=== PATIENT | female | born 1940 | race Caucasian/White ===

== ENCOUNTER 2022-07-24 09:18 | Outpatient (CLI) | payer MEDICARE, BC, SELFPAY ==
--- OUTSIDE RECORDS SUMMARY | 2022-07-24 09:26 | XMS_ITS | Clinical Summary ---
:1940 [facility] Organization [facility] Address [address] [place] [id number] Care Team Providers Name Role Phone Elsewhere, Pcp Primary Care Provider Unavailable Source Comments Patient records contain information [facility] sites at [facility]. For routine questions regarding patient records, call [phone] during business hours, M-F 8:00 AM - 5:00 PM Central Time. Record requests for emergency care only can be directed to [phone] at any time.[facility] Allergies Active Allergy Reactions Severity Noted Date Comments Penicillins Rash Medium 08/13/1989 Medications Medication Sig Dispensed Refills Start Date End Date Status ascorbic acid, vitamin Take 500 mg by 0 Active C, (VITAMIN C) 500 mg mouth. tablet calcium Take 2 tablets by 0 10/07/2018 A ctive citrate-vitamin D3 315 mouth. mg-6.25 mcg (250 Unit) per tablet latanoprost (XALATAN) Administer 1 drop 0 04/21/2021 Active 0.005 % ophthalmic into both eyes at solution bedtime. levothyroxine Take 88 mcg by 0 05/24/2021 Active (SYNTHROID, mouth daily. LEVOTHROID) 88 mcg tablet timolol (TIMOPTIC) 0.5 Administer 1 drop 10 mL 11 2 Active % ophthalmic solution into both eyes 2 (two) times a day. latanoprost (XALATAN) Administer 1 drop 2.5 mL 6 07/18/2022 Active 0.005 % ophthalmic into both eyes at solution bedtime. Active Problems Problem Noted Date Depression Major Recurrent 12/14/2011 Overview: Major Depression Recurrent Episode NOS ( 296.30) onset unknown Encounters Date Type Specialty Care Team Description 07/18/2022 Refill Ophthalmology Ramon Restrepo M.D. Ak d Refill 06/30/2022 Immunization Family Medicine Federico Cabrera M.D. from Last 3 Months Immunizations Name Administration Dates Next Due Influenza high dose QV(65 years or older) 05/23/2021, 2019, 06/18/2019 (PF) SARS-COV-2 (COVID-19) - PFIZER (12 years 08/25/2021, 021, 12/29/2020 or older) SARS-COV-2 (COVID-19) - PFIZER BIVALENT 06/30/2022 BOOSTER TS(12 YEARS OR OLDER) SARS-COV-2 (COVID-19) - PFIZER TS(12 01/24/2022 years or older) Td (Adult), adsorbed 06/10/2010 Td Preservative Free (TENIVAC, DECAVAC) 03/15/2021, 06/10/20 10 Tdap 06/10/2010 influenza high dose (65 years or older) 06/18/2019 (PF) Family History Medical History Relation Name Comments Bipolar disorder Brother Colon cancer Brother Diabetes Brother Breast cancer Father's Sister Cataracts Mother Glaucoma Mother Breast cancer Sister Cataracts Sister Macular degeneration Sister Retinal detachment Sister Amblyopia Neg Hx Blindness Neg Hx Retinal degeneration Neg Hx Relation Name Status Comments Brother Father's Sister Mother Sister Social History Tobacco Use Types Packs/Day Years Used Date Smoking Tobacco: Never Smokeless Tobacco: Never Sex Assigned at Date Recorded Not on file Last Filed Vital Signs Vital Sign Reading Time Taken Comments Blood Pressure 126/65 06/08/2016 8:36 AM CDT Pulse 63 06/08/2016 8:36 AM CDT Temperature - - Respiratory Rate 18 06/08/2016 8:36 AM CDT Oxygen Saturation - - Inhaled Oxygen Concentration - - Weight 53.2 kg (117 lb 4.6 oz) 06/08/2016 8:36 AM CDT Height 158 cm (5' 2.21) 06/08/2016 8:36 AM CDT Body Mass Index 21.31 06/08/2016 8:36 AM CDT Plan of Treatment Health Maintenance Due Date Last Done Comments Depression Monitoring (PHQ-9) 1940 Hepatitis C Screening 1940 Zoster Vaccines (1 of 2) 1992 Pneumococcal vaccine (65+ years) 2007 (1 - PCV) DTaP,Tdap,and Td Vaccines (1 - 03/16/2021 03/15/2021, 06/10, Tdap) 06/10/2010, Additional history exists Thyroid Stimulating Hormone (TSH) 08/19/2021 08/19/2020, , test for thyroid function 07/15/2018, Additional history exists FIT Discontinued 06/16/2014 Cologuard Discontinued 06/25/2015 Colorectal Cancer Screening Discontinued Colorectal Cancer Surveillance Discontinued Fall Risk Screen (Annual) Completed 09/09/2021 Influenza Vaccine Completed 06/20/2022, 05/23/2021, 06/08/2020, Additional history exists COVID-19 Vaccine Completed 06/30/2022, 01/24/2022, 08/25/2021, Additional history exists CT Colonography Discontinued CT Colonography Discontinued Colonoscopy Discontinued Colonoscopy Discontinued Insurance Payer Benefit Plan Subscriber ID Effective Phone Address Typ e / Group Dates MEDICARE MEDICARE A [id number] 2007-Pres [address] [place] [address] [employer] [employer] [id number] 2020-Pres [phone] PO ISAIAS X Cost Share BLUE SHIELD BLUE COST ent [phone] [place] [address] Care Teams Hoister Relationship Specialty Start Date End Date Elsewhere, Pcp PCP - General 09/01/19
--- OUTSIDE RECORDS SUMMARY | 2022-07-24 09:26 | XMS_ITS | Encounter Summary ---
:1940 Author Organization [facility] Address [address] [place] [id number] Care Team Providers Name Role Phone Elsewhere, Pcp Primary Care Provider Unavailable Reason for Visit Reason Comments Patient Education Encounter Details Date Type Department Care Team Description 10/07/2020 Clinical Communication Department of Dorian King Education Infusion Therapy in [place], R.N. [place], [address] [place] [phone] [facility] [phone] [place], [place] (Work) [phone] Social History Tobacco Use Types Packs/Day Years Used Date Smoking Tobacco: Never Sex Assigned at Date Recorded Not on file documented as of this encounter Miscellaneous Notes Telephone Encounter - Dorian King R.N. - 10/07/2020 11:47 AM CST SUBJECTIVE CHIEF COMPLAINT / REASON FOR CALL Patient Education Information Discussed Hi, my name is Dorian King R.N. from [facility] with a recommendation that you receive a monoclonal antibody infusion for the treatment of coronavirus disease 2019 (COVID-19). This medication could be either bamlanivimab or a casirivimab and imdevimab combination. This medication has been recommended for you after review of your medical records by a multidisciplinary physician team. While most people do feel better in seven days, some people do develop serious respiratory complications which could lead to hospitalizations or even . You may have been told that there were no treatments at thetime of diagnosis, but this is a quickly developing area and this is a new [place] recommended treatment option for you. In the next few minutes I am going to give you more information about these medications to help you understand the possible risks and benefits of taking a monoclonal antibody infusion It is your choice to receive a monoclonal antibody infusion or stop at any time. ??? Receiving a monoclonal antibody infusion may benefit certain people with COVID-19. ??? This may decrease your risk for hospitalization by 10% to 3% ??? This may decrease the duration of your symptoms by 2 days ( from 8 days to 6 days) ??? You may be feeling well now or not that bad, however, you have been identified as someone who isat risk of developing worse symptoms, and this infusion is designed to prevent that and help you to continue feeling well. What is a monoclonal antibody infusion? These are investigational medicines used for the treatment of COVID-19, it can be used in peoplewho are: o Not in the hospital o Who do not have a new or increased oxygen requirement due to COVID-19 o Who have not tested positive for COVID-19 previously o Age 12 and older o Have mild or moderate symptoms o Weigh equal or more than 88 pounds o AND who are at high risk for developing severe COVID-19 symptoms or being hospitalized. Do you have new or increased oxygen requirement due to COVID 19? No, I do need to let you know that your vital signs will be taken on the arrival for the infusion center. If you are found to be in needof oxygen due to COVID-19 then you will not be infused with MAB rather you will be referred to an urgent care or ED for evaluation of worsening disease. Have you been previously tested and diagnosed with COVID-19? No. I need to let you know that these medications are investigational because it is still being studied.The FDA has approved the use of this medication under an EUA while data is still being collected; but early studies suggest that it reduces the risk of hospitalization. The FDA's Emergency Use Authorization (EUA) has authorized people to receive monoclonal antibody infusions for the treatment of mild COVID-19 . [facility] supports this treatment for certain people. Tell your healthcare provider about all of your medical conditions, including if you: ??? Have any allergies ??? Are or plan to become ??? Are or plan to breastfeed ??? Have any serious illnesses ??? Are taking any medications (prescription, jqek-nvp-minewhs, vitamins, and herbal products) How will I receive a monoclonal antibody infusion? Monoclonal antibodies are given to you through a vein in your arm over 1-2 hours. You will be observed for 1 hour after the infusion is complete to monitor for side effects You will receive one dose of a monoclonal antibody infusion by IV infusion. What are the important possible side effects of monoclonal antibodies? The most commonly reported side effects in clinical studies have been nausea, diarrhea, dizziness, headache, itching and vomiting. Serious reactions such as allergic reactions or infusion reactions have occurred but are uncommon. Tell your health care provider right away if you have any of the following signs or symptoms of an allergic reaction: fever, chills, nausea, headache, shortness of breath, low blood pressure, wheezing, swelling of your lips face or throat, rash including hives, itching, muscle aches and dizziness. Because monoclonal antibody infusions are still being studied, not a lot of people have been given monoclonal antibody infusions yet, and it is possible that not all of the risks are known at this time. Serious and unexpected side effects may happen. Specific studies have not been conducted to address the possible risks that a monoclonal antibody infusion could interfere with your body's own ability to fight off a future infection of SARS-CoV-2 and/or whether it could reduce your body's immune response to a vaccine for SARS-CoV-2 . Talk to your healthcare provider if you have any questions including whether the risks of serious SARS-CoV-2 infection outweigh the potential risks of monoclonal antibody infusion. Patients who receive a monoclonal antibody infusion are still eligible for a COVID-19 vaccine. Patients who receive monoclonal antibody therapies are advised to delay COVID vaccination for 90 days after receiving the monoclonal therapy. Some patients have expressed concerns about disrupting their vaccine schedule by accepting the monoclonal therapy. We strongly recommend that patients offered monoclonal therapies not decline treatments due to concerns about interfering with vaccination schedules. The vaccine is not an effective treatment for an acute COVID infection but an infusion of monoclonalantibodies is and existing data shows that the risk of re- infection with COVID-19 within 90 days is low. CDC experts agree that the benefits of monoclonal therapies is greater than the risk of delaying vaccination. We wanted you to know that [facility] is encouraging you to treat the illness you have now, this will help you right away and retirement while still being eligible for the vaccine. Have you had a COVID-19 vaccine? No I am happy to share with you that in 3 months [facility] has infused over 4000 patients with a monoclonal antibody infusion across our [place] sites. I am sharing this because we have not seen any serious side effects in the patients who chose to receive the infusion. The side effects that we are seeing are similar to patients who chose not to receive the medication at all. Patients have reportedto us mild fever, diarrhea, chills for a short while, and/or hives. What other treatment choices are there? Like monoclonal antibody infusions, the FDA may allow for the emergency use of other medicines to treat people with COVID-19. Go to https://www.cvgfe28gkumeugwmrsgmzrxxdi.nih.gov/ for information on the emergency use of other medicines that are not approved by FDA to treat people with COVID- 19. Your healthcare provider may talk with you about clinical trials you may be eligible for. It is your choice to be treated or not to be treated with a monoclonal antibody infusion. Should youdecide not to receive a monoclonal antibody infusion or stop it at any time, it will not change yourstandard medical care. Are you or ? No. How do I report side effects with monoclonal antibody infusion? Tell your healthcare provider right away if you have any urgent side effects. For non-urgent side effects or side effects that bothers you or does not go away please the care team coordinating your COVID care during business hours. This may be your primary care provider, your COVID care team or your remote monitoring nurse team, which ever is applicable after emergency care, if needed, has been reached. Report side effects to FDA MedWatch at www.fda.gov/medwatch, call 4-381-TWB-2431. How can I learn more? Ask your healthcare provider ??? Visit https://www.dzmef41wnmlkhpyqblhsyqawlt.nih.gov/ ??? Contact your local or state public health department Would you like to learn more about what an Emergency Use Authorization ( EUA)?Yes; [facility] has made these monoclonal antibody infusions available under an emergency access mechanism called an EUA. The EUA is supported by a [place] of Health and Human Service (HHS) declaration that circumstances exist to justify the emergency use of drugs and biological products during the COVID-19 pandemic. What is the cost for this medication? The medication is provided to [facility] at no charge and there is not cost of the medication to you the patient. Any associated costs with the infusion will be billed to the patient's insurance company. [place] does not want cost to be a barrier to infusion so please let us know at your infusion if youneed more information or are worried about cost being a barrier. If you are uninsured or underinsured you will still be able to receive this medication free of cost. Please know that there has been a large review by pharmacists, and this medication is not likely to interfere with any normal medication patients may be taking. This is possible as your body processes this medication differently than standard prescription medications. Given how this medication helps your body it is better to receive this medication as soon as possible if you agree to the infusion. I want to let you know that there is no known evidence that one of these medications is better or worse than another in terms of effectiveness or known risk of side effects. Please also know that the medication you will receive will be by chance based on the medication supply, infusion location, and the date of your appointment. Please know that our team is offering and will provide you this treatment for COVID-19 as part of a larger team that is coordinating your overall care. If you have continued questions after your infusion or your symptoms get worse please reach out to the team coordinating your clinical care, either a COVID-19 focused team or your primary care provider's office. If you have a patient portal please look at your messages as there may be one awaiting your review from the clinical team coordinating your care. Do you agree/consent to receive this infusion? No; Would you be comfortable telling me why? not interested Thank you for your time, I will connect with the rest of the team to let them know the results of this phone call. PLAN Disposition/Recommendation: self-care is appropriate at this time, patient encouraged to call back with questions Information/Education: patient/caller able to teach back Caller agreeable to plan of care: yes The following references were used: nursing clinical judgement and patient education resources: Monoclonal Antibody Education T CREASER documented in this encounter Plan of Treatment Not on filedocumented as of this encounter Visit Diagnoses Not on filedocumented in this encounter Additional Health Concerns Infection Onset Date Last Indicated Resolved Time COVID19 Pending 10/06/2020 10/06/2020 10/07/2020 4:53 AM SHIRT CREASER COVID19 10/06/2020 10/06/2020 10/26/2020 4:47 AM CDT documented as of this encounter Care Teams Senior Hardware Engineer Relationship Specialty Start Date End Date Elsewhere, Pcp PCP - General 09/01/19 documented as of this encounter
--- OUTSIDE RECORDS SUMMARY | 2022-07-24 09:26 | XMS_ITS | Encounter Summary ---
:1940 Author Organization [facility] Address [address] [place] [address] Care Team Providers Name Role Phone Elsewhere, Pcp Primary Care Provider Unavailable Reason for Visit Appointment Request (Routine) - Closed Specialty Diagnoses / Procedures Referred By Contact Refer red To Contact Family Medicine Referral ID Status Reason Start Date Expiration Date Visits Requ ested Visits Authorized [id number] Closed 08/08/2021 08/08/2022 1 1 Encounter Details Date Type Department Care Team Description 08/25/2021 [facility], [facility], [address] [place] [place] [place] [address] [address] [place] [address] [phone] Social History Tobacco Use Types Packs/Day Years Used Date Smoking Tobacco: Never Smokeless Tobacco: Never Sex Assigned at Date Recorded Not on file documented as of this encounter Plan of Treatment Not on filedocumented as of this encounter Visit Diagnoses Not on filedocumented in this encounter Care Teams Pan Shaker Relationship Specialty Start Date End Date Elsewhere, Pcp PCP - General 09/01/19 documented as of this encounter
--- OUTSIDE RECORDS SUMMARY | 2022-07-24 09:26 | XMS_ITS | Encounter Summary ---
:1940 Author Organization [facility] Address [address] [place] [address] Care Team Providers Name Role Phone Elsewhere, Pcp Primary Care Provider Unavailable Reason for Visit Reason Comments COVKATHI Nurse Lety Encounter Details Date Type Department Care Team Description 10/06/2020 Clinical Communication Division of TITI Nunez Nurse Lety [facility] Internal Gali Owusu R.N. [address] in [place], [place] [address] [place] [address] [place], [place] (Work) [phone] Social History Tobacco Use Types Packs/Day Years Used Date Smoking Tobacco: Never Sex Assigned at Date Recorded Not on file documented as of this encounter Miscellaneous Notes Telephone Encounter - Gali Nunez R.N. 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 (Continue Screening)(Exposure 10/03) In the last 48 hours, have you had a fever* OR symptoms that are unrelated to a preexisting illness?: No symptoms noted (Continue Screening)(Patient has had syptoms of cold for one week) Have you tested positive for COVID-19 in the last 90 days?: No (Continue Screening) Have you been advised to undergo testing or are you requesting testing?: Yes, COVID-19 testing recommended (End Screening) Do you have any of the following urgent symptoms?: No urgent symptoms noted (Continue Screening) Have you tested positive for COVID-19 in the last 45 days?: No (Continue Screening) Are ALL the following criteria met: age between 18 to 75 yrs, main symptom is a sore throat with duration of 24 hrs to 7 days, onset of sore throat not associated with new upper respiratory symptoms*? : No, COVID testing is recommended (End Screening) Symptom Onset Date of symptom onset: 09/29/20 Testing Recommendation Endpoint Is testing recommended? : Recommended to test PLAN Endpoint recommendation: Screening negative, COVID- 19 testing indicated per request for self, sent to [facility] located at [address] [place] [address]. You must schedule an appointment for testing at this location. Please call [phone] during the hours of 7am to 7:30 pm (M-F) or 8am to 4:30pm (Satand Sun) for an appointment time. Testing hours are 9 am to 5 pm (M-F) and 9 am to 1 pm (Sat and Sun). When you arrive at the testing site: Remain in your vehicle and check-in by calling the number listed on the signage at the testing site or provided to you at the time you schedule your testing appointment. and Please avoid using public transportation per CDC recommendation. If you do not have personal transportation please self-quarantine until a personal transportation option is available. Care Points: -Wash hands frequently with soap and water for at least 20 seconds -If soap and water are not available, use a hand servicing rep -Avoid touching your eyes, nose and mouth. -Clean and disinfect high-touch surfaces routinely. -Wear a mask over your nose and mouth. A cloth face cover is not a substitute for social distancing -Continue to keep about 6 feet between yourself and others. -Avoid public areas and public transportation. -Find new ways to connect with family and friends, get support and share feelings. -Seek emergent care if any of the following occur Trouble breathing Bluish lips or face Persistent pain or pressure in the chest New confusion or inability to rouse. -Notify your regular care provider of any new or worsening symptoms. Symptomatic Carepoints: Separate yourself from others and stay in a specific sick room if able. Avoid sharing personal or household items. Rest. Hydrate. Take Acetaminophen/Ibuprofen as needed to control fever and muscles aches. Use over the counter medications as needed for other symptoms. ExposureCarepoints: Continue to quarantine for 14 days from your last known exposure to someone with a laboratory confirmed case of COVID-19 regardless of a negative test result unless otherwise directed. If you have completed your COVID-19 vaccination series greater than 2 weeks ago and within the past 90 days, you do not need to quarantine as long as you remain asymptomatic. Regardless of vaccination status, If you remain asymptomatic and wish to be tested it is recommended that you wait 5-7 days after the exposure before testing unless otherwise directed. Testing is recommended if you become symptomaticat any point. Education: Patient/caregiver able to teach back Patient agreeable to plan of care: Yes The following references were used: [facility] novel coronavirus (COVID- 19) resources Nursing judgement ER REPAIR TECHNICIAN documented in this encounter Plan of Treatment Not on filedocumented as of this encounter Visit Diagnoses Not on filedocumented in this encounter Care Teams Flame Burner Relationship Specialty Start Date End Date Elsewhere, Pcp PCP - General 09/01/19 documented as of this encounter
--- OUTSIDE RECORDS SUMMARY | 2022-07-24 09:26 | XMS_ITS | Encounter Summary ---
:1940 Author Organization [facility] Address [address] [place] [address] Care Team Providers Name Role Phone Elsewhere, Pcp Primary Care Provider Unavailable Reason for Referral Outpatient (Routine) - Authorized Specialty Diagnoses / Procedures Referred By Contact Refer red To Contact Ophthalmology Ramon Restrepo M.D. [facility] [address] [phone] Referral ID Status Reason Start Date Expiration Date Visits V isits Requested Authorized [id number] Authorized 04/05/2022 04/04/2025 1 1 Outpatient (Routine) - Authorized Specialty Diagnoses / Procedures Referred By Contact Refer carmelo To Contact Ophthalmology Ramon Restrepo M.D. [facility] Region [address] [place] [address] [phone] Referral ID Status Reason Start Date Expiration Date Visits V isits Requested Authorized [id number] Authorized 04/04/2022 04/03/2025 1 1 Reason for Visit Reason Comments Glaucoma Encounter Details Date Type Department Care Team Description 04/04/2022 Ancillary Department of Kaye, Primary Open-A ngle Procedure Ophthalmology in Carmelo Coats M.D. Glaucoma [place], [place] [address] [facility] Stage Bilateral [address] [place] [address] [phone] Social History Tobacco Use Types Packs/Day Years Used Date Smoking Tobacco: Never Smokeless Tobacco: Never Sex Assigned at Date Recorded Not on file documented as of this encounter Progress Notes Ramon Restrepo M.D. - 04/04/2022 2:15 PM CDT Lynnette Thompson was seen today for Glaucoma #1 Primary Open-Angle Glaucoma Severe Stage Bilateral The patient is here to follow-up on her advanced open-angle glaucoma. She has noticed little change in her vision although or complaint is becoming more difficult because of dexterity. She takes her drops as prescribed. She is status post selective laser trabeculoplasty in July 2021. Goal IOP is mid teens. Examination: Visual granados by confrontation are intact, motility full, pupils no afferent defect, external normal. Slit-lamp examination: Lid margins clean, conjunctiva and sclera are quiet, corneas clear, chambers quiet, IOLs in good position. IOP noted at 20 OD and 16 OS. Visual field testing today shows a marked improvement from her most recent visual field. That visualfield had questionable reliability. Impression: Moderate to advanced open-angle glaucoma with borderline IOP control OD and good IOP control OS Plan: 1. Continue with current medications 2. Recheck in 6 months with repeat visual field testing. documented in this encounter Plan of Treatment Scheduled Referrals Name Type Priority Associated Order Schedule Diagnoses Ophthalmology office Outpatient Referral Routine Expected: visit (clinic) 10/05/2022 (Approximate), Expires: 07/05/2023 Ophthalmology office Outpatient Referral Routine Expected: visit (clinic) 10/06/2022 (Approximate), Expires: 07/06/2023 documented as of this encounter Procedures Procedure Name Priority Date/Time Associated Diagnosis Comme nts AUTOMATED VF - Routine 04/04/2022 3:24 PM Primary Open-Angle R esults for this EXTENDED - OU - CDT Glaucoma Severe procedure are in BOTH EYES Stage Bilateral the results section. documented in this encounter Results Automated VF - Extended - OU - Both Eyes (04/04/2022 3:24 PM CDT) Specimen (Source) Anatomical Location Collection Method / Collectio n Time Received Time / Laterality Volume Narrative OPHTHALMOLOGY IMAGING EXAM - 04/04/20 22 3:24 PM CDT Right Eye Reliability was good. Threshold was 24-2 . Progression has improved. Left Eye Reliability was good. Threshold was 24-2 . Progression has improved. Ramon Restrepo M.D. OPHTH VISUAL FIELD Performing Organization Address City/State/ZIP Code Phon e Number OPHTHALMOLOGY IMAGING EXAM documented in this encounter Visit Diagnoses Diagnosis Primary Open-Angle Glaucoma Severe Stage Bilateral documented in this encounter Care Teams Crop Farm Helper Relationship Specialty Start Date End Date Elsewhere, Pcp PCP - General 09/01/19 documented as of this encounter
--- OUTSIDE RECORDS SUMMARY | 2022-07-24 09:26 | XMS_ITS | Encounter Summary ---
:1940 Author Organization [facility] Address [address] [place] [address] Care Team Providers Name Role Phone Elsewhere, Pcp Primary Care Provider Unavailable Reason for Referral Outpatient (Routine) - Closed Specialty Diagnoses / Procedures Referred By Contact Refer red To Contact Diagnoses Primary Open-Angle Glaucoma Severe Stage Bilateral Ramon Restrepo M.D. [facility] Region Procedures Laser Trabeculoplasty - OU - Both Eyes [address] [place] [address] Referral ID Status Reason Start Date Expiration Date Visits Requ ested Visits Authorized [id number] Closed 06/07/2021 06/07/2022 1 1 Reason for Visit Reason Comments Glaucoma Appointment Request (Routine) - Closed Specialty Diagnoses / Procedures Referred By Contact Refer red To Contact Ophthalmology Referral ID Status Reason Start Date Expiration Date Visits Requ ested Visits Authorized [id number] Closed 04/13/2021 04/13/2022 1 1 Encounter Details Date Type Department Care Team Description 06/07/2021 Ancillary Department of Kaye Primary Open-A ngle Procedure Ophthalmology in Carmelo Coats M.D. Glaucoma Severe [place], [place] [address] Stage Bilateral [address] (Primary Dx) [place] [phone] Social History Tobacco Use Types Packs/Day Years Used Date Smoking Tobacco: Never Smokeless Tobacco: Never Sex Assigned at Date Recorded Not on file documented as of this encounter Progress Notes Ramon Restrepo M.D. - 06/07/2021 2:15 PM CDT Lynnette Thompson was seen today for Glaucoma #1 Primary Open-Angle Glaucoma Severe Stage Bilateral The patient is referred by Dr. Elizabeth for evaluation regarding open-angle glaucoma. The patient has alongstanding history of open-angle glaucoma. She has not noticed any change in her subjective vision. She is currently taking timolol 1 drop OU b.i.d. and latanoprost [address] Elizabeth had recorded intra- ocular pressures in the upper 20s. 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 In addition she reads and drys comfortably. Examination: Visual granados by confrontation are full OD but somewhat restricted OS, motility full, pupils show no afferent defect. Slit-lamp exam: Lid margins clean, conjunctiva is clear quiet, corneas clear, chambers deep and quiet with open angles, lens implants well positioned. Fundus: There is pallor and cupping noted OU. The macula, arcades and periphery appear normal. Optic nerve optical coherence tomography testing shows significant superior and inferior nerve fiberlayer thinning OU. Recent visual field testing in Dr. Elizabeth office shows dense inferior arcuate and nasal step scotoma OD with questionable reliability. Severe generalized visual field loss in the lefteye with questionable reliability. IOP today measures 19 OD and 15 OS and is confirmed by Dr. Restrepo. Impression: Severe open-angle glaucoma. Better IOP control on timolol 1 drop OU b.i.d. and latanoprost 1 drop OU q.h.s.. Goal IOP would be 15 or less in each eye. Plan: 1. Continue current glaucoma medications 2. Return to clinic for selective laser trabeculoplasty OU. I will contact Dr. Elizbaeth once we have completed the course of therapy and have achieve better IOP control. documented in this encounter Plan of Treatment Not on filedocumented as of this encounter Procedures Procedure Name Priority Date/Time Associated Comments Diagnosis OPTICAL COHERENCE Routine 06/08/2021 10:11 AM Primary Open-Ang le Results for this TOMOGRAPHY (OCT) - CDT Glaucoma Severe proced ure are in OPTIC NERVE - OU - Stage Bilateral the re sults BOTH EYES section. documented in this encounter Results Laser Trabeculoplasty - OU - Both Eyes (08/08/2021 1:26 PM FREIGHT ENGINEER) Specimen (Source) Anatomical Location Collection Method / Collectio n Time Received Time / Laterality Volume Narrative OPHTHALMOLGY NON-IMAGING ORDERS - 1:26 PM FREIGHT ENGINEER Time Out Confirmed correct patient, procedure, si te, and patient consented. Procedure Procedure was SLT. Right Eye Anesthesia medications included Pilocarp ine 1%. Left Eye Anesthesia medications included Pilocarp ine 1%. Laser Information Right Eye The type of laser was yag. Laser power w as 1 milliwatts. Total spots was 95. Left Eye The type of laser was yag. Laser power w as 1 milliwatts. Total spots was 95. Post-op The patient tolerated the procedure well . There were no complications. The patient received written and verbal post procedure care education. Notes FML both eyes tid x [address] Elizabeth intraocular pressure check in 2-3 weeks. Ramon Restrepo M.D. OPHTH CLINIC PROCEDURES Performing Organization Address City/Va Hospital/ZIP Code Phon e Number OPHTHALMOL NON-IMAGING ORDERS Optical Coherence Tomography (OCT) - Optic Nerve - OU - Both Eyes (06/08/2021 10:11 AM CDT) Specimen (Source) Anatomical Location Collection Method / Collectio n Time Received Time / Laterality Volume Narrative OPHTHALMOLOGY IMAGING EXAM - 06/08/20 21 10:11 AM CDT OCT device used was Cirrus . Right Eye Reliability was good. Temporal thickness was normal. Superior thickness was showing abnormal thinning. Nasal thi ckness was normal. Inferior thickness was showing abnormal thinning. Left Eye Reliability was good. Temporal thickness was normal. Superior thickness was showing abnormal thinning. Nasal thi ckness was normal. Inferior thickness was showing abnormal thinning. Ramon Restrepo M.D. OPHTH TOMOGRAPHY Performing Organization Address City/State/ZIP Code Phon e Number OPHTHALMOLOGY IMAGING EXAM documented in this encounter Visit Diagnoses Diagnosis Primary Open-Angle Glaucoma Severe Stage Bilateral - Primary Primary Open-Angle Glaucoma Severe Stage Bilateral documented in this encounter Care Teams Rubber Stamp Maker Relationship Specialty Start Date End Date Elsewhere, Pcp PCP - General 09/01/19 documented as of this encounter
--- OUTSIDE RECORDS SUMMARY | 2022-07-24 09:26 | XMS_ITS | Encounter Summary ---
:1940 Author Organization [facility] Address [address] [place] [address] Care Team Providers Name Role Phone Gunner Soas APRN, C.N.P. Primary Care Provider [phone] Encounter Details Date Type Department Care Team Description 11/01/2017 Hospital Encounter Department of Mirella Conteh, Constipation Radiology in [address] [address] [place], [place] [phone] (W ork) [id number] [phone] Social History Tobacco Use Types Packs/Day Years Used Date Smoking Tobacco: Never Sex Assigned at Date Recorded Not on file documented as of this encounter Plan of Treatment Not on filedocumented as of this encounter Procedures Procedure Name Priority Date/Time Associated Comments Diagnosis CT ABDOMEN PELVIS RAD - Routine 11/01/2017 8:46 Constipation Result s for this WITH IV CONTRAST (most inpatients AM CDT procedu re are in and all the results outpatients) section. documented in this encounter Results CT Abdomen Pelvis with IV Contrast (11/01/2017 8:46 AM CDT) Anatomical Region Laterality Modality Abdomen, Pelvis N/A Computed Tomography Specimen (Source) Anatomical Collection Method Collection Time Re ceived Time Location / / Volume Laterality 11/01/2017 9:07 AM CDT Impressions 11/01/2017 9:18 AM CDT IMPRESSION: 1. ??Moderate colonic stool load. No fausto dence for bowel obstruction. 2. ??T12, L1, L2, L3 and L5 compression fractures. 3. ??Bulky indeterminate calcifications of the left adnexa with prominence of the left periuterine vasculature. 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 Findings could be fur ther assessed with pelvic ultrasound if clinically indicated. Narrative 11/01/2017 9:18 AM CDT EXAM: CT ABDOMEN PELVIS WITH IV CONTRAST COMPARISON: None FINDINGS: No lung base consolidation. Minimal reti cular opacities at the lung bases, favor atelectasis, less likely fibrosis. Liver is unremarkable. Gallbladder is not distended. Unremarkable pancreas and spl een. No suspicious adrenal gland lesions. The kidneys enhance symmetrical ly. No hydronephrosis. No pneumoperitoneum. Motion artifact deg rades motion quality. No evidence of small bowel obstruction. No findings of diverticulitis. Moderate colonic stool load. No evidence for appendicitis. Tort uous aorta. No abdominal aortic aneurysm. No lymphadenopathy by size cri teria. Urinary bladder is unremarkable. Pelvic phleboliths. Uterine vascular thalia cifications. Bulky calcifications in the left adnexa with asymmetrically prominen t left periuterine vasculature and mild prominence of the left ovarian vein. Bon e demineralization. T12, L1, L2, L3 and L5 compression fractures. The mild retro pulsion at L5. Procedure Note Alejandro Delgado M.D. - 11/01/2017Formatt ing of this note might be different from the original. EXAM: CT ABDOMEN PELVIS WITH IV CONTRAST COMPARISON: None FINDINGS: No lung base consolidation. Minimal reti cular opacities at the lung bases, favor atelectasis, less likely fibrosis. Liver is unremarkable. Gallbladder is not distended. Unremarkable pancreas and spl een. No suspicious adrenal gland lesions. The kidneys enhance symmetrical ly. No hydronephrosis. No pneumoperitoneum. Motion artifact deg rades motion quality. No evidence of small bowel obstruction. No findings of diverticulitis. Moderate colonic stool load. No evidence for appendicitis. Tort uous aorta. No abdominal aortic aneurysm. No lymphadenopathy by size cri teria. Urinary bladder is unremarkable. Pelvic phleboliths. Uterine vascular thalia cifications. Bulky calcifications in the left adnexa with asymmetrically prominen t left periuterine vasculature and mild prominence of the left ovarian vein. Bon e demineralization. T12, L1, L2, L3 and L5 compression fractures. The mild retro pulsion at L5. IMPRESSION: 1. Moderate colonic stool load. No evide nce for bowel obstruction. 2. T12, L1, L2, L3 and L5 compression fr actures. 3. Bulky indeterminate calcifications of the left adnexa with prominence of the left periuterine vasculature. 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 Findings could be fur ther assessed with pelvic ultrasound if clinically indicated. Mirella VillaNZayda IMNaun CT PROCEDURES documented in this encounter Visit Diagnoses Diagnosis Constipation documented in this encounter Administered Medications Inactive Administered Medications - up to 3 most recent administrations Medication Order MAR Action Action Date Dose Rate Site iohexol 300 mg iodine/mL solution Given 11/01/2017 8:21 AM CDT 8 0 mL 80 mL (for_OMNIPAQUE) 80 mL, intravenous, Once in imaging, contrast, Starting on Janeth 11/01/17 at 0812, For 1 dose NaCl 0.9 % bolus 70 mL New Bag 11/01/2017 8:15 AM CDT 70 mL 70 mL, intravenous, Once, On Janeth 11/01/17 at 0815, For 1 dose sodium chloride injection 10 mL Given 11/01/2017 8:43 AM CDT 10 mL 10 mL, intravenous, As needed, line care, Starting on Janeth 11/01/17 at 0812 sodium chloride injection 10 mL Given 11/01/2017 8:43 AM CDT 10 mL 10 mL, intravenous, As needed, line care, Starting on Janeth 11/01/17 at 0813 documented in this encounter Care Teams Machine Applicator Cementer Relationship Specialty Start Date End Date Gunner Sosa APRN, C.N.P. PCP - General 01/25/17 12/07/17 documented as of this encounter
--- OUTSIDE RECORDS SUMMARY | 2022-07-24 09:26 | XMS_ITS | Encounter Summary ---
:1940 Author Organization [facility] Address [address] [place] [address] Care Team Providers Name Role Phone Elsewhere, Pcp Primary Care Provider Unavailable Reason for Visit Reason Comments Med Refill Encounter Details Date Type Department Care Team Description 01/04/2022 Refill Department of Ophthalmology in Ramon Carcamo M.D. Med Refill [place], [place] 701 [facility] [address] [place] [address] [place] [address] [phone] Social History Tobacco Use Types Packs/Day Years Used Date Smoking Tobacco: Never Smokeless Tobacco: Never Sex Assigned at Date Recorded Not on file documented as of this encounter Plan of Treatment Not on filedocumented as of this encounter Visit Diagnoses Not on filedocumented in this encounter Care Teams Cvicu Nurse Relationship Specialty Start Date End Date Elsewhere, Pcp PCP - General 09/01/19 documented as of this encounter
--- OUTSIDE RECORDS SUMMARY | 2022-07-24 09:26 | XMS_ITS | Encounter Summary ---
:1940 Author Organization [facility] Address [address] [place] [address] Care Team Providers Name Role Phone Elsewhere, Pcp Primary Care Provider Unavailable Reason for Visit Appointment Request (Routine) - Closed Specialty Diagnoses / Procedures Referred By Contact Refer red To Contact Family Medicine Referral ID Status Reason Start Date Expiration Date Visits Requ ested Visits Authorized [id number] Closed 01/19/2022 01/19/2023 1 1 Encounter Details Date Type Department Care Team Description 01/24/2022 Immunization Department of [facility] Mirella Conteh, Medicine, [place] C.N.P. [facility], in [address] [address] [address] [facility] [address] [facility] [phone] Social History Tobacco Use Types Packs/Day Years Used Date Smoking Tobacco: Never Smokeless Tobacco: Never Sex Assigned at Date Recorded Not on file documented as of this encounter Plan of Treatment Not on filedocumented as of this encounter Visit Diagnoses Not on filedocumented in this encounter Care Teams Color Shop Helper Relationship Specialty Start Date End Date Elsewhere, Pcp PCP - General 09/01/19 documented as of this encounter
--- OUTSIDE RECORDS SUMMARY | 2022-07-24 09:26 | XMS_ITS | Encounter Summary ---
:1940 Author Organization [facility] Address [address] [place] [address] Care Team Providers Name Role Phone Elsewhere, Pcp Primary Care Provider Unavailable Encounter Details Date Type Department Care Team Description 01/04/2022 Clinical Communication Department of Ramon Restrepo Ophthalmology in Carmelo Coats M.D. [place], [place] [address] [facility] [address] [place] [phone] Social History Tobacco Use Types Packs/Day Years Used Date Smoking Tobacco: Never Smokeless Tobacco: Never Sex Assigned at Date Recorded Not on file documented as of this encounter Miscellaneous Notes Telephone Encounter - Felipa Taylor - 01/10/2022 10:59 AM CDT Scheduled Telephone Encounter - Tyree Richard, C.O.ACarlos - 01/04/2022 2:16 PM CDT Next available test spot will be okay if patient wants them done on the same day, as we have limitedappointment availability with current schedules. If patient is okay with the Visual Fieldto a tech only and seeing Dr. Restrepo a different day, it may be easier to have her seen sooner. If she does decide to do two different appointments, please have the Visual certified endoscopy technician only done on an earlier date than the Glaucoma/Iop check. Thank you. Telephone Encounter - Jennyfer Herrera - 01/04/2022 2:04 PM CDT Reason for Communication: Current Can Nursing/Provider leave a detailed message?: Yes Did the patient refuse triage through Nurse line? (for symptom based concerns): NA Action Needed: Patient called to schedule visual field/post op put in by Dr. Restrepo. There is not availability around when he wanted. Please review and advise where to add on Name of Medication (if relevant): NA Please send all scheduling replies to scheduling pool. documented in this encounter Plan of Treatment Not on filedocumented as of this encounter Visit Diagnoses Not on filedocumented in this encounter Care Teams Beach Expert Relationship Specialty Start Date End Date Elsewhere, Pcp PCP - General 09/01/19 documented as of this encounter
--- OUTSIDE RECORDS SUMMARY | 2022-07-24 09:26 | XMS_ITS | Encounter Summary ---
:1940 Author Organization [facility] Address [address] [place] [address] Care Team Providers Name Role Phone Elsewhere, Pcp Primary Care Provider Unavailable Reason for Visit Appointment Request (Routine) - Closed Specialty Diagnoses / Procedures Referred By Contact Refer red To Contact Family Medicine Referral ID Status Reason Start Date Expiration Date Visits Requ ested Visits Authorized [id number] Closed 06/20/2022 06/20/2023 1 1 Encounter Details Date Type Department Care Team Description 06/30/2022 Immunization Department of [facility] Federico Cabrera, Medicine, [place] M.D. Professional Building, in [address] [place], [place] [address] [facility] [place] [address] [place] [address] [phone] Social History Tobacco Use Types Packs/Day Years Used Date Smoking Tobacco: Never Smokeless Tobacco: Never Sex Assigned at Date Recorded Not on file documented as of this encounter Plan of Treatment Not on filedocumented as of this encounter Visit Diagnoses Not on filedocumented in this encounter Care Teams Dental Surgeon Relationship Specialty Start Date End Date Elsewhere, Pcp PCP - General 09/01/19 documented as of this encounter
--- OUTSIDE RECORDS SUMMARY | 2022-07-24 09:26 | XMS_ITS | Encounter Summary ---
:1940 Author Organization [facility] Address [address] [place] [address] Care Team Providers Name Role Phone Maribel Vega APRN, C.N.P., D.N.P. Primary Care Provider Encounter Details Date Type Department Care Team Description 07/22/2018 Hospital Encounter Department of Mirella Coneth, Osteopenia Radiology in [address] [address] [place], [place] [phone] (W ork) [address] [phone] Social History Tobacco Use Types Packs/Day Years Used Date Smoking Tobacco: Never Sex Assigned at Date Recorded Not on file documented as of this encounter Plan of Treatment Not on filedocumented as of this encounter Procedures Procedure Name Priority Date/Time Associated Comments Diagnosis BMD BONE DENSITY RAD - Routine 07/22/2018 9:17 Osteopenia Results for this SPINE HIPS (most inpatients AM RUBBER CUTTING MACHINE TENDER procedure a re in and all the results outpatients) section. documented in this encounter Results BMD Bone Density Spine Hips (07/22/2018 9:17 AM RUBBER CUTTING MACHINE TENDER) Anatomical Region Laterality Modality Hip, Lumbar Spine, Nuclear Medicine RST LOS, N/A Radiographic Imaging Musculoskeletal ARZ LOS, Muskuloskeletal FLA LOS Specimen (Source) Anatomical Collection Method Collection Time Re ceived Time Location / / Volume Laterality 07/22/2018 9:33 AM RUBBER CUTTING MACHINE TENDER Impressions 07/22/2018 9:34 AM RUBBER CUTTING MACHINE TENDER Impression: Osteoporosis. Narrative 07/22/2018 9:34 AM RUBBER CUTTING MACHINE TENDER EXAM: BMD BONE DENSITY SPINE HIPS COMPARISON: July 19, 2015. Paver Operator/Model: [employer] FINDINGS: ?? LUMBAR SPINE L1-L4 included unless otherwise indicate d. Lumbar BMD: 0.783 gm/cm2 T-score: -3.3 BMD % change: -5.2% Significance: Statistically significant BMD decrease from the comparison exam. HIP(S) Lowest femoral BMD: 0.687 gm/cm 2 Lowest T-score: -2.5 BMD % change: 0.7% Significance: BMD not significantly montaño ged from the comparison exam. FRAX 10 year probability of major osteop orotic fracture 22.3 % FRAX 10 year probability of hip fracture ??13.5 % FRAX scores: Not clinically validated fo r patients with history of therapy with bisphosphonates in the past two years, c alcitonin in the last year, PTH in the last year, Denosumab in the last year. ? ?Calcium and vitamin D do NOT constitute treatment' in this context. ??All treat ment decisions require clinical judgement and consideration of individual patient factors which may not be captured in the FRAX model and the risk of fracture may be over- or under-estimated by FRAX. Treatment recommended for: Patients with hip or vertebral fracture (clinical or morphometric). Patients with osteoporosis at the spine and/or hip as defined by T-score <= -2.5. Postmenopausal women or men age 50 and o lder with low bone mass (T-score -1 to -2.5, osteopenia) at the femoral neck, t otal hip, or spine and 10 year hip fracture probability >3% or a 10 year al l major osteoporosis related fracture probability of >20% based on the U.[place]. ad apted WHO absolute risk model. Exclude secondary causes of low bone den sity in the appropriate clinical setting. Follow-up exams should be performed at n o sooner than two-year intervals. Direct comparison can only be performed on exams performed at the same facility. World Health Organization T-score criter ia: 0 to -1.0 ?? Normal range < -1.0 to > -2.5 ?? Low bone density (os teopenia) -2.5 or less ?? Osteoporosis Procedure Note Michael Kay M.D. - 07/22/2018Formattin g of this note might be different from the original. EXAM: BMD BONE DENSITY SPINE HIPS COMPARISON: July 19, 2015. Paver Operator/Model: [employer] FINDINGS: LUMBAR SPINE L1-L4 included unless otherwise indicate d. Lumbar BMD: 0.783 gm/cm2 T-score: -3.3 BMD % change: -5.2% Significance: Statistically significant BMD decrease from the comparison exam. HIP(S) Lowest femoral BMD: 0.687 gm/cm 2 Lowest T-score: -2.5 BMD % change: 0.7% Significance: BMD not significantly montaño ged from the comparison exam. FRAX 10 year probability of major osteop orotic fracture 22.3 % FRAX 10 year probability of hip fracture 13.5 % FRAX scores: Not clinically validated fo r patients with history of therapy with bisphosphonates in the past two years, c alcitonin in the last year, PTH in the last year, Denosumab in the last year. C alcium and vitamin D do NOT constitute treatment' in this context. All treatme nt decisions require clinical judgement and consideration of individual patient factors which may not be captured in the FRAX model and the risk of fracture may be over- or under-estimated by FRAX. Treatment recommended for: Patients with hip or vertebral fracture (clinical or morphometric). Patients with osteoporosis at the spine and/or hip as defined by T-score <= -2.5. Postmenopausal women or men age 50 and o lder with low bone mass (T-score -1 to -2.5, osteopenia) at the femoral neck, t otal hip, or spine and 10 year hip fracture probability >3% or a 10 year al l major osteoporosis related fracture probability of >20% based on the U.[place]. ad apted WHO absolute risk model. Exclude secondary causes of low bone den sity in the appropriate clinical setting. Follow-up exams should be performed at n o sooner than two-year intervals. Direct comparison can only be performed on exams performed at the same facility. World Health Organization T-score criter ia: 0 to -1.0 Normal range < -1.0 to > -2.5 Low bone density (osteo penia) -2.5 or less Osteoporosis Impression: Osteoporosis. Mirella COLES DXA PROCEDURES documented in this encounter Visit Diagnoses Diagnosis Osteopenia documented in this encounter Care Teams Rubber Cutting Machine Tender Relationship Specialty Start Date End Date Maribel Vega APRN, C.N.P., PCP - General Family Medicine 08/31/19 D.N.[facility]arlos [address] [place] [address] documented as of this encounter
--- OUTSIDE RECORDS SUMMARY | 2022-07-24 09:26 | XMS_ITS | Encounter Summary ---
:1940 Author Organization [facility] Address [address] [place] [address] Care Team Providers Name Role Phone Elsewhere, Pcp Primary Care Provider Unavailable Reason for Visit Reason Comments Results Encounter Details Date Type Department Care Team Description 10/07/2020 Virtual Visit Division of General Francy Rice, COV ID-19 Infection Internal Medicine in [facility] (Primary Dx) [place], [place] [address] [facility] [address] [place] [phone] Social History Tobacco Use Types Packs/Day Years Used Date Smoking Tobacco: Never Sex Assigned at Date Recorded Not on file documented as of this encounter Progress Notes Francy Rice M.D. - 10/07/2020 10:30 AM CST Images from the original note were not included. TELEPHONE COMMUNICATION NOTE This was a telephone notification to Ms. Thompson to notify them that their PCR test for SARS-CoV-2 (the virus that causes COVID-19) has returned positive. The patient was interviewed, but not personally examined. Soap Grinder: no Currently Ms. Thompson has the following symptoms:congestion/rhinorrhea;sore throat Date of symptom onset: 09/30/20 Since onset, symptoms are about the same. Ms. Thompson has the following risk factors for severe infection: Age > 65 Ms. Thompson has been in the following facilities in the last 14 days: None Facility(s) name: Association with [facility]: None Employment/School: Retired--Works at a local [employer] Last date at work/school: 09/24/20 Additional household members: 1; Some are sick with known COVID PROBLEM LIST Patient Active Problem List Diagnosis ??? Depression Major Recurrent (HCC) RESULTS Microbiology Results (last 10 days) Procedure Component Value - Date/Time SARS Coronavirus-2 RNA, V Symptomatic [[id number]] (Abnormal) Collected: 10/06/20 1406 Lab Status: Final result Specimen: Varies from Nasopharynx Updated: 10/07/20 4825 SARS-CoV-2 Specimen Source Swab, Nasopharynx SARS CoV-2 RNA, TMA Detected Comment: SARS-CoV-2 RNA present. ----ADDITIONAL INFORMATION---- This molecular amplification test was performed using the Aptima SARS-CoV-2 assay ([employer] on the Come[employer] System under emergency use authorization (EUA) by the U.S. Food and Drug Administration. Fact sheets for this EUA assay can be found at the following links: For Healthcare Providers: https://www.fda.gov/media/048184/download For Patients: https://www.fda.gov/media/927448/download ASSESSMENT/PLAN #1 COVID-19 disease Duration of Isolation Beginning of isolation (day 0) Is: September 30, 2020 The patient should self- isolate at home for at least 10 days from day zero. The patient may end home isolation when they meet the following criteria: ??? It has been at least 10 days from symptom onset ??? They have been afebrile at least 24 hours without the use of fever reducing medications ??? Their symptoms are improving Symptom Assessment Ms. Thompson currently has mild symptoms and may continue home cares with rest, fluids, acetaminophen, and non-steroidal antiinflammatory medications as needed. Risk Assessment & Follow Up Recommendations Ms. Thomposn is at low risk for severe complications of COVID-19, and should follow up as needed with their primary care provider. While severe complications of Covid-19 can develop at any time, they can manifest suddenly between days 7 to 14 from symptom onset. Severe complications of COVID-19 can include viral pneumonia, Acute Respiratory Distress Syndrome, pulmonary embolism, myocardial infarction, myocarditis, acute kidney injury and concomitant viral and bacterial infections. Features of severe disease include ? ? Respiratory frequency > 30 breaths per minute ? ? SpO2 < 94% on room air with signs of lower respiratory tract infection (for patients with chronic hypoxemia, a decrease from baseline of >3%) ? ? Ratio of arterial partial pressure of oxygen to fraction of inspired oxygen (PaO2/FiO2) <300 mm Hg ??? Lung infiltrates covering over 50% of the lungs Symptoms of severe COVID-19 warrants evaluation in the Emergency Department and may include chest pain, fast heart rate, trouble breathing, hemoptysis, pain with breathing, and severe lightheadedness that interferes with activity. These symptoms raise concerns for complications of COVID-19 such as myocardial infarction, myocarditis, pulmonary embolism, pneumonia, acute respiratory distress syndrome and severe dehydration. Symptoms of moderate COVID-19 warrant evaluation in clinic for symptom management and for assessmentfor features of severe disease. Symptoms may include moderate shortness of breath, difficult to control cough, vomiting and diarrhea, weakness and severe fatigue. Symptoms of mild COVID-19 that can be managed at home include fever, chills, cough, fatigue, myalgias, sore throat, runny nose, headache, mild shortness of breath and mild chest pain. Vaccination Guidance If they already received the first of a two shot vaccine series, they may obtain the second dose once they end home isolation. Upcoming Appointments If any clinic appointments are scheduled in the next 20 days, the patient should contact their care teams for guidance on whether these appointments should be rescheduled. COVID Infection Flag The COVID infection flag in the Christa Chart will 20 days from the date of the Sars-CoV-2 PCR. Patients with ongoing symptoms beyond 20 days should remain in isolation and follow up with their care teams regarding the need to reschedule any appointments. If a provider assesses the patient and determines that they may end home isolation prior to the 20 days, they may resolve the COVID infection flag, at which time the patient may return to [facility] for on site appointments. [email or web address].org/topic/clinical-answers/prt-58795129/sec-204 89243 Quarantine of household members/close contacts [facility] continues to recommend 14 days quarantine for close contacts. Individuals who have been told by public health officials that they are eligible for a shorter quarantine of 7-10 days may choose to follow Public Health recommendations. If a close contact has been fully vaccinated, defer to public health recommendations for quarantine. Return to Work or School We have provided a general work/school excuse letter that the patient may share with a school or employer as documentation of the positive test result and initial isolation recommendations. The patientwill follow up with their primary care provider for evaluation and return to work assessment if theycontinue to have symptoms that interfere with work or school or if they do not meet criteria to end home isolation. Francy Rice M.D. [place] COVID Care Team [facility] This was a virtual visit. The patient was not seen face to face because of COVID-19. Total time spent in counselin minutes EDGER documented in this encounter Plan of Treatment Not on filedocumented as of this encounter Visit Diagnoses Diagnosis COVID-19 Infection - Primary documented in this encounter Additional Health Concerns Infection Onset Date Last Indicated Resolved Time COVID19 Pending 10/06/2020 10/06/2020 10/07/2020 4:53 AM TILE EDGER COVID19 10/06/2020 10/06/2020 10/26/2020 4:47 AM CDT documented as of this encounter Care Teams Carpenter Wooden Tank Erecting Relationship Specialty Start Date End Date Elsewhere, Pcp PCP - General 09/01/19 documented as of this encounter
--- OUTSIDE RECORDS SUMMARY | 2022-07-24 09:26 | XMS_ITS | Encounter Summary ---
:1940 Author Organization [facility] Address [address] [place] [address] Care Team Providers Name Role Phone Elsewhere, Pcp Primary Care Provider Unavailable Reason for Referral Specialty Diagnoses / Procedures Referred By Contact Refer red To Contact Flavio Coats M.D. [facility] Region [address] [facility] [place] [place] [phone] Referral ID Status Reason Start Date Expiration Date Visits Requ ested Visits Authorized A ATTORNEY Encounter Details Date Type Department Care Team Description 10/06/2020 Orders Only [facility] Sa ailyn Casas M.D. [address] [place], [place] [phone] (Wo rk) Social History Tobacco Use Types Packs/Day Years Used Date Smoking Tobacco: Never Sex Assigned at Date Recorded Not on file documented as of this encounter Plan of Treatment Scheduled Referrals Name Type Priority Associated Order Schedule Diagnoses Covid immunization Outpatient Referral Routine Ex pected: office visit Initial 021 (Approximate), Expires: 10/06/2021 documented as of this encounter Visit Diagnoses Not on filedocumented in this encounter Care Teams Ski Production Supervisor Relationship Specialty Start Date End Date Elsewhere, Pcp PCP - General 09/01/19 documented as of this encounter
--- OUTSIDE RECORDS SUMMARY | 2022-07-24 09:26 | XMS_ITS | Encounter Summary ---
:1940 Author Organization [facility] Address [address] [place] [address] Care Team Providers Name Role Phone Elsewhere, Pcp Primary Care Provider Unavailable Reason for Visit Appointment Request (Routine) - Closed Specialty Diagnoses / Referred By Contact Referred To Contact Procedures Physical Medicine and Kellen Almeida APRN, Rehabilitation C.N.P., R.N. [address] [place] [address] Referral ID Status Reason Start Date Expiration Date Visits Requ ested Visits Authorized [id number] Closed 08/30/2020 08/30/2021 1 1 Encounter Details Date Type Department Care Team Description 09/06/2020 Comprehensive Visit Department of Kellen Almeida APRN, C.N.P., R.N. [address] [place] [address] Pain Low Back Rehabilitation Dory Wright, P.T. [address] [place] [phone] (Primary Dx) Services in [address] [phone] Social History Tobacco Use Types Packs/Day Years Used Date Smoking Tobacco: Never Sex Assigned at Date Recorded Not on file documented as of this encounter Consult Notes Dory Wright P.T. - 09/06/2020 10:30 AM CST Consults Physical Therapy Outpatient Evaluation/Treatment By co-signing this note, the provider certifies the therapy being provided to this patient is reasonable and necessary for the diagnosis or treatment of this patient. SUBJECTIVE Patient's Name: Lynnette Thompson Referring Provider: Kellen Almeida APRN, C.N.* Visit Diagnosis: 1. Pain Low Back Payor: MEDICARE / Plan: MEDICARE A AND B / Product Type: Medicare / [place] Coverage Visit Count: 1 PERTINENT MEDICAL / SURGICAL HISTORY: Patient Active Problem List Diagnosis ??? Depression Major Recurrent (HCC) Past Surgical History: Procedure Laterality Date ??? PHACOEMULSIFICATION OF CATARACT WITH INTRAOCULAR LENS IMPLANTATION N/A 12/14/2014 Phacoemulsification of cataract with intraocular lens implantation ??? PHACOEMULSIFICATION OF CATARACT WITH INTRAOCULAR LENS IMPLANTATION N/A 12/28/2014 Phacoemulsification of cataract with intraocular lens implantation Lynnette Thompson is a 79 y.o. female who presents to outpatient physical therapy for evaluation. Her symptoms consist of: 1. LBP Overall she reports her status is improving . History of Present Illness: Patient reports a history of compression fractures 2-3 years ago. Since she has noted improving pain but decreasing posture. Patient would like to establish a home exercise program to strengthen. Aggravating Factors: Lifting, bending and gardening. Relieving Factors: unknown Patient goals: establish a HEP and decrease pain. Contact monitoring: PPE used during therapy: Therapist was wearing the following PPE throughout entire session: surgicalmask and eye protection Patient was wearing a mask during therapy session: yes Additional Staff Present During Session: no OBJECTIVE PHYSICAL EXAM Pain: 2/10, pain is intermittent and located in the central low back. Patient denies any numbness ortingling. Ortho Exam Sitting and standing posture: Forward head with rounded shoulder posture, increased thoracic kyphosis. MMT: Right LE 5/5; Left LE 4/5 SLR: Negative bilaterally Tightness noted in the left hamstring. Core weakness. TREATMENT Treatment today consisted of: Initiated a home exercise program including seated rows to neutral with a green Thera-Band and standing bilateral shoulder extension to neutral with a green Thera-Band at 2 x 10 repetitions. Transverseabdominal contractions at 2 x 10 repetitions. Eccentric leg raises at 2 x 10 repetitions. Standing pectoral door stretch 2 times 30 seconds and seated hamstring stretch 2 times 30 seconds. Patient did not complete all of these reps within our session today but did demonstrate independence with each exercise. Patient provided with written handout with illustrations. Patient verbalized understanding. Patient is ready to learn with no apparent learning barriers noted. Assessment Clinical Impression: Ms. Thompson presents to physical therapy with signs and symptoms consistent with LBP. Impairments: Pain, tightness, weakness. Functional deficits: Decreased positional and activity tolerance. Lifting limitations. Rehab Potential: Ms. Thompson has good potential to achieve established physical therapy goals within the time frame outlined below, provided she actively participates in her physical therapy treatment plan and home program. Functional Goals and Timeframes: PT Outpatient Goals PT Goal #1: Patient was safe independently perform an independent home exercise program. PT Goal #1 Date: 09/13/20 PT Goal #2: Patient will demonstrate improved forward head and rounded shoulder posture without cuing. PT Goal #2 Date: 10/15/20 PT Goal #3: Patient report resolution of pain. PT Goal #3 Date: 10/15/20 PT Goal #4: Patient will demonstrate increased lower extremity strength at a 5/5. PT Goal #4 Date: 10/15/20 Plan Ms. Thompson was educated regarding evaluative findings, diagnosis, prognosis, potential risks and benefits of rehabilitation interventions. A collaborative effort was used to establish goals and plan of care. She was informed of her right to make decisions regarding her care, including refusal of examination or treatment or selection of services from another provider if desired. The treatment plan may be progressed or modified based upon her response to treatment. Treatment Plan: Start of Plan of Care: 09/06/2020 Number of Visits: 3 visits PT Duration: 6 weeks PT Frequency: 3 visits as needed to establish home program. Treatment interventions may include: Patient education, home exercise program, stretching, strengthening and core stabilization. Plan: Patient would like to work on an independent home exercise program and contact therapist if symptoms are not improving. Time Spent with Patient PT Evaluation (min): 30 min Time Calculation Total Treatment Time (min): 30 min Dory Wright P.T. Department of Rehabilitation Services in [address] [address] Dept: [phone] [employer] documented in this encounter Plan of Treatment Not on filedocumented as of this encounter Visit Diagnoses Diagnosis Pain Low Back Unspecified - Primary documented in this encounter Care Teams Director Radio News Relationship Specialty Start Date End Date Elsewhere, Pcp PCP - General 09/01/19 documented as of this encounter
--- OUTSIDE RECORDS SUMMARY | 2022-07-24 09:26 | XMS_ITS | Encounter Summary ---
:1940 Author Organization [facility] Address [address] [place] [address] Care Team Providers Name Role Phone Elsewhere, Pcp Primary Care Provider Unavailable Encounter Details Date Type Department Care Team Description 01/24/2021 Immunization Department of [facility] Federico Cabrera For COVID-19 Medicine, Carmelo Coats M.D. Vaccine Immunization Clinic, in [place], [address] [place] [address] [place] [phone] [place], [place] [phone] (Work) [phone] Social History Tobacco Use Types Packs/Day Years Used Date Smoking Tobacco: Never Sex Assigned at Date Recorded Not on file documented as of this encounter Plan of Treatment Not on filedocumented as of this encounter Visit Diagnoses Diagnosis Encounter For COVID-19 Vaccine Immunizat ion documented in this encounter Care Teams [place] Relationship Specialty Start Date End Date Elsewhere, Pcp PCP - General 09/01/19 documented as of this encounter
--- OUTSIDE RECORDS SUMMARY | 2022-07-24 09:26 | XMS_ITS | Encounter Summary ---
:1940 Author Organization [facility] Address [address] [place] [address] Care Team Providers Name Role Phone Elsewhere, Pcp Primary Care Provider Unavailable Reason for Referral Specialty Diagnoses / Procedures Referred By Contact Refer red To Contact [facility] [place] [facility] [address] [place] [address] Referral ID Status Reason Start Date Expiration Date Visits Requ ested Visits Authorized Encounter Details Date Type Department Care Team Description 12/29/2020 Immunization Department of Alexandra Taylor Enco unter For COVID-19 Medicine, [place] [facility] Vaccine Immunization Professional Building, [address] (Primary Dx) in [place], [place] [address] [place] [address] AVE [phone] [place] [phone] Social History Tobacco Use Types Packs/Day Years Used Date Smoking Tobacco: Never Sex Assigned at Date Recorded Not on file documented as of this encounter Plan of Treatment Scheduled Referrals Name Type Priority Associated Diagnoses Order S chedule Covid immunization Outpatient Referral Routine Encounter For E xpected: office visit Covid-19 Vaccine 01/19/2021, Subsequent; 21 days Immunization Expires: 12/30/2023 documented as of this encounter Visit Diagnoses Diagnosis Encounter For COVID-19 Vaccine Immunizat ion - Primary documented in this encounter Care Teams [id number] Android Developer Relationship Specialty Start Date End Date Elsewhere, Pcp PCP - General 09/01/19 documented as of this encounter
--- OUTSIDE RECORDS SUMMARY | 2022-07-24 09:26 | XMS_ITS | Encounter Summary ---
:1940 Author Organization [facility] Address [address] [place] [address] Care Team Providers Name Role Phone Elsewhere, Pcp Primary Care Provider Unavailable Encounter Details Date Type Department Care Team Description 06/07/2021 Silent Schedule Department of Ramon Restrepo, [place] [address] [facility] [address] [place] [phone] (Wo rk) Social History Tobacco Use Types [...] EYES section. documented in this encounter Results Optical Coherence Tomography (OCT) - Optic Nerve - OU - Both Eyes (06/08/2021 10:11 AM CDT) Specimen (Source) Anatomical Location Collection Method / Collectio n Time Received Time / Laterality Volume Narrative OPHTHALMOLOGY IMAGING EXAM - 06/08/20 10:11 AM CDT OCT device used was Yodleerus . Right Eye Reliability was good. Temporal [...] EXAM documented in this encounter Visit Diagnoses Not on filedocumented in this encounter Care Teams Finance Attorney Relationship Specialty Start Date End Date Elsewhere, Pcp PCP - General 09/01/19 documented as of this encounter
--- OUTSIDE RECORDS SUMMARY | 2022-07-24 09:26 | XMS_ITS | Encounter Summary ---
:1940 Author Organization [facility] Address [address] [place] [address] Care Team Providers Name Role Phone Elsewhere, Pcp Primary Care Provider Unavailable Reason for Referral Outpatient (Routine) - Closed Specialty Diagnoses / Procedures Referred By Contact Refer red To Contact Ophthalmology Ramon Restrepo [facility].D. [facility] [address] [place] [address] Referral ID Status Reason Start Date Expiration Date Visits Requ ested Visits Authorized [id number] Closed 08/08/2021 08/08/2022 1 1 IOTHERAPY AIDE Reason for Visit Reason Comments Procedure Only Outpatient (Routine) - Closed Specialty Diagnoses / Procedures Referred By Contact Refer carmelo To Contact Diagnoses Primary Open-Angle Glaucoma Severe Stage Bilateral Ramon Restrepo M.D. [facility] Region Procedures Laser Trabeculoplasty - OU - Both Eyes [address] [place] [address] Referral ID Status Reason Start Date Expiration Date Visits Requ ested Visits Authorized [id number] Closed 06/07/2021 06/07/2022 1 1 Encounter Details Date Type Department Care Team Description 08/08/2021 Office Visit Department of Ramon Restrepo Primary Op en-Angle Ophthalmology in [place] Co[place] M.D. Glaucoma Severe Stage [place], [place] [address] [facility] Bilateral [address] [place] [phone] Social History Tobacco Use Types Packs/Day Years Used Date Smoking Tobacco: Never Smokeless Tobacco: Never Sex Assigned at Date Recorded Not on file documented as of this encounter Progress Notes Ramon Restrepo M.D. - 08/08/2021 12:45 PM CST Lynnette Thompson was seen today for Procedure Only #1 Primary Open-Angle Glaucoma Severe Stage Bilateral See procedure note. IOTHERAPY AIDE documented in this encounter Plan of Treatment Scheduled Referrals Name Type Priority Associated Order Schedule Diagnoses Ophthalmology office Outpatient Referral Routine Expected: visit (clinic) 09/08/2021 (Approximate), Expires: 11/06/2022 documented as of this encounter Procedures Procedure Name Priority Date/Time Associated Comments Diagnosis LASER TRABECULOPLASTY - Routine 08/08/2021 1:26 Primary Open-A ngle Results for this OU - BOTH EYES PM PHYSIOTHERAPY AIDE Glaucoma Severe procedure are in Stage Bilateral the results section. documented in this encounter Results Laser Trabeculoplasty - OU - Both Eyes (08/08/2021 1:26 PM PHYSIOTHERAPY AIDE) Specimen (Source) Anatomical Location Collection Method / Collectio n Time Received Time / Laterality Volume Narrative OPHTHALMOLGY NON-IMAGING ORDERS - 1:26 PM PHYSIOTHERAPY AIDE Time Out Confirmed correct patient, procedure, si [...] M.D. OPHTH CLINIC PROCEDURES Performing Organization Address City/State/ZIP Code Phon e Number [facility] OPHTHALMOLGY NON-IMAGING ORDERS documented in this encounter Visit Diagnoses Diagnosis Primary Open-Angle Glaucoma Severe Stage Bilateral documented in this encounter Care Teams Strip Cutter Relationship Specialty Start Date End Date Elsewhere, Pcp PCP - General 09/01/19 documented as of this encounter
--- OUTSIDE RECORDS SUMMARY | 2022-07-24 09:26 | XMS_ITS | Encounter Summary ---
:1940 Author Organization [facility] Address [address] [place] [address] Care Team Providers Name Role Phone Elsewhere, Pcp Primary Care Provider Unavailable Encounter Details Date Type Department Care Team Description 10/06/2020 Admin Visit Department of Family Medicine, [facility] [place] in [place], [place] [address] [phone] Social History Tobacco Use Types Packs/Day Years Used Date Smoking Tobacco: Never Sex Assigned at Date Recorded Not on file documented as of this encounter Plan of Treatment Not on filedocumented as of this encounter Visit Diagnoses Not on filedocumented in this encounter Additional Health Concerns Infection Onset Date Last Indicated Resolved Time COVID19 Pending 10/06/2020 10/06/2020 10/07/2020 4:53 AM FINANCIAL REP documented as of this encounter Care Teams Support Assistant Relationship Specialty Start Date End Date Elsewhere, Pcp PCP - General 09/01/19 documented as of this encounter
--- OUTSIDE RECORDS SUMMARY | 2022-07-24 09:27 | XMS_ITS | Encounter Summary ---
:1940 Author Organization [facility] Address [address] [place] [address] Care Team Providers Name Role Phone Unavailable Primary Care Provider Unavailable Encounter Details Date Type Department Care Team Description 11/30/2014 Hospital Encounter HX [facility] Dioni Stoddard APRN, C.N.P., D. N.P. [address] [place] [phone] (Wo rk) Social History Tobacco Use Types Packs/Day Years Used Date Smoking Tobacco: Never Assessed Sex Assigned at Date Recorded Not on file documented as of this encounter Last Filed Vital Signs Vital Sign Reading Time Taken Comments Blood Pressure 111/62 11/30/2014 8:26 AM CDT Pulse 66 11/30/2014 8:26 AM CDT Temperature - - Respiratory Rate 16 11/30/2014 8:26 AM CDT Oxygen Saturation - - Inhaled Oxygen Concentration - - Weight 52.6 kg (115 lb 15.4 oz) 11/30/2014 8:26 AM CDT Height 160 cm (5' 2.99) 11/30/2014 8:26 AM CDT Body Mass Index 20.55 11/30/2014 8:26 AM CDT documented in this encounter H&P Notes Dioni Stoddard APRN, C.N.P. - 11/30/2014 8:18 AM CDT [id number] CHIEF COMPLAINT/REASON FOR VISIT Preop physical. HISTORY OF PRESENT ILLNESS Lynnette is a very pleasant 74-year-old who has a known history of hypothyroidism, who comes in today per the request of Dr. Restrepo for preanesthetic clearance for cataract surgery to be performed by Dr. Restrepo, the right eye on 12/14/2014 and the left eye on 12/28/2014 in [place] at the [facility] there. Patient has no particular concerns or issues in regard to this at this time. She has known hypothyroidism; her last TSH was in May and was in normal range. MEDICATIONS Diclofenac eyedrops 4 times daily. Latanoprost ophthalmic at bedtime. Levothyroxine 75 mcg daily. Prednisolone ophthalmic solution 4 times daily in operative eye. Timolol ophthalmic in eyes daily. TobraDex 4 times daily after cataract surgery. Vitamin C 500 mg by mouth daily. Vitamin D 400 International Units daily. ALLERGIES Penicillin. CODE STATUS: Patient is full code. She does not have any advance directives. IMMUNIZATIONS Patient's immunizations are not up-to-date. She is due for the booster of the PCV-13 as well as the Tdap, and patient declines both of those. PAST MEDICAL/SURGICAL HISTORY Please see the EMR. SYSTEMS REVIEW CONSTITUTIONAL: Patient denies any particular weight gain, temperature intolerances. EYES: She denies any pain or redness. ENT: She denies any sinus problems, nosebleeds, sores on mouth or lip. RESPIRATORY: She denies any shortness of breath or wheezing. SKIN: No rashes. CARDIOVASCULAR: No chest pain, heart murmurs. No history of DVT, edema or heart palpitations. GASTROINTESTINAL: Denies any heartburn, abdominal pain, nausea, vomiting, diarrhea, or constipation. MUSCULOSKELETAL: Denies any joint pain, swelling, stiffness, back or neck pain. NEUROLOGIC: Denies any blackout, confusion, difficulties with vision. ENDOCRINE: Denies any excessive thirst or urination. No diabetes. MENTAL HEALTH: She states that her depression and anxiety are well-controlled. Her PHQ- 9 score is 5. HEMATOLOGIC: No unusualbruising or bleeding. SOCIAL HISTORY Patient lives with her . She is a nontobacco user. She does occasionally drink alcohol, very rare on a social basis, and no recreational drug use. Her is very supportive of her, and bothhe and her are retired and very active in their sabianism. FAMILY HISTORY There is no family history of any anesthesia complications or bleeding tendencies. Mother had glaucoma as well as cataracts. Also has a sister with macular degeneration and cataract disease. VITAL SIGNS Her blood pressure was 111/62 with a pulse of 66, respirations 16, temperature 37. Height 160, weight 52.6 kg, BMI is 20.5. Her sleep apnea score is 0. PHYSICAL EXAMINATION GENERAL: Patient appears nondistressed. HEENT: Her head is normocephalic. Ears: TMs clear bilaterally. Nose: Nares patent. Oropharynx: Moistmucous membranes. Pharynx open. NECK: Supple. Vessels: Carotids with normal upstrokes. No bruits. LYMPH NODES: With no cervical or supraclavicular lymphadenopathy. HEART: With a regular rate and rhythm. Normal S1, S2. There are no murmurs or gallops. PMI is nondisplaced. LUNGS: Clear to auscultation with good respiratory effort. ABDOMEN: Soft. There is no organomegaly. Normoactive bowel sounds. No tenderness to palpation. EXTREMITIES: Without any edema noted. IMPRESSION/REPORT/PLAN Preoperative. Patient is considered medically optimal to undergo cataract surgery by Dr. Restrepo. I anticipate no complications or concerns. Patient was told to hold her medications as well as any nonsteroidal antiinflammatory drugs prior to the procedure. PATIENT EDUCATION Ready to learn. No apparent learning barriers were identified. Learning preferences include listening. Explained diagnosis and treatment plan. Patient/Child/Caregiver expressed understanding of the content. Dioni Stoddard, Kahlil.N.P./toby Electronically Signed By: DIONI STODDARD RN, DISABILITIES SERVICES OFFICER On: 12/03/2014 06:16 PM Source: [facility] MHSDOLBEYNONRADSYS Document Id: [id number] documented in this encounter Miscellaneous Notes Miscellaneous - Ayse Freeman, L.P.N. - 11/30/2014 3:40 PM CDT PHQ-9 PHQ-9 Entered On: 11/30/2014 15:40 CDT Performed On: 11/30/2014 15:40 CDT by AYSE FREEMAN PHQ-9 Little interest or pleasure in doing things : Several days Feeling down, depressed, or hopeless : Several days Trouble falling or staying asleep, or sleeping too much : Not at all Feeling tired or having little energy : Several days Poor appetite or overeating : Not at all Feeling bad about yourself or that you are a failure : Several days Trouble concentrating on things : Several days Moving or speaking slowly; restless or fidgety : Not at all Thoughts that you would be better off /hurting self : Not at all PHQ-9 Calculated Score : 5 Problems make work, home, or dealing with others : Somewhat difficult AYSE FREEMAN - 11/30/2014 15:40 CDT Source: [place] Document Id: [id number] CDT!13 Miscellaneous - Dioni Stoddard APRN, C.NCarlosPCarlos - 11/30/2014 9:05 AM CDT Ambulatory Patient Summary [address] [id number] Visit Information Name: LYNNETTE LAWTON [facility] Number: [id number] Current Date: 11/30/2014 09:05:03 Physicians Attending Provider: DIONI STODDARD RN, DISABILITIES SERVICES OFFICER Primary Care Provider: IDONI STODDARD RN, DISABILITIES SERVICES OFFICER LYNNETTE LAWTON FAM has been given the following list of follow-up instructions, medication list, and patient education materials: Follow-up Instructions Your Medications Here is a list of your medications. It is important to take your medications as directed. Use a pillbox or chart to help remind you to take your medications. Please let your doctor or nurse know if you have problems taking your medications. Medication/Strength How to Take Indications/Special Instructions/Comments/Notes for Patient Medication Changes/Routing ascorbic acid (Vitamin C) 500 mg, , once a day During winter months cholecalciferol (Vitamin D3) 400 IntU, , once a day diclofenac ophthalmic (diclofenac 0.1% ophthalmic solution) 1 Drops, Eye(Operative), four times a day latanoprost ophthalmic (latanoprost 0.005% ophthalmic solution) 1 Drops, once a day (at bedtime) levothyroxine (levothyroxine 75 mcg (0.075 mg) oral tablet) 1 Tablet(s), Oral, once a day prednisoLONE ophthalmic (prednisoLONE acetate 1% ophthalmic suspension) 1 Drops, Eye(Operative), four times a day timolol ophthalmic (timolol ophthalmic 0.25% solution) Eyes(Both), once a day tobramycin ophthalmic (Tobrex 0.3% ophthalmic solution) 1 Drops, Eye(Operative), four times a day Use for 10 days after cataract surgery, then d/c Stop Taking the Following Medications: bisacodyl (Bisco-Lax 5 mg oral enteric coated tablet) polyethylene glycol 3350 with electrolytes (GoLYTELY oral powder for reconstitution) Medication list as of 11-30-14 09:05 Attention: If you have any medications at home that are not on this list, DO NOT take them until youcontact your provider for clarification. Give a copy of your medication list to your primary care provider. Update your medication list any time medications or doses are changed and carry your medication list at all times in case of emergency. 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 Main [facility] OR 02 12/28/2014 10:00 [facility] Main OR [facility] OR 02 Attention: Contact your local Clinic if further appointment detail needed. Your Goals/Additional instructions: Source: [facility] POWERCHART Document Id: [id number] Miscellaneous - Dioni Stoddard APRN, C.N.P. - 11/30/2014 9:05 AM CDT Ambulatory Discharge Medication List [address] [id number] Visit Information Name: LYNNETTE LAWTON [facility] Number: [id number] Visit Date: 11/30/2014 09:05:02 Attending Provider: DIONI STODDARD RN, DISABILITIES SERVICES OFFICER Primary Care Provider: DIONI STODDARD RN, DISABILITIES SERVICES OFFICER LYNNETTE LAWTON has been given the following list of medications: Your Medications It is important to take your medications as directed. Use a pill box or chart to help remind you to take your medications. Please let your doctor or nurse know if you have problems taking your medications. Medication/Strength How to Take Indications/Special Instructions/Comments/Notes for Patient Medication Changes/Routing ascorbic acid (Vitamin C) 500 mg, , once a day During winter months cholecalciferol (Vitamin D3) 400 IntU, , once a day diclofenac ophthalmic (diclofenac 0.1% ophthalmic solution) 1 Drops, Eye(Operative), four times a day latanoprost ophthalmic (latanoprost 0.005% ophthalmic solution) 1 Drops, once a day (at bedtime) levothyroxine (levothyroxine 75 mcg (0.075 mg) oral tablet) 1 Tablet(s), Oral, once a day prednisoLONE ophthalmic (prednisoLONE acetate 1% ophthalmic suspension) 1 Drops, Eye(Operative), four times a day timolol ophthalmic (timolol ophthalmic 0.25% solution) Eyes(Both), once a day tobramycin ophthalmic (Tobrex 0.3% ophthalmic solution) 1 Drops, Eye(Operative), four times a day Use for 10 days after cataract surgery, then d/c Stop Taking the Following Medications: bisacodyl (Bisco-Lax 5 mg oral enteric coated tablet) polyethylene glycol 3350 with electrolytes (GoLYTELY oral powder for reconstitution) Medication list as of 11-30-14 09:05 Attention: If you have any medications at home that are not on this list, DO NOT take them until youcontact your provider for clarification. Give a copy of your medication list to your primary care provider. Update your medication list any time medications or doses are changed and carry your medication list at all times in case of emergency. Electronically Signed By: DIONI STODDARD RN, DISABILITIES SERVICES OFFICER Signed On:30-NOV-2014 09:03:36 Additional Information: Source: [facility] [employer] Document Id: [id number] Willi - Trinidad Urban L.PCarlosNCarlos - 11/30/2014 8:42 AM CDT Obstructive Sleep Apnea Obstructive Sleep Apnea Entered On: 11/30/2014 8:42 CDT Performed On: 11/30/2014 8:42 CDT by TRINIDAD URBAN LPN TYREE Screening Known Obstructive Sleep Apnea : No - NOT diagnosed with TYREE TRINIDAD URBAN LPN - 11/30/2014 8:42 CDT TYREE Assessment Do you have high blood pressure or have you been told to take medication for high blood pressure? : No Frequency of Snoring : Rarely (1-2 times per year) Frequency of Gasping, Choking, Snorting : Never Total Number of Historical Features : 0 Neck Circumference (cm) : 30/31 Total Sleep Apnea Clinical Score Calc : 0 TRINIDAD URBAN LPN - 11/30/2014 8:42 CDT [facility] [place] [facility] Document Id: [id number] CDT!10 Trinidad Milton L.PMatthias - 11/30/2014 8:26 AM CDT Adult Beauty Sales Consultant Intake/History Adult Beauty Sales Consultant Intake/History Entered On: 11/30/2014 8:28 CDT Performed On: 11/30/2014 8:26 CDT by TRINIDAD URBAN LPN Intake Temperature Core : 37 DegC(Converted to: 98.6 DegF) Peripheral Pulse Rate : 66 /min Respiratory Rate : 16 /min Heart Rhythm : Regular Systolic Blood Pressure : 111 mmHg Diastolic Blood Pressure : 62 mmHg NIBP Mean : 78 mmHg BP Location : Left upper extremity Blood Pressure Cuff Size : Regular SpO2 : 99 % Oxygen Therapy : Room air Neck Circumference : 31 cm(Converted to: 12 inch(es)) TRINIDAD URBAN LPN 11/30/2014 8:37 CDT Chief Complaint : Pre op physical Cataract surgery in [facility] Dr. Umaña 12/14 and 12/28 Height : 160 cm(Converted to: 5 ft 3 inch(es), 63 inch(es)) Actual Weight : 52.6 kg(Converted to: 115 lb 15 oz) Weight Source : Standing scale Dosing Weight Clinic : 52.6 kg Clinic BSA : 1.53 Body Mass Index : 20.55 kg/m2 TRINIDAD URBAN LPN - 11/30/2014 8:26 CDT General Info Languages : Angolan Is Patient Female and 13-50 no hysterectomy : No TRINIDAD URBAN LPN 11/30/2014 8:26 CDT Subjective Pain Symptoms : No TRINIDAD URBAN LPN 11/30/2014 8:26 CDT Dependent Habits Tobacco Use/Currently Using : No Exposure to Tobacco Smoke : Care provider denies smoking in home Smoking Status : Never smoker TRINIDAD URBAN LPN 11/30/2014 8:26 CDT Tobacco Use Grid Last Use : never TRINIDAD URBAN LPN 11/30/2014 8:26 CDT Alcohol Use : Yes TRINIDAD URBAN LPN 11/30/2014 8:26 CDT Caffeine Use Grid Caffeine Use : Current Type : Coffee Frequency : Daily Amount : 4 cups TRINIDAD URBAN LPN 11/30/2014 8:26 CDT Recreational Drug Use Grid Drug Use : None TRINIDAD URBAN LPN 11/30/2014 8:26 CDT ID Screen Travel Within Last 21 Days : No Contact with someone with Ebola : No TRINIDAD URBAN LPN 11/30/2014 8:26 CDT Source: [facility] POWERCHART Document Id: [id number] CDT!14 documented in this encounter Plan of Treatment Not on filedocumented as of this encounter Visit Diagnoses Not on filedocumented in this encounter Additional Health Concerns Assessment Noted Time PHQ-9 Depression Total Score: 5 11/30/2014 3:40 PM CDT documented as of this encounter
--- OUTSIDE RECORDS SUMMARY | 2022-07-24 09:27 | XMS_ITS | Encounter Summary ---
:1940 Author Organization [facility] Address [address] [place] [address] Care Team Providers Name Role Phone Unavailable Primary Care Provider Unavailable Encounter Details Date Type Department Care Team Description 06/16/2014 Hospital Encounter HX [facility] Dioni Stoddard, SELMA RN, C.N.P., D.N.P. [address] [place] [address] [phone] (Wo rk) Social History Tobacco Use Types Packs/Day Years Used Date Smoking Tobacco: Never Assessed Sex Assigned at Date Recorded Not on file documented as of this encounter Miscellaneous Notes Miscellaneous - Dioni Stoddard, TUNNEL ELASTIC OPERATOR LOCKSTITCH, C.N.P. - 06/17/2014 1:20 PM CST Normal Results Letter 17 June 2014 LYNNETTE LAWTON [address] [place] [id number] Dear LYNNETTE LAWTON, I am pleased to report that your results from the following stool test for blood is negative. Pleasefollow up with us as we discussed during your visit or sooner if you have any concerns. If you have questions or concerns, please do not hesitate to call our office. Result Name Current Result Normal Range FIT/Fecal Occult Bld-[place] Negative 06/16/2014 Negative - Sincerely, DIONI STODDARD [id number] [address] Electronic Signature Electronically Signed By: DIONI STODDARD RN, AUTO ELECTRICIAN On: 17 June 2014 This document has images extracted. Source: [facility] POWERCHART Document Id: [id number] documented in this encounter Plan of Treatment Not on filedocumented as of this encounter Procedures Procedure Name Priority Date/Time Associated Diagnosis Comme nts OCCULT BLOOD, QL, Routine 06/16/2014 8:00 AM Resu lts for this IMMUNOCHEMICAL, F FONDANT MACHINE OPERATOR procedure are in the results section. documented in this encounter Results Fecal Occult Blood, Colorectal Cancer Screen, Qualitative, Immunochemical (06/16/2014 8:00 AM FONDANT MACHINE OPERATOR) athologist Signature Occult Blood, Negative Negative POWERCHART Fecal Comment: Negative result. ??This test will not de tect upper gastrointestinal bleeding; the HemoQuant test ([id number])should be ordered if clinically indicated. Test Performed by: [place] [address] Nursing Services Manager: Pauly Schrader Specimen (Source) Anatomical Collection Method Collection Time Re ceived Time Location / / Volume Laterality Stool 06/16/2014 8:00 AM FONDANT MACHINE OPERATOR Dioni Stoddard APRN, C.N.P., D.N.P. LAB BODY FLUIDS AND STOOLS ORDERABLES Performing Organization Address City/State/ZIP Code Phon e Number POWERCHART documented in this encounter Visit Diagnoses Not on filedocumented in this encounter Additional Health Concerns Assessment Noted Time PHQ-9 Depression Total Score: 11 12/30/2012 4:36 PM CD T documented as of this encounter
--- OUTSIDE RECORDS SUMMARY | 2022-07-24 09:27 | XMS_ITS | Encounter Summary ---
:1940 Author Organization [facility] Address [address] [place] [address] Care Team Providers Name Role Phone Unavailable Primary Care Provider Unavailable Encounter Details Date Type Department Care Team Description 07/02/2014 [facility] Sherwood, RUFUS, C.N.P., D.N.P. [address] [address] [phone] (Wo rk) Social History Tobacco Use [...]
--- OUTSIDE RECORDS SUMMARY | 2022-07-24 09:27 | XMS_ITS | Encounter Summary ---
:1940 Author Organization [facility] Address [address] [place] [address] Care Team Providers Name Role Phone Unavailable Primary Care Provider Unavailable Encounter Details Date Type Department Care Team Description 11/13/2013 Hospital Encounter HX [facility] Dioni Stoddard, SELMA RN, C.N.P., D.N.P. [address] [phone] (Wo rk) Social History Tobacco Use Types Packs/Day Years Used Date Smoking Tobacco: Never Assessed Sex Assigned at Date Recorded Not on file documented as of this encounter Miscellaneous Notes Miscellaneous - Dioni Stoddard, ENGINEERING INSTRUCTOR, C.N.P. - 11/13/2013 11:19 AM CDT Normal Results Letter 13 November 2013 LYNNETTE THOMPSON [address] [place] [id number] Dear LYNNETTE THOMPSON, I am pleased to report that your results from the following diagnostic thyroid test is normal. HOORAY!!! Make no change with your medications. Have a great spring & summer! Please follow up with usas we discussed or sooner if you have any concerns. If you have questions or concerns, please do nothesitate to call our office. Result Name Current Result Previous Result Normal Range TSH (mcIU/mL) 2.69 11/13/2013 (H) 6.95 04/21/2013 0.30 - 5.00 Sincerely, DIONI STODDARD [address] [place], [place] [phone] Electronic Signature Electronically Signed By: DIONI STODDARD RN, OCCUPATIONAL ANALYST On: 13 November 2013 This document has images extracted. Source: [facility] POWERCHART Document Id: [id number] Electronically signed by Conversion, [facility] Welder Explosion [id number] at 01/09/2017 9:34 AM CDT documented in this encounter Plan of Treatment Not on filedocumented as of this encounter Procedures Procedure Name Priority Date/Time Associated Diagnosis Comme nts THYROID-STIMULATING Routine 11/13/2013 8:05 AM Re sults for this HORMONE-SENSITIVE CDT procedure are in (S-TSH) the results section. documented in this encounter Results Thyroid-Stimulating Hormone-Sensitive (s-TSH) (11/13/2013 8:05 AM CDT) P athologist Signature TSH 2.69 0.30 - 5.00 POWERCHART (Thyrotropin) MCIUML Specimen (Source) Anatomical Collection Method Collection Time Re ceived Time Location / / Volume Laterality Blood 11/13/2013 8:05 AM CDT Dioni Stoddard APRN, C.N.P., D.N.P. LAB BLOOD ADD-ON Performing Organization Address City/State/ZIP Code Phon e Number POWERCHART documented in this encounter Visit Diagnoses Not on filedocumented in this encounter Additional Health Concerns Assessment Noted Time PHQ-9 Depression Total Score: 11 12/30/2012 4:36 PM CD T documented as of this encounter
--- OUTSIDE RECORDS SUMMARY | 2022-07-24 09:27 | XMS_ITS | Encounter Summary ---
:1940 Author Organization [facility] Address [address] [place] [address] Care Team Providers Name Role Phone Unavailable Primary Care Provider Unavailable Encounter Details Date Type Department Care Team Description 06/21/2015 Hospital Encounter HX [facility] Dioni Stoddard, SELMA RN, C.N.P., D.N.P. [address] [place] [address] [phone] (Wo rk) Social History Tobacco Use Types Packs/Day Years Used Date Smoking Tobacco: Never Assessed Sex Assigned at Date Recorded Not on file documented as of this encounter Miscellaneous Notes Miscellaneous - Dioni Stoddard, E COMMERCE SPECIALIST, C.N.P. - 06/21/2015 12:22 PM CST Normal Results Letter 21 June 2015 LYNNETTE THOMPSON [address] [place] [address] [id number] Dear LYNNETTE THOMPSON, I am pleased to report that your results from the following thyroid test is in normal range. No adjustment in your medication is needed. If you have questions or concerns, please do not hesitate to call our office. Result Name Current Result Previous Result Normal Range TSH (mIU/L) 3.48 06/21/2015 3.05 05/26/2014 0.27 - 4.20 Sincerely, DIONI STODDARD [id number] [id number] Electronic Signature Electronically Signed By: DIONI STODDARD RN, PROPERTY CLAIMS MANAGER On: 21 June 2015 This document has images extracted. Source: [facility] [employer] The[employer]CHART Document Id: [id number] documented in this encounter Plan of Treatment Not on filedocumented as of this encounter Procedures Procedure Name Priority Date/Time Associated Diagnosis Comme nts THYROID-STIMULATING Routine 06/21/2015 8:05 AM Re sults for this HORMONE-SENSITIVE CLASSIFIED AD TAKER procedure are in (S-TSH) the results section. documented in this encounter Results Thyroid-Stimulating Hormone-Sensitive (s-TSH) (06/21/2015 8:05 AM CLASSIFIED AD TAKER) P athologist Signature TSH 3.48 0.27 - 4.20 POWERCHART (Thyrotropin) MIUL Specimen (Source) Anatomical Collection Method Collection Time Re ceived Time Location / / Volume Laterality Blood 06/21/2015 8:05 AM CLASSIFIED AD TAKER Dioni Stoddard APRN, C.N.P., D.N.P. LAB BLOOD ADD-ON Performing Organization Address City/State/ZIP Code Phon e Number POWERCHART documented in this encounter Visit Diagnoses Not on filedocumented in this encounter Additional Health Concerns Assessment Noted Time PHQ-9 Depression Total Score: 5 11/30/2014 3:40 PM CDT documented as of this encounter
--- OUTSIDE RECORDS SUMMARY | 2022-07-24 09:27 | XMS_ITS | Encounter Summary ---
:1940 Author Organization [facility] Address [address] [place] [address] Care Team Providers Name Role Phone Gunner Sosa APRN, C.N.P. Primary Care Provider [phone] Encounter Details Date Type Department Care Team Description 04/21/2017 Hospital Encounter HX [facility] Gagan Boone M.D. [address] [place] [phone] (Wo rk) Social History Tobacco Use Types Packs/Day Years Used Date Smoking Tobacco: Never Sex Assigned at Date Recorded Not on file documented as of this encounter Consult Notes Gagan Meadows M.D. - 04/21/2017 7:37 AM CDT [id number] CHIEF COMPLAINT/REASON FOR VISIT Lesion on the left cheek. HISTORY OF PRESENT ILLNESS Ms. Thompson is a very pleasant 76-year-old female who presents today for the 1st time in Dermatology for evaluation of a lesion involving the left cheek. She reports this has been present for a couple ofyears. She thought it was a dry spot and has tried multiple lotions. Also felt that it was slightly itchy and she has scratched. It has not healed, therefore, she is here for further evaluation. No prior history of skin cancers. She tries to be very careful with sun exposure and wears a hat. No other concerns today. SYSTEMS REVIEW Pertinent positives and negatives as per HPI. PAST MEDICAL/SURGICAL HISTORY No prior history of skin cancers. PHYSICAL EXAMINATION GENERAL: Alert, awake, no acute distress. SKIN: Examination of the face was performed. On the right lower cheek, there is a red scaly macule, concerning for actinic keratosis. IMPRESSION/REPORT/PLAN Actinic keratoses x1. Given this is a pre-cancerous lesion, its treatment is medically indicated. A total of 1 lesion(s) were treated with one 20-second freeze-thaw cycle of liquid nitrogen cryotherapy. The patient tolerated the procedure well. Aftercare instructions were provided in written and verbal form to the patient.Should any of these lesions recur, the patient should return for further evaluation. Patient Education: Ready to learn. No apparent learning barriers were identified. Learning preferences include listening. Explained diagnosis and treatment plan; patient/guardian of patient expressed understanding of the content. DIAGNOSIS Actinic keratoses. Gagan Meadows M.D./toby Electronically Signed By: GAGAN MEADOWS MD On: 04/30/2017 02:53 PM Modified by and Electronically Signed by: GAGAN MEADOWS MD On: 04/30/2017 02:53 PM Source: [facility] MHSDOLBEYNONRADSYS Document Id: [id number] documented in this encounter Nursing Notes Ayse Freeman, LCarlosPCarlosN. - 04/21/2017 7:46 AM CDT Dermatology Intake Dermatology Intake Entered On: 04/21/2017 7:47 CDT Performed On: 04/21/2017 7:46 CDT by AYSE FREEMAN General Preferred Name : Lynnette Accompanied By : Alone Chief Complaint : Lesion on left check for 2 years Social History : No family history of skin cancer No personal history of skin cancer does not use sunscreen General Health Assessment : Good AYSE FREEMAN - 04/21/2017 7:46 CDT Dermatology Intake History Pain Symptoms : No Past Dermatology History : Thyroid disease AYSE FREEMAN - 04/21/2017 7:46 CDT Dependent Habits Exposure to Tobacco Smoke : Care provider denies smoking in home Smoking Status : Never smoker Tobacco 2A : No Tobacco Use/Currently Using : No Tobacco Use/Last 30 Days : No Tobacco Use/Last 12 months : No AYSE FREEMAN - 04/21/2017 7:46 CDT Caffeine Use Grid Caffeine Use : Current Type : Coffee Frequency : Daily Amount : 4 cups AYSE FREEMAN - 04/21/2017 7:46 CDT Recreational Drug Use Grid Drug Use : None AYSE FREEMAN - 04/21/2017 7:46 CDT Source: [facility] [employer] Document Id: [id number] CDT!26 documented in this encounter Plan of Treatment Not on filedocumented as of this encounter Visit Diagnoses Not on filedocumented in this encounter Care Teams Insurance Claims Adjuster Relationship Specialty Start Date End Date Gunner Sosa APRN, C.N.P. PCP - General 01/25/17 12/07/17 documented as of this encounter
--- OUTSIDE RECORDS SUMMARY | 2022-07-24 09:27 | XMS_ITS | Encounter Summary ---
:1940 Author Organization [facility] Address [address] [place] [address] Care Team Providers Name Role Phone Unavailable Primary Care Provider Unavailable Encounter Details Date Type Department Care Team Description 11/12/2014 Hospital Encounter [facility]X [facility] Joseph Chris M.D. [address] [place], [place] [phone] (Wo rk) Social History Tobacco Use Types Packs/Day Years Used Date Smoking Tobacco: Never Assessed Sex Assigned at Date Recorded Not on file documented as of this encounter Progress Notes Marilyn Ferguson C.O.A. - 11/12/2014 10:19 AM CDT Patient presents for: craig Lin History of present illness: Patient states she saw Dr. Lin about 4 months ago and feels her vision is not as clear. No headaches. She does feel like her eye hurts like there is pressure on them. She does not drive much at night as her vision isn't good. No watering, mattering, burning or itching of the eyes. Hx of : glaucoma, cataracts. Current Ocular Medications: latanoprost both eyes at night, timolol gel in the morning both eyes. Visual Acuity using Snellen method for both eyes. Distance Right Eye Left Eye Both Eyes CC 20/ 60-1 PH (_) 20/ 30+2 PH(_) 20/( _ ) SC 20/ _ PH (_) 20/ _ PH(_) 20/( _ ) Near vision: 20/(_) Correction ( Glasses x )(Contacts) Current RX: Sphere Cylinder [place] Add Prism Right Eye +0.25 _ _ + 2.75 ( _ ) Left Eye +0.50 _ _ +2.75 ( _ ) IOP Right Eye: 18 Left Eye: 21 Tonometry: (applanation x ) Angles open, Neg apd. Pupils: PERRL: Neg APD Xcover: ortho/orhto ;EOMS: full Confrontational rubi: Right eye: WNL; Left eye : WNL Dilation Medication:1024 pt has dark glasses ( x ) Tropicamide 1.0% ( x ) Phenylephrine 2.5% ( _ ) Cyclogel 1.0% ( _ ) TCP Ophthalmic [place] ( _ ) Paremyd Optic Disc Assessment C/D Ratio Right Eye: ( 0.6 ) C/D Ratio Left Eye: ( 0.7 ) Active Problems: Refer to patient chart. Past Medical History: Refer to patient chart. Allergies: Refer to patient chart. Medications: Refer to medication list in chart. Medications reconciled History: Patient drives motor vehicle: ( x ) Yes ( _ ) No Review of Systems General: ( X ) Negative Other (_) Skin: ( X ) Negative Other (_): Eyes: SEE ABOVE Ears/Nose/Throat: ( X ) Negative Other (_) Respiratory: ( X ) Negative Other (_) Cardiovascular: ( X ) Negative Other (_) Gastrointestinal: ( X ) Negative Other (_) Genitourinary: ( X ) Negative Other (_) Musculoskeletal: ( X ) Negative Other (_) Neurologic: ( X ) Negative Other (_) Psychiatric: ( X ) Negative Other (_) Hematologic/Lymphatic/Immunologic: ( X ) Negative Other (_) Endocrine: ( X ) Negative Other (_) Ascan: IOL Master ( x ) Sonomed ( _ ) Keratometry RIGHT EYE:(41.16/41.51) LEFT EYE:(41.56) AXIAL LENGTH RIGHT EYE:(25.46) LEFT EYE:(25.17) Pentecam done ( yes ) Electronically Signed By: LATRELL CAVANAUGH MD On: 11/12/2014 02:49 PM Modified by and Electronically Signed by: MARILYN FERGUSON On: 11/12/2014 12:58 PM Co-Signed By: LATRELL CAVANAUGH MD On: 11/12/2014 02:49 PM Source: [facility] POWERCHART Document Id: [id number] documented in this encounter H&P Notes Latrell Cavanaugh M.D. - 11/12/2014 9:55 AM CDT [id number] Lynnette is here today for a cataract evaluation as recommended by Dr. Lin. She has a history of cataracts, refractive error, and open-angle glaucoma. She has been taking timolol gel and latanoprost forsome years. Her mother had glaucoma. She notices decreased vision in both eyes, right worse than theleft. She is under the care of Dioni Stoddard. Her past medical, social, family history reviewed and unchanged. MEDICATIONS Reviewed and reconciled. ALLERGIES Reviewed and unchanged. PHYSICAL EXAMINATION CONFRONTATION VISUAL RUBI: Intact. MOTILITY: Full. PUPILS: No defect. EXTERNAL: Normal. SLIT-LAMP EXAMINATION: Conjunctivae/sclerae quiet. Corneas clear. Chambers deep and quiet. Iris normal. Lens shows +3 cortical and nuclear sclerotic cataracts, both eyes. FUNDUS: Dilated. Cup-to-disk ratio 0.6 right eye, 0.7 left eye, with some temporal rim thinning. Themaculae, arcades, and periphery are otherwise normal. OCT Testing shows limited nerve fiber layer thinning in both eyes. Visual field testing per Dr. Lin's office shows mild visual field loss in both eyes. IOPs as noted above. IMPRESSION/REPORT/PLAN 1. Open-angle glaucoma, reasonable intraocular pressure control on medications. 2. Symptomatic nuclear sclerotic cataracts, right eye greater than left eye. PLAN: 1. Recommend bilateral cataract surgery, right eye first. 2. The risks, benefits, and alternatives of surgery are discussed including suprachoroidal hemorrhage, endophthalmitis, and loss of the eye. 3. Biometry, keratometry, and preoperative teaching performed. She desires emmetropia and monofocal lens. Will use Miostat at the end of the case to control her postoperative intraocular pressures, andshould continue with her glaucoma drops to maintain good pressures in the postoperative setting. Patient and her would prefer if Dr. Lin could perform the postoperative care because of the long drive. Latrell Cavanaugh M.D./aos Electronically Signed By: LATRELL CAVANAUGH MD On: 11/22/2014 05:24 PM Source: [facility] MHSDOLBEYNONRADSYS Document Id: [id number] documented in this encounter Miscellaneous Notes Miscellaneous - Latrell Cavanaugh M.D. - 11/12/2014 11:34 AM CDT Ambulatory Patient Summary [facility] [address] [place], [address] [place], [place] [phone] Visit Information Name: JEREDLYNNETTE [facility] Number: [id number] Current Date: 11/12/2014 11:34:52 Physicians Attending Provider: LATRELL CAVANAUGH MD Primary Care Provider: DIONI STODDARD RN, SYSTEMS SUPPORT ENGINEER JERED LYNNETTE OTTO has been given the following list of [...] , once a day During winter months bisacodyl (Bisco-Lax 5 mg oral enteric coated tablet) 4 Tablet(s), Oral, once for colonoscopy prep cholecalciferol (Vitamin D3) 400 IntU, , once a day diclofenac ophthalmic (diclofenac 0.1% ophthalmic solution) 1 Drops, Eye(Operative), four times a day New Routed to [address] [id number] latanoprost ophthalmic (latanoprost 0.005% ophthalmic solution) 1 Drops, once a day (at bedtime) levothyroxine (levothyroxine 75 mcg (0.075 mg) oral tablet) 1 Tablet(s), Oral, once a day lorazepam (lorazepam) 1/2 Tab, Oral, as needed polyethylene glycol 3350 with electrolytes (GoLYTELY oral powder for reconstitution) 240 Milliliter,Oral, every 10 minutes for colonoscopy prep prednisoLONE ophthalmic (prednisoLONE acetate 1% ophthalmic suspension) 1 Drops, Eye(Operative), four times a day New Routed to [address] [address] timolol ophthalmic (timolol ophthalmic 0.25% solution) Eyes(Both), once a day tobramycin ophthalmic (Tobrex 0.3% ophthalmic solution) 1 Drops, Eye(Operative), four times a day Use for 10 days after cataract surgery, then d/c New Routed to [address] [address] Stop Taking the Following Medications: Medication list as of 11-12-14 11:34 Attention: If you have any medications at home that are not on this list, DO NOT take them until youcontact your provider for clarification. Give a copy of your medication list to your primary care provider. Update your medication list any time medications or doses are changed and carry your medication list at all times in case of emergency. Electronically Signed By: LATRELL CAVANAUGH MD Signed On:12-NOV-2014 11:34:39 Your Allergies & Intolerances Substance Reaction Symptoms [...] Cataract Senile Nuclear Sclerosis (NS) Joel Active Cataract Senile Cortical Joel Active Your Upcoming Appointments Date Time Location Provider No Appointments found Attention: Contact your local Clinic if further appointment detail needed. Your Goals/Additional instructions: Source: [facility] POWERCHART Document Id: [id number] Miscellaneous - Latrell Cavanaugh M.D. - 11/12/2014 11:34 AM CDT Ambulatory Discharge Medication List [facility] [address] [place], [address] [place], [place] [phone] Visit Information Name: LYNNETTE LAWTON [facility] Number: [id number] Visit Date: 11/12/2014 11:34:51 Attending Provider: LATRELL CAVANAUGH MD Primary Care Provider: DIONI TSODDARD RN, SYSTEMS SUPPORT ENGINEER LYNNETTE LAWTON has been given the following [...] , once a day During winter months bisacodyl (Bisco-Lax 5 mg oral enteric coated tablet) 4 Tablet(s), Oral, once for colonoscopy prep cholecalciferol (Vitamin D3) 400 IntU, , once a day diclofenac ophthalmic (diclofenac 0.1% ophthalmic solution) 1 Drops, Eye(Operative), four times a day New Routed to [address] [address] latanoprost ophthalmic (latanoprost 0.005% ophthalmic solution) 1 Drops, once a day (at bedtime) levothyroxine (levothyroxine 75 mcg (0.075 mg) oral tablet) 1 Tablet(s), Oral, once a day lorazepam (lorazepam) 1/2 Tab, Oral, as needed polyethylene glycol 3350 with electrolytes (GoLYTELY oral powder for reconstitution) 240 Milliliter,Oral, every 10 minutes for colonoscopy prep prednisoLONE ophthalmic (prednisoLONE acetate 1% ophthalmic suspension) 1 Drops, Eye(Operative), four times a day New Routed to [address] [address] timolol ophthalmic (timolol ophthalmic 0.25% solution) Eyes(Both), once a day tobramycin ophthalmic (Tobrex 0.3% ophthalmic solution) 1 Drops, Eye(Operative), four times a day Use for 10 days after cataract surgery, then d/c New Routed to [address] [address] Stop Taking the Following Medications: Medication list as of 11-12-14 11:34 Attention: If you have any medications at home that are not on this list, DO NOT take them until youcontact your provider for clarification. Give a copy of your medication list to your primary care provider. Update your medication list any time medications or doses are changed and carry your medication list at all times in case of emergency. Electronically Signed By: LATRELL CAVANAUGH MD Signed On:12-NOV-2014 11:34:39 Additional Information: Source: [facility] POWERCHART Document Id: [id number] Miscellaneous - Marilyn Ferguson C.O.A. - 11/12/2014 10:15 AM CDT Adult Miller Helper Intake/History Adult Miller Helper Intake/History Entered On: 11/12/2014 10:16 CDT Performed On: 11/12/2014 10:15 CDT by MARILYN FERGUSON Intake Chief Complaint : cataract eval MARILYN FERGUSON - 11/12/2014 10:15 CDT General Info Information Given By : Patient Languages : Georgian Is Patient Female and 13-50 no hysterectomy : MARILYN Adams - 11/12/2014 10:15 CDT Subjective Pain Symptoms : MARILYN Adams - 11/12/2014 10:15 CDT Dependent Habits Tobacco Use/Currently Using : No Exposure to Tobacco Smoke : Care provider denies smoking in home Smoking Status : Never smoker MARILYN FERGUSON MERYL - 11/12/2014 10:15 CDT Tobacco Use Grid Last Use : never MARILYN FERGUSON MERYL - 11/12/2014 10:15 CDT Caffeine Use Grid Caffeine Use : Current Type : Coffee Frequency : Daily Amount : 4 cups MARILYN FERGUSON MERYL - 11/12/2014 10:15 CDT Recreational Drug Use Grid Drug Use : None MARILYN FERGUSON MERYL - 11/12/2014 10:15 CDT ID Screen Travel Within Last 21 Days : No Contact with someone with Ebola : No MARILYN FERGUSON MERYL - 11/12/2014 10:15 CDT Source: [employer] Document Id: [id number] CDT!28 Miscellaneous - Latrell Cavanaugh M.D. - 11/12/2014 12:00 AM CDT [id number] November 12, 2014 JARRELL LIN, OD [address] [place] [address] RE: Lynnette Lawton : 1940 Dear Jarrell: Thanks for having me see Lynnette Lawton regarding cataracts. As you recall, Lynnette is a 74-year-old female who has noticed decreased vision in both eyes over the last 6 to 12 months. She has a history ofwell-controlled open-angle glaucoma and takes timolol gel in the mornings and latanoprost in the evenings. I had the pleasure of seeing Lynnette on November 12, 2014, at which time her corrected visual acuity measured 20/60- right eye and 20/40 left eye. The slit- lamp examination revealed clear corneas with deep,quiet chambers and moderately advanced cortical nuclear sclerotic cataracts, both eyes. The fundus examination showed moderate cupping in both eyes. We did obtain a glaucoma OCT study and it did show some focal areas with nerve fiber layer thinning in both eyes. I did review a recent copy of visual field from your office and it showed mild visual field deficit in both eyes. Intraocular pressures are measured 18 right eye and 20 left eye. Ms. Lawton has visually significant cortical and nuclear sclerotic cataracts. She also has well-controlled open-angle glaucoma. I recommend that she undergo cataract surgery of the right eye first and this will be done at the [facility] sometime in the near future. I will use Miostat at the end of the case to control thepostoperative intraocular pressure and maintain her current glaucoma medications. She and her would appreciate if you could provide postoperative care. Sincerely, Latrell Cavanaugh M.D. Department of Ophthalmology [address] [place] [address] aos Electronically Signed By: LATRELL CAVANAUGH MD On: 11/22/2014 05:22 PM Source: [facility] MHSDOLBEYNONRADSYS Document Id: [id number] documented in this encounter Plan of Treatment Not on filedocumented as of this encounter Visit Diagnoses Not on filedocumented in this encounter Additional Health Concerns Assessment Noted Time PHQ-9 Depression Total Score: 11 12/30/2012 4:36 PM CD T documented as of this encounter
--- OUTSIDE RECORDS SUMMARY | 2022-07-24 09:27 | XMS_ITS | Encounter Summary ---
:[address] [facility] Address [address] [place] [address] Care Team Providers Name Role Phone Unavailable Primary Care Provider Unavailable Encounter Details Date Type Department Care Team Description 07/08/2012 Hospital Encounter HX [facility] Hailee Shepard AP RN, C.N.P., D.N.P. [address] [phone] (Wo rk) Social History Tobacco Use Types Packs/Day Years Used Date Smoking Tobacco: Never Assessed Sex Assigned at Date Recorded Not on file documented as of this encounter Plan of Treatment Not on filedocumented as of this encounter Procedures Procedure Name Priority Date/Time Associated Diagnosis Comme nts THYROID-STIMULATING Routine 07/08/2012 8:12 AM Re sults for this HORMONE-SENSITIVE [employer]LE [employer] DEVELOPER procedure are in (S-TSH) the results section. documented in this encounter Results (ABNORMAL) Thyroid-Stimulating Hormone-Sensitive (s-TSH) (07/08/2012 8:12 AM ORACLE BRM DEVELOPER) [facility] gist Method Time Signature TSH 15.27 (H) 0.30 - 5.00 POWERCHART (Thyrotropin) MCIUML Specimen (Source) Anatomical Collection Method Collection Time Re ceived Time Location / / Volume Laterality Blood 07/08/2012 8:12 AM [employer]LE [employer] DEVELOPER Hailee Shepard APRN, C.N.P., D.N.P. LAB BLOOD ADD-ON Performing Organization Address City/State/ZIP Code Phon e Number POWERCHART documented in this encounter Visit Diagnoses Not on filedocumented in this encounter Additional Health Concerns Assessment Noted Time PHQ-9 Depression Total Score: 12 07/08/2012 10:[address] documented as of this encounter
--- OUTSIDE RECORDS SUMMARY | 2022-07-24 09:27 | XMS_ITS | Encounter Summary ---
:1940 Author Organization [facility] Address [address] [place] [address] Care Team Providers Name Role Phone Unavailable Primary Care Provider Unavailable Encounter Details Date Type Department Care Team Description 11/18/2014 Hospital [facility] M.D. [address] [place] [phone] (Wo rk) Social History Tobacco Use Types Packs/Day Years Used Date Smoking Tobacco: Never Assessed Sex Assigned at Date Recorded Not on file documented as of this encounter Miscellaneous Notes Miscellaneous - Conversion, Historical Provider Ser - 11/18/2014 3:03 PM CDT Insurance verification From: CLIFF MORA Sent: 11/18/2014 15:03:04 CDT Subject: Insurance verification Verified insurance for [facility] scheduled for 12/14 & 12/28/14 via [employer]. Pt has current coverage with [facility] and [facility] [place] [employer]. Plan has $0 ded then pays at 100% with a max oop of $3000. No auth is required for this OP procdure, CPT 36865 Source: [facility] POWERCHART Document Id: [id number] Telephone Encounter - Fany Becker R.N. - 11/18/2014 2:[address] Restrepo DOS 12/14/14 & 12/28/14 From: FANY BECKER RN To: Anesthesia; Hospital Surgical Services; Surgery Rac Specialist; Sent: 11/18/2014 14:30:23 CDT Subject: Dr Kaye BRIDGES 12/14/14 & 12/28/14 Surgery Clinic Schedule Checklist Patient Contact Number: _[phone] Surgeon:Valarie Surgical Service: (_) Orthopedics (_) General surgery (x) Ophthalmology (_) Podiatry (_) ENT (_) Urology (_) OB / Gynecology (_) Other Date of Surgery: _12-14-14 Procedure (as written on Consent): RIGHT_cataract removal with concurrent intraocular lens insertion- Std lens -topical_ Date of Surgery: 12-28-14_ Procedure (as written on Consent):LEFT_ cataract removal with concurrent intraocular lens insertion - Std lens -_topical Place of Surgery: Diagnosis (reason for surgery): na Surgeon Anticipated Time: 15 min Case Type: (x) Outpatient (_) AM Admit (_) Inpatient (_) Other Pre-op MD: Hailee Shepard_ Post-Op Appt:(time frame when to return) same day-afternoon for Sunday surgery, next day for all other days Surgery Brochure Given: (x_) Yes (_) No (_) Mailed to Patient Anesthesia Risk Assessment: Do you have any personal or family history of severe allergic or anaphylactic reactions to anesthetic agents? (_x) No (_) Yes Comment: _ Do you have difficulties lying flat? (_) No (x_) Yes Comment: _due to discomfort, requests pillow under her knees Who will drive you home after surgery?_husband Plastic Block Boiler Reliner requested: (x_) N/A (_) Yes Comment: _ Pre-op teaching reviewed with patient including instruction on: -the patient is to shower the night before surgery and the morning of surgery to reduce the risk of infection. -for same day surgery patients, informed that the patient will need a restaurant delivery driver and someone to be with them at home for at least the first 24 hours after surgery and that most patients are discharged within 1-3 hours after the surgery -If there are changes in health between pre-op physical and the time of surgery patient should contact the department -no solid foods after midnight the day before surgery and clear liquids only until 4 hours before arrival time, after the 4 hours before arrival time jamal, nothing by mouth -where and how to check in on day of surgery -what to bring with them on the day of the surgery -pre-op visit appointment was made or patient will schedule -Hair product policy was explained -Patient and/or parent/guardian was informed that failure to follow the fasting guidelines may result in case cancellation -Hearing aide on the surgical side will be removed for the case. -No lifting over 20# for first week after surgery -After your surgery you may use OTC artificial eyes one drop 4x day for dry river feeling -Surgical site infection information sheet reviewed with patient. -Patient was instructed on eye drop teaching All above information was given to the patient in writing. Post op appointment(s) (_x)made (_)TBD. Source: [facility] POWERCHART Document Id: [id number] Electronically signed by Conversion, [facility] [place] [id number] at 01/07/2017 3:20 PM CDT documented in this encounter Plan of Treatment Not on filedocumented as of this encounter Visit Diagnoses Not on filedocumented in this encounter Additional Health Concerns Assessment Noted Time PHQ-9 Depression Total Score: 11 12/30/2012 4:36 PM CD T documented as of this encounter
--- OUTSIDE RECORDS SUMMARY | 2022-07-24 09:27 | XMS_ITS | Encounter Summary ---
:1940 Author Organization [facility] Address [address] [place] [address] Care Team Providers Name Role Phone Unavailable Primary Care Provider Unavailable Encounter Details Date Type Department Care Team Description 07/08/2012 Hospital Encounter HX [facility] Dioni Stoddard APRN, C.N.P., D. N.P. [address] [place] [phone] (Wo rk) Social History Tobacco Use Types Packs/Day Years Used Date Smoking Tobacco: Never Assessed Sex Assigned at Date Recorded Not on file documented as of this encounter Last Filed Vital Signs Vital Sign Reading Time Taken Comments Blood Pressure 104/60 07/08/2012 8:10 AM BEAM BUILDER Pulse 76 07/08/2012 8:10 AM BEAM BUILDER Temperature - - Respiratory Rate 18 07/08/2012 8:10 AM BEAM BUILDER Oxygen Saturation - - Inhaled Oxygen Concentration - - Weight 44.2 kg (97 lb 7.1 oz) 07/08/2012 8:10 AM BEAM BUILDER Height - - Body Mass Index 16.64 12/14/2011 7:57 AM CDT documented in this encounter Progress Notes Dioni Stoddard APRN, C.N.P. - 07/08/2012 8:02 AM CST [id number] CHIEF COMPLAINT/REASON FOR VISIT 1. Hypothyroidism. 2. Major depression. HISTORY OF PRESENT ILLNESS Lynnette is a 71-year-old female who has known hypothyroidism as well as major depression disorder. Onher last visit, she was increased on her Synthroid to 50 mcg daily. She stated that she was afraid to take that dose, cut the tablet in half and has been only taking a half a tablet since that time. She also read the side effects on the antidepressant Wellbutrin and chose to not take that medication and she has not. She states that her depression continues. She states that she still feels very sad. She does not feel suicidal or homicidal, but just has no drive or happiness in her life. She feels like she lacks purpose. 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 She reports feeling quite fatigued. This is noteworthy as her TSH is greater than 15. CURRENT MEDICATIONS Reconciled medication is Synthroid 50 mcg by mouth daily. ALLERGIES Please see the EMR. SYSTEMS REVIEW Patient denies any particular constipation. She denies any changes in her hair or skin. She admits that she does feel fatigue. She denies any chest pain or shortness of breath. She does not have any activity intolerance, but admits that she does feel fatigued easily and just has no energy. PAST MEDICAL/SURGICAL HISTORY Please see the EMR. SOCIAL HISTORY Her recently retired. She does not work. 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 VITAL SIGNS Please see the EMR for those details. PHYSICAL EXAMINATION GENERAL: Patient appears nondistressed. She is well-groomed, does not maintain eye contact at all during the interview, looks away much of the time. HEART: Heart with a regular rate and rhythm. LUNGS: Her lungs are clear to auscultation. IMPRESSION/REPORT/PLAN 1. Hypothyroidism. 2. Major depression. Plan: At this point, the patient has no interest in antidepressant medications. We also talked abouttherapy that I think would be beneficial for her. She has no interest in that either. She will continue with her volunteering and also read some self-help books that she thinks may be somewhat beneficial for her. For her thyroid medication, we did discuss the importance of being compliant with this medication and at least if she does not have any side effects to be willing to give it a try with the 50 mcg. She will try that. If she has problems with tolerating it as she reports that she felt her heart pounding heavy when she was on the higher dose in the past, we talked about other reasons that could have possibly been, but if she does not tolerate it, I would have her consider taking the 50 mcg half a tablet twice daily just to even get that medication to hopefully decrease her TSH. If she does tolerate it, and we do need to increase this because her TSH is not controlled, we may need to split the dosing for that reason. The patient states that she understands that plan. I will have her returnin two months. We will recheck a TSH as well as a vitamin D level at that time. PATIENT EDUCATION Ready to learn No apparent learning barriers were identified Learning preferences include listening Explained diagnosis and treatment plan Patient/Child/Caregiver expressed understanding of the content Leila Bermudez/hue Electronically Signed By: DIONI STODDARD RN, PSYCHIATRIC SECRETARY On: 07/08/2012 03:56 PM Source: [facility] MHSDOLBEYNONRADSYS Document Id: [id number] BUILDER documented in this encounter Miscellaneous Notes Miscellaneous - Trinidad Urban L.P.N. - 07/08/2012 10:39 AM CST PHQ-9 PHQ-9 Entered On: 07/08/2012 10:40 BEAM BUILDER Performed On: 07/08/2012 10:39 BEAM BUILDER by TRINIDAD URBAN LPN PHQ-9 Little interest or pleasure in doing things : More than half the days Feeling down, depressed, or hopeless : More than half the days Trouble falling or staying asleep, or sleeping too much : More than half the days Feeling tired or having little energy : More than half the days Poor appetite or overeating : More than half the days Feeling bad about yourself or that you are a failure : Not at all Trouble concentrating on things : Several days Moving or speaking slowly; restless or fidgety : Several days Thoughts that you would be better off /hurting self : Not at all PHQ-9 Calculated Score : 12 Problems make work, home, or dealing with others : Somewhat difficult TRINIDAD URBAN LPN - 07/08/2012 10:39 BEAM BUILDER Source: [facility] POWEROpen English Document Id: [id number] BUILDER Miscellaneous - Dioni Stoddard APRN, C.N.P. - 07/08/2012 9:08 AM CST Quality Measures Quality Measures Entered On: 07/08/2012 9:08 BEAM BUILDER Performed On: 07/08/2012 9:08 BEAM BUILDER by DIONI STODDARD RN, CNP Depression PHQ-9 Score : 12 DIONI STODDARD RN, CNP - 07/08/2012 9:08 BEAM BUILDER Source: [facility] POWERCHART Document Id: [id number] BUILDER Miscellaneous - Dioni Stoddard APRN, C.N.P. - 07/08/2012 9:01 AM CST Ambulatory Depart Summary [address] [id number] Visit Information Name: LYNNETTE LAWTON [facility] Number: [id number] Visit Date: 07/08/2012 09:01:28 Attending Provider: DIONI STODDARD RN, GERALD Primary Care Provider: PCP, ELSEWHERE JEREDLYNNETTE has been given the following list of medications: Your Medications It is important to take your medications as directed. Use a pill box or chart to help remind you to take your medications. Please let your doctor or nurse know if you have problems taking your medications. Medication/Strength Dose Route Frequency Indications/Special Instructions/Comments levothyroxine (Synthroid 50 mcg (0.05 mg) oral tablet) 50 mcg Oral once a day latanoprost ophthalmic (latanoprost 0.005% ophthalmic solution) 1 drop(s) Eyes(Both) once a day (at bedtime) lorazepam (lorazepam) 1/2 Tab Oral as needed timolol ophthalmic (timolol ophthalmic 0.25% solution) Eyes(Both) once a day Attention: If you have any medications at home that are not on this list, DO NOT take them until youcontact your provider for clarification. Additional Information: Source: [facility] CaptonCHART Document Id: [id number] BUILDER Miscellaneous - Dioni Stoddard APRN, C.N.P. - 07/08/2012 9:01 AM CST Ambulatory Patient Summary [id number] [place] [address] Visit Information Name: LYNNETTE LAWTON [facility] Number: [id number] Current Date: 07/08/2012 09:01:29 Physicians Attending Provider: DIONI STODDARD RN, PSYCHIATRIC SECRETARY Primary Care Provider: PCP, ELSEWHERE Your Medications Here is a list of your medications. It is important to take your medications as directed. Use a pillbox or chart to help remind you to take your medications. Please let your doctor or nurse know if you have problems taking your medications. Medication/Strength Dose Route Frequency Indications/Special Instructions/Comments levothyroxine (Synthroid 50 mcg (0.05 mg) oral tablet) 50 mcg Oral once a day latanoprost ophthalmic (latanoprost 0.005% ophthalmic solution) 1 drop(s) Eyes(Both) once a day (at bedtime) lorazepam (lorazepam) 1/2 Tab Oral as needed timolol ophthalmic (timolol ophthalmic 0.25% solution) Eyes(Both) once a day Attention: If you have any medications at home that are not on this list, DO NOT take them until youcontact your provider for clarification. 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 - 07/08/2012 8:18 AM CST Meaningful Use Influenza Exclusion Meaningful Use Influenza Exclusion Entered On: 07/08/2012 8:18 BEAM BUILDER Performed On: 07/08/2012 8:18 BEAM BUILDER by TRINIDAD URBAN LPN Influenza Vaccine Exclusion Influenza Vaccine Exclusion : Patient declined TRINIDAD URBAN LPN - 07/08/2012 8:18 BEAM BUILDER Source: [facility] POWEROpen English Document Id: [id number] BUILDER Kathleencellaneous - Trinidad Urban L.P.N. - 07/08/2012 8:10 AM CST Adult Call Or Contact Centre Manager Intake/History Adult Call Or Contact Centre Manager Intake/History Entered On: 07/08/2012 8:16 BEAM BUILDER Performed On: 07/08/2012 8:10 BEAM BUILDER by TRINIDAD URBAN LPN Intake Chief Complaint : Follow up lab work done Temperature Core : 36.8C(Converted to: 98.2DegF) Peripheral Pulse Rate : 76/min Respiratory Rate : 18/min Heart Rhythm : Regular Systolic Blood Pressure : 104mmHg Diastolic Blood Pressure : 60mmHg NIBP Mean : 75mmHg BP Location : Left upper extremity Blood Pressure Cuff Size : Regular Actual Weight : 44.2kg(Converted to: 97lb 7oz) Weight Source : Standing scale Dosing Weight Clinic : 44.20kg TRINIDAD URBAN LPN - 07/08/2012 8:10 BEAM BUILDER Subjective Pain Symptoms : No TRINIDAD URBAN LPN - 07/08/2012 8:10 BEAM BUILDER Dependent Habits Tobacco Use/Currently Using : No Exposure to Tobacco Smoke : Care provider denies smoking in home Smoking Status : Never smoker TRINIDAD URBAN LPN - 07/08/2012 8:10 BEAM BUILDER Tobacco Use Grid Last Use : never TRINIDAD URBAN LPN - 07/08/2012 8:10 BEAM BUILDER Alcohol Use : No TRINIDAD URBAN LPN - 07/08/2012 8:10 BEAM BUILDER Caffeine Use Grid Caffeine Use : Current Type : Coffee Frequency : Daily Amount : 4 cups TRINIDAD URBAN LPN - 07/08/2012 8:10 BEAM BUILDER Recreational Drug Use Grid Drug Use : None TRINIDAD URBAN LPN - 07/08/2012 8:10 BEAM BUILDER Allergy Allergies (Active) penicillins Estimated Onset Date: Unspecified ; Created By: TRINIDAD URBAN LPN; Reaction Status:Active ; Category: Drug ; Substance: penicillins ; Type: Allergy ; Updated By: TRINIDAD URBAN LPN; Reviewed Date: 02/27/2012 7:25 CDT Source: [employer] Document Id: [id number] BUILDER documented in this encounter Plan of Treatment Not on filedocumented as of this encounter Visit Diagnoses Not on filedocumented in this encounter Additional Health Concerns Assessment Noted Time PHQ-9 Depression Total Score: 12 07/08/2012 10:[address] documented as of this encounter
--- OUTSIDE RECORDS SUMMARY | 2022-07-24 09:27 | XMS_ITS | Encounter Summary ---
:[address] [facility] Address [address] [place] [address] Care Team Providers Name Role Phone Unavailable Primary Care Provider Unavailable Encounter Details Date Type Department Care Team Description 12/19/2013 Hospital Encounter HX [facility] [place] Krishna Orozco III, M.D. [address] [place] [phone] (Wo rk) Social History Tobacco Use Types Packs/Day Years Used Date Smoking Tobacco: Never Assessed Sex Assigned at Date Recorded Not on file documented as of this encounter Last Filed Vital Signs Vital Sign Reading Time Taken Comments Blood Pressure 114/60 12/19/2013 2:57 PM CDT Pulse 77 12/19/2013 2:57 PM CDT Temperature - - Respiratory Rate 16 12/19/2013 2:57 PM CDT Oxygen Saturation - - Inhaled Oxygen Concentration - - Weight 51.8 kg (114 lb 3.2 oz) 12/19/2013 2:57 PM CDT Height - - Body Mass Index 19.5 12/30/2012 11:17 AM CDT documented in this encounter Miscellaneous Notes Telephone Encounter - Amberly Matthews L.PCarlosN. - 12/22/2013 3:05 PM CDT Phone Message Document Contains Addenda Addendum by KENZIE OROZCO III, MD on 22 Dec 2013 17:01:55 CDT From: KENZIE OROZCO III, MD To: AMBERLY MATTHEWS LPN; Sent: 12/22/2013 17:01:55 CDT Subject: RE: Phone Message thanks From: AMBERLY MATTHEWS LPN To: KENZIE OROZCO III, MD; Sent: 12/22/2013 15:05:40 CDT Subject: Phone Message Caller is: ( x ) Patient ( ) Mother ( ) Father ( ) Spouse ( ) Daughter ( ) Son ( ) Pharmacy ( ) Other: Physician: Iron Orozco Patient MRN #: Reason for Call: Message: FYI: Pt lvm that her leg is looking better and won't need any medications. She wanted you to know- # [phone] Advice/Action: Source used: ( ) Verbalizes understanding of instructions ( ) Instructed to call back if symptoms worsen or do not resolve ( ) Refused to see provider ( ) Appointment Scheduled ( ) OK to leave message on voice mail ( ) Patient told to expect return call: ( ) today ( ) tomorrow ( ) next work day ( ) Patient's email ( ) Patient told physician out of office, will call upon return call on ( ) ( ) Patient told physician out of office, routed to other physician ( ) Other ( ) Call back telephone number ( ) Call back cell phone number ( ) Source: [facility] POWERCHART Document Id: [id number] Miscellaneous - Kenzie Orozco M.D. - 12/19/2013 3:48 PM CDT Ambulatory Patient Summary [address] [id number] Visit Information Name: TIP [facility] Number: [id number] Current Date: 12/19/2013 15:48:01 Physicians Attending Provider: KENZIE OROZCO III, MD Primary Care Provider: PCP, UNASSIGNED - TIP MITCHELL has been given the following list of [...] Take Indications/Special Instructions/Comments/Notes for Patient Medication Changes/Routing cholecalciferol (Vitamin D3) See Instructions latanoprost ophthalmic (latanoprost 0.005% ophthalmic solution) 1 Drops, once a day (at bedtime) levothyroxine (levothyroxine 75 mcg (0.075 mg) oral tablet) 1 Tablet(s), Oral, once a day lorazepam (lorazepam) 1/2 Tab, Oral, as needed timolol ophthalmic (timolol ophthalmic 0.25% solution) Eyes(Both), once a day Stop Taking the Following Medications: Medication list as of 12-19-13 15:48 Attention: If you have any medications at home that are not on this list, DO NOT take them until youcontact your provider for clarification. Give a copy of your medication list to your primary care provider. Update your medication list any time medications or doses are changed and carry your medication list at all times in case of emergency. Electronically Signed By: KENZIE OROZCO III, MD Signed On:19-DEC-2013 15:47:53 Your Allergies & Intolerances Substance Reaction Symptoms [...] Unspecified Hypothyroidism Active 01/29/2007 11/08/13 Unspecified hypothyroidism Your Upcoming Appointments Date Time Location Reason Provider No Appointments found Attention: Contact your local Clinic if further appointment detail needed. Your Goals/Additional instructions: Source: [facility] POWERCHART Document Id: [id number] Miscellaneous - Kenzie Orozco M.D. - 12/19/2013 3:48 PM CDT Ambulatory Discharge Medication [place] [facility] [id number] [place], [place] [id number] Visit Information Name: TIP [facility] Number: [id number] Visit Date: 12/19/2013 15:47:59 Attending Provider: KENZIE OROZCO III, MD Primary Care Provider: PCP, UNASSIGNED - [place] TIP [facility]WT[facility] has been given the following list of medications: Your Medications It is important to take your medications as directed. Use a pill box or chart to help remind you to take your medications. Please let your doctor or nurse know if you have problems taking your medications. Medication/Strength How to Take Indications/Special Instructions/Comments/Notes for Patient Medication Changes/Routing cholecalciferol (Vitamin D3) See Instructions latanoprost ophthalmic (latanoprost 0.005% ophthalmic solution) 1 Drops, once a day (at bedtime) levothyroxine (levothyroxine 75 mcg (0.075 mg) oral tablet) 1 Tablet(s), Oral, once a day lorazepam (lorazepam) 1/2 Tab, Oral, as needed timolol ophthalmic (timolol ophthalmic 0.25% solution) Eyes(Both), once a day Stop Taking the Following Medications: Medication list as of 12-19-13 15:47 Attention: If you have any medications at home that are not on this list, DO NOT take them until youcontact your provider for clarification. Give a copy of your medication list to your primary care provider. Update your medication list any time medications or doses are changed and carry your medication list at all times in case of emergency. Electronically Signed By: KENZIE OROZCO III, MD Signed On:19-DEC-2013 15:47:53 Additional Information: Source: [facility] POWERCHART Document Id: [id number] Miscellaneous - Margo iFelds, L.P.N. 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 Scrapped [id number] ago. Temperature Core : 36.8 DegC(Converted to: 98.2 DegF) Peripheral Pulse Rate : 77 /min Respiratory Rate : 16 /min Systolic Blood Pressure : 114 mmHg Diastolic Blood Pressure : 60 mmHg NIBP Mean : 78 mmHg BP Location : Left upper extremity Blood Pressure Cuff Size : Regular SpO2 : 99 % Oxygen Therapy : Room air Actual Weight : 51.8 kg(Converted to: 114 lb 3 oz) Weight Source : Standing scale Dosing Weight Clinic : 51.8 kg MARGO FIELDS LPN - 12/19/2013 14:57 CDT General Info Information Given By : Patient Preferred Communication Mode : Verbal Languages : Chinese MARGO FIELDS LPN - 12/19/2013 14:57 CDT Subjective Pain Symptoms : No MARGO FIELDS LPN - 12/19/2013 14:57 CDT Dependent Habits Tobacco Use/Currently Using : No Exposure to Tobacco Smoke : Care provider denies smoking in home Smoking Status : Never smoker MARGO FIELDS LPN - 12/19/2013 14:57 CDT Tobacco Use Grid Last Use : never MARGO FIELDS LPN - 12/19/2013 14:57 CDT Alcohol Use : No MARGO FIELDS LPN - 12/19/2013 14:57 CDT Caffeine Use Grid Caffeine Use : Current Type : Coffee Frequency : Daily Amount : 4 cups MARGO FIELDS LPN - 12/19/2013 14:57 CDT Recreational Drug Use Grid Drug Use : None MAGRO FIELDS LPN - 12/19/2013 14:57 CDT Source: [facility] [employer]ACH[employer] Document Id: [id number] CDT!39 Miscellaneous - Margo Fields L.P.N. - 12/19/2013 2:56 PM CDT Meaningful Use Influenza Exclusion Meaningful Use Influenza Exclusion Entered On: 12/19/2013 14:56 CDT Performed On: 12/19/2013 14:56 CDT by DIAMOND, MARGO D DB2 DEVELOPER Influenza Vaccine Exclusion Influenza Vaccine Exclusion : Patient declined MARGO FIELDS DB2 DEVELOPER - 12/19/2013 14:56 CDT Source: [employer] Document Id: [id number] CDT!3 Miscellaneous - Chen Allred LCarlosP.N. - 12/19/2013 1:20 PM CDT Quality Measures Quality Measures Entered On: 02/11/2014 13:20 CDT Performed On: 12/19/2013 13:20 CDT by CHEN ALLRED LPN Depression PHQ-9 Score : 7 CHNE ALLRED LPN - 02/11/2014 13:20 CDT Source: [employer] Document Id: [id number] CDT!3 documented in this encounter Plan of Treatment Not on filedocumented as of this encounter Visit Diagnoses Not on filedocumented in this encounter Additional Health Concerns Assessment Noted Time PHQ-9 Depression Total Score: 11 12/30/2012 4:36 PM CD T documented as of this encounter
--- OUTSIDE RECORDS SUMMARY | 2022-07-24 09:27 | XMS_ITS | Encounter Summary ---
:1940 Author Organization [facility] Address [address] [place] [address] Care Team Providers Name Role Phone Unavailable Primary Care Provider Unavailable Encounter Details Date Type Department Care Team Description 05/26/2014 Hospital Encounter HX [facility] Hailee Stoddard APRN, C.N.P., D. N.P. [address] [place] [address] (Wo rk) Social History Tobacco Use Types Packs/Day Years Used Date Smoking Tobacco: Never Assessed Sex Assigned at Date Recorded Not on file documented as of this encounter Last Filed Vital Signs Vital Sign Reading Time Taken Comments Blood Pressure 112/66 05/26/2014 12:55 PM CDT Pulse 80 05/26/2014 12:55 PM CDT Temperature - - Respiratory Rate 18 05/26/2014 12:55 PM CDT Oxygen Saturation - - Inhaled Oxygen Concentration - - Weight 53.4 kg (117 lb 11.6 oz) 05/26/2014 12:55 PM CDT Height 161 cm (5' 3.39) 05/26/2014 12:55 PM CDT Body Mass Index 20.6 05/26/2014 12:55 PM CDT documented in this encounter Progress Notes Hailee Stoddard APRN, C.N.P. - 05/26/2014 12:43 PM CDT [id number] CHIEF COMPLAINT/REASON FOR VISIT Medication refill and abdominal discomfort. HISTORY OF PRESENT ILLNESS Lynnette is a 73-year-old who has known hypothyroidism, has in the past been noncompliant, but has been taking her medications adequately, comes in today for a refill of her thyroid medicine. She knows she is due for a TSH. She is concerned as patient has had some abdominal bloating and some significant enlargement of her lower abdomen for the past 6 months. She states she is constipated at times. She has had no vaginal bleeding. No nausea. Has noted some fullness and bloating. Also has had some back pain, but that has been off and on since August 2012. She has seen a chiropractor for her back pain in the past, which did not seem to help at all. Her main concern is she is worried about the abdominal bloating. She denies any family history of any uterine, ovarian or colon cancer. MEDICATIONS She is on levothyroxine 75 mcg daily. Lorazepam as needed. Timolol ophthalmic. Vitamin C. Vitamin D. Latanoprost ophthalmic solution. ALLERGIES Penicillins. SYSTEMS REVIEW Patient denies night sweats, weight changes, changes in hair or skin. She denies any changes in her bowel habits other than occasional constipation. She denies chest pain or shortness of breath. No changes in bowel or bladder habits. PAST MEDICAL/SURGICAL HISTORY She did have a biopsy of her uterine lining. She also has a history of major depression anxiety. Glaucoma. Hypothyroidism. SOCIAL HISTORY She lives with her who is retired. She is a nontobacco or alcohol user. FAMILY HISTORY Sister with breast cancer. Brother with bipolar and colon cancer, and brother with diabetes. VITAL SIGNS Her blood pressure is 112/66 with a heart rate of 80, respiratory rate of 18, temperature 37. [id number], weight 53.4 kg. Her PHQ-9 score is 7. PHYSICAL EXAMINATION GENERAL: Patient appears nondistressed. SKIN: Warm and dry. HEENT: Unremarkable. Thyroid assessed and negative. VESSELS: Carotids with normal upstrokes. LYMPH: No cervical or supraclavicular lymphadenopathy. HEART: With a regular rate and rhythm. Normal S1, S2. No murmurs or gallops. LUNGS: Clear to auscultation. ABDOMEN: She does have some outpouching of her abdomen that is identified with some feeling of fullness especially identified in the lower pelvic area. BACK: Her spine is in alignment, with some slight tenderness in her lower lumbar spine at L4 and 5. EXTREMITIES: Without any edema. DIAGNOSTICS LABORATORY: I did obtain a CBC, a complete metabolic panel, a CRP and urine, as well as a TSH, whichall were completely unremarkable. RADIOLOGY: We also did obtain a lumbar x-ray, which did show some compression of superior endplate of L1 with anterior wedging and some ballooning of the lumbar interspaces. Abdominal ultrasound was obtained, which was basically negative, but noted a pelvic ultrasound was not performed. IMPRESSION/REPORT/PLAN 1. Hypothyroidism. 2. Abdominal mass. 3. Back pain. 4. Colon cancer screening. PLAN: 1. She did have an ultrasound. We will get her set up for a colonoscopy. Patient would be medically optimal to undergo a colonoscopy. She would be considered low risk. There is a family history of a brother with colon cancer and she does have some abdominal bloating. We will get this set up right away. I did write a prescription for her prep for that. 2. For her back pain, will ask her to use physical therapy, heat and ice. 3. For the abdominal mass, we will be following up with a colonoscopy. Pelvic ultrasound was not performed, which does concern me a bit. If her colonoscopy is normal, may want to further pursue a pelvic ultrasound. 4. Hypothyroidism. TSH is normal. Refilled that for 1 year. 5. Patient also is due for a mammogram and we will go ahead and get that scheduled also. I will haveher come back and will discuss the need for a bone density scan as well as a pneumonia shot. Patientagrees with that plan. 6. Ready to learn. No apparent learning barriers were identified. Learning preferences include listening. Explained diagnosis and treatment plan. Patient/Child/Caregiver expressed understanding of the content. Hailee Stoddard, Kahlil.N.P./toby Electronically Signed By: HAILEE STODDARD RN, DB2 DEVELOPER On: 06/03/2014 05:31 PM Source: [facility] MHSDOLBEYNONRADSYS Document Id: [id number] documented in this encounter Miscellaneous Notes Miscellaneous - Trinidad Urban L.P.NCarlos - 06/08/2014 1:07 PM CDT *General Message Document Contains Addenda Addendum by TRINIDAD URBAN LPN on 09 June 2014 12:20:51 CDT Patient was called and updated Addendum by HAILEE STODDARD RN, GERALD on 08 June 2014 20:19:56 CDT From: HAILEE STODDARD RN, GERALD To: TRINIDAD URBAN LPN; Sent: 06/08/2014 20:19:56 CDT Subject: RE: *General Message OK Send back the Fit Test. Her TSH was satisfactory so I don't think that is why. I wonder if it hasanything to do with being less active and eating more since her retired. Is that a possibility? From: TRINIDAD URBAN LPN To: HAILEE STODDARD RN, CNP; Sent: 06/08/2014 13:07:16 CDT ! Subject: *General Message Patient called leaving a message reporting that she does not wish to have a colonoscopy that she will just go ahead with the test you sent with her checking her stool. She does report that she has gained 15lbs and was wondering if you felt it was due to her thyroid or the bloating? Please advise Thanks rTinidad Source: [facility] POWERCHART Document Id: [id number] Miscellaneous - Hailee Stoddard APRN, C.N.P. - 05/29/2014 7:29 AM CDT results Document Contains Addenda Addendum by TRINIDAD URBAN LPN on 05 June 2014 09:39:20 CDT From: TRINIDAD URBAN LPN To: HAILEE STODDARD RN, GERALD; Sent: 06/05/2014 09:39:20 CDT Subject: RE: results Patient was called she would like to think about going forward with the colonoscopy over the weekendshe will call with her decision on Sunday Addendum by TRINIDAD URBAN LPN on 02 June 2014 15:01:41 CDT Message left for patient to call back Addendum by NIC WIN LPN, RT on 29 May 2014 09:23:51 CDT Message left to call clinic. DL From: HAILEE STODDARD RN, DB2 DEVELOPER To: TRINIDAD URBAN LPN; Sent: 05/29/2014 07:29:43 CDT Subject: results Let pt know we want her to have colonoscopy. She had a abdominal but not pelvic US. I suspect we should do that if her colonoscopy is negative. Source: [facility] POWERCHART Document Id: [id number] Miscellaneous - Hailee Stoddard, RUFUS, C.N.P. - 05/26/2014 5:00 PM CDT Normal Results Letter 26 May 2014 LYNNETTE LAWTON [address] [place] [address] [id number] Dear LYNNETTE LAWTON, I am pleased to report that your results from the following diagnostic blood work is normal. Please follow up with us as we discussed during your visit or sooner if you have any concerns. If you have questions or concerns, please do not hesitate to call our office. Result Name Current Result Previous Result Normal Range Sodium Lvl (mM/L) 137.1 05/26/2014 135.0 - 145.0 Potassium Lvl (mmol/L) 3.9 05/26/2014 3.6 - 4.8 Chloride (mmol/L) 101 05/26/2014 98 - 107 CO2 (mmol/L) 27.4 05/26/2014 23.0 - 29.0 AGAP (mmol/L) 13 05/26/2014 10 - 20 Alkaline Phosphatase (U/L) 71 05/26/2014 55 - 142 Glucose Lvl (mg/dL) 92 05/26/2014 70 - 139 Creatinine (mg/dL) 0.64 05/26/2014 0.60 - 1.30 EGFR (MDRD) (mL/min/1.73m2) >60 05/26/2014 >=60 - EGFR (MDRD) (mL/min/1.73m2) >60 05/26/2014 >=60 - BUN (mg/dL) 13 05/26/2014 7 - 18 Calcium Lvl (mg/dL) 9.5 05/26/2014 8.8 - 10.2 Protein Total (g/dL) 7.4 05/26/2014 6.3 - 7.9 Albumin Lvl (g/dL) 4.6 05/26/2014 3.5 - 5.0 AST (U/L) 22 05/26/2014 12 - 31 ALT (U/L) (L) 12 05/26/2014 15 - 37 Bili Total (mg/dL) 0.5 05/26/2014 0.1 - 1.0 [id number] Lvl (U/L) 114 05/26/2014 25 - 115 Lipase Lvl (U/L) 53.2 05/26/2014 10.0 - 73.0 CRP (mg/dL) 0.3 05/26/2014 0.0 - 0.8 TSH (mcIU/mL) 3.05 05/26/2014 2.69 11/13/2013 0.30 - 5.00 Hgb (g/dL) 13.2 05/26/2014 12.0 - 15.5 Hct (%) 38.6 05/26/2014 34.9 - 44.5 WBC (x10(9)/L) 4.4 05/26/2014 3.4 - 10.5 RBC (x10(12)/L) 4.42 05/26/2014 3.90 - 5.03 MCV (fL) 87.3 05/26/2014 82.0 - 98.0 RDW (%) 12.8 05/26/2014 11.9 - 15.5 Platelet (x10(9)/L) 241 05/26/2014 150 - 450 Neutro Absolute (10(9)/L) 2.76 05/26/2014 1.70 - 7.00 Lymph Absolute (x10(9)/L) 1.04 05/26/2014 0.90 - 2.90 Mchenry Absolute (x10(9)/L) 0.42 05/26/2014 0.30 - 0.90 Eos Absolute (x10(9)/L) 0.16 05/26/2014 0.05 - 0.50 Baso Absolute (x10(9)/L) 0.02 05/26/2014 0.00 - 0.30 Differential? Auto 05/26/2014 Sincerely, HAILEE STODDARD [id number] [place] [address] CHUCK Ozuna [address] Electronic Signature Electronically Signed By: HAILEE STODDARD RN, DB2 DEVELOPER On: 26 May 2014 This document has images extracted. Source: [facility] [employer]view Document Id: [id number] Miscellaneous - Chen Allred L.P.N. - 05/26/2014 2:44 PM CDT Quality Measures Quality Measures Entered On: 06/05/2014 14:44 CDT Performed On: 05/26/2014 14:44 CDT by CHEN ALLRED LPN Depression PHQ-9 Score : 7 CHEN ALLRED LPN - 06/05/2014 14:44 CDT Source: [facility] [employer] Document Id: [id number] CDT!3 Miscellaneous - Hailee Stoddard APRN, C.N.P. - 05/26/2014 2:32 PM CDT Ambulatory Patient Summary [address] [place]UCK Ozuna [id number] Visit Information Name: LYNNETTE LAWTON [facility] Number: [id number] Current Date: 05/26/2014 14:32:14 Physicians Attending Provider: HAILEE STODDARD RN, DB2 DEVELOPER Primary Care Provider: PCP, UNASSIGNED - [place] LYNNETTE LAWTON has been given the following [...] D3) 400 IntU, , once a day latanoprost ophthalmic (latanoprost 0.005% ophthalmic solution) 1 Drops, once a day (at bedtime) levothyroxine (levothyroxine 75 mcg (0.075 mg) oral tablet) 1 Tablet(s), Oral, once a day pt aware she needs annual exam for further refills lorazepam (lorazepam) 1/2 Tab, Oral, as needed timolol ophthalmic (timolol ophthalmic 0.25% solution) Eyes(Both), once a day Stop Taking the Following Medications: Medication list as of 05-26-14 14:32 Attention: If you have any medications at home that are not on this list, DO NOT take them until youcontact your provider for clarification. Give a copy of your medication list to your primary care provider. Update your medication list any time medications or doses are changed and carry your medication list at all times in case of emergency. Electronically Signed By: HAILEE STODDARD RN, DB2 DEVELOPER Signed On:26-MAY-2014 14:31:52 Your Allergies & Intolerances Substance Reaction Symptoms [...] hypothyroidism Your Upcoming Appointments Date Time Location Provider 05/27/2014 09:00 [facility] Ultrasound [facility] US Room 1 Attention: Contact your local Clinic if further appointment detail needed. Your Goals/Additional instructions: Source: [facility] POWERCHART Document Id: [id number] Miscellaneous - Hailee Stoddard APRN, C.N.P. - 05/26/2014 2:32 PM CDT Ambulatory Discharge Medication List [address] [place] [id number] Visit Information Name: LYNNETTE LAWTON [facility] Number: [id number] Visit Date: 05/26/2014 14:32:12 Attending Provider: HAILEE STODDARD RN, GERALD Primary Care Provider: PCP, UNASSIGNED - [place] LYNNETTE LAWTON has been given the following [...] D3) 400 IntU, , once a day latanoprost ophthalmic (latanoprost 0.005% ophthalmic solution) 1 Drops, once a day (at bedtime) levothyroxine (levothyroxine 75 mcg (0.075 mg) oral tablet) 1 Tablet(s), Oral, once a day pt aware she needs annual exam for further refills lorazepam (lorazepam) 1/2 Tab, Oral, as needed timolol ophthalmic (timolol ophthalmic 0.25% solution) Eyes(Both), once a day Stop Taking the Following Medications: Medication list as of 05-26-14 14:32 Attention: If you have any medications at home that are not on this list, DO NOT take them until youcontact your provider for clarification. Give a copy of your medication list to your primary care provider. Update your medication list any time medications or doses are changed and carry your medication list at all times in case of emergency. Electronically Signed By: HAILEE STODDARD RN, GERALD Signed On:26-MAY-2014 14:31:52 Additional Information: Source: [facility] POWERCHART Document Id: [id number] Willi - Trinidad Urban L.P.N. - 05/26/2014 1:05 PM CDT Meaningful Use Influenza Exclusion Meaningful Use Influenza Exclusion Entered On: 05/26/2014 13:05 CDT Performed On: 05/26/2014 13:05 CDT by TRINIDAD URBAN LPN Influenza Vaccine Exclusion Influenza Vaccine Exclusion : Patient declined TRINIDAD URBAN LPN - 05/26/2014 13:05 CDT [facility] [employer] Document Id: [id number] CDT!3 Willi - Trinidad Urban L.PMatthias - 05/26/2014 1:03 PM CDT Health Assessment Health Assessment Entered On: 05/26/2014 13:04 CDT Performed On: 05/26/2014 13:03 CDT by TRINIDAD URBAN LPN Health Assessment Complete Health Assessment Complete or Modified : Annual Health Assessment Annual Health Assessment Completed : Yes TRINIDAD URBAN LPN - 05/26/2014 13:03 CDT Nutrition Nutrition Risk Factors by History Adult : None TRINIDAD URBAN LPN - 05/26/2014 13:03 CDT Functional Current Daily Living Assistance : None TRINIDAD URBAN LPN - 05/26/2014 13:03 CDT Dependent Habits Tobacco Use/Currently Using : No Exposure to Tobacco Smoke : Care provider denies smoking in home Smoking Status : Never smoker TRINIDAD URBAN LPN - 05/26/2014 13:03 CDT Tobacco Use Grid Last Use : never TRINIDAD URBAN LPN - 05/26/2014 13:03 CDT Caffeine Use Grid Caffeine Use : Current Type : Coffee Frequency : Daily Amount : 4 cups TRINIDAD URBAN LPN - 05/26/2014 13:03 CDT Recreational Drug Use Grid Drug Use : None TRINIDAD URBAN LPN - 05/26/2014 13:03 CDT Psychosocial Domestic Abuse Concerns : None Yazidism Preference : No qualifying data available. 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 Intake/History Entered On: 05/26/2014 13:00 CDT Performed On: 05/26/2014 12:55 CDT by TRINIDAD URBAN LPN Intake Chief Complaint : Refill thyroid medication Temperature Core : 37 DegC(Converted to: 98.6 DegF) Peripheral Pulse Rate : 80 /min Respiratory Rate : 18 /min Heart Rhythm : Regular Systolic Blood Pressure : 112 mmHg Diastolic Blood Pressure : 66 mmHg NIBP Mean : 81 mmHg BP Location : Left upper extremity Blood Pressure Cuff Size : Regular Height : 161 cm(Converted to: 5 ft 3 inch(es), 63 inch(es)) Actual Weight : 53.4 kg(Converted to: 117 lb 12 oz) Weight Source : Standing scale Dosing Weight Clinic : 53.4 kg Clinic BSA : 1.55 Body Mass Index : 20.6 kg/m2 TRINIDAD URBAN LPN - 05/26/2014 12:55 CDT General Info Languages : Macedonian Is Patient Female and 13-50 no hysterectomy : No TRINIDAD URBAN LPN - 05/26/2014 12:55 CDT Subjective Pain Symptoms : Yes TRINIDAD URBAN LPN - 05/26/2014 12:55 CDT Pain Pain Assessment Grid Pain 1 Location : Lower back Laterality : Right Intensity : 3 TRINIDAD URBAN [facility] - 05/26/2014 12:55 CDT Dependent Habits Tobacco Use/Currently Using : No Exposure to Tobacco Smoke : Care provider denies smoking in home Smoking Status : Never smoker TRINIDAD URBAN [facility] - 05/26/2014 12:55 CDT Tobacco Use Grid Last Use : never TRINIDAD URBAN [facility] - 05/26/2014 12:55 CDT Caffeine Use Grid Caffeine Use : Current Type : Coffee Frequency : Daily Amount : 4 cups TRINIDAD URBAN [facility] - 05/26/2014 12:55 CDT Recreational Drug Use Grid Drug Use : None TRINIDAD URBAN [facility] - 05/26/2014 12:55 CDT Source: [employer] Document Id: [id number] CDT!45 documented in this encounter Plan of Treatment Not on filedocumented as of this encounter Procedures Procedure Name Priority Date/Time Associated Comments Diagnosis URINALYSIS, ROUTINE Routine 05/26/2014 2:10 PM Re sults for this CDT procedure are i n the results section. AUTOMATED Routine 05/26/2014 1:41 PM Results f or this DIFFERENTIAL, B CDT procedure ar e in the results section. CBC WITH DIFFERENTIAL, Routine 05/26/2014 1:41 PM Results for this B CDT procedure are i n the results section. C-REACTIVE PROTEIN Routine 05/26/2014 1:41 PM Res ults for this (CRP), S/P CDT procedure are i n the results section. THYROID-STIMULATING Routine 05/26/2014 1:41 PM Re sults for this HORMONE-SENSITIVE CDT procedure are in (S-TSH) the results section. LIPASE, S/P Routine 05/26/2014 1:41 PM Results f or this CDT procedure are i n the results section. AMYLASE, TOT, S Routine 05/26/2014 1:41 PM Result s for this CDT procedure are i n the results section. COMPREHENSIVE Routine 05/26/2014 1:41 PM Results for this METABOLIC PANEL, S/P CDT procedu re are in the results section. documented in this encounter Results Urinalysis, Routine (05/26/2014 2:10 PM CDT) [facility] Method Time Signature Source Clean Void POWERCHART Urine HXUr Color Yellow POWERCHART Clarity Clear POWERCHART Glucose Negative MGDL POWERCHART HXBILIRUBIN Negative POWERCHART Ketones, QL(U) Negative MGDL POWERCHART Specific 1.020 POWERCHART [place], POCT, U pH, POCT, Urine 8.0 POWERCHART Protein, Ur, Dip Negative MGDL POWERCHART Urobilinogen 0.2 MGDL POWERCHART HXNITRITE Negative POWERCHART HXBLOOD Negative POWERCHART Leukocyte Negative POWERCHART Esterase Specimen (Source) Anatomical Collection Method Collection Time Re ceived Time Location / / Volume Laterality Urine 05/26/2014 2:10 PM CDT Hailee Stoddard APRN, C.N.P., D.N.P. LAB URINE ORDERABLE S Performing Organization Address City/[facility] Phon e Number POWERCHART Automated Differential (05/26/2014 1:41 PM CDT) athologist Signature Absolute 2.76 1.70 - POWERCHART Neutrophils 7.00 109L Lymphocytes 1.04 0.90 - POWERCHART 2.90 X109L Monocytes 0.42 0.30 - POWERCHART 0.90 X109L Eosinophils 0.16 0.05 - POWERCHART 0.50 X109L Absolute 0.02 0.00 - POWERCHART Basophil 0.30 X109L Specimen Anatomical Collection Method Collection Time Receive d Time (Source) Location / / Volume Laterality Blood 05/26/2014 1:41 PM 4 1:41 CDT PM CDT Hailee Stoddard APRN, C.N.P., D.N.P. LAB BLOOD ADD-ON Performing Organization Address City/[facility] Code Phon e Number POWERCHART CBC with Differential (05/26/2014 1:41 PM CDT) athologist Signature Leukocytes 4.4 3.4 - 10.5 POWERCHART X109L Erythrocytes 4.42 3.90 - POWERCHART 5.03 [id number] Hemoglobin 13.2 12.0 - POWERCHART 15.5 GDL Hematocrit 38.6 34.9 - POWERCHART 44.5 MCV 87.3 82.0 - POWERCHART 98.0 FL HX RDW 12.8 11.9 - POWERCHART 15.5 Platelet Count 241 150 - 450 POWERCHART X109L HXDifferential? Auto POWERCHART Specimen (Source) Anatomical Collection Method Collection Time Re ceived Time Location / / Volume Laterality Blood 05/26/2014 1:41 PM CDT Hailee Stoddard APRN C.N.P., D.N.P. LAB BLOOD ADD-ON Performing Organization Address City/State/ZIP Code Phon e Number POWERCHART Thyroid-Stimulating Hormone-Sensitive (s-TSH) (05/26/2014 1:41 PM CDT) P athologist Signature TSH 3.05 0.30 - 5.00 POWERCHART (Thyrotropin) MCIUML Specimen (Source) Anatomical Collection Method Collection Time Re ceived Time Location / / Volume Laterality Blood 05/26/2014 1:41 PM CDT Hailee Stoddard APRN, C.N.P., D.N.P. LAB BLOOD ADD-ON Performing Organization Address City/State/ZIP Code Phon e Number POWERCHART Lipase (05/26/2014 1:41 PM CDT) P athologist Signature Lipase, S 53.2 10.0 - 73.0 POWERCHART UL Specimen (Source) Anatomical Collection Method Collection Time Re ceived Time Location / / Volume Laterality Blood 05/26/2014 1:41 PM CDT Hailee Stoddard APRN, C.N.P., D.N.P. LAB BLOOD ADD-ON Performing Organization Address City/State/ZIP Code Phon e Number POWERCHART Amylase, Total (05/26/2014 1:41 PM CDT) P athologist Signature Amylase, Total, 114 25 - 115 UL POWERCHART S Specimen (Source) Anatomical Collection Method Collection Time Re ceived Time Location / / Volume Laterality Blood 05/26/2014 1:41 PM CDT Hailee Stoddard APRN C.N.P., D.N.P. LAB BLOOD ADD-ON Performing Organization Address City/State/ZIP Code Phon e Number POWERCHART (ABNORMAL) CMP (Comprehensive Metabolic Panel) (05/26/2014 1:41 PM CDT) Patholo gist Method Time Signature Anion Gap 13 10 - 20 POWERCHART MMOLL Alkaline 71 55 - 142 POWERCHART Phosphatase, S UL Alanine 12 (L) 15 - 37 POWERCHART Amniotransferase, LD UL Aspartate 22 12 - 31 POWERCHART Aminotransferase UL (AST), S Bilirubin, Total, S 0.5 0.1 - 1.0 POWERCHART MGDL BUN (Blood Urea 13 7 - 18 POWERCHART Nitrogen), S MGDL Chloride, S 101 98 - 107 POWERCHART MMOLL CO2 Total 27.4 23.0 - POWERCHART 29.0 MMOLL Creatinine 0.64 0.60 - POWERCHART 1.30 MGDL Total Protein, S 7.4 6.3 - 7.9 POWERCHART GDL Glucose 92 70 - 139 POWERCHART MGDL Calcium, Total, S 9.5 8.8 - POWERCHART 10.2 MGDL Sodium, S 137.1 135.0 - POWERCHART 145.0 MML Potassium, S 3.9 3.6 - 4.8 POWERCHART MMOLL Albumin, S 4.6 3.5 - 5.0 POWERCHART GDL HXeGFR (MDRD) >60 >=60 POWERCHART [id number] 2 eGFR Black/ >60 >=60 POWERCHART [place] [id number] 2 Specimen (Source) Anatomical Collection Method Collection Time Re ceived Time Location / / Volume Laterality Blood 05/26/2014 1:41 PM CDT Hailee Stoddard APRN, C.N.P., D.N.P. LAB BLOOD ADD-ON Performing Organization Address City/State/ZIP Code Phon e Number POWERCHART CRP (C-Reactive Protein) (05/26/2014 1:41 PM CDT) P athologist Signature C-Reactive 0.3 0.0 - 0.8 POWERCHART Protein (CRP), MGDL S Specimen (Source) Anatomical Collection Method Collection Time Re ceived Time Location / / Volume Laterality Blood 05/26/2014 1:41 PM CDT Haiele Stoddard APRN, C.N.P., D.N.P. LAB BLOOD ADD-ON Performing Organization Address City/State/ZIP Code Phon e Number POWERCHART documented in this encounter Visit Diagnoses Not on filedocumented in this encounter Additional Health Concerns Assessment Noted Time PHQ-9 Depression Total Score: 11 12/30/2012 4:36 PM CD T documented as of this encounter
--- OUTSIDE RECORDS SUMMARY | 2022-07-24 09:27 | XMS_ITS | Encounter Summary ---
:1940 Author Organization [facility] Address [address] [place] [address] Care Team Providers Name Role Phone Unavailable Primary Care Provider Unavailable Encounter Details Date Type Department Care Team Description 02/27/2012 Hospital Encounter HX [facility] Hailee Shepard AP RN, C.N.P., D.N.P. [address] [phone] (Wo rk) Social History Tobacco Use Types Packs/Day Years Used Date Smoking Tobacco: Never Assessed Sex Assigned at Date Recorded Not on file documented as of this encounter Plan of Treatment Not on filedocumented as of this encounter Procedures Procedure Name Priority Date/Time Associated Diagnosis Comme nts THYROID-STIMULATING Routine 02/27/2012 7:09 AM Re sults for this HORMONE-SENSITIVE CDT procedure are in (S-TSH) the results section. documented in this encounter Results (ABNORMAL) Thyroid-Stimulating Hormone-Sensitive (s-TSH) (02/27/2012 7:09 AM CDT) Analysis Performed At Patho logist Time Signature TSH 6.10 (H) 0.30 - 5.00 POWERCHART (Thyrotropin) MCIUML Specimen (Source) Anatomical Collection Method Collection Time Re ceived Time Location / / Volume Laterality Blood 02/27/2012 7:09 AM CDT Hailee Shepard APRN, C.N.P., D.N.P. LAB BLOOD ADD-ON Performing Organization Address City/State/ZIP Code Phon e Number POWERCHART documented in this encounter Visit Diagnoses Not on filedocumented in this encounter
--- OUTSIDE RECORDS SUMMARY | 2022-07-24 09:27 | XMS_ITS | Encounter Summary ---
:1940 Author Organization [facility] Address [address] [place] [address] Care Team Providers Name Role Phone Unavailable Primary Care Provider Unavailable Encounter Details Date Type Department Care Team Description 01/11/2015 Hospital Encounter HX [facility] Joseph Chris M.D. [address] [place], [place] [phone] (Wo rk) Social History Tobacco Use Types Packs/Day Years Used Date Smoking Tobacco: Never Assessed Sex Assigned at Date Recorded Not on file documented as of this encounter Progress Notes Marilyn Ferguson C.O.A. - 01/11/2015 11:11 AM CDT SUBJECTIVE: (Post catarac problems ) HPI: (Patient states she saw Dr. Marin last week and pressure was 30 , he told her to stop the predsniolone. She has been having pain that comes and goes. at about a 5. She is not taking any post cataract drops. vision seems to be ok. she did also have some flickering in her vision. she is more light senstive with the left eye.NO chane in floaters timolol in the morning both eyes latanoprost at night both eyes ) VISUAL ACUTIY: CC right eye 20/_ ph _: left eye 20/_ SC right eye 20/_ ph _: left eye 20/25 IOP: Right (11) Left (12) (x Applanation) myd 1116 left eye PATIENT PROBLEM LIST, PAST MEDICAL HISTORY AND FAMILY HISTORY REVIEWED IN CHART ALLERGIES REVIEWED, MEDICATIONS REVIEWED AND RECONCILLED PER CHART REVIEW OF SYSTEMS: RESPIRATORY : NEGATIVE (X); OTHER (_) CARDIOVASCULAR: NEGATIVE (x); OTHER (_) NEUROLOGIC: NEGATIVE (x); OTHER (_) PYSCH: No apparent anxiety or depression. Pleasant affect Electronically Signed By: LATRELL CAVAANUGH MD On: 01/11/2015 11:37 AM Modified by and Electronically Signed by: LATRELL CAVANAUGH MD On: 01/11/2015 11:37 AM Co-Signed By: LATRELL CAVANAUGH MD On: 01/11/2015 11:37 AM Source: [facility] POWERCHART Document Id: [id number] documented in this encounter Miscellaneous Notes Miscellaneous - Marilyn Ferguson C.O.A. 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 Intake/History Adult Technical Sales Specialist Intake/History Entered On: 01/11/2015 11:10 CDT Performed On: 01/11/2015 11:10 CDT by MARILYN FERGUSON Intake Chief Complaint : post cataract problems MARILYN FERGUSON - 01/11/2015 11:10 CDT General Info Information Given By : Patient Languages : Vietnamese Is Patient Female and 13-50 no hysterectomy : No MARILYN FERGUSON - 01/11/2015 11:10 CDT Subjective Pain Symptoms : Yes MARILYN FERGUSON - 01/11/2015 11:10 CDT Pain Scale Pain Scale Verbal 0-10 : Open MARILYN FERGUSON - 01/11/2015 11:10 CDT Pain Pain Assessment Grid Pain 1 Location : Eye Laterality : Left Intensity : 5 MARILYN FERGUSON - 01/11/2015 11:10 CDT Dependent Habits Tobacco Use/Currently Using : No Exposure to Tobacco Smoke : Care provider denies smoking in home Smoking Status : Never smoker MARILYN FERGUSON - 01/11/2015 11:10 CDT Caffeine Use Grid Caffeine Use : Current Type : Coffee Frequency : Daily Amount : 4 cups MARILYN FERGUSON - 01/11/2015 11:10 CDT Recreational Drug Use Grid Drug Use : None MARILYN FERGUSON - 01/11/2015 11:10 CDT ID Screen Drug Resistant Organism : No Travel Within Last 21 Days : No Contact with someone with Ebola : No MARILYN FERGUSON - 01/11/2015 11:10 CDT Source: [facility] [employer] Document Id: [id number] CDT!34 documented in this encounter Plan of Treatment Not on filedocumented as of this encounter Visit Diagnoses Not on filedocumented in this encounter Additional Health Concerns Assessment Noted Time PHQ-9 Depression Total Score: 5 11/30/2014 3:40 PM CDT documented as of this encounter
--- OUTSIDE RECORDS SUMMARY | 2022-07-24 09:27 | XMS_ITS | Encounter Summary ---
:1940 Author Organization [facility] Address [address] [place] [address] Care Team Providers Name Role Phone Unavailable Primary Care Provider Unavailable Encounter Details Date Type Department Care Team Description 09/20/2012 Hospital Encounter HX [facility] Dioni Stoddard AP RN, C.N.P., D.N.P. [address] [phone] (Wo rk) Social History Tobacco Use Types Packs/Day Years Used Date Smoking Tobacco: Never Assessed Sex Assigned at Date Recorded Not on file documented as of this encounter Miscellaneous Notes Miscellaneous - Trinidad Urban LCarlosP.N. - 12/25/2012 4:33 PM CDT General Message Document Contains Addenda Addendum by DIONI STODDARD RN, ALIGNMENT SPECIALIST on 25 Dec 2012 17:07:09 CDT From: DIONI STODDARD RN, ALIGNMENT SPECIALIST To: TRINIDAD URBAN LPN; Sent: 12/25/2012 17:07:09 CDT Subject: RE: General Message ok. I rescheduled her blood work for 3 months from now. From: TRINIDAD URBAN LPN To: DIONI STODDARD RN, ALIGNMENT SPECIALIST; Sent: 12/25/2012 16:33:54 CDT Subject: General Message FYI patient called with questions about her Vitamin D level she was given her results the normal ranges and was read the orders that you had written for Vitamin d 50,000iu twice a week she is due for lab work as follow up but reports she has not started the medication so she will start medication and follow up with lab work when RX complete as ordered Thanks Trinidad Source: [facility] Document Id: [id number] Electronically signed by Conversion, [facility] Relocation Associate [id number] at 01/10/2017 7:25 PM CDT Miscellaneous - Dioni Stoddard APRN, C.N.P. - 09/24/2012 2:25 PM CST Results Notification From: DIONI STODDARD RN, ALIGNMENT SPECIALIST Sent: 09/24/2012 14:25:17 [employer]UGBOAT CAPTAIN Show up: 09/24/2012 14:26:00 [employer]UGBOAT [employer]TAIN Subject: Results Notification letter sent Results: Date Result Name Ind Value Ref Range 09/20/2012 08:10 TSH (H) 12.25 mcIU/mL (0.30 - 5.00) 09/20/2012 08:10 25-Hydroxy D-Kramer (L) 15 ng/mL 09/20/2012 08:10 25-Hydroxy D2-Kramer <4.0 ng/mL 09/20/2012 08:10 25-Hydroxy D3-Kramer 15 ng/mL Source: [employer] Document Id: [id number] Electronically signed by Conversion, [facility] Relocation Associate [id number] at 01/10/2017 7:25 PM CDT Miscellaneous - Dioni Stoddard APRN, C.N.P. - 09/24/2012 12:00 AM CST [id number] LYNNETTE LAWTON September [birth year], [address] [place] [phone] Dear Lynnette: I am writing in regards to your laboratory studies. I attempted to call you and was unable to get ahold of you. Please contact my nurse, Trinidad, if you have any additional questions or you can ask also the triage nurse for any questions regarding this letter. It is noted that your TSH, which is your thyroid test, was elevated at 12.25 which continues to makeyou hypothyroidism. I believe that you would feel more energy and feel much better to get that into a normal range. By doing that, we need to increase your thyroid medication which is your Synthroid. Right now, you are at 50 mcg daily. I believe that you would benefit from taking 100 mcg daily and I recall that was concerning to you as you had some side effects from that higher dose. I would like to consider having you take 50 mcg in the morning and 50 mcg in the evening to hopefully even that out. We will recheck your TSH thyroid test again in 3 months. Also noteworthy, your vitamin D level was significantly low at 15. It would be beneficial for you tohave vitamin D be taken twice weekly and we would like to recheck that level again in 3 months. I did send prescriptions to your pharmacy at [facility] in [place]. Please contact me if you have any further questions. Sincerely, Dioni Stoddard, Kahlil.N.P. Department of Family Medicine at Electronically Signed By: DIONI STODDARD RN, ALIGNMENT SPECIALIST On: 10/01/2012 01:01 PM Source: [facility] MHSDOLBEYNONRADSYS Document Id: [id number] OAT CAPTAIN documented in this encounter Plan of Treatment Not on filedocumented as of this encounter Procedures Procedure Name Priority Date/Time Associated Diagnosis Comme nts 25-HYDROXYVITAMIN Routine 09/20/2012 8:10 AM Resu lts for this D2 AND D3, S [employer]TAIN procedure are i n the results section. THYROID-STIMULATING Routine 09/20/2012 8:10 AM Re sults for this HORMONE-SENSITIVE [employer]TAIN procedure are in (S-TSH) the results section. documented in this encounter Results (ABNORMAL) 25-Hydroxyvitamin D2 and D3 (09/20/2012 8:10 AM TUGBOAT CAPTAIN) P athologist Signature HX25 HYDROXY D2 <4.0 NGML POWERCHART 25-Hydroxy D3 15 NGML POWERCHART Vitamin D, S 15 (L) NGML POWERCHART Comment: Interpretation: 10-24 (mild to moderate deficiency) -- REFERENCE VALUE -- 25-HYDROXY D TOTAL (D2+D3) Optimum levels in the normal population are 25-80 Test Performed by: [address] [address] Sheet Metal Assembler: Handy zhu III, M.D. Specimen (Source) Anatomical Collection Method Collection Time Re ceived Time Location / / Volume Laterality Blood 09/20/2012 8:10 AM [employer] Keara Cao APRN.N.P., D.N.P. LAB BLOOD ADD-ON Performing Organization Address City/State/ZIP Code Phon e Number POWERCHART (ABNORMAL) Thyroid-Stimulating Hormone-Sensitive (s-TSH) (09/20/2012 8:10 AM TUGBOAT CAPTAIN) [facility] gist Method Time Signature TSH 12.25 (H) 0.30 - 5.00 POWERCHART (Thyrotropin) MCIUML Specimen (Source) Anatomical Collection Method Collection Time Re ceived Time Location / / Volume Laterality Blood 09/20/2012 8:10 AM [employer]GBOAT CAPTAIN Dioni Stoddard APRN, C.N.P., D.N.P. LAB BLOOD ADD-ON Performing Organization Address City/State/ZIP Code Phon e Number POWERCHART documented in this encounter Visit Diagnoses Not on filedocumented in this encounter Additional Health Concerns Assessment Noted Time PHQ-9 Depression Total Score: 12 07/08/2012 10:[address] documented as of this encounter
--- OUTSIDE RECORDS SUMMARY | 2022-07-24 09:27 | XMS_ITS | Encounter Summary ---
:1940 Author Organization [facility] Address [address] [place] [address] Care Team Providers Name Role Phone Unavailable Primary Care Provider Unavailable Encounter Details Date Type Department Care Team Description 06/24/2015 Hospital Encounter HX [facility] Hailee Stoddard APRN, C.N.P., D. N.P. [address] [place] [address] (Wo rk) Social History Tobacco Use Types Packs/Day Years Used Date Smoking Tobacco: Never Assessed Sex Assigned at Date Recorded Not on file documented as of this encounter Last Filed Vital Signs Vital Sign Reading Time Taken Comments Blood Pressure 108/69 06/24/2015 7:58 AM WHEEL GRINDER Pulse 89 06/24/2015 7:58 AM WHEEL GRINDER Temperature - - Respiratory Rate 15 06/24/2015 7:58 AM WHEEL GRINDER Oxygen Saturation - - Inhaled Oxygen Concentration - - Weight 53.3 kg (117 lb 8.1 oz) 06/24/2015 7:58 AM WHEEL GRINDER Height - - Body Mass Index 20.82 11/30/2014 8:26 AM CDT documented in this encounter Progress Notes Hailee Stoddard APRN, C.N.P. - 06/24/2015 7:46 AM CST [id number] Document Contains Addenda CHIEF COMPLAINT/REASON FOR VISIT Medication renewal and sinus symptoms. HISTORY OF PRESENT ILLNESS 1. Medication renewal. Lynnette is a pleasant 74-year-old who has known history of hypothyroidism, anxiety depression, and some central obesity who comes in today. Would like a refill of her medications.She did have her TSH drawn which was noted to be within normal range at 3.4. Patient denies any new symptoms of thyroid disorder. She states that she does feel like she needs a bone density scan which she is overdue for and she is worried about her central obesity. She has had abdominal workup in the past which was noted to be negative. She states that she just cannot get rid of the fullness and bloating feeling in that area. She describes her diet as being balanced with meat, potatoes and a salad on a regular basis and states that she does try to exercise regularly. 2. Sinus symptoms. Patient states that she has had sinus symptoms now for well over a week and a half. Her sinuses are draining as well as she has upper teeth pain. No particular rhinorrhea. No known fevers but just feels overall ill. She does have a history of sinus infections in the past. MEDICATIONS Continue with levothyroxine 75 mcg daily. Zithromax Z-Yash. She also takes vitamin C daily. Vitamin D3 times daily. ALLERGIES Penicillins. SYSTEMS REVIEW The patient denies any new or worsening fatigue. She denies any chest pain. No shortness of breath. No skin changes. No changes in bowel or bladder habits. She does continue to have the abdominal fullness. Extremities without any joint or coordination concerns. She denies any infectious symptoms. The rest of her review of systems is noted to be negative. PAST MEDICAL/SURGICAL HISTORY Noteworthy for cataract, depression, generalized anxiety disorder, glaucoma, hypothyroidism and osteopenia history. SOCIAL HISTORY Patient is . They have no children. 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 She is non-tobacco, rare but occasional use of alcohol. No history of recreational drug use. Age-appropriate counseling and risk factor reduction was provided. FAMILY HISTORY Mother at 88 of supranuclear palsy. Father at 95 with a hip fracture. She has a sister with breast cancer and a brother with colon cancer history and a brother with diabetes. VITAL SIGNS Her blood pressure is 108/69 with a pulse of 89, O2 saturation 99%, weight is 53.3 kg. PHYSICAL EXAMINATION GENERAL: Patient appears nondistressed. SKIN: Warm and dry. HEENT: Her head, she does have some submaxillary sinus tenderness noted. Nose with erythemic boggy turbinates. Ears clear. Throat with postnasal drainage noted. LYMPHATIC: A few shotty anterior cervical lymphadenopathy. Thyroid assessed and negative. VESSELS: Carotids with normal upstrokes. No bruits. No jugular venous distention. HEART: Regular rate and rhythm. LUNGS: Clear to auscultation. ABDOMEN: Soft. No organomegaly. EXTREMITIES: Without any edema. IMPRESSION/REPORT/PLAN 1. Hypothyroidism. Patient's TSH is in normal range. We will refill her levothyroxine for one year. She will need to have that rechecked. 2. Generalized anxiety disorder. Patient really feels she is doing well with this. We are going to make no change at this time. We will continue to monitor that on a regular basis for her. She does know if she needs any resources or wishes for access we will help her with that. 3. Core obesity. Patient is concerned a lot about her abdomen. I think she would benefit a huge amount from diet changes. She also is very interested in exercises but she does have low back problems. Iwill ask that patient be seen by dietitian for dietary management as well as physical therapy to give her some home core toning exercises which I think will be beneficial that hopefully will be less traumatic on her back. Patient does agree with that. 4. Health maintenance. Patient is due for a bone density scan for screening for osteoporosis and a lipid screening. Patient is fasting today and we will go ahead and get those today. I did talk to her about the importance of immunizations including pneumonia, flu shot, zoster, tetanus. Patient absolutely declines all of these. 5. Acute sinus infection. We will treat with a Zithromax Z-Yash. Increase fluids and rest and nasal irrigation. Patient agrees with that plan and she will report if no improvement or any worsening symptoms. 6. Also with family history of colon cancer, patient has been advised for a colonoscopy which she adamantly declines. I did go ahead and order a Cologuard for her as well as patient was willing to set up a mammogram appointment. I will go ahead and order that today also. ADDENDUM: Patient's cholesterol was reviewed and completely normal. This was sent out to patient. Her PHQ-9 score is 6. Ready to learn. No apparent learning barriers were identified. Learning preferences include listening. Explained diagnosis and treatment plan. Patient/Child/Caregiver expressed understanding of the content. Leila Bermudez/toby Electronically Signed By: HAILEE STODDARD RN, SPORTS PHYSICAL THERAPIST On: 07/01/2015 07:32 AM Source: [facility] [id number] Document Id: [id number] L GRINDER documented in this encounter Miscellaneous Notes Miscellaneous - Hailee Stoddard APRN, C.N.P. - 08/02/2015 3:12 PM CST Normal Results Letter 02 August 2015 LYNNETTE LAWTON [address] [place] [id number] Dear LYNNETTE LAWTON, I am pleased to report that your results from the following colon screening test(s) is negative (normal). Please follow up with us as we discussed during your visit or sooner if you have any concerns. If you have questions or concerns, please do not hesitate to call our office. Result Name Current Result Normal Range Cologuard-Rosebud Negative 06/25/2015 Negative - Sincerely, HAILEE STODDARD [id number] [address] Electronic Signature Electronically Signed By: HAILEE STODDARD RN, SPORTS PHYSICAL THERAPIST On: 02 August 2015 This document has images extracted. Source: [facility] [employer] Document Id: [id number] Electronically signed by Conversion, [facility] Social Worker [id number] at 01/08/2017 7:38 AM CDT Miscellaneous - Spring Chahal R.N. - 07/01/2015 12:41 PM CST *General Message From: SPRING CHAHAL RN Sent: 07/01/2015 12:41:52 WHEEL GRINDER Subject: *General Message Pt calls to confirm that US from 1 yr ago was negative for at tumor in abd. Pt was informed a yr agoof that, and last week at visit. Source: [facility] [employer] Document Id: [id number] Electronically signed by Conversion, [facility] Social Worker [id number] at 01/08/2017 7:38 AM CDT Miscellaneous - Hailee Stoddard APRN, C.N.P. - 06/24/2015 1:32 PM CST Normal Results Letter 24 June 2015 LYNNETTE LAWTON [address] [place] [address] Asaf Quispe [place] [phone] Dear LYNNETTE LAWTON, I am pleased to report that your results from the following cholesterol tests are normal (excellent). Please follow up with us as we discussed during your visit or sooner if you have any concerns. If you have questions or concerns, please do not hesitate to call our office. Result Name Current Result Normal Range Cholesterol (mg/dL) 153 06/24/2015 - <=199 Trig (mg/dL) 65 06/24/2015 - <=149 HDL (mg/dL) 59 06/24/2015 >=50 - LDL Calculated (mg/dL) 81 06/24/2015 - <=129 Chol/HDL Ratio 3 06/24/2015 Sincerely, HAILEE STODDARD [address] [place] [id number] Electronic Signature Electronically Signed By: HAILEE STODDARD RN, SPORTS PHYSICAL THERAPIST On: 24 June 2015 This document has images extracted. Source: [facility] POWERCHART Document Id: [id number] Electronically signed by Je [facility] Social Worker [id number] at 01/08/2017 7:38 AM CDT Miscellaneous - Hailee Stoddard APRN, C.N.P. - 06/24/2015 8:49 AM CST Ambulatory Patient Summary [address] [id number] Visit Information Name: LYNNETTE LAWTON [facility] Number: [id number] Current Date: 06/24/2015 08:49:09 Physicians Attending Provider: HAILEE STODDARD RN, SPORTS PHYSICAL THERAPIST Primary Care Provider: HAILEE STODDARD RN, SPORTS PHYSICAL THERAPIST LYNNETTE LAWTON has been given the following [...] , once a day During winter months azithromycin (Zithromax Z-Yash 250 mg oral tablet) 2 tablets on day 1, then 1 tablet on days 2-5, Oral, as directed x 5 day(s) New Routed to [address] [address] cholecalciferol (Vitamin D3) 400 IntU, , once a day latanoprost ophthalmic (latanoprost 0.005% ophthalmic solution) 1 Drops, once a day (at bedtime) levothyroxine (levothyroxine 75 mcg (0.075 mg) oral tablet) 1 Tablet(s), Oral, once a day Routed to [address] [address] timolol ophthalmic (timolol ophthalmic 0.25% solution) Eyes(Both), once a day Stop Taking the Following Medications: Medication list as of 06-24-15 08:49 Attention: If you have any medications at [...] emergency. Electronically Signed By: HAILEE STODDARD RN, SPORTS PHYSICAL THERAPIST Signed On:24-JUN-2015 08:49:03 Your Allergies & Intolerances Substance Reaction Symptoms [...] 11/12/2014 Cataract Senile Cortical Joel Active 11/12/2014 Follow Up F/U Surgery Exam Active 01/11/2015 Your Upcoming Appointments Date Time Location Provider No Appointments found Attention: Contact your local Clinic if further appointment detail needed. Consider Using Patient Online Services Patient Online Services is a secure online and Mobile application that lets you: ?? View lab and test results ?? View portions of your medical record including clinical notes, immunizations and discharge summaries ?? Request an appointment or medication refill ?? Review your appointment schedule ?? Send secure messages to your care team Its easy to create an account if you dont have one. Go to [email or web address] and click on Create Your Account. Then, follow the directions to complete the online form. Youll be asked for your [facility] number which you can find at the top of this document. Your Goals/Additional instructions: Source: [facility] POWERCHART Document Id: [id number] L GRINDER Miscellaneous - Hailee Stoddard APRN, C.N.P. - 06/24/2015 8:49 AM CST Ambulatory Discharge Medication List [address] [id number] Visit Information Name: LYNNETTE LAWTON [facility] Number: [id number] Visit Date: 06/24/2015 08:49:07 Attending Provider: HAILEE STODDARD RN, SPORTS PHYSICAL THERAPIST Primary Care Provider: HAILEE STODDARD RN, SPORTS PHYSICAL THERAPIST JEREDLYNNETTE has been given the following list [...] , once a day During winter months azithromycin (Zithromax Z-Yash 250 mg oral tablet) 2 tablets on day 1, then 1 tablet on days 2-5, Oral, as directed x 5 day(s) New Routed to [address] [address] cholecalciferol (Vitamin D3) 400 IntU, , once a day latanoprost ophthalmic (latanoprost 0.005% ophthalmic solution) 1 Drops, once a day (at bedtime) levothyroxine (levothyroxine 75 mcg (0.075 mg) oral tablet) 1 Tablet(s), Oral, once a day Routed to [address] [address] timolol ophthalmic (timolol ophthalmic 0.25% solution) Eyes(Both), once a day Stop Taking the Following Medications: Medication list as of 06-24-15 08:49 Attention: If you have any medications at [...] emergency. Electronically Signed By: HAILEE STODDARD RN, CNP Signed On:24-JUN-2015 08:49:03 Additional Information: Source: [facility] POWERCHART Document Id: [id number] L GRINDER Miscellaneous - Hailee Stoddard APRN, C.N.P. - 06/24/2015 8:36 AM CST Quality Measures Quality Measures Entered On: 06/24/2015 8:36 WHEEL GRINDER Performed On: 06/24/2015 8:36 WHEEL GRINDER by HAILEE STODDARD RN, CNP Depression PHQ-9 Score : 6 HAILEE STODDARD RN, CNP - 06/24/2015 8:36 WHEEL GRINDER Source: [facility] POWERCHART Document Id: [id number] WHEEL GRINDER!3 L GRINDER Miscellaneous - Immanuel Granados L.P.N. - 06/24/2015 7:58 AM CST Adult De Icer Kit Assembler Intake/History Adult De Icer Kit Assembler Intake/History Entered On: 06/24/2015 8:00 WHEEL GRINDER Performed On: 06/24/2015 7:58 WHEEL GRINDER by IMMANUEL GRANADOS LPN Intake Temperature Core : 37.4 DegC(Converted to: 99.3 DegF) IMMANUEL GRANADOS LPN - 06/24/2015 8:01 WHEEL GRINDER Chief Complaint : lab results Ambulatory Intake Additional Information : pt states that she wishes not to recieve any vaccines. Peripheral Pulse Rate : 89 /min Respiratory Rate : 15 /min Systolic Blood Pressure : 108 mmHg Diastolic Blood Pressure : 69 mmHg NIBP Mean : 82 mmHg BP Location : Left upper extremity Blood Pressure Cuff Size : Regular SpO2 : 99 % Actual Weight : 53.3 kg(Converted to: 117 lb 8 oz) Dosing Weight Clinic : 53.3 kg IMMANUEL GRANADOS LPN - 06/24/2015 7:58 WHEEL GRINDER General Info Information Given By : Patient Languages : Thai Is Patient Female and 13-50 no hysterectomy : No IMMANUEL GRANADOS LPN - 06/24/2015 7:58 WHEEL GRINDER Subjective Pain Symptoms : No IMMANUEL GRANADOS LPN - 06/24/2015 7:58 WHEEL GRINDER Dependent Habits Tobacco Use/Currently Using : No Exposure to Tobacco Smoke : Care provider denies smoking in home Smoking Status : Never smoker Alcohol Use : Yes IMMANUEL GRANADOS LPN - 06/24/2015 7:58 WHEEL GRINDER Caffeine Use Grid Caffeine Use : Current Type : Coffee Frequency : Daily Amount : 4 cups IMMANUEL GRANADOS LPN - 06/24/2015 7:58 WHEEL GRINDER Recreational Drug Use Grid Drug Use : None IMMANUEL GRANADOS LPN - 06/24/2015 7:58 WHEEL GRINDER Source: [facility] POWERCHART Document Id: [id number] WHEEL GRINDER!3 L GRINDER Miscellaneous - Immanuel Granados L.P.N. - 06/24/2015 7:57 AM CST Health Assessment Health Assessment Entered On: 06/24/2015 7:58 WHEEL GRINDER Performed On: 06/24/2015 7:57 WHEEL GRINDER by IMMANUEL GRANADOS LPN Health Assessment Complete Health Assessment Complete or Modified : Annual Health Assessment Annual Health Assessment Completed : Yes IMMANUEL GRANADOS LPN - 06/24/2015 7:57 WHEEL GRINDER Nutrition Nutrition Risk Factors by History Adult : None IMMANUEL GRANADOS LPN - 06/24/2015 7:57 WHEEL GRINDER Functional Current Daily Living Assistance : None IMMANUEL GRANADOS LPN - 06/24/2015 7:57 WHEEL GRINDER Dependent Habits Tobacco Use/Currently Using : No Exposure to Tobacco Smoke : Care provider denies smoking in home Smoking Status : Never smoker Alcohol Use : Yes IMMANUEL GRANADOS LPN - 06/24/2015 7:57 WHEEL GRINDER Caffeine Use Grid Caffeine Use : Current Type : Coffee Frequency : Daily Amount : 4 cups IMMANUEL GRANADOS LPN - 06/24/2015 7:57 WHEEL GRINDER Recreational Drug Use Grid Drug Use : None IMMANUEL GRANADOS LPN - 06/24/2015 7:57 WHEEL GRINDER AUDIT Tool How Often Do You Have A Drink : Monthly or less How Many Drinks in a Day When Drinking : 1 or 2 Six or More Drinks On One Occassion : Never Audit Phase 1 Score : 1 IMMANUEL GRANADOS LPN - 06/24/2015 7:57 WHEEL GRINDER Psychosocial Domestic Abuse Concerns : None Behavioral Health Screen/Safety Assmt : No Baptism Preference : Unknown IMMANUEL GRANADOS LPN - 06/24/2015 7:57 WHEEL GRINDER Advance Directive Advanced Directives : No Advance Directive Additional Information : No IMMANUEL GRANADOS LPN - 06/24/2015 7:57 WHEEL GRINDER Educ Needs Learning Style Preference Adult Grid Patient : None Family : None IMMANUEL GRANADOS LPN - 06/24/2015 7:57 WHEEL GRINDER Source: [facility] POWERCHART Document Id: [id number] WHEEL GRINDER!38 L GRINDER documented in this encounter Plan of Treatment Not on filedocumented as of this encounter Procedures Procedure Name Priority Date/Time Associated Diagnosis Comme nts COLOGUARD Routine 06/25/2015 2:00 PM Results f or this WHEEL GRINDER procedure are i n the results section . LIPID PANEL, S Routine 06/24/2015 8:56 AM Results for this WHEEL GRINDER procedure are i n the results section . documented in this encounter Results Cologuard (06/25/2015 2:00 PM WHEEL GRINDER) athologist Signature Cologuard Negative Negative POWERCHART Comment: A negative result indicates a lower like lihood that colorectal cancer (CRC) or advanced fritz robert (pre-cancer) is present. Periodic colorectal cancer s creening is recommended in the future, at an interva l, and with a method, appropriate for the patient. Test Performed by: [employer] [address] [place] [address], [address] [place], [place] ??[address] Specimen (Source) Anatomical Collection Method Collection Time Re ceived Time Location / / Volume Laterality Stool 06/25/2015 2:00 PM WHEEL GRINDER Hailee Stoddard APRN C.N.P., D.N.P. LAB BODY FLUIDS AND STOOLS ORDERABLES Performing Organization Address City/State/ZIP Code Phon e Number POWERCHART Lipid Panel (06/24/2015 8:56 AM WHEEL GRINDER) athologist Signature Cholesterol, 153 <=199 MGDL POWERCHART Total Comment: 2013 National Lipid Association recommen dations for Total Cholesterol in adults ages 18 and up: Desirable <200 mg/dL Borderline high 200-239 mg/dL High 240 mg/dL 2014 National Lipid Association recommen dations for Total Cholesterol in children ages 2 to 17. Acceptable <170 mg/dL Borderline High 170-199 mg/dL High 200 mg/dL HX HDL 59 >=50 MGDL POWERCHART Comment: 2013 National Lipid Association recommen dations for HDL-C in adults ages 18 and up: Low <40 mg/dL (Men) Low <50 mg/dL (Women) 2014 National Lipid Association recommen dations for HDL-C in children ages 2 to 17. Low <40 mg/dL Borderline Low 40-45 mg/dL Acceptable >45 mg/dL Triglycerides 65 <=149 MGDL POWERCHART Comment: 2014 National Lipid Association recommen dations for Triglycerides in adults ages 18 and up: Normal <150 mg/dL Borderline High 150-199 mg/dL High 200-499 mg/dL Very High 500 mg/dL 2014 National Lipid Association recommen dations for Triglycerides in children ages 2 to 9. Acceptable <75 mg/dL Borderline High 75-99 mg/dL High 100 mg/dL 2014 National Lipid Association recommen dations for Triglycerides in children ages 10 to 17. Acceptable <90 mg/dL Borderline High 90-129 mg/dL High 130 mg/dL Trigs >400mg/dL: Triglycerides >400 mg/ dL. Calculated LDL cholesterol is not valid. Non-HDL cholesterol may be used for risk assessment when triglycerides are >400mg/dL. Calculated LDL 81 <=129 MGDL POWERCHART Comment: 2013 National Lipid Association recommen dations for LDL-C in adults ages 18 and up: Desirable <100 mg/dL Above desirable 100-129 mg/dL Borderline high 130-159 mg/dL High 160-189 mg/dL Very High 190 mg/dL 2014 National Lipid Association recommen dations for LDL-C in children ages 2 to 17. Acceptable <110 mg/dL Borderline High 110-129mg/dL High 130 mg/dL LDL-C >190mg/dL: The markedly elevated LDL level is suggestive of a genetic condition such as familial hypercholesterolemia(FH) or familial defective apolipoprotein B-100 (FDB). Molecular genetic t esting for FH and FDB is available re[facility]: FH/ADH Genetic Reflex Rueda el (test ADHP). Acquired (non-genetic) causes of markedly increased LDL cholesterol include cholestatic liver disease due to the presence of LpX. If a genetic form of hypercholesterolemia is suspected, family studies including biochemical testing fo r lipids (total cholesterol,triglycerides, LDL cholesterol and HDL cholesterol) are recommended. ??Please contact the laboratory at or the on-line test catalog at [facility] for information about how to order these francia ts or to speak with a genetic counselor. Further interpretation would require clinical information. Total Cholesterol/HDL Ratio 3 PO WERCHART Specimen (Source) Anatomical Collection Method Collection Time Re ceived Time Location / / Volume Laterality Blood 06/24/2015 8:56 AM WHEEL GRINDER Hailee L Devyn CUT OFF SAW TENDER METAL, C.N.P., D.N.P. LAB BLOOD ADD-ON Performing Organization Address City/State/ZIP Code Phon e Number POWERCHART documented in this encounter Visit Diagnoses Not on filedocumented in this encounter Additional Health Concerns Assessment Noted Time PHQ-9 Depression Total Score: 5 11/30/2014 3:40 PM CDT documented as of this encounter
--- OUTSIDE RECORDS SUMMARY | 2022-07-24 09:27 | XMS_ITS | Encounter Summary ---
:1940 Author Organization [facility] Address [address] [place] [address] Care Team Providers Name Role Phone Unavailable Primary Care Provider Unavailable Encounter Details Date Type Department Care Team Description 06/08/2016 Hospital Encounter HX [facility]ILY ME Jayda Holder, CURTAIN STRETCHER, C.N.P. [address] [place], [place] [address] (Wo rk) Social History Tobacco Use Types [...] Mass Index 21.31 06/08/2016 8:36 AM CDT documented in this encounter Progress Notes Gunner Holder, R.N. - 06/08/2016 9:17 AM CDT Clinic Full Note CHIEF COMPLAINT/REASON FOR VISIT Establish PCP. Medication refill. HISTORY OF PRESENT ILLNESS Lynnette is a very pleasant 75-year-old female who comes into the clinic today to establish a new PCP. She is also here today for a medication refill. She has a past medical history significant for hypothyroidism, anxiety and osteoporosis. She is currently using daily levothyroxine for symptom management related to hypothyroidism. She denies any side effects related to the use of her daily levothyroxine. She also reports she completed a bone density scan in July of 2015 which showed decreased T-scores especially related to her spine. She was instructed to consume at least 1200 mg of calcium plusvitamin D per day. She was also instructed to perform weightbearing activity at least 4-5 times per week. She reports she is consuming her supplement calcium and vitamin D per day as well as various diary products. She reports walking 4-5 times per week at the [facility] in [place]. She denies any heart palpitations, chest pain or shortness of breath. She is here today for further evaluation. She has no other concerns today. MEDICATIONS calcium-vitamin D 600 mg-500 intl units oral tablet, extended release, 1 tab(s), PO, Daily AM, 3 refills latanoprost 0.005% ophthalmic solution, 1 drop(s), Bedtime levothyroxine 75 mcg (0.075 mg) oral tablet, 75 mcg, 1 tab(s), PO, Daily, 3 refills timolol ophthalmic 0.25% solution, Eyes(Both), Daily Vitamin C, 500 mg, During winter months, Daily Vitamin D3, 400 IntU, Daily ALLERGIES penicillins PAST MEDICAL HISTORY Chronic Cataract Senile Cortical Joel Cataract Senile Nuclear Sclerosis (NS) Joel Follow Up F/U Surgery Exam Generalized Anxiety Disorder Hypothyroidism NOS Major Depression Recurrent Episode NOS (296.30) Unspecified Hypothyroidism Historical No historical problems PROCEDURES/SURGICAL HISTORY Phacoemulsification of cataract with intraocular lens implantation (12/28/2014), Phacoemulsification of cataract with intraocular lens implantation (12/14/2014), None (12/14/2011), BIOPSY OF UTERUS LINING - 1995 - proliferative type endometrium with glandular and stromal breakdown(anovulatory cycle) (). SOCIAL HISTORY Date Time: 06/08/2016 08:36 Tobacco: Smoking Status: Never smoker Exposure: Care provider denies smoking in home Alcohol: Use: Yes Recreational Drugs: Use: None Type: No Results Found FAMILY HISTORY Mother ( at 88 year(s)):Positive: Cataract; Glaucoma Negative: Blindness AND/OR vision impairment level; Diabetic retinopathy; Macular disease; Retinal detachment Sister:Positive: [place] - Breast cancer; Cataract; Macular disease; Retinal detachment Negative: Blindness AND/OR vision impairment level; Diabetic retinopathy; Glaucoma; Myopia Brother:Positive: Bipolar disorder; [place] - Cancer of colon Brother:Positive: Diabetes mellitus SYSTEMS REVIEW As per HPI. VITAL SIGNS T: 36.5 ??C (Core) HR: 63 RR: 18 BP: 126 / 65 SpO2: 100% HT: 158 cm WT: 53.2 kg BMI: 21.31 PHYSICAL EXAMINATION GENERAL: Alert and oriented. No acute distress. HEAD: Normocephalic/atraumatic. Canals patent, TMs normal. Oropharynx without lesion of mucosa. Pharyngeal rises symmetrically without exudate. NECK: No nodes, no thyromegaly. HEART: Regular rate and rhythm. No murmurs, gallops or rubs noted. LUNGS: Clear to auscultation bilaterally. No expiratory wheeze. No accessory muscles of respirationnoted. EXTREMITIES: No neurovascular compromise. No cyanosis, clubbing or edema. NEUROLOGICAL: Cranial nerves II-VII grossly intact and symmetric. She ambulates with a steady gait. IMPRESSION/REPORT/PLAN Hypothyroidism NOS Her TSH level was stable today at 3.60. I refilled her daily levothyroxine prescription for 1 year. Ordered: OV Est Pt Level 3 - 63337 - 15 min Osteoporosis NOS We discussed the importance of continuing weightbearing activity 4-5 times per week as well as her calcium and vitamin D intake. We discussed repeating a bone density scan in July of 2017. All questions were answered. She left in no acute distress. Ordered: OV Est Pt Level 3 - 88347 - 15 min Orders: calcium-vitamin D, 1 tab(s), PO, Daily AM, # 90 tab(s), 3 Refill(s), Maintenance, [facility], 75 mcg = 1 tab(s), PO, Daily, # 90 tab(s), 3 Refill(s), Maintenance, Pharmacy: [facility] [place] Electronically Signed By: GUNNER HOLDER COURT MESSENGER On: 06/08/2016 09:34 AM Source: [facility] POWERCHART Document Id: [id number] documented in this encounter Miscellaneous Notes Miscellaneous - Conversion, Historical Provider Ser - 09/01/2016 2:09 PM TELEGRAPH AND TELETYPE OPERATOR *General Message From: DAVID THOMAS To: [place] Colonoscopy Pool; Sent: 09/01/2016 14:09:53 TELEGRAPH AND TELETYPE OPERATOR Subject: *General Message Please check patient. I dont see a colonoscopy. [facility] Document Id: [id number] Miscellaneous - Leonor Delgado, L.P.N. - 06/12/2016 6:33 PM CDT PHQ-9 PHQ-9 Entered On: 06/12/2016 18:33 CDT Performed On: 06/12/2016 18:33 CDT by LEONOR DELGADO LPN PHQ-9 Little interest or pleasure in doing things : Not at all Feeling down, depressed, or hopeless : Not at all Trouble falling or staying asleep, or sleeping too much : Not at all Feeling tired or having little energy : Not at all Poor appetite or overeating : Not at all Feeling bad about yourself or that you are a failure : Not at all Trouble concentrating on things : Not at all Moving or speaking slowly; restless or fidgety : Not at all Thoughts that you would be better off /hurting self : Not at all PHQ-9 Calculated Score : 0 Problems make work, home, or dealing with others : Not difficult at all LEONOR DELGADO LPN - 06/12/2016 18:33 CDT Source: [employer] Document Id: [id number] CDT!13 Miscellaneous - Gunner Holder R.N. - 06/08/2016 9:03 AM CDT Ambulatory Patient Summary [place] [place] [id number] Visit Information Name: LYNNETTE LAWTON [facility] Number: [id number] Current Date: 06/08/2016 09:03:57 Physicians Attending Provider: GUNNER HOLDER NP Primary Care Provider: GUNNER HOLDER NP LYNNETTE LAWTON has been given the following [...] , once a day During winter months calcium-vitamin D (calcium-vitamin D 600 mg-500 intl units oral tablet, extended release) 1 Tablet(s), Oral, once a day (in the morning) Routed to [address] [address] cholecalciferol (Vitamin D3) 400 IntU, , once a day latanoprost ophthalmic (latanoprost 0.005% ophthalmic solution) 1 Drops, once a day (at bedtime) levothyroxine (levothyroxine 75 mcg (0.075 mg) oral tablet) 1 Tablet(s), Oral, once a day Routed to [address] [id number] timolol ophthalmic (timolol ophthalmic 0.25% solution) Eyes(Both), once a day Stop Taking the Following Medications: Medication list as of 06-08-16 09:03 Attention: If you have any medications at home that are not on this list, DO NOT take them until youcontact your provider for clarification. Give a copy of your medication list to your primary care provider. Update your medication list any time medications or doses are changed and carry your medication list at all times in case of emergency. Electronically Signed By: GUNNER HOLDER NP Signed On:08-JUN-2016 09:03:52 Your Allergies & Intolerances Substance Reaction Symptoms [...] if you dont have one. Go to [email or web address] and click on Create Your Account. Then, follow the directions to complete the online form. Youll be asked for your [facility] number which you can find at the top of this document. Your Goals/Additional instructions: Source: [facility] POWERCHART Document Id: [id number] Miscellaneous - Gunner Holder R.N. - 06/08/2016 9:03 AM CDT Ambulatory Discharge Medication List [address] [id number] Visit Information Name: LYNNETTE LAWTON [facility] Number: [id number] Current Date: 06/08/2016 09:03:56 Attending Provider: GUNNER HOLDER NP Primary Care Provider: GUNNER HOLDER COURT MESSENGER JERED LYNNETTE OTTO has been given the [...] , once a day During winter months calcium-vitamin D (calcium-vitamin D 600 mg-500 intl units oral tablet, extended release) 1 Tablet(s), Oral, once a day (in the morning) Routed to [address] [address] cholecalciferol (Vitamin D3) 400 IntU, , once a day latanoprost ophthalmic (latanoprost 0.005% ophthalmic solution) 1 Drops, once a day (at bedtime) levothyroxine (levothyroxine 75 mcg (0.075 mg) oral tablet) 1 Tablet(s), Oral, once a day Routed to [address] [address] timolol ophthalmic (timolol ophthalmic 0.25% solution) Eyes(Both), once a day Stop Taking the Following Medications: Medication list as of 06-08-16 09:03 Attention: If you have any medications at home that are not on this list, DO NOT take them until youcontact your provider for clarification. Give a copy of your medication list to your primary care provider. Update your medication list any time medications or doses are changed and carry your medication list at all times in case of emergency. Electronically Signed By: GUNNER HOLDER COURT MESSENGER Signed On:08-JUN-2016 09:03:52 Additional Information: Source: [facility] POWERCHART Document Id: [id number] Miscellaneous - Leonor Delgado L.PCarlosNCarlos - 06/08/2016 8:36 AM CDT Adult [employer] Maker Intake/History Document Has Been Updated Adult [employer] Maker Intake/History Entered On: 06/08/2016 8:40 CDT Performed On: 06/08/2016 8:36 CDT by LEONOR DELGADO [facility] Intake Chief Complaint : needs refill, labs today ,phq9 form, ESTAB. care too LEONOR DELGADO LPN - 06/08/2016 8:40 CDT Temperature Core : 36.5 DegC(Converted to: 97.7 DegF) Peripheral Pulse Rate : 63 /min Respiratory Rate : 18 /min Heart Rhythm : Regular Systolic Blood Pressure : 126 mmHg Diastolic Blood Pressure : 65 mmHg NIBP Mean : 85 mmHg BP Location : Left upper extremity Blood Pressure Cuff Size : Regular SpO2 : 100 % Oxygen Therapy : Room air Height : 158 cm(Converted to: 5 ft 2 inch(es), 62 inch(es)) Actual Weight : 53.2 kg(Converted to: 117 lb 5 oz) Weight Source : Standing scale Dosing Weight Clinic : 53.2 kg Clinic BSA : 1.53 Body Mass Index : 21.31 kg/m2 LEONOR DELGADO LPN - 06/08/2016 8:36 CDT General Info Information Given By : Patient Languages : Dominican Is Patient Female and 13-50 no hysterectomy : No LEONOR DELGADO DONOR RELATIONS OFFICER - 06/08/2016 8:36 CDT Subjective Pain Symptoms : LEONOR Crain LPN - 06/08/2016 8:36 CDT Dependent Habits Exposure to Tobacco Smoke : Care provider denies smoking in home Smoking Status : Never smoker Tobacco 2A : No Tobacco Use/Currently Using : No Tobacco Use/Last 30 Days : No Tobacco Use/Last 12 months : No Alcohol Use : Yes LEONOR DELGADO LPN - 06/08/2016 8:36 CDT Caffeine Use Grid Caffeine Use : Current Type : Coffee Frequency : Daily Amount : 4 cups LEONOR DELGADO LPN - 06/08/2016 8:36 CDT Recreational Drug Use Grid Drug Use : None LEONOR DELGADO DONOR RELATIONS OFFICER - 06/08/2016 8:36 CDT Source: [employer] Document Id: [id number] CDT!3 documented in this encounter Plan of Treatment Not on filedocumented as of this encounter Procedures Procedure Name Priority Date/Time Associated Diagnosis Comme nts THYROID-STIMULATING Routine 06/08/2016 8:30 AM Re sults for this HORMONE-SENSITIVE CDT procedure are in (S-TSH) the results section. documented in this encounter Results Thyroid-Stimulating Hormone-Sensitive (s-TSH) (06/08/2016 8:30 AM CDT) P athologist Signature TSH 3.60 0.27 - 4.20 POWERCHART (Thyrotropin) MIUL Comment: Biotin has been identified by the cem shi as a potential interfering substance. Higher concentrations of biotin may be found in multivitamins, hair/nail supplements, and workout supplements. If the result does not match clinical observat ions, repeat testing after patient refrains from the use of supplements for at least 12 hours. Specimen (Source) Anatomical Collection Method Collection Time Re ceived Time Location / / Volume Laterality Blood 06/08/2016 8:30 AM CDT Gunner Holder APRN, C.N.P. LAB BLOOD ADD-ON Performing Organization Address City/State/ZIP Code Phon e Number POWERCHART documented in this encounter Visit Diagnoses Not on filedocumented in this encounter
--- OUTSIDE RECORDS SUMMARY | 2022-07-24 09:27 | XMS_ITS | Encounter Summary ---
:1940 Author Organization [facility] Address [address] [place] [address] Care Team Providers Name Role Phone Unavailable Primary Care Provider Unavailable Encounter Details Date Type Department Care Team Description 08/04/2015 Hospital Encounter HX [facility] Hailee Stoddard APRN, C.N.P., D. N.P. [address] [place] [address] (Wo rk) Social History Tobacco Use Types Packs/Day Years Used Date Smoking Tobacco: Never Assessed Sex Assigned at Date Recorded Not on file documented as of this encounter Last Filed Vital Signs Vital Sign Reading Time Taken Comments Blood Pressure 109/62 08/04/2015 2:31 PM MAINFRAME PROGRAMMER Pulse 70 08/04/2015 2:31 PM MAINFRAME PROGRAMMER Temperature - - Respiratory Rate 16 08/04/2015 2:31 PM MAINFRAME PROGRAMMER Oxygen Saturation - - Inhaled Oxygen Concentration - - Weight 52.4 kg (115 lb 8.3 oz) 08/04/2015 2:31 PM MAINFRAME PROGRAMMER Height - - Body Mass Index 20.47 11/30/2014 8:26 AM CDT documented in this encounter Progress Notes Hailee Stoddard APRN, C.N.P. - 08/04/2015 2:24 PM CST [id number] CHIEF COMPLAINT/REASON FOR VISIT Osteoporosis. HISTORY OF PRESENT ILLNESS Lynnette is a 74-year-old female who comes in today to review her bone density scan. Patient is very reluctant to take any medications. Her bone density scan definitely shows osteoporosis, especially in her vertebral measurements, noting significantly decreased T-score. We did discuss the bisphosphonates. Patient is quite adamant she would decline that at this time. What we will do is be more aggressive on other management and then plan to repeat this. MEDICATIONS New reconciled medication is calcium with vitamin D 600/500 by mouth daily. Continue with current regimen. ALLERGIES Penicillins. SYSTEMS REVIEW Patient denies any bone pain. She does have some chronic low back pain, however. PAST MEDICAL/SURGICAL HISTORY Please see the EMR. SOCIAL HISTORY Patient admits she was not very good at drinking milk, but does obtain calcium through other means in her dietary supplement. She does walk a mile 3 times a week with her . VITAL SIGNS Please see the EMR. PHYSICAL EXAMINATION No additional physical examination performed. IMPRESSION/REPORT/PLAN Osteoporosis. Did discuss with patient, with a long discussion of greater than 15 minutes, regarding the bisphosphonates and treatment options. Patient was given written material regarding osteoporosis and the prevention, the importance of calcium and vitamin D, and weightbearing activity. PLAN: She will take a calcium supplement, in addition to her vitamin D, and will be very conscientious to get at least 1200 mg of calcium daily in her diet, which will include her supplement. She also will increase her weightbearing exercise to 4 to 5 times per week. She plans to be quite diligent with this and we will repeat a bone density scan in 1 to 2 years for evaluation. Ready to learn. No apparent learning barriers were identified. Learning preferences include listening. Explained diagnosis and treatment plan. Patient/Child/Caregiver expressed understanding of the content. Spent 20 minutes with counseling with this patient. Breanna BermudezNZayda/toby Electronically Signed By: HAILEE STODDARD RN, SLAG PRODUCTION WORKER On: 08/05/2015 02:20 PM Source: [facility] MHSDOLBEYNONRADSYS Document Id: [id number] FRAME PROGRAMMER documented in this encounter Nursing Notes Hailee Stoddard APRN, C.N.P. - 08/04/2015 3:11 PM CST Ambulatory Patient Education The following Patient Education Materials have been given to the patient: Patient Education Materials: Rheumatology Living with Osteoporosis: Regular Exercise Living with Osteoporosis: Preventing Fractures Preventing Osteoporosis: Avoiding Bone Loss Rheumatology Living with Osteoporosis: Regular Exercise If you have osteoporosis, exercise is vital for your health. It can prevent bone fractures and spinechanges. It will slow bone loss. Exercise will strengthen your body. It can also be fun. A variety of exercises is best. See below for exercises that can help you. Before you start, though, talk to your doctor to be sure these exercises are right for you. Resistance exercises. These build muscle strength and maintain bone mass. They also make you less prone to injury. Exercises include lifting small weights. Weight-bearing activities. These help your whole body. They also help you maintain bone mass. Activities include walking, dancing, and housework. Lkn-whtmzu-nlbwpus exercises. These help prevent back strain and pain. They do this by building the trunk and leg muscles. Exercises that help with flexibility can prevent falls. Examples include swimming, water exercise, and stretching. Staying Safe Always check with your healthcare provider before starting any new exercise program. Use weights on ly as instructed. Stop any exercise that causes pain. ?? [id number] [facility], [address] [place] [address]. All rights reserved. This information is not intended as a substitute for professional medical care. Always follow your healthcare professional's instructions. Living with Osteoporosis: Preventing Fractures If you have osteoporosis, you can do a lot to reduce its effect on your life. Knowing how to preventfractures and spinal curvature can help you live more comfortably and safely with this disease. Reducing Your Risk of Fractures The most common fracture sites in people with osteoporosis are the wrist, spine, and hip. These fractures are often caused by accidents and falls. All fractures are painful and may limit what you can do. But hip fractures are very serious. They require surgery, and it can take months to recover. To reduce your risk of fractures: ?? Get regular exercise. Try walking, swimming, or weight training. ?? Eat foods that are rich in calcium, or take calcium supplements. ?? Make your home safe to avoid accidents. Understanding Spinal Fractures Your spine is made up of many bones called vertebrae. Osteoporosis can cause the vertebrae in your spine to collapse. As a result, your upper back may arch forward, creating a curvature. Spine fractures may also result from back strain and bad posture. You will also lose height. Your lower spine must then adjust to keep your body balanced. This can cause back pain. To prevent or lessen these spinal changes: ?? Practice good posture. ?? Use proper techniques if you need to lift heavy objects. ? Do back exercises to help your posture. ?? Lie on your back when you have pain. ?? Ask your health care provider about these and other ways to help your spine. ?? [place] [address]. All rights reserved. This information is not intended as a substitute for professional medical care. Always follow your healthcare professional's instructions. Preventing Osteoporosis: Avoiding Bone Loss Certain factors can speed up bone loss or decrease bone growth. For example, alcohol, cigarettes, and certain medicines reduce bone mass. Some foods make it hard for your body to absorb calcium. Things to Avoid ?? Alcohol is toxic to bones. It is a major cause of bone loss. Heavy drinking can cause osteoporosis even if you have no other risk factors. ?? Smoking reduces bone mass. Smoking may also interfere with estrogen levels and cause early menopause. ?? Inactivity makes your bones lose strength and become thinner. Over time, thin bones may break. Women who aren't active are at a high risk for osteoporosis. ?? Certain medications such as cortisone increase bone loss. They also decrease bone growth. Ask your healthcare provider about any side effects of your medications. ?? Protein-rich or salty foods eaten in large amounts may deplete calcium. ?? Caffeine increases calcium loss. People who drink a lot of coffee, tea, or charles lose more calcium than those who don't. ?? [facility], [address] [place] [address]. All rights reserved. This information is not intended as a substitute for professional medical care. Always follow your healthcare professional's instructions. This document has images extracted. Please consider using [employer] for all your patient education needs. Source: [facility] POWERCHART Document Id: [id number] FRAME PROGRAMMER documented in this encounter Miscellaneous Notes Miscellaneous - Natividad Archer - 05/31/2016 10:27 AM CDT Custom Result Letter May 31, [address] [facility] [id number] Dear LYNNETTE LAWTON, [facility] would like to better assist you with managing your care. By seeing your primary care team for regular checkups and labs, we can be sure you will get the care you need when youneed it. Therefore, our records indicate that you are due for: Lab appointment and Office Visit with Gunner Holder SURFACE BOSS Please call our appointment desk at to schedule an appointment. Your health is important to us. We look forward to providing you with the right care at the right time. If you have transferred your care elsewhere please let us know and we will remove you from our call/mailing list for appointment reminders. Your Health Care Team Sincerely, NATIVIDAD ARCHER Electronic Signature Electronically Signed By: NATIVIDAD ARCHER On: May 31, 2016 This document has images extracted. Source: [facility] POWERCHART Document Id: [id number] Miscellaneous - Hailee Stoddard, INDUSTRIAL CHEMIST, C.N.P. - 08/04/2015 3:12 PM CST Ambulatory Patient Summary [address] [id number] Visit Information Name: LYNNETTE LAWTON [facility] Number: [id number] Current Date: 08/04/2015 15:12:25 Physicians Attending Provider: HAILEE STODDARD RN, SLAG PRODUCTION WORKER Primary Care Provider: GUNNER HOLDER SURFACE BOSS LYNNETTE LAWTON has been given the following [...] Oral, once a day (in the morning) New Routed to [address] [address] cholecalciferol (Vitamin D3) 400 IntU, , once a day latanoprost ophthalmic (latanoprost 0.005% ophthalmic solution) 1 Drops, once a day (at bedtime) levothyroxine (levothyroxine 75 mcg (0.075 mg) oral tablet) 1 Tablet(s), Oral, once a day timolol ophthalmic (timolol ophthalmic 0.25% solution) Eyes(Both), once a day Stop Taking the Following Medications: Medication list as of 08-04-15 15:12 Attention: If you have any medications at [...] emergency. Electronically Signed By: HAILEE STODDARD RN, SLAG PRODUCTION WORKER Signed On:04-AUG-2015 15:03:35 Your Allergies & Intolerances Substance Reaction Symptoms [...] local Clinic if further appointment detail needed. Preventing Osteoporosis: Avoiding Bone Loss Certain factors can speed up bone loss or decrease bone growth. For example, alcohol, cigarettes, and certain medicines reduce bone mass. Some foods make it hard for your body to absorb calcium. Things to Avoid ?? Alcohol is toxic to bones. It is a major cause of bone loss. Heavy drinking can cause osteoporosis even if you have no other risk factors. ?? Smoking reduces bone mass. Smoking may also interfere with estrogen levels and cause early menopause. ?? Inactivity makes your bones lose strength and become thinner. Over time, thin bones may break. Women who aren't active are at a high risk for osteoporosis. ?? Certain medications such as cortisone increase bone loss. They also decrease bone growth. Ask your healthcare provider about any side effects of your medications. ?? Protein-rich or salty foods eaten in large amounts may deplete calcium. ?? Caffeine increases calcium loss. People who drink a lot of coffee, tea, or charles lose more calcium than those who don't. ?? [id number] [place] [address]. All rights reserved. This information is not intended as a substitute for professional medical care. Always follow your healthcare professional's instructions. Living with Osteoporosis: Preventing Fractures If you have osteoporosis, you can do a lot to reduce its effect on your life. Knowing how to preventfractures and spinal curvature can help you live more comfortably and safely with this disease. Reducing Your Risk of Fractures The most common fracture sites in people with osteoporosis are the wrist, spine, and hip. These fractures are often caused by accidents and falls. All fractures are painful and may limit what you can do. But hip fractures are very serious. They require surgery, and it can take months to recover. To reduce your risk of fractures: ?? Get regular exercise. Try walking, swimming, or weight training. ?? Eat foods that are rich in calcium, or take calcium supplements. ?? Make your home safe to avoid accidents. Understanding Spinal Fractures Your spine is made up of many bones called vertebrae. Osteoporosis can cause the vertebrae in your spine to collapse. As a result, your upper back may arch forward, creating a curvature. Spine fractures may also result from back strain and bad posture. You will also lose height. Your lower spine must then adjust to keep your body balanced. This can cause back pain. To prevent or lessen these spinal changes: ?? Practice good posture. ?? Use proper techniques if you need to lift heavy objects. ?? Do back exercises to help your posture. ?? Lie on your back when you have pain. ?? Ask your health care provider about these and other ways to help your spine. ?? [place] [address]. All rights reserved. This information is not intended as a substitute for professional medical care. Always follow your healthcare professional's instructions. Living with Osteoporosis: Regular Exercise If you have osteoporosis, exercise is vital for your health. It can prevent bone fractures and spinechanges. It will slow bone loss. Exercise will strengthen your body. It can also be fun. A variety of exercises is best. See below for exercises that can help you. Before you start, though, talk to your doctor to be sure these exercises are right for you. Resistance exercises. These build muscle strength and maintain bone mass. They also make you less prone to injury. Exercises include lifting small weights. Weight-bearing activities. These help your whole body. They also help you maintain bone mass. Activities include walking, dancing, and housework. Fir-xfldup-bgqvvwv exercises. These help prevent back strain and pain. They do this by building the trunk and leg muscles. Exercises that help with flexibility can prevent falls. Examples include swimming, water exercise, and stretching. Staying Safe Always check with your healthcare provider before starting any new exercise program. Use weights only as instructed. Stop any exercise that causes pain. ?? [place] [address]. All rights reserved. This information is not intended as a substitute for professional medical care. Always follow your healthcare professional's instructions. Consider Using Patient Online Services Patient Online [...] if you dont have one. Go to [email or web address] and click on Create Your Account. Then, follow the directions to complete the online form. Youll be asked for your [facility] number which you can find at the top of this document. Your Goals/Additional instructions: This document has images extracted. Please consider using [employer] for all your patient education needs. Source: [facility] POWERCHART Document Id: [id number] FRAME PROGRAMMER Miscellaneous - Hailee Stoddard APRN C.N.P. - 08/04/2015 3:12 PM CST Ambulatory Discharge Medication List [address] [id number] Visit Information Name: LYNNETTE LAWTON [facility] Number: [id number] Visit Date: 08/04/2015 15:12:23 Attending Provider: HAILEE STODDARD RN, SLAG PRODUCTION WORKER Primary Care Provider: GUNNER HOLDER SURFACE BOSS LYNNETTE LAWTON has been given the following [...] Oral, once a day (in the morning) New Routed to [address] [address] cholecalciferol (Vitamin D3) 400 IntU, , once a day latanoprost ophthalmic (latanoprost 0.005% ophthalmic solution) 1 Drops, once a day (at bedtime) levothyroxine (levothyroxine 75 mcg (0.075 mg) oral tablet) 1 Tablet(s), Oral, once a day timolol ophthalmic (timolol ophthalmic 0.25% solution) Eyes(Both), once a day Stop Taking the Following Medications: Medication list as of 08-04-15 15:12 Attention: If you have any medications at [...] emergency. Electronically Signed By: HAILEE STODDARD RN, SLAG PRODUCTION WORKER Signed On:04-AUG-2015 15:03:35 Additional Information: Source: [facility] POWERCHART Document Id: [id number] FRAME PROGRAMMER Miscellaneous - Trinidad Urban L.P.N. 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 Intake/History Entered On: 08/04/2015 14:34 MAINFRAME PROGRAMMER Performed On: 08/04/2015 14:31 MAINFRAME PROGRAMMER by TRINIDAD URBAN LPN Intake Chief Complaint : Review results of bone density Temperature Core : 36.2 DegC(Converted to: 97.2 DegF) (LOW) Peripheral Pulse Rate : 70 /min Respiratory Rate : 16 /min Heart Rhythm : Regular Systolic Blood Pressure : 109 mmHg Diastolic Blood Pressure : 62 mmHg NIBP Mean : 78 mmHg BP Location : Left upper extremity Blood Pressure Cuff Size : Regular SpO2 : 100 % Oxygen Therapy : Room air Actual Weight : 52.4 kg(Converted to: 115 lb 8 oz) Weight Source : Standing scale Dosing Weight Clinic : 52.4 kg TRINIDAD URBAN LPN - 08/04/2015 14:31 MAINFRAME PROGRAMMER General Info Information Given By : Patient Languages : New Zealander Is Patient Female and 13-50 no hysterectomy : No TRINIDAD URBAN LPN - 08/04/2015 14:31 MAINFRAME PROGRAMMER Subjective Pain Symptoms : No TRINIDAD URBAN LPN - 08/04/2015 14:31 MAINFRAME PROGRAMMER Dependent Habits Exposure to Tobacco Smoke : Care provider denies smoking in home Smoking Status : Never smoker Tobacco 2A : No Alcohol Use : Yes TRINIDAD URBAN LPN - 08/04/2015 14:31 MAINFRAME PROGRAMMER Caffeine Use Grid Caffeine Use : Current Type : Coffee Frequency : Daily Amount : 4 cups TRINIDAD URBAN LPN - 08/04/2015 14:31 MAINFRAME PROGRAMMER Recreational Drug Use Grid Drug Use : None TRINIDAD URBAN LPN - 08/04/2015 14:31 MAINFRAME PROGRAMMER [facility] [employer] Document Id: [id number] MAINFRAME PROGRAMMER!37 FRAME PROGRAMMER Miscellaneous - Spring Chahal R.N. - 07/19/2015 2:16 PM CST visit From: SPRING CHAHAL RN Sent: 07/19/2015 14:16:11 MAINFRAME PROGRAMMER Subject: visit pt calls to discuss treatment options for osteoarthritis, advised to schedule visit as that is what provider recommended at earlier call today. [facility] Document Id: [id number] documented in this encounter Plan of Treatment Not on filedocumented as of this encounter Visit Diagnoses Not on filedocumented in this encounter Additional Health Concerns Assessment Noted Time PHQ-9 Depression Total Score: 5 11/30/2014 3:40 PM CDT documented as of this encounter
--- OUTSIDE RECORDS SUMMARY | 2022-07-24 09:27 | XMS_ITS | Encounter Summary ---
:1940 Author Organization [facility] Address [address] [place] [address] Care Team Providers Name Role Phone Unavailable Primary Care Provider Unavailable Encounter Details Date Type Department Care Team Description 11/12/2014 Hospital Encounter HX [facility] SURGCarlos Barfield M.D. [address] [place] [address] (Wo rk) Social History Tobacco [...]
--- OUTSIDE RECORDS SUMMARY | 2022-07-24 09:27 | XMS_ITS | Encounter Summary ---
:1940 Author Organization [facility] Address [address] [place] [address] Care Team Providers Name Role Phone Unavailable Primary Care Provider Unavailable Encounter Details Date Type Department Care Team Description 07/19/2015 - Hospital Encounter [facility] Dioni Merlos, 06/12/2016 RUFUS C.N.P., D.N.P. [address] [place] [address] Social History Tobacco Use Types Packs/Day Years Used Date Smoking Tobacco: Never Assessed Sex Assigned at Date Recorded Not on file documented as of this encounter Miscellaneous Notes Miscellaneous - Je, Historical Provider Ser - 08/18/2015 9:26 AM TICKET BROKER Coding Summary-Paper Based CODING DATE: 08/18/2015 FINAL [facility] STATUS: Still Patient/Expected to Rtn Oupt [facility] PAYOR: Medicare ADMIT DX: REASON FOR VISIT DX: FINAL DX: PRINCIPAL: Z12.31 Encounter for screening mammogram for malignant neoplasm of breast SECONDARY: PROCEDURES DOCTOR NAME DATE NOTE: The code number assigned matches the documented diagnosis and / or procedure in the patient's chart. However, the narrative phrase printed from the coding software may appear abbreviated, or result in slightly different terminology. Coded By: MIKE TORRES Date Saved: 08/18/2015 09:26 am Source: [facility] POWERCHART Document Id: [id number] Miscellaneous - Dioni Stoddard, RUFUS, C.N.P. - 07/19/2015 12:47 PM CST Results Notification Document Contains Addenda Addendum by IMMANUEL GRANADOS LPN on 19 July 2015 12:51:17 TICKET BROKER pt notified., sent to scheduling to make follow up appt. From: DIONI STODDARD RN, BOX OFFICE ATTENDANT To: SAMANTHA Family Medicine Nurse Norberto; Sent: 07/19/2015 12:47:20 TICKET BROKER Show up: 07/19/2015 12:47:00 TICKET BROKER Subject: Results Notification results of bone density show Osteoporosis. please have pt make appointment to discuss treatment options. Results: Date Result Type Result Name 07/19/2015 11:35 Radiology BD Hip/Pelvis/Spine Source: [facility] POWERCHART Document Id: [id number] Electronically signed by Je, [facility] Consulting Services Associate [id number] at 01/08/2017 5:49 PM CDT documented in this encounter Plan of Treatment Not on filedocumented as of this encounter Visit Diagnoses Not on filedocumented in this encounter Additional Health Concerns Assessment Noted Time PHQ-9 Depression Total Score: 5 11/30/2014 3:40 PM CDT documented as of this encounter
--- OUTSIDE RECORDS SUMMARY | 2022-07-24 09:27 | XMS_ITS | Encounter Summary ---
:1940 [facility] Organization [facility] Address [address] [place] [address] Care Team Providers Name Role Phone Gunner Sosa APRN C.N.P. Primary Care Provider [phone] Encounter Details Date Type Department Care Team Description 09/24/2017 Hospital Encounter Department of Mirella Conteh Mammogram Radiology in [facility], C.N.PCarlos Breast Cancer [address] [place] [address] [place], [place] [phone] [phone] (Work) [phone] Social History Tobacco Use Types Packs/Day Years Used Date Smoking Tobacco: Never Sex Assigned at Date Recorded Not on file documented as of this encounter Plan of Treatment Not on filedocumented as of this encounter Procedures Procedure Name Priority Date/Time Associated Comments Diagnosis BI BREAST RAD - Routine 09/24/2017 9:22 Screening Results for this SCREENING (most inpatients AM RPG PROGRAMMER Mammogram Breast procedu re are in BILATERAL and all Cancer the results outpatients) section. documented in this encounter Results BI Breast Screening Bilateral (09/24/2017 9:22 AM RPG PROGRAMMER) Anatomical Region Laterality Modality Breast Bilateral Mammography Specimen (Source) Anatomical Collection Method Collection Time Re ceived Time Location / / Volume Laterality 09/24/2017 11:35 AM RPG PROGRAMMER Impressions 09/24/2017 11:36 AM RPG PROGRAMMER IMPRESSION: ??Negative. RECOMMENDATION: ??Annual Screening Mammo gram ASSESSMENT: ??BI-RADS: 1: Negative. Narrative 09/24/2017 11:36 AM RPG PROGRAMMER EXAM: ??BI BREAST SCREENING BILATERAL Current study was evaluated with a Compu ter Aided Detection (CAD) system. INDICATION: ??Screening mammogram. COMPARISON: ??Prior exams were available for comparison. DENSITY: ??d. The breast(s) are extremel y dense, which lowers the sensitivity of mammography. FINDINGS: ??No mammographic findings of malignancy. Procedure Note Geoff Florence M.D. - 09/24/2017Formatt ing of this note might be different from the original. EXAM: BI BREAST SCREENING BILATERAL Current study was evaluated with a Compu ter Aided Detection (CAD) system. INDICATION: Screening mammogram. COMPARISON: Prior exams were available f or comparison. DENSITY: d. The breast(s) are extremely dense, which lowers the sensitivity of mammography. FINDINGS: No mammographic findings of ma lignancy. IMPRESSION: Negative. RECOMMENDATION: Annual Screening Mammogr am ASSESSMENT: BI-RADS: 1: Negative. Mirella Conteh C.N.P. IMG BI PROCEDURES documented in this encounter Visit Diagnoses Diagnosis Screening Mammogram Breast Cancer documented in this encounter Care Teams Stave Inspector Relationship Specialty Start Date End Date Gunner Sosa APRN, C.N.P. PCP - General 01/25/17 12/07/17 documented as of this encounter
--- OUTSIDE RECORDS SUMMARY | 2022-07-24 09:27 | XMS_ITS | Encounter Summary ---
:1940 Author Organization [facility] Address [address] [place] [address] Care Team Providers Name Role Phone Unavailable Primary Care Provider Unavailable Encounter Details Date Type Department Care Team Description 07/12/2015 - Hospital Encounter HX [facility] Hailee Shepard, 12/16/2015 SRV RUFUS, C.N.P., D.N.P. [address] [place] [address] Social History Tobacco Use Types Packs/Day Years Used Date Smoking Tobacco: Never Assessed Sex Assigned at Date Recorded Not on file documented as of this encounter Consult Notes Niranjan Giraldo, P.T. - 07/12/2015 12:00 AM CST [id number] PHYSICAL THERAPY INITIAL EVALUATION The patient is referred to physical therapy by Hailee Shepard for back pain and core weakness. Patient reports a long-standing history of low back pain beginning in 2012. She reports she notes low back pain when shopping, when rolling over in bed and going from sit to stand. She also feels weak in her kne es when getting out of bed. Heaviness in the legs. She reports she lives in a trilevel home and has some difficulty with stairs. She reports pain levels range from a 0 out of 10 at best to a 9 out of 10 at worst for low back pain. She has also noted increased difficulty getting up from a kneeling position. Patient does walk for exercise. She denies any radiating pain, numbness or tingling or bowel orbladder changes. Her symptoms range from mid back to the low back bilaterally. PHYSICAL EXAMINATION Today observation of patient's posture demonstrates a forward head, rounded shoulders, with increased thoracic kyphosis, anterior tilt of the pelvis with the knees in a slightly flexed position. Palpation does reveal ASIS, PSIS, greater trochanter and iliac crest are all equal in height. Manual muscletesting in the lower extremities is a 5 out of 5 in strength. Trunk range of motion is within normallimits in all directions. Does have some pain with bilateral side bending. She does have some palpable tenderness over the lower thoracic and upper lumbar spinous processes. Reflexes are intact and equal bilaterally in the lower extremities. Has some generalized tightness in the hamstrings at 80 degree s of hip flexion, as well as tightness in the gastroc and soleus. Hip range of motion is within normal limits. Knee range of motion is limited in knee extension with the left lacking 5 degrees from neutral and the right lacking 3 degrees from neutral. Knee flexion is within normal limits. Ankle range of motion is within normal limits as well. Patient will be treated for back pain and core weakness. Patient requires skilled physical therapy to develop a home exercise program and core strengthening exercises, as well as stretching. She consents to therapy treatment. Ready to learn. No apparent learning barriers were identified. Learning preferences include listening. Explained diagnosis and treatment plan. Patient/Child/Caregiver expressed understanding of the content. IMPRESSION/REPORT/PLAN We initiated patient education regarding transfers and body mechanics for spine protection principles, performed transverse abdominal contractions, posterior pelvic tilts, eccentric straight leg raises, bilateral shoulder retraction with an orange Thera-Band, cuing on transverse abdominal contraction.Patient will perform up to 2 x 10 repetitions. We also educated patient on a seated hamstring and gastroc and soleus stretch, holding for 30 seconds at 2 reps 2 times a day. Patient was given a writtenhandout with illustrations. Verbalized understanding, demonstrated with independence, tolerated our session well. PATIENT GOALS 1. Functional reporting status was assessed by a modified Oswestry low back pain questionnaire in which she scored 10 at 20%, is G8978 with modifier of CJ, G8979 with modifier of CI as determined by her Oswestry assessment to be achieved within 4 weeks. 2. Patient will be safe and independent with her home exercise program in 4 weeks. 3. Patient will note a 50% reduction in pain at worst, pain levels not exceeding a 5 out of 10 within 4 weeks. 4. Patient will demonstrate knee extension within 2 degrees from neutral. 5. Patient will demonstrate appropriate posture without verbal cuing within 4 weeks. PLAN OF CARE Patient education in home exercise program, posture training, transfer training technique, back protection principles, core stabilization exercises and stretching. She has good rehab potential to achieve goals. Plan at this time; patient prefers to work on an independent home exercise program but willreturn to therapy if needed or if symptoms do not continue to resolve. 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 STATUS: Still Patient/Expected to Rtn [facility] PAYOR: Medicare ADMIT DX: REASON FOR VISIT DX: FINAL DX: PRINCIPAL: M54.5 Low back pain SECONDARY: M62.81 Muscle weakness (generalized) PROCEDURES DOCTOR NAME DATE NOTE: The code number assigned matches the documented diagnosis and / or procedure in the patient's chart. However, the narrative phrase printed from the coding software may appear abbreviated, or result in slightly different terminology. Coded By: MIKE TORRES Date Saved: 07/21/2015 01:00 pm Source: [facility] Backlift Document Id: [id number] documented in this encounter Plan of Treatment Not on filedocumented as of this encounter Visit Diagnoses Not on filedocumented in this encounter Additional Health Concerns Assessment Noted Time PHQ-9 Depression Total Score: 5 11/30/2014 3:40 PM CDT documented as of this encounter
--- OUTSIDE RECORDS SUMMARY | 2022-07-24 09:27 | XMS_ITS | Encounter Summary ---
:1940 Author Organization [facility] Address [address] [place] [address] Care Team Providers Name Role Phone Unavailable Primary Care Provider Unavailable Encounter Details Date Type Department Care Team Description 03/26/2013 Hospital Encounter HX [facility] Joseph Chris M.D. [address] [place], [place] [address] (Wo rk) Social History Tobacco Use Types Packs/Day Years Used Date Smoking Tobacco: Never Assessed Sex Assigned at Date Recorded Not on file documented as of this encounter Progress Notes Ramon Restrepo M.D. - 03/26/2013 9:00 AM CDT [id number] SUBJECTIVE-Lynnette Thompson is a 72 year old female who presents for a glaucoma evaluation and OCT. Referred by Dr. Marin. History of present illness-Patient states that she is here for a glaucoma evaluation. She is currently using Timolol every morning in both eyes and Latanoprost every night in both eyes. She thought that her eye pressures were good for quite some time but recently have been up again. She received a new prescription in February but has not filled it as she was waiting until after this appointment with Dr. Restrepo. She has a floater in her left eye that has been there since a fall she had in 2009. The patient has a history of glaucoma. Ayse Anderson, COA 03/26/2013 Distance Right Eye Left Eye Both Eyes CC 20/40+2 20/30-2 20/30-2 SC Pinhole Correction Glasses IOP (pulsing) Right Eye 21-22 Left Eye 20 Tonometry Applination No APD Angles open Patient has sunglasses with her today Dilation Medication Tropicamide 1.0% and Phenylephrine 2.5% at 9:28 a.m. 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 Other Specified Glaucoma Unspecified Hypothyroidism MEDICATIONS: Current Outpatient Prescriptions Medication Sig LORAZEPAM 0.5 MG PO TABS 1 TABLET TWICE DAILY LORAZEPAM 0.5 MG OR TABS 1 tablet by mouth twice daily if needed for stress LEVOTHYROXINE SODIUM 25 MCG OR TABS one daily for thyroid on empty stomach TIMOLOL 0.25 % OP SOLN one drop in each eye once daily MIRALAX OR POWD 255 grams- Per Instructions with 4 Bixacodyl tabs as directed BISACODYL 5 MG OR TBEC 4 tabs as directed LUMIGAN 0.03 % OP SOLN one drop each eye once daily ALLERGIES: Penicillins FAMILY HISTORY: Family History Problem Relation Age of Onset Cancer Sister breast cancer Cancer Maternal Aunt breast Neurological Mother supra nuclear palsy Diabetes Paternal Grandmother insulin dependent Diabetes Brother Eye Mother glaucoma Blood Disease Father pernicious anemia REVIEW OF SYSTEMS: Respiratory: negative. Cardiovascular: negative. Neurologic: negative. PSYCH: No apparent anxiety or depression. Pleasant affect. Source: [facility] RWMCHXTRANSXRTFSYS Document Id: [id number] Electronically signed by Conversion, [facility] Rehabilitator [id number] at 01/08/2017 1:00 PM CDT Conversion, Historical Provider Ser - 03/26/2013 9:00 AM CDT [id number] A-Scan/IOL calculations with IOL master. Axial Length RIGHT EYE 25.45 LEFT EYE 25.17 Keratometry: RIGHT EYE 40.96/41.51 LEFT EYE 41.41/41.72 Patient states she is going to call when she decides if she wants cataract surgery and/or laser surgery. She states she may want the surgery done in [place]. I did not give her a kit or any pre-op instructions as she is on the fence. AMNA Giron Source: [facility] RWHXTRANSXRTFSYS Document Id: [id number] Ramon Restrepo M.D. - 03/26/2013 9:00 AM CDT [id number] CLINIC ENCOUNTER SUBJECTIVE: This 72-year-old female presents for evaluation regarding glaucoma and cataracts by Dr. Marin. Dr. Marin has been following her with pressure evaluation and visual field testing. He recently noticed a significant change in his visual field and tests on both eyes and referred her over for further evaluation and management. She has also noticed that her vision is becoming increasingly blurry but Dr. Marin's notes do suggest that a change in glasses will help some with her vision. Her mother went blind from glaucoma. OBJECTIVE: CONFRONTATION VISUAL RUBI: Intact. MOTILITY: Full. PUPILS: No afferent defect. EXTERNAL: Unremarkable. SLIT LAMP EXAMINATION: Conjunctivae quiet. Corneas clear. Chambers deep and quiet. Irises, normal. Lenses, +2 cortical nuclear sclerotic cataract with involvement of the central visual axis. FUNDUS: (Dilated) Cup-to-disc ratio 0.7 both eyes with significant superior inferior rim thinning. The macula, arcades and periphery are normal and the IOPs are noted above. The OCT study showed distinct nerve fiber layer thinning. Review of the Dr. 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 IMPRESSION: 1. Moderate glaucoma, inadequately controlled. Goal IOP should be 15 to 17 mmHg. 2. Symptomatic cortical nuclear sclerotic cataracts. PLAN: 1. Goal IOP is around 15 to 17 mmHg. 2. I discussed options with the patient that would include either at this point bilateral selective trabeculoplasty or consider cataract surgery as they are indeed symptomatic and follow her pressures in the postoperative setting. A significant number of patients will see reductions in intraocular pressure following cataract surgery. If the cataract surgery alone does not lower the pressure adequately we can always add an SLT at a later date. She will give that some careful consideration and let us know in a week or so what her decision is, either to update her glasses or have SLT laser or to proceed with cataract surgery. In the meantime will hold off on communicating with Dr. Marin until she has made a final decision. An A scan was obtained today. I also discussed with the patient the risks, benefits and alternatives to cataract surgery including suprachoroidal hemorrhage, endophthalmitis and loss of the eye. She would desire emmetropia with a monofocal lens in both eyes. Ramon Restrepo M.D. Amanda cc: Source: [facility] Document Id: [id number] Electronically signed by Conversion, [facility] Rehabilitator [id number] at 01/08/2017 1:00 PM CDT documented in this encounter Plan of Treatment Not on filedocumented as of this encounter Visit Diagnoses Not on filedocumented in this encounter Additional Health Concerns Assessment Noted Time PHQ-9 Depression Total Score: 11 12/30/2012 4:36 PM CD T documented as of this encounter
--- OUTSIDE RECORDS SUMMARY | 2022-07-24 09:27 | XMS_ITS | Encounter Summary ---
:1940 Author Organization [facility] Address [address] [place] [address] Care Team Providers Name Role Phone Unavailable Primary Care Provider Unavailable Encounter Details Date Type Department Care Team Description 12/28/2014 Hospital Encounter HX NO MAPPING Martin Cavanaugh M.D. [address] [place] [address] [phone] (Wo rk) Social History Tobacco Use Types Packs/Day Years Used Date Smoking Tobacco: Never Assessed Sex Assigned at Date Recorded Not on file documented as of this encounter Last Filed Vital Signs Vital Sign Reading Time Taken Comments Blood Pressure 120/73 12/28/2014 9:15 AM CDT Pulse 76 12/28/2014 7:31 AM CDT Temperature - - Respiratory Rate 18 12/28/2014 8:51 AM CDT Oxygen Saturation - - Inhaled Oxygen Concentration - - Weight - - Height - - Body Mass Index - - documented in this encounter Procedure Notes Jerad Bello, R.N. - 12/28/2014 7:31 AM CDT Preprocedure Checklist Preprocedure Checklist Entered On: 12/28/2014 7:33 CDT Performed On: 12/28/2014 7:31 CDT by JERAD BELLO RN Checklist Last Fluid Intake : 12/27/2014 22:00 CDT Last Food Intake : 12/27/2014 21:00 CDT JERAD BELLO RN - 12/28/2014 7:31 CDT Surgery Prep Grid Contacts/Glasses Removed : Yes Dentures Removed : NA Hairpins/Hairpiecies Removed : NA Hearing Aid Removed : NA Home Prep Complete : NA Jewelry/Piercing Removed : NA Makeup/Nail Italian Removed : NA Oral Hygiene : NA Preop Scrub AM of Surgery : NA Preop Scrub Night Prior to Surgery : NA Prosthesis Removed : NA Surgical Prep Verified : NA Tampon Removed : NA Wearing Patient Gown : Yes Voided international trade specialist to procedure : JERAD AGARWAL RN - 12/28/2014 7:31 CDT Patient Rights Grid Blood Consent Signed : Yes Surgical/Procedure Consent Signed : Yes JERAD BELLO RN - 12/28/2014 7:31 CDT Family Location : here JERAD BELLO RN - 12/28/2014 7:31 CDT Checklist II Patient Safety Grid Allergy Band on and Verified : Yes Anesthesia Consult : Yes Band on for Limb Alert : NA Blood Band on and Verified : NA Current ECG in Medical Record : Yes Current H&P in Medical Record : Yes Implants Verified : Yes (Comment: right eye lens [JERAD BELLO RN - 12/28/2014 7:31 CDT] ) Medication Reconciliation on Chart : Yes Pacemaker/AICD Verified : SUNITHA ID Band on and Verified : Yes Preop Medications Sent With Patient : Yes Relevant Images in Medical Record : NA Review of Labs : NA Procedure/Site Verified by Patient/Family : Yes Procedure/Site Verified by RN : Yes Procedure/Site Verified by Physician : Yes Type & Screen/Type & Cross Completed : JERAD AGARWAL RN - 12/28/2014 7:31 CDT TYREE Screening Known Obstructive Sleep Apnea : No - NOT diagnosed with TYREE JERAD BELLO RN - 12/28/2014 7:31 CDT TYREE Assessment Do you have high blood pressure or have you been told to take medication for high blood pressure? : No Frequency of Snoring : Never Frequency of Gasping, Choking, Snorting : Never Total Number of Historical Features : 0 Neck Circumference (cm) : 32/33 Total Sleep Apnea Clinical Score Calc : 0 JERAD BELLO RN - 12/28/2014 7:31 CDT Advance Directive Advanced Directives : No Advance Directive Additional Information : No JERAD BELLO RN - 12/28/2014 7:31 CDT Vital Signs Temperature Core : 36.4 DegC(Converted to: 97.5 DegF) (LOW) Peripheral Pulse Rate : 76 /min Respiratory Rate : 18 /min Systolic Blood Pressure : 120 mmHg Diastolic Blood Pressure : 81 mmHg NIBP Mean : 94 mmHg SpO2 : 100 % JERAD BELLO RN - 12/28/2014 7:31 CDT OR Business Analyst Ecommerce Checklist Images Present and Correct : N/A Special Equipment Present : Yes Implants Present : Yes Rep Required and Present : Yes Blood Components Present : N/A DON DELGADO RN - 12/28/2014 8:23 CDT [facility] Document Id: [id number] documented in this encounter Nursing Notes Don Delgado R.N. - 12/28/2014 8:47 AM CDT [facility] Main OR Nursing Record RW Main OR Nursing Record Summary Primary Physician: LATRELL CAVANAUGH MD Finalized Date/Time: 12/28/14 08:52:25 Pt. Name: JERED LYNNETTE FAM Reed./Sex: 1940 Female Med Rec #: [id number] Physician: Financial #: [id number] Pt. Type: D Room/Bed: / Admit/Disch: 12/28/14 07:06:09 - Institution: Allergies identified in patient's electronic medical record at time of printing on 12/28/14 Entry 1 Substance penicillins Reaction Type Allergy Last Modified By: TRINIDAD JEAN LPN 01/02/11 12:48:31 Nursing Assessment RW Entry 1 Preop Checklist Yes Level of Alert, Oriented Reviewed Consciousness Skin Condition Intact Nursing Data - Pain Does Patient Have No Pain? Diagnoses X04 Anxiety, X57 Interventions I078 Implements Temperature, risk for thermoregulation altered body measures. Expected Outcomes O12 The patient is at All Patient Yes or returning to Outcomes Met? (see normothermia at the anesthesia record conclusion of the for hypothermia immediate postoperative outcome) period., Patient verbalizes/indicates decreased anxiety and understanding of procedures/events Last Modified By: DON DELGADO RN 12/28/14 08:30:05 Case Times RW Entry 1 Patient In Room Time 12/28/14 08:31:00 Anesthesia Start 12/28/14 08:31:00 Time Surgery Start Time 12/28/14 08:38:00 Surgery Stop Time 12/28/14 08:47:00 Patient Out Room 12/28/14 08:53:00 Anesthesia Stop Time 12/28/14 08:53:00 Time Last Modified By: DON DELGADO RN 12/28/14 08:50:24 Case Attendance [facility] Entry 1 Entry 2 Entry 3 Case Attendee LATRELL CAVANAUGH MD, RHODA D RN BUCK, LINDA CRNA Role Performed Surgeon, Primary RN Business Analyst Ecommerce - Primary Certified Registered Nurse Drawer Maker Time In 12/28/14 08:31:00 12/28/14 08:31:00 12/28/14 08:31:00 Time Out 12/28/14 08:53:00 12/28/14 08:53:00 12/28/14 08:53:00 Relief? No No No See Anesthesia Record for Additional Attendees and Relief Times Last Modified By: DON DELGADO RN, RHODA D RN LUND, RHODA D RN 12/28/14 08:50:28 12/28/14 08:50:28 12/28/14 08:50:28 Entry 4 Case Attendee HORTENCIA OQUENDO BUSINESS PROCESS LEAD Role Performed Certified Registered Nurse Drawer Maker Time In 12/28/14 08:36:00 Time Out 12/28/14 08:53:00 Relief? Yes See Anesthesia Record for Additional Attendees and Relief Times Last Modified By: DON DELGADO RN 12/28/14 08:50:28 Other Attendee [facility] Entry 1 Entry 2 Other Attendee Name Noah Alexander (Sight Noah Robb Path Rep) Role/Relationship Vendor Vendor Last Modified By: DON DELGADO RN, RHODA D RN 12/28/14 08:29:36 12/28/14 08:29:36 Surgical Procedures [facility] Entry 1 Procedure Eye Cataract Extraction Modifiers Left Intraocular Lens Implant Procedure Performed Left cataract removal Primary Procedure Yes (Primary Procedure with concurrent Surgeon Comment) intraocular lens insertion Primary Surgeon LATRELL CAVANAUGH MD Surgical Service SN - Ophthalmology Start 12/28/14 08:38:00 Stop 12/28/14 08:47:00 Anesthesia Type MAC Anesthesia Type Yes Verified Last Modified By: DON DELGADO RN 12/28/14 08:50:30 General Case Data [facility] Entry 1 Case Information OR [facility] OR 02 Case Level Level 4 Wound Class Clean Specialty SN - Ophthalmology ASA Class 2 Diagnosis Preop Diagnosis Left cataract Last Modified By: DON DELGADO RN 12/28/14 08:40:35 Fire Risk Assessment [facility] Entry 1 Date/Time 12/28/14 08:38:00 Surgical Site Above Yes = 1 Xiphoid Open Oxygen Source Yes = 1 Available Ignition No = 0 Source Fire Risk 2 Last Modified By: DON DELGADO RN 12/28/14 08:41:06 Surgical Pause [facility] Entry 1 Pause Date-Time 12/28/14 08:38:00 Surgical/Procedural Surgical team verifies Team Pause patient name and birthdate, Surgical team verifies surgical procedure, including side and site, Surgical team verifies correct patient position, Surgical team verifies availability of implants, special equipment or special requirements Fire Risk Assessment Surgical Team Verified Fire Risk Assessment Last Modified By: DON DELGADO RN 12/28/14 08:41:20 Initial Count Entry 1 Initial Sponge Count Yes Initial Sharps Count Yes Initial Instrument No By DON DELGADO RN Count Last Modified By: DON DELGADO RN 12/28/14 08:30:26 General Comments: Noah Alexander (Sight Path Rep) Positioning Entry 1 Diagnoses X29 Injury, risk of, Positioning By LATRELL CAVANAUGH MD, X51 Skin integrity, AYE RAZO BUSINESS PROCESS LEAD, risk for impaired DON DELGADO RN Body Position Supine Left Arm Position Padded, At side Right Arm Position Padded, At side Leg Position Pillow under knees Intermittent No Additional eye chair/cart Pneumatic Information Compression Device, Knee High? Interventions I011 Applies safety Expected Outcomes O05 The patient is free devices., I041 from signs and symptoms Evaluates for signs and of injury related to symptoms of physical positioning. injury. Outcomes Met? Yes Last Modified By: DON DELGADO RN 12/28/14 08:41:30 Other Equipment Entry 1 Equipment Type Phaco - [facility] SN - OE - Unit [id number] Number Last Modified By: DON DELGADO RN 12/28/14 08:42:08 Skin Prep [facility] Entry 1 Skin Prep Prep Site Eye, Left Prep Agents 0.5% Betadine Opth Flammable Prep Not Applicable By DON DELGADO RN Agents Allowed to Dry? Hair Removal Methods N/A Diagnosis X28 Infection, risk for Interventions I081 Initiates traffic control., I098 Protects from cross-contamination., Prep performed consistent with aseptic principles and surgeon preference Expected Outcomes Surgery performed using Outcomes Met Yes aseptic technique, preventing cross contamination Last Modified By: DON DELGADO RN 12/28/14 08:42:21 Medications [facility] Entry 1 Entry 2 Entry 3 Medication Amvisc Plus 0.8ml / Lidocaine 1% PF (30ml) Tetracaine 0.5% inj_rw (ophthalmic drops) Time Administered 12/28/14 08:38:00 12/28/14 08:38:00 12/28/14 08:38:00 Route of Admin Intraocular Intraocular Topical to Surgical Area Volume 0.8 mL 1 mL 2 drop(s) By LATRELL CAVANAUGH MD, JEFFREY M MD KETCHAM, JEFFREY M MD Last Modified By: DON DELGADO RN, RHODA D RN LUND, RHODA D RN 12/28/14 08:43:59 12/28/14 08:43:59 12/28/14 08:43:59 Entry 4 Entry 5 Entry 6 Medication BSS 500ml with BSS - 15 ml 0.5% Vigamox Epinephrine 1:1000 (per 1ml) 0.3ml per 500ml BSS Time Administered 12/28/14 08:38:00 12/28/14 08:38:00 12/28/14 08:38:00 Route of Admin Intraocular Topical to Surgical Area Topical to Surgical Area Volume 200 mL 15 mL 5 drop(s) By LATRELL CAVANAUGH MD, JEFFREY M MD KETCHAM, JEFFREY M MD Last Modified By: DON DELGADO RN, RHODA D RN LUND, RHODA D RN 12/28/14 08:43:59 12/28/14 08:43:59 12/28/14 08:43:59 Entry 7 Medication Miostat 0.01% Time Administered 12/28/14 08:38:00 Route of Admin Injection to Surgical Area Volume 1 mL By LATRELL CAVANAUGH MD Last Modified By: DON DELGADO RN 12/28/14 08:43:59 Implant [facility] Entry 1 Implant Identification Implant Description LENS, TECNIS/CHAMBERS Implant Site Left eye [id number] 19.0 Sensor Operator Chambers Catalog # [id number] (Sensor Operator Item Number) Lot Number or [id number] Size 19.0 Serial Number/ Hospital Load Number Quantity 1 Expiration Date 08/2018 Last Modified By: DON DELGADO RN 12/28/14 08:47:00 Counts Entry 1 Counts Sequence Final Count Sponges Count Yes Correct? Sharps/[place] Yes Instrument Count n/a Count Correct? Correct? By DON DELGADO RN Actions Taken Not Applicable Last Modified By: DON DELGADO RN 12/28/14 08:47:27 General Comments: Noah Alexander (Sight Path Rep) Departure from OR Entry 1 Via Eye Cart Post-op Destination Phase II Report Given To JERAD BELLO RN Final Wound Class Clean per Surgeon/Team Reason for Change No change in wound class in Wound Class Last Modified By: DON DELGADO RN 12/28/14 08:47:51 Case Comments <None> Finalized By: DON DELGADO RN Signed By: Signature Initials Document Signatures Signed By: DON DELGADO RN 12/28/14 08:52 Source: [facility] [employer] Document Id: [id number] Jerad Bello RCarlosN. - 12/28/2014 7:28 AM CDT Day Surgery Admission History/Asmt Adult Day Surgery Admission History/Asmt Adult Entered On: 12/28/2014 7:31 CDT Performed On: 12/28/2014 7:28 CDT by JERAD BELLO RN General Info Preferred Name : lynnette Admitted From : Non-Health Care Facility Point of Origin Mode of Arrival : Ambulatory Accompanied By : Alone Preferred Communication Mode : Verbal Information Given By : Patient Languages : German Is Patient Female and 13-50 no hysterectomy : No JERAD BELLO RN - 12/28/2014 7:28 CDT Anesth/Transfusion Anesthesia/Transfusions : Prior anesthesia, Prior anesthesia reaction, Prior transfusion, Prior transfusion reaction Transfusion Acceptable in Emergency : Yes Gnosticism/Other Objections to Blood Transfusions : No JERAD BELLO RN - 12/28/2014 7:28 CDT ID Screen Drug Resistant Organism : No Travel Within Last 21 Days : No Contact with someone with Ebola : No JERAD BELLO RN - 12/28/2014 7:28 CDT Nutrition Have you recently lost weight without trying? : No Decreased Appetite Nutrition : No Tube Feedings or Parenteral Nutrition : No MST Score : 0 JERAD BELLO RN - 12/28/2014 7:28 CDT Home Environment Current Daily Living Assistance : None Home Equipment : None Sensory Deficits : None JERAD BELLO RN - 12/28/2014 7:28 CDT Dependent Habits Tobacco Use/Currently Using : No Exposure to Tobacco Smoke : Care provider denies smoking in home Smoking Status : Never smoker JERAD BELLO RN - 12/28/2014 7:28 CDT Caffeine Use Grid Caffeine Use : Current Type : Coffee Frequency : Daily Amount : 4 cups JERAD BELLO RN - 12/28/2014 7:28 CDT Recreational Drug Use Grid Drug Use : None JERAD BELLO RN - 12/28/2014 7:28 CDT Psychosocial Adult Domestic Abuse Concerns : None Behavioral Health Screen/Safety Assmt : No Gnosticism Preference : Unknown JERAD BELLO RN - 12/28/2014 7:28 CDT Advance Directive Advanced Directives : No Advance Directive Additional Information : No JERAD BELLO RN - 12/28/2014 7:28 CDT Educ Needs Patient/Family Education Needs : Plan of care, Postoperative instructions, Preoperative instructions, Surgery JERAD BELLO RN - 12/28/2014 7:28 CDT Learning Style Preference Adult Grid Patient : Verbal explanation, Printed materials Family : Verbal explanation, Printed materials JERAD BELLO RN - 12/28/2014 7:28 CDT Education Preprocedure Education Grid Procedure Type : surgery Education Topics : Deep breathing, Pain management, Plan of care Individuals Taught : Patient Barriers to Learning : None evident Teaching Method : Demonstration Teaching Evaluation : Able to teach back JERAD BELLO RN - 12/28/2014 7:28 CDT Outpatient Assessment Procedural Respiratory : Respirations unlabored, Respiratory pattern regular, Breath sounds clear all lobes, No cough Procedural Cardiovascular : Heart rhythm regular, Skin color normal for ethnicity, Skin dry and warm Procedural Neurological : Alert, Oriented x 3, Gait steady, No swallowing difficulty/aspiration risk Procedural Genitourinary : Voiding, no difficulties Procedural Integumentary : Skin integrity intact Procedural Musculoskeletal : Activity tolerance without distress JERAD BELLO RN - 12/28/2014 7:28 CDT Psycho/Emotional Pain Symptoms : No Affect/Behavior : Calm JERAD BELLO RN - 12/28/2014 7:28 CDT Safety Grid Vision, Hearing, Mobility Adequate to Meet Safety Needs : Yes JERAD BELLO RN - 12/28/2014 7:28 CDT Peripheral IV Peripheral IV Assess/Intervention Grid Peripheral IV #1 IV Activity : Start Number of Attempts : 1 Date of Insertion : 12/28/2014 CDT IV Site : Hand Laterality : Right Catheter Size : 22 Catheter Type : Protective Site Condition : No complications JERAD BELLO RN - 12/28/2014 7:28 CDT Source: [employer] Document Id: [id number] documented in this encounter OR Notes Op Note - Rehana Cook M.D. - 12/28/2014 9:23 AM CDT PATIENT LOCATION _SDS POST OP CONTINUOUS NERVE BLOCK n/a POST OP CONTINUOUS EPIDURAL n/a COMPLICATIONS none, VSS, alert, no pain or PONV. Electronically Signed By: REHANA COOK MD On: 12/28/2014 09:23 AM Source: [employer] Document Id: [id number] Op Note - Rehana Cook M.D. - 12/28/2014 8:15 AM CDT NPO STATUS _yes ANESTHESIA PLAN MAC ANESTHESIA INFORMED CONSENT/RISKS/ALTERNATIVES discussed CORE MEASURES Betablocker taken pre-op: n/a Infection prior to Anesthesia: no Pre-admission Coumadin Dose Given: n/a Coumadin Last Dose: n/a MALIGNANT HYPERTHERMIA denied DNR/DNI STATUS ADDRESSED n/a PATIENT QUESTIONS OR CONCERNS answered MALLAMPATI 2 HEART RATE NSR LUNGS clear HISTORY AND PHYSICAL UPDATE (x)I have found no changes. (_)I have found the following changes in the patient's condition. Electronically Signed By: REHANA COOK MD On: 12/28/2014 08:16 AM [facility] [employer] Document Id: [id number] Op Note - Latrell Cavanaugh M.D. - 12/28/2014 12:00 AM CDT [id number] PREOPERATIVE DIAGNOSIS Visually disabling cataract of the left eye. POSTOPERATIVE DIAGNOSIS Visually disabling cataract of the left eye. PROCEDURE PERFORMED Phacoemulsification with lens implantation, left eye. SURGEON Latrell Cavanaugh MD. ANESTHESIA MAC. COMPLICATIONS None. Ms. Thompson presented with complaints of poor vision in her left eye. She was noted to have a dense cataract. The risks, benefits, and alternatives to surgery were discussed including suprachoroidal hemorrhage, endophthalmitis, and loss of the eye. She desired an emmetropic refractive end point with a monofocal lens and a consent was obtained. DESCRIPTION OF PROCEDURE In the operating room after receiving topical anesthesia the left eye was prepped and draped in a sterile fashion. A lid speculum was placed in the eye. A 12:30 paracentesis tract was made. Viscoelastic was injected into the anterior chamber. A 2.75 mm clear corneal incision was made at the temporal limbus with the ted knife. A cystotome needle and Utrata forceps created a capsulorrhexis. Hydrodissection and hydrodelineation were performed. The central cortex and epinucleus were removed from within the capsulorrhexis using the phaco handpiece. The nucleus was grooved centrally and deeply rotated 90 degrees and cracked in half. Each nuclear half was disassembled using the phaco chopper and handpiece. Each nuclear fragment was captured, phacoemulsified, and removed. The epinuclear bowl was captured, flipped over, and removed in its entirety. Residual cortex was removed with the irrigation and aspiration handpiece. Viscoelastic filled the capsule and anterior chamber. An MINDY PCIOL model ZCB00 w ith a power of 19.0 diopters was inserted into the capsule without difficulty. Residual viscoelasticwas removed from the capsule and anterior chamber. The stroma of the wound and paracentesis tracts were hydrated and the chamber filled to a normal intraocular pressure. The wounds were checked for leaks and none were found. The patient tolerated the procedure well and left the operating room in satisfactory condition. Both Vigamox and Miostat were injected into the anterior chamber at the end of thecase. Latrell Cavanaugh M.D./toby Electronically Signed By: LATRELL CAVANAUGH MD On: 01/01/2015 10:11 AM Source: [facility] [employer] Document Id: [id number] Op Note - Rehana Cook M.D. - 12/23/2014 12:39 PM CDT ASA STATUS _ASA 2 ASA SCORE EVIDENCED BY mild systemic disease PRE-OP DIAGNOSIS left cataract PREVIOUS SURGERY/PROCEDURES Phacoemulsification of cataract with intraocular lens implantation: 12/14/14 BIOPSY OF UTERUS LINING - 1995 - proliferative type endometrium with glandular and stromal breakdown(anovulatory cycle): 08/13/99 ALLERGIES penicillins LAB RESULTS n/a EKG n/a X-RAY n/a PAST MEDICAL/PROBLEM HISTORY weight 53 kg Cataract Senile Nuclear Sclerosis (NS) Joel Hypothyroidism NOS Generalized Anxiety Disorder Glaucoma Associated with Unspecified Ocular Disorder Major Depression Recurrent Episode NOS (296.30) ANESTHESIC COMPLICATIONS none known MEDICATION LIST Medication List Active Medications Ordered ascorbic acid: 500 mg, Daily, During winter months. cholecalciferol: 400 IntU, Daily. diclofenac ophthalmic: 1 drop(s), Eye(Operative), 4xDay, 5 mL. latanoprost ophthalmic: 1 drop(s), Bedtime. levothyroxine: 75 mcg, 1 tab(s), PO, Daily, 90 tab(s). prednisoLONE ophthalmic: 1 drop(s), Eye(Operative), 4xDay, 10 mL. timolol ophthalmic: Eyes(Both), Daily. tobramycin ophthalmic: 1 drop(s), Eye(Operative), 4xDay, Use for 10 days after cataract surgery, then d/c, 5 mL. Medications Inactivated in the Last 72 Hours No medications found. SIGNIFICANT MEDICATIONS _ Electronically Signed By: REHANA COOK MD On: 12/23/2014 12:40 PM Source: [facility] [employer] Document Id: [id number] documented in this encounter Miscellaneous Notes Miscellaneous - Jerad Bello, RCarlosN. - 12/28/2014 9:16 AM CDT Ambulatory Patient Summary [facility] [address], [address] [place], [place] [id number] Visit Information Name: JERED, LYNNETTEZAHIDA OTTO [facility] Number: [id number] Current Date: 12/28/2014 09:16:35 Physicians Attending Provider: LATRELL CAVANAUGH MD Primary Care Provider: DIONI STODDARD RN, TEXTILE CONSERVATOR JERED LYNNETTE OTTO has been given the following list of follow-up instructions, medication list, and patient education materials: Follow-up Instructions Discharge Instruction General Activity Limitations: Activity as tolerated Avoid Lifting: Greater than 20 pounds Driving Limitations: Don't drive Call for worsening symptoms: Call Nurse Triage line Special Instructions: No bending, lifting, straining, or eye rubbing. Notify provider severe headache or eye pain. Light exercise e.g. walking is OK. Wear eye shield at bedtime or napping for one week. Discharge Medication Instruction Medication Instruction: use acetominophen 1000 mg every 4 hours as needed Your Medications Here is a list of [...] then d/c Stop Taking the Following Medications: Medication list as of 12-28-14 09:16 Attention: If you have any medications at [...] Electronically Signed By: LATRELL CAVANAUGH MD Signed On:28-DEC-2014 08:24:21 Your Allergies & Intolerances Substance Reaction Symptoms [...] Your Upcoming Appointments Date Time Location Provider 06/21/2015 08:00 [facility] Attention: Contact your local Clinic if further appointment detail needed. Your Goals/Additional instructions: Source: [facility] [employer] Document Id: [id number] Miscellaneous - Jerad Bello R.N. - 12/28/2014 9:16 AM CDT Ambulatory Discharge Medication List [facility] [address], [address] [place], [place] [id number] Visit Information Name: JERED LYNNETTE FELICIANOAN [facility] Number: [id number] Visit Date: 12/28/2014 09:16:34 Attending Provider: LATRELL CAVANAUGH MD Primary Care Provider: DIONI STODDARD RN, TEXTILE CONSERVATOR LYNNETTE THOMPSON has been given the following list of [...] then d/c Stop Taking the Following Medications: Medication list as of 12-28-14 09:16 Attention: If you have any medications at [...] Electronically Signed By: LATRELL CAVANAUGH MD Signed On:28-DEC-2014 08:24:21 Additional Information: Source: [employer] Document Id: [id number] Miscellaneous - Je, Historical Provider Ser - 12/28/2014 9:16 AM CDT Coding Summary-Paper Based CODING DATE: 12/28/2014 FINAL [facility] STATUS: * Discharged to Home or Self Care PAYOR: Medicare APC DESCRIPTION 0233 Level II Anterior Segment Eye ADMIT DX: 366.16 Senile Nuclear Sclerosis REASON FOR VISIT DX: 366.16 Senile Nuclear Sclerosis FINAL DX: PRINCIPAL: 366.16 Senile Nuclear Sclerosis SECONDARY: 244.9 Unspecified Hypothyroidism PYMT PROC APC STAT DESCRIPTION DOCTOR NAME DATE 51217 CATARACT REMOVAL LATRELL CAVANAUGH 12/28/2014 INSERTION OF LENS LT LEFT SIDE (USED TO IDENTIFY PROCEDURES PERFORMED ON THE LEFT SIDE OF THE BODY) NOTE: The code number assigned matches the documented diagnosis and / or procedure in the patient's chart. However, the narrative phrase printed from the coding software may appear abbreviated, or result in slightly different terminology. Coded By: DOROTHY ROBERTO Date Saved: 12/28/2014 03:54 pm Source: [employer] Document Id: [id number] Miscellaneous - Jerad Bello R.N. - 12/28/2014 9:15 AM CDT Adult Postprocedure Assessment Adult Postprocedure Assessment Entered On: 12/28/2014 9:16 CDT Performed On: 12/28/2014 9:15 CDT by JERAD BELLO RN Incision/Wound Incision/Wound Care Grid Activity : Assessed Type : Surgical incision Location : Eye Laterality : Left JERAD BELLO RN - 12/28/2014 9:15 CDT PARSAP Activity Status : Moves 4 extremities voluntarily or on command Dressing : None Respiratory Component : Able to deep breathe and cough freely Pain : Pain free Circulation Component : BP 20% of preanesthetic level Ambulation : Able to stand up and walk straight Consciousness : Fully awake Fasting and Feeding : Able to drink fluids Oxygen Saturation - Sedation : Can maintain > 92% on room air Urine Output, PARSAP : Not assessed PARSAP Score : 20 JERAD BELLO RN - 12/28/2014 9:15 CDT Source: [employer] Document Id: [id number] CDT!20 Miscellaneous - Jerad Bello R.NCarlos - 12/28/2014 8:51 AM CDT Adult Postprocedure Assessment Adult Postprocedure Assessment Entered On: 12/28/2014 8:51 CDT Performed On: 12/28/2014 8:51 CDT by JERAD BELLO RN Vital Signs Temperature Core : 18 DegC(Converted to: 64.4 DegF) (<LLOW) SpO2 : 94 % Oxygen Therapy : Room air JERAD BELLO RN - 12/28/2014 8:50 CDT General Level of Consciousness : Alert Orientation : Oriented x 3 Skin Color : Normal for ethnicity Skin Description : Dry Skin Temperature : Warm Pain Symptoms : No JERAD BELLO RN - 12/28/2014 8:50 CDT Respiratory Respiratory Patient Stated Symptoms : None Respirations : Unlabored All Lobes Breath Sounds : Clear JERAD BELLO RN - 12/28/2014 8:50 CDT Incision/Wound Incision/Wound Care Grid Activity : Assessed Type : Surgical incision Location : Eye Laterality : Left Description : Dry Drainage : None JERAD BELLO RN - 12/28/2014 8:50 CDT Peripheral IV Peripheral IV Assess/Intervention Grid Peripheral IV #1 IV Activity : Discontinue Number of Attempts : 1 Date of Insertion : 12/28/2014 CDT IV Site : Hand Laterality : Right Catheter Size : 22 Catheter Type : Protective Site Condition : No complications JERAD BELLO RN - 12/28/2014 8:50 CDT Modified Any Activity : Moves 4 extremities voluntarily or on command Respiratory : Able to deep breathe and cough freely Circulation : BP +/- 20% of preprocedural level or not unusually high or low Consciousness : Arouses on calling O2 Saturation : O2 SAT at preprocedural level Any l Score : 9 JERAD BELLO RN - 12/28/2014 8:50 CDT Source: [employer] Document Id: [id number] CDT!43 documented in this encounter Plan of Treatment Not on filedocumented as of this encounter Visit Diagnoses Not on filedocumented in this encounter Additional Health Concerns Assessment Noted Time PHQ-9 Depression Total Score: 5 11/30/2014 3:40 PM CDT documented as of this encounter
--- OUTSIDE RECORDS SUMMARY | 2022-07-24 09:27 | XMS_ITS | Encounter Summary ---
:1940 Author Organization [facility] Address [address] [place] [address] Care Team Providers Name Role Phone Unavailable Primary Care Provider Unavailable Encounter Details Date Type Department Care Team Description 12/30/2012 Hospital Encounter [facility]X [facility] Hailee Stoddard APRN, C.N.P., D. N.P. [address] [place] [address] (Wo rk) Social History Tobacco Use Types Packs/Day Years Used Date Smoking Tobacco: Never Assessed Sex Assigned at Date Recorded Not on file documented as of this encounter Last Filed Vital Signs Vital Sign Reading Time Taken Comments Blood Pressure 120/60 12/30/2012 11:17 AM CDT Pulse 76 12/30/2012 11:17 AM CDT Temperature - - Respiratory Rate 16 12/30/2012 11:17 AM CDT Oxygen Saturation - - Inhaled Oxygen Concentration - - Weight 48 kg (105 lb 13.1 oz) 12/30/2012 11:17 AM CDT Height 163 cm (5' 4.17) 12/30/2012 11:17 AM CDT Body Mass Index 18.07 12/30/2012 11:17 AM CDT documented in this encounter Progress Notes Hailee Stoddard APRN, C.N.P. - 12/30/2012 11:07 AM CDT [id number] CHIEF COMPLAINT/REASON FOR VISIT Skin lesion. HISTORY OF PRESENT ILLNESS Lynnette is a 72-year-old female who comes in today with a spot on her left medial ankle that is not resolving. She states that she has had it now for greater than a month and a half. She thinks she first noticed it when she was wearing boots and now that the skin has become somewhat itchy. She thinks that the patch of dryness is actually getting a little bit bigger. She has tried some lotion on it without any improvement of her symptoms, and she also tried Vaseline on it. CURRENT MEDICATIONS New reconciled medication: Triamcinolone topical cream to be applied 3 times daily for 14 days. ALLERGIES Penicillin. VITAL SIGNS Please see the EMR. PHYSICAL EXAMINATION GENERAL: Patient appears nondistressed. SKIN: On her left ankle in the medial aspect, she has a 4 x 3 mm skin lesion with scaly appearance noted on it very consistent with eczema. Some exudate was noted around it without any secondary infection. IMPRESSION/REPORT/PLAN Eczema. PLAN: We will treat with triamcinolone cream 3 times daily for 2 weeks. Report if no improvement or any worsening symptoms. Patient Education Ready to learn No apparent learning barriers were identified Learning preferences include listening Explained diagnosis and treatment plan Patient/Child/Caregiver expressed understanding of the content Breanna BermudezN.PCarlos/thiago Electronically Signed By: HAILEE STODDARD RN, MANAGER MACHINE On: 01/03/2013 10:05 AM Source: [facility] MHSDOLBEYNONRADSYS Document Id: [id number] documented in this encounter Miscellaneous Notes Miscellaneous - Dory Greenberg - 03/28/2013 9:40 AM CDT General Message Document Contains Addenda Addendum by DORY GREENBERG RN on 31 March 2013 08:21:54 CDT done, patient aware. Addendum by DORY GREENBERG RN on 31 March 2013 08:21:24 CDT From: DORY GREENBERG RN Sent: 03/31/2013 08:21:24 CDT Subject: RE: General Message Done, also reminded her of TSH level check. Addendum by HAILEE STODDARD RN, MANAGER MACHINE on 29 March 2013 21:40:18 CDT From: HAILEE STODDARD RN, MANAGER MACHINE To: DORY GREENBERG RN; Sent: 03/29/2013 21:40:18 CDT Subject: RE: General Message should do when bottle completed. please order From: DORY GREENBERG RN To: HAILEE STODDARD RN, MANAGER MACHINE; Sent: 03/28/2013 09:40:13 CDT Subject: General Message Left message has been taking Vitamin D twice a week, has 8 pills left. Wants to know when to have level checked. Wants to know if should check when bottle is empty or in 3 months. I tried to call her to get more information, but unable to reach. [facility] Document Id: [id number] Miscellaneous - Lisa Collins L.PCarlosN. - 12/30/2012 4:36 PM CDT PHQ-9 PHQ-9 Entered On: 12/30/2012 16:36 CDT Performed On: 12/30/2012 16:36 CDT by LISA COLLINS LPN, RT PHQ-9 Little interest or pleasure in doing things : More than half the days Feeling down, depressed, or hopeless : More than half the days Trouble falling or staying asleep, or sleeping too much : Several days Feeling tired or having little energy : Several days Poor appetite or overeating : Several days Feeling bad about yourself or that you are a failure : More than half the days Trouble concentrating on things : Several days Moving or speaking slowly; restless or fidgety : Several days Thoughts that you would be better off /hurting self : Not at all PHQ-9 Calculated Score : 11 Problems make work, home, or dealing with others : Somewhat difficult LISA COLLINS LPN, RT - 12/30/2012 16:36 CDT Source: [facility] Document Id: [id number] CDT!13 Miscellaneous - Hailee Stoddard, Donovan HOOPER - 12/30/2012 11:58 AM CDT Ambulatory Patient Summary [address] [address] Visit Information Name: LYNNETTE LAWTON [facility] Number: [id number] Current Date: 12/30/2012 11:58:20 Physicians Attending Provider: HAILEE STODDARD RN, MANAGER MACHINE Primary Care Provider: PCP, ELSEWHERE Your Medications Here is a list of your medications. It is important to take your medications as directed. Use a pillbox or chart to help remind you to take your medications. Please let your doctor or nurse know if you have problems taking your medications. Medication/Strength Dose Route Frequency Indications/Special Instructions/Comments triamcinolone topical (triamcinolone 0.1% topical cream) 1 bre Topical three times a day for 14 Days *ergocalciferol (ergocalciferol 50,000 intl units (1.25 mg) oral capsule) 50,000 IntU Oral 2 times aweek *levothyroxine (Synthroid 50 mcg (0.05 mg) oral tablet) 50 mcg Oral two times a day latanoprost ophthalmic (latanoprost 0.005% ophthalmic solution) 1 drop(s) Eyes(Both) once a day (at bedtime) lorazepam (lorazepam) 1/2 Tab Oral as needed timolol ophthalmic (timolol ophthalmic 0.25% solution) Eyes(Both) once a day * You have let us know that you are not taking this medication as listed. Please talk with your primary care provider or the health care provider who prescribed the medication as soon as possible. Attention: If you have any medications at [...] No Appointments found Your Goals/Additional instructions: Source: [facility] POWERCHART Document Id: [id number] Miscellaneous - Hailee Stoddard APRN, C.N.P. - 12/30/2012 11:58 AM CDT Ambulatory Depart Summary [address] [id number] Visit Information Name: LYNNETTE LAWTON [facility] Number: [id number] Visit Date: 12/30/2012 11:58:19 Attending Provider: HAILEE STODDARD RN, MANAGER MACHINE Primary Care Provider: PCP, ELSEWHERE LYNNETTE LAWTON has been given the following list of medications: Your Medications It is important to take your medications as directed. Use a pill box or chart to help remind you to take your medications. Please let your doctor or nurse know if you have problems taking your medications. Medication/Strength Dose Route Frequency Indications/Special Instructions/Comments triamcinolone topical (triamcinolone 0.1% topical cream) 1 bre Topical three times a day for 14 Days *ergocalciferol (ergocalciferol 50,000 intl units (1.25 mg) oral capsule) 50,000 IntU Oral 2 times aweek *levothyroxine (Synthroid 50 mcg (0.05 mg) oral tablet) 50 mcg Oral two times a day latanoprost ophthalmic (latanoprost 0.005% ophthalmic solution) 1 drop(s) Eyes(Both) once a day (at bedtime) lorazepam (lorazepam) 1/2 Tab Oral as needed timolol ophthalmic (timolol ophthalmic 0.25% solution) Eyes(Both) once a day * You have let us know that you are not taking this medication as listed. Please talk with your primary care provider or the health care provider who prescribed the medication as soon as possible. Attention: If you have any medications at home that are not on this list, DO NOT take them until youcontact your provider for clarification. Additional Information: Source: [facility] POWERCHART Document Id: [id number] Miscellaneous - Trinidad Urban L.P.N. - 12/30/2012 11:23 AM CDT Health Assessment Health Assessment Entered On: 12/30/2012 11:23 CDT Performed On: 12/30/2012 11:23 CDT by TRINIDAD URBAN LPN Health Assessment Complete Health Assessment Complete or Modified : Annual Health Assessment Annual Health Assessment Completed : Yes TRINIDAD URBAN LPN - 12/30/2012 11:23 CDT Nutrition Nutrition Risk Factors by History Adult : None TRINIDAD URBAN LPN - 12/30/2012 11:23 CDT Functional Current Daily Living Assistance : None TRINIDAD URBAN LPN - 12/30/2012 11:23 CDT Dependent Habits Tobacco Use/Currently Using : No Exposure to Tobacco Smoke : Care provider denies smoking in home Smoking Status : Never smoker TRINIDAD URBAN LPN - 12/30/2012 11:23 CDT Tobacco Use Grid Last Use : never TRINIDAD URBAN LPN - 12/30/2012 11:23 CDT Caffeine Use Grid Caffeine Use : Current Type : Coffee Frequency : Daily Amount : 4 cups TRINIDAD URBAN LPN - 12/30/2012 11:23 CDT Recreational Drug Use Grid Drug Use : None TRINIDAD URBAN LPN - 12/30/2012 11:23 CDT Psychosocial Domestic Abuse Concerns : None TRINIDAD URBAN LPN - 12/30/2012 11:23 CDT Advance Directive Advanced Directives : No TRINIDAD URBAN LPN - 12/30/2012 11:23 CDT Educ Needs Learning Style Preference Adult Grid Patient : Printed materials Family : TRINIDAD Dominguez LPN - 12/30/2012 11:23 CDT Source: [facility] POWERCHART Document Id: [id number] CDT!32 Kathleencellaneous - Trinidad Urban L.PCarlosN. - 12/30/2012 11:22 AM CDT Meaningful Use Influenza Exclusion Meaningful Use Influenza Exclusion Entered On: 12/30/2012 11:23 CDT Performed On: 12/30/2012 11:22 CDT by TRINIDAD URBAN LPN Influenza Vaccine Exclusion Influenza Vaccine Exclusion : Patient declined TRINIDAD URBAN LPN - 12/30/2012 11:22 CDT [facility] Document Id: [id number] CDT!3 Willi - Trinidad Urban L.PCarlosNCarlos - 12/30/2012 11:17 AM CDT Adult Education Liaison Intake/History Adult Education Liaison Intake/History Entered On: 12/30/2012 11:21 CDT Performed On: 12/30/2012 11:17 CDT by TRINIDAD URBAN LPN Intake Chief Complaint : Spot on leg that is not resolving Temperature Core : 37 DegC(Converted to: 98.6 DegF) Peripheral Pulse Rate : 76 /min Respiratory Rate : 16 /min Heart Rhythm : Regular Systolic Blood Pressure : 120 mmHg Diastolic Blood Pressure : 60 mmHg NIBP Mean : 80 mmHg BP Location : Left upper extremity Blood Pressure Cuff Size : Regular Height : 163 cm(Converted to: 5 ft 4 inch(es), 64.17 inch(es)) Actual Weight : 48 kg(Converted to: 105 lb 13 oz) Weight Source : Standing scale Dosing Weight Clinic : 48 kg Clinic BSA : 1.47 Body Mass Index : 18.07 kg/m2 TRINIDAD URBAN LPN - 12/30/2012 11:17 CDT General Info Information Given By : Patient Preferred Communication Mode : Verbal Languages : Welsh TRINIDAD URBAN LPN - 12/30/2012 11:17 CDT Subjective Pain Symptoms : No TRINIDAD URBAN LPN - 12/30/2012 11:17 CDT Dependent Habits Tobacco Use/Currently Using : No Exposure to Tobacco Smoke : Care provider denies smoking in home Smoking Status : Never smoker TRINIDAD URBAN LPN - 12/30/2012 11:17 CDT Tobacco Use Grid Last Use : never TRINIDAD URBAN LPN - 12/30/2012 11:17 CDT Alcohol Use : No TRINIDAD URBAN LPN - 12/30/2012 11:17 CDT Caffeine Use Grid Caffeine Use : Current Type : Coffee Frequency : Daily Amount : 4 cups TRINDIAD URBAN LPN - 12/30/2012 11:17 CDT Recreational Drug Use Grid Drug Use : None TRINIDAD URBAN LPN - 12/30/2012 11:17 CDT Source: [facility] Document Id: [id number] CDT!41 documented in this encounter Plan of Treatment Not on filedocumented as of this encounter Visit Diagnoses Not on filedocumented in this encounter Additional Health Concerns Assessment Noted Time PHQ-9 Depression Total Score: 12/30/2012 4:36 PM CD T documented as of this encounter
--- OUTSIDE RECORDS SUMMARY | 2022-07-24 09:27 | XMS_ITS | Encounter Summary ---
:1940 Author Organization [facility] Address [address] [place] [address] Care Team Providers Name Role Phone Unavailable Primary Care Provider Unavailable Encounter Details Date Type Department Care Team Description 05/27/2014 Hospital Encounter [facility] Dioni Stoddard APRN, C.N.P., D. N.P. [address] [place] [address] (Wo rk) Social History Tobacco Use Types Packs/Day Years Used Date Smoking Tobacco: Never Assessed Sex Assigned at Date Recorded Not on file documented as of this encounter Miscellaneous Notes Miscellaneous - Dioni Stoddard APRN, C.N.P. - 05/27/2014 1:00 PM CDT Results Notification From: DIONI STODDARD RN, LOG BUYER Sent: 05/27/2014 13:00:07 CDT Show up: 05/27/2014 13:00:00 CDT Subject: Results Notification pt informed of results. Results: Date Result Type Result Name 05/27/2014 10:06 Radiology US Abdomen Complete Source: [facility] POWERCHART Document Id: [id number] Electronically signed by Je, [facility] Supervisor Smoke Control [id number] at 01/09/2017 4:17 AM CDT documented in this encounter Plan of Treatment Not on filedocumented as of this encounter Visit Diagnoses Not on filedocumented in this encounter Additional Health Concerns Assessment Noted Time PHQ-9 Depression Total Score: 11 12/30/2012 4:36 PM CD T documented as of this encounter
--- OUTSIDE RECORDS SUMMARY | 2022-07-24 09:27 | XMS_ITS | Encounter Summary ---
:1940 Author Organization [facility] Address [address] [place] [address] Care Team Providers Name Role Phone Unavailable Primary Care Provider Unavailable Encounter Details Date Type Department Care Team Description 04/21/2013 Hospital Encounter HX [facility] Dioni Stoddard AP RN, C.N.P., D.N.P. [address] [phone] (Wo rk) Social History Tobacco Use Types Packs/Day Years Used Date Smoking Tobacco: Never Assessed Sex Assigned at Date Recorded Not on file documented as of this encounter Miscellaneous Notes Miscellaneous - Fany Dueñas, RCarlosN. - 05/02/2013 12:10 PM CDT RE: Test Results Document Contains Addenda From: FANY ESCAMILLA RN Sent: 05/02/2013 12:10:19 CDT Subject: RE: Test Results This was called to [facility]/ at [facility] at pt request. Pt notified of new dose & reminded to recheck TSH in 3 months. Addendum by DIONI STODDARD RN, PHYSICIST CRYOGENICS on 02 May 2013 09:06:43 CDT Submitted: Order:levothyroxine (levothyroxine 75 mcg (0.075 mg) oral tablet) 1 tab(s) PO Daily Qty: 90 tab(s) Refills: 3 Substitutions Allowed Route To Pharmacy - [facility] Signed by DIONI STODDARD RN, PHYSICIST CRYOGENICS Submitted: Discontinue:levothyroxine (Synthroid 50 mcg (0.05 mg) oral tablet) Signed by DIONI STODDARD RN, GERALD 05/02/2013 09:05:56 Addendum by DIONI STODDARD RN, PHYSICIST CRYOGENICS on 02 May 2013 09:05:29 CDT From: DIONI STODDARD RN, GERALD To: CHEN FAJARDO LPN; FANY ESCAMILLA RN; Sent: 05/02/2013 09:05:29 CDT Subject: RE: Test Results yes. Will change dose to 75mcg daily and recheck TSH in 3 months. Thanks. Addendum by CHEN FAJARDO LPN on 01 May 2013 15:51:14 CDT From: CHEN FAJARDO LPN To: DIONI STODDARD RN, CNP; Cc: TRINIDAD JEAN LPN; Sent: 05/01/2013 15:51:14 CDT Subject: FW: Test Results Patient is calling again re: this same concern. States I already told the nurse that I take 50mcg daily. Should she increase this or what? Please advise [phone] From: FANY ESCAMILLA RN To: DIONI STODDARD RN, GERALD; Sent: 04/25/2013 14:56:34 CDT Subject: Test Results Caller is: ( X ) Patient [phone] Dioni Stoddard:Pt called regarding test results B:Pt had TSH done 04/21/13. You sent her a letter and asked her to report how she is taking her Synthroid. Pt states she has been taking 50 mcg once daily. A:Pt would like to know if you are going to change her dose R:Please make dose adjustment if appropriate Source: [facility] POWERCHART Document Id: [id number] Miscellaneous - Fany Dueñas, R.N. - 04/25/2013 2:56 PM CDT Test Results Document Contains Addenda Addendum by CHEN FAJARDO LPN on 06 May 2013 09:18:41 CDT noted Addendum by DIONI STODDARD RN, GERALD on 02 May 2013 09:06:43 CDT Submitted: Order:levothyroxine (levothyroxine 75 mcg (0.075 mg) oral tablet) 1 tab(s) PO Daily Qty: 90 tab(s) Refills: 3 Substitutions Allowed Route To Pharmacy - [facility] Signed by DIONI STODDARD RN, GERALD Submitted: Discontinue:levothyroxine (Synthroid 50 mcg (0.05 mg) oral tablet) Signed by DIONI STODDARD RN, GERALD 05/02/2013 09:05:56 Addendum by DIONI STODDARD RN, GERALD on 02 May 2013 09:05:29 CDT From: DIONI STODDARD RN, PHYSICIST CRYOGENICS To: CHEN FAJARDO LPN; FANY ESCAMILLA RN; Sent: 05/02/2013 09:05:29 CDT Subject: RE: Test Results yes. Will change dose to 75mcg daily and recheck TSH in 3 months. Thanks. Addendum by CHEN FAJARDO LPN on 01 May 2013 15:51:14 CDT From: CHEN FAJARDO LPN To: DIONI STODDARD RN, PHYSICIST CRYOGENICS; Cc: TRINIDAD JEAN LPN; Sent: 05/01/2013 15:51:14 CDT Subject: FW: Test Results Patient is calling again re: this same concern. States I already told the nurse that I take 50mcg daily. Should she increase this or what? Please advise [phone] From: FANY ESCAMILLA RN To: DIONI STODDARD RN, PHYSICIST CRYOGENICS; Sent: 04/25/2013 14:56:34 CDT Subject: Test Results Caller is: ( X ) Patient [phone] Dioni Stoddard S:Pt called regarding test results B:Pt had TSH done 04/21/13. You sent her a letter and asked her to report how she is taking her Synthroid. Pt states she has been taking 50 mcg once daily. A:Pt would like to know if you are going to change her dose R:Please make dose adjustment if appropriate [facility] Document Id: [id number] Miscellaneous - Dioni Stoddard APRN, C.N.P. - 04/25/2013 9:17 AM CDT Normal Results Letter 25 April 2013 LYNNETTE LAWTON [address] [place] [address] [phone] Dear LYNNETTE LAWTON, I am pleased to report that your results from the following diagnostic test for Vitamin D level is replenished. You can discontinue the high dose of Vit D. Because of your history of Vit D deficiency, you would benefit from over the counter Vit D supplement 400IU daily. Please follow up with us if youhave any concerns. If you have questions or concerns, please do not hesitate to call our office. Result Name Current Result Previous Result 25-Hydroxy D-[place] (ng/mL) (H) 89 04/21/2013 (L) 15 09/20/2012 25-Hydroxy D2-[place] (ng/mL) 84 04/21/2013 <4.0 09/20/2012 25-Hydroxy D3-[place] (ng/mL) 5.2 04/21/2013 15 09/20/2012 Sincerely, DIONI STODDARD [address] [place], [place] [id number] Electronic Signature Electronically Signed By: DIONI STODDARD RN, PHYSICIST CRYOGENICS On: 25 April 2013 This document has images extracted. Source: [facility] [employer] Document Id: [id number] Miscellaneous - Dioni Stoddard APRN, C.N.P. - 04/22/2013 2:16 PM CDT Normal Results Letter 22 April 2013 LYNNETTE LAWTON [address] [place] [address] [phone] Dear LYNNETTE LAWTON, I am pleased to report that your results from the following diagnostic test of TSH (thyroid test) isimproved. However, it is not at goal range. It would be beneficial if we increased your dose of Synthroid. Please return or contact our nurse to let her know exactly how you currently are taking the medication and how we can adjust it. thanks. Please follow up with us. If you have questions or concerns, please do not hesitate to call our office. Result Name Current Result Previous Result Normal Range TSH (mcIU/mL) (H) 6.95 04/21/2013 (H) 12.25 09/20/2012 (H) 15.27 07/08/2012 0.30 - 5.00 Sincerely, DIONI STODDARD [address] [place] [address] Electronic Signature Electronically Signed By: DIONI STODDARD RN, PHYSICIST CRYOGENICS On: 22 April 2013 This document has images extracted. Source: [facility] [employer] Document Id: [id number] documented in this encounter Plan of Treatment Not on filedocumented as of this encounter Procedures Procedure Name Priority Date/Time Associated Diagnosis Comme nts 25-HYDROXYVITAMIN Routine 04/21/2013 8:15 AM Resu lts for this D2 AND D3, S CDT procedure are i n the results section. THYROID-STIMULATING Routine 04/21/2013 8:15 AM Re sults for this HORMONE-SENSITIVE CDT procedure are in (S-TSH) the results section. documented in this encounter Results (ABNORMAL) Thyroid-Stimulating Hormone-Sensitive (s-TSH) (04/21/2013 8:15 AM CDT) Analysis Performed At Patho logist Time Signature TSH 6.95 (H) 0.30 - 5.00 POWERCHART (Thyrotropin) [facility] Specimen (Source) Anatomical Collection Method Collection Time Re ceived Time Location / / Volume Laterality Blood 04/21/2013 8:15 AM CDT Dioni Stoddard APRN C.N.P., D.N.P. LAB BLOOD ADD-ON Performing Organization Address City/State/ZIP Code Phon e Number POWERCHART (ABNORMAL) 25-Hydroxyvitamin D2 and D3 (04/21/2013 8:15 AM CDT) P athologist Signature HX25 HYDROXY D2 84 [facility] POWERCHART 25-Hydroxy D3 5.2 [facility] POWERCHART Vitamin D, S 89 (H) [facility] POWERCHART Comment: Interpretation: >80 (toxicity possible) -- REFERENCE VALUE -- 25-HYDROXY D TOTAL (D2+D3) Optimum level s in the healthy population are 20-50, patients with bone disease may benefit from higher levels within this r son. Test Performed by: [place] [address] Art Supervisor: Handy zhu III, M.D. Specimen (Source) Anatomical Collection Method Collection Time Re ceived Time Location / / Volume Laterality Blood 04/21/2013 8:15 AM CDT Keara Cao APRN.N.P., D.N.P. LAB BLOOD ADD-ON Performing Organization Address City/State/[facility] Code Phon e Number POWERCHART documented in this encounter Visit Diagnoses Not on filedocumented in this encounter Additional Health Concerns Assessment Noted Time PHQ-9 Depression Total Score: 11 12/30/2012 4:36 PM CD T documented as of this encounter
--- OUTSIDE RECORDS SUMMARY | 2022-07-24 09:27 | XMS_ITS | Encounter Summary ---
:1940 Author Organization [facility] Address [address] [place] [address] Care Team Providers Name Role Phone Unavailable Primary Care Provider Unavailable Encounter Details Date Type Department Care Team Description 12/14/2014 Hospital Encounter HX NO MAPPING Martin Cavanaugh M.D. [address] [place] [address] [phone] (Wo rk) Social History Tobacco Use Types Packs/Day Years Used Date Smoking Tobacco: Never Assessed Sex Assigned at Date Recorded Not on file documented as of this encounter Last Filed Vital Signs Vital Sign Reading Time Taken Comments Blood Pressure 143/79 12/14/2014 12:30 PM CDT Pulse 54 12/14/2014 12:30 PM CDT Temperature - - Respiratory Rate 16 12/14/2014 12:30 PM CDT Oxygen Saturation - - Inhaled Oxygen Concentration - - Weight - - Height - - Body Mass Index - - documented in this encounter Discharge Summaries Jerad Bello, RCarlosN. - 12/14/2014 2:33 PM CDT Hospital Discharge Instructions [address] [address] Patient Discharge Instructions Name: LYNNETTE THOMPSON Current Date: 12/14/2014 14:33:43 : 1940 12:00 AM [facility] Number: [id number] Patient Address: [address] [place] [phone] Patient Primary Care Provider: Name: DIONI STODDARD RN, PARACHUTIST/COMBATANT DIVER QUALIFIED Discharge Diagnosis: [facility] [place] would like to thank you for allowing us to assist you with yourhealthcare needs. The following includes patient education materials and information regarding your injury/illness. Comment: JERED LYNNETTE OTTO has been given the following list of follow-up instructions, medication list andpatient education materials: Follow-up Instructions Discharge Instruction General [...] 1000 mg every 4 hours as needed Medications Medication/Strength How to Take Indications/Special Instructions/Comments/Notes for [...] the Following Medications: Medication list as of 12-14-14 14:33 Attention: If you have any medications at home that are not on this list, DO NOT take them until youcontact your provider for clarification. Give a copy of your medication list to your primary care provider. Update your medication list any time medications or doses are changed and carry your medication list at all times in case of emergency. Comment: Electronically Signed By: LATRELL CAVANAUGH MD Signed On:14-DEC-2014 13:00:38 Your Upcoming Appointments Date Time Location Provider 12/28/2014 10:00 [facility] Main OR R[facility] OR 02 06/21/2015 08:00 [facility] Lab [facility] I, LYNNETTE THOMPSONAN , have received the attached patient education materials/instructions and have verbalized understanding: Patient Signature Date Time Care Provider Signature Date Time Source: [facility] POWERCHART Document Id: [id number] Jerad Bello R.N. - 12/14/2014 2:33 PM CDT Hospital Discharge Medication List [address] [address] Discharge Medication List Name: JERED, LYNNETTE OTTO Current Date: 12/14/2014 14:33:42 : 1940 12:00 AM [facility] Number: [id number] Patient Address: [address] [place] [phone] Patient Primary Care Provider: Name: DIONI STODDARD RN, [facility] Discharge Diagnosis: [facility] [place] would like to thank you for allowing us to assist you with your healthcare needs. The following includes patient education materials and information regarding yourinjury/illness. Medications Medication/Strength How to Take Indications/Special Instructions/Comments/Notes for [...] the Following Medications: Medication list as of 12-14-14 14:33 Attention: If you have any medications at home that are not on this list, DO NOT take them until youcontact your provider for clarification. Give a copy of your medication list to your primary care provider. Update your medication list any time medications or doses are changed and carry your medication list at all times in case of emergency. Comment: Electronically Signed By: LATRELL CAVANAUGH MD Signed On:14-DEC-2014 13:00:38 Source: [facility] [employer] Document Id: [id number] Jerad Bello R.N. - 12/14/2014 2:33 PM CDT Discharge Summary Discharge Summary Entered On: 12/14/2014 14:33 CDT Performed On: 12/14/2014 14:33 CDT by JERAD BELLO RN DC Information Mode of Discharge : Ambulatory Discharge Transportation : Private vehicle Accompanied By : Nurse, Family Date/Time of Discharge : 12/14/2014 14:33 CDT JERAD BELLO RN - 12/14/2014 14:33 CDT Source: [facility] POWERCHART Document Id: [id number] CDT!6 documented in this encounter Procedure Notes Leela Mendoza R.N. - 12/14/2014 12:30 PM CDT Preprocedure Checklist Preprocedure Checklist Entered On: 12/14/2014 12:46 CDT Performed On: 12/14/2014 12:30 CDT by LEELA MENDOZA RN Checklist Last Fluid Intake : 12/11/2014 22:00 CDT Last Food Intake : 12/13/2014 20:00 CDT LEELA MENDOZA RN - 12/14/2014 12:30 CDT Surgery Prep Grid Contacts/Glasses Removed : Yes Dentures Removed : NA Hairpins/Hairpiecies Removed : NA Hearing Aid Removed : NA Home Prep Complete : NA Jewelry/Piercing Removed : NA Makeup/Nail Peruvian Removed : NA Oral Hygiene : NA Preop Scrub AM of Surgery : NA Preop Scrub Night Prior to Surgery : NA Prosthesis Removed : NA Surgical Prep Verified : NA Tampon Removed : NA Wearing Patient Gown : Yes Voided administrative liaison to procedure : LEELA HOANG RN - 12/14/2014 12:30 CDT Patient Rights Grid Blood Consent Signed : Yes Surgical/Procedure Consent Signed : Yes LEELA MENDOZA RN - 12/14/2014 12:30 CDT Family Location : room 21 LEELA MENDOZA RN - 12/14/2014 12:30 CDT Checklist II Patient Safety Grid Allergy Band on and Verified : Yes Anesthesia Consult : NA Band on for Limb Alert : NA Blood Band on and Verified : NA Current ECG in Medical Record : NA Current H&P in Medical Record : Yes Implants Verified : NA Medication Reconciliation on Chart : Yes Pacemaker/AICD Verified : NA ID Band on and Verified : Yes Preop Medications Sent With Patient : Yes Relevant Images in Medical Record : NA Review of Labs : NA Procedure/Site Verified by Patient/Family : Yes Procedure/Site Verified by RN : Yes Procedure/Site Verified by Physician : SUNITHA Type & Screen/Type & Cross Completed : LEELA HOANG RN - 12/14/2014 12:30 CDT TYREE Screening Known Obstructive Sleep Apnea : No - NOT diagnosed with TYREE LEELA MENDOZA RN - 12/14/2014 12:30 CDT TYREE Assessment Do you have high blood pressure or have you been told to take medication for high blood pressure? : No Frequency of Snoring : Never Frequency of Gasping, Choking, Snorting : Never Total Number of Historical Features : 0 Neck Circumference (cm) : 44/45 Total Sleep Apnea Clinical Score Calc : 7 LEELA MENDOZA RN - 12/14/2014 12:30 CDT Advance Directive Advanced Directives : No Advance Directive Additional Information : No LEELA MENDOZA RN - 12/14/2014 12:30 CDT Vital Signs Temperature Core : 36.7 DegC(Converted to: 98.1 DegF) Peripheral Pulse Rate : 54 /min (LOW) Respiratory Rate : 16 /min Systolic Blood Pressure : 143 mmHg (HI) Diastolic Blood Pressure : 79 mmHg NIBP Mean : 100 mmHg SpO2 : 100 % Oxygen Therapy : Room air LEELA MENDOZA RN - 12/14/2014 12:30 CDT OR Telecom Billing Analyst Checklist Images Present and Correct : Yes Special Equipment Present : Yes Implants Present : Yes Rep Required and Present : Yes Blood Components Present : N/A PACO FRY RN - 12/14/2014 13:00 CDT [facility] Document Id: [id number] CDT!7 documented in this encounter Nursing Notes Conversion, Historical Provider Ser - 12/14/2014 1:26 PM CDT [facility] Main OR Nursing Record [facility] Main OR Nursing Record Summary Primary Physician: LATRELL CAVANAUGH MD Finalized Date/Time: 12/14/14 14:58:44 Pt. Name: LYNNETTE THOMPSON FAM Hughes/Sex: 1940 Female Med Rec #: [id number] Physician: Financial #: [id number] Pt. Type: D Room/Bed: 02/09 Admit/Disch: 12/14/14 11:07:59 - 12/14/14 14:33:00 Institution: Allergies identified in patient's electronic medical record at time of printing on 12/14/14 Entry 1 Substance penicillins Reaction Type Allergy Last Modified By: TRINIDAD JEAN LPN 01/02/11 12:48:31 Nursing Assessment [facility] Entry 1 Preop Checklist Yes Patient Arrived in No Reviewed OR with Jewelry, Valuables, Glasses and/or Contact Lenses. If yes, disposition charted on Valuables/Belongings tab of Preprocedure Checklist. Level of Alert Skin Condition Intact Consciousness Nursing Data - Pain Does Patient Have No Pain? Diagnoses X04 Anxiety, X29 Interventions I106 Provides Injury, risk of, X30 instruction based on Knowledge deficit, X38 age and identified Pain, X57 Temperature, need., I050 Evaluates risk for altered body, response to X32 Latex allergy instructions., I078 response, risk for Implements thermoregulation measures., I109 Provides status reports to family/support person. Expected Outcomes O01 The patient is free All Patient Yes from signs and symptoms Outcomes Met? (see of physical injury., anesthesia record O12 The patient is at for hypothermia or returning to outcome) normothermia at the conclusion of the immediate postoperative period., O29 The patient demonstrates and/or reports adequate pain control throughout the perioperative period., Patient verbalizes comprehension of instructions, Patient verbalizes/indicates decreased anxiety and understanding of procedures/events Last Modified By: PACO FRY RN 12/14/14 13:20:01 Case Times [facility] Entry 1 Patient In Room Time 12/14/14 13:12:00 Anesthesia Start 12/14/14 13:12:00 Time Surgery Start Time 12/14/14 13:18:00 Surgery Stop Time 12/14/14 13:26:00 Patient Out Room 12/14/14 13:30:00 Anesthesia Stop Time 12/14/14 13:30:00 Time Last Modified By: PACO FRY RN 12/14/14 13:29:00 Case Attendance [facility] Entry 1 Entry 2 Entry 3 Case Attendee LATRELL CAVANAUGH MD, CHARLES RN COCHRANE, JOSHUA CRNA Role Performed Surgeon, Primary RN Telecom Billing Analyst - Primary Certified Registered Nurse Floral Artist Time In 12/14/14 13:12:00 12/14/14 13:12:00 12/14/14 13:12:00 Time Out 12/14/14 13:30:00 12/14/14 13:30:00 12/14/14 13:30:00 Relief? No No No See Anesthesia Record for Additional Attendees and Relief Times Last Modified By: PACO FRY RN, CHARLES RN RITMIRE, CHARLES RN 12/14/14 13:29:02 12/14/14 13:29:02 12/14/14 13:29:02 Other Attendee [facility] Entry 1 Other Attendee Name VIVI FREIRE Role/Relationship Field Artillery Operations Specialist Last Modified By: PACO FRY RN 12/14/14 13:20:37 Surgical Procedures [facility] Entry 1 Procedure Eye Cataract Extraction Modifiers Right Intraocular Lens Implant Procedure Performed Right cataract removal Primary Procedure Yes (Primary Procedure with concurrent Surgeon Comment) intraocular lens insertion Primary Surgeon LATRELL CAVANAUGH MD Surgical Service SN - Ophthalmology Start 12/14/14 13:18:00 Stop 12/14/14 13:26:00 Anesthesia Type MAC Anesthesia Type Yes Verified Last Modified By: PACO FRY RN 12/14/14 13:29:05 General Case Data [facility] Entry 1 Case Information OR [facility] OR Case Level Level 4 Wound Class Clean Specialty SN - Ophthalmology ASA Class 2 Diagnosis Preop Diagnosis Cataract Last Modified By: PACO FRY RN 12/14/14 13:21:33 Fire Risk Assessment [facility] Entry 1 Date/Time 12/14/14 13:18:00 Surgical Site Above Yes = 1 Xiphoid Open Oxygen Source Yes = 1 Available Ignition No = 0 Source Fire Risk 2 Last Modified By: PACO FRY RN 12/14/14 13:21:48 Surgical Pause [facility] Entry 1 Pause Date-Time 12/14/14 13:18:00 Surgical/Procedural Surgical team verifies Team Pause patient name and birthdate, Surgical team verifies surgical procedure, including side and site, Surgical team verifies correct patient position, Surgical team verifies availability of implants, special equipment or special requirements, Surgical team verifies antibiotic administration and documentation Fire Risk Assessment Surgical Team Verified Fire Risk Assessment Last Modified By: PACO FRY RN 12/14/14 13:21:59 Initial Count Entry 1 Initial Sponge Count Yes Initial Sharps Count Yes Initial Instrument No By PACO FRY RN Count Last Modified By: PACO FRY RN 12/14/14 13:22:06 General Comments: VIVI FREIRE Positioning Entry 1 Diagnoses X29 Injury, risk of, Positioning By LATRELL CAVANAUGH MD, X51 Skin integrity, 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 Outcomes Met? Yes Last Modified By: PACO FRY RN 12/14/14 13:22:14 Other Equipment Entry 1 Equipment Type [facility] - OE - Unit [id number] Number Last Modified By: PACO FRY RN 12/14/14 13:22:29 Skin Prep [facility] Entry 1 Skin Prep Prep Site Eye, Right Prep Agents 0.5% Betadine Opth Flammable Prep Not Applicable By PACO FRY RN Agents Allowed to Dry? Hair Removal Methods N/A Diagnosis X28 Infection, risk for Interventions I081 Initiates traffic control., I098 Protects from cross-contamination., Prep performed consistent with aseptic principles and surgeon preference Expected Outcomes Surgery performed using Outcomes Met Yes aseptic technique, preventing cross contamination Last Modified By: PACO FRY RN 12/14/14 13:22:40 Medications [facility] Entry 1 Entry 2 Entry 3 Medication Amvisc Plus 0.8ml / Lidocaine 1% PF (30ml) Tetracaine 0.5% inj_rw (ophthalmic drops) Time Administered 12/14/14 13:22:00 12/14/14 13:22:00 12/14/14 13:22:00 Route of Admin Intraocular Intraocular Topical to Surgical Area Volume 0.8 mL 1 mL 2 drop(s) By LATRELL CAVANAUGH MD, JEFFREY M MD KETCHAM, JEFFREY M MD Last Modified By: PACO FRY RN, CHARLES RN RITMIRE, CHARLES RN 12/14/14 13:24:02 12/14/14 13:24:02 12/14/14 13:24:02 Entry 4 Entry 5 Entry 6 Medication BSS 500ml with BSS - 15 ml Vigamox gtts Epinephrine 1:1000 (per 1ml) 0.3ml per 500ml BSS Time Administered 12/14/14 13:22:00 12/14/14 13:23:00 12/14/14 13:23:00 Route of Admin Intraocular Topical to Surgical Area Topical to Surgical Area Volume 200 mL 15 mL 3 mL By LATRELL CAVANAUGH MD, JEFFREY M MD KETCHAM, JEFFREY M MD Last Modified By: PACO FRY RN, CHARLES RN RITMIRE, CHARLES RN 12/14/14 13:24:02 12/14/14 13:24:02 12/14/14 13:24:02 Entry 7 Medication Miostat 0.01% Time Administered 12/14/14 13:23:00 Route of Admin Injection to Surgical Area Volume 1.5 mL By LATRELL CAVANAUGH MD Last Modified By: PACO FRY RN 12/14/14 13:24:02 Implant [facility] Entry 1 Implant Identification Implant Description LENS, TECNIS/CHAMBERS Implant Site Right ZCB00 18.5 Plate Conditioner Chambers Catalog # [id number] (Plate Conditioner Item Number) Lot Number or [id number] Size 18.5D Serial Number/ Hospital Load Number Quantity 1 Expiration Date 08/01/2018 Last Modified By: AYE HOANG 12/14/14 14:57:23 Counts Entry 1 Counts Sequence Final Count Sponges Count Yes Correct? Sharps/Vancleve Yes Instrument Count n/a Count Correct? Correct? By PACO FRY RN Actions Taken Not Applicable Last Modified By: PACO FRY RN 12/14/14 13:25:25 General Comments: VIVI FREIRE Departure from OR Entry 1 Via Eye Cart Post-op Destination Phase II Report Given To LEELA MENDOZA RN Final Wound Class Clean per Surgeon/Team Reason for Change No change in wound class in Wound Class Last Modified By: PACO FRY RN 12/14/14 13:26:01 Case Comments <None> Finalized By: AYE HOANG Signed By: Signature Initials Document Signatures Signed By: PACO FRY RN 12/14/14 13:29 AYE HOANG 12/14/14 14:58 Unfinalized History Date/Time Username Reason for Unfinalizing Freetext Reason for Unfinalizing 12/14/14 14:51 [id number] Modify Pick List add code Source: [facility] POWERCHART Document Id: [id number] Leela Mendoza R.N. - 12/14/2014 12:46 PM CDT Day Surgery Admission History/Asmt Adult Day Surgery Admission History/Asmt Adult Entered On: 12/14/2014 12:48 CDT Performed On: 12/14/2014 12:46 CDT by LEELA MENDOZA RN General Info Admitted From : Non-Health Care Facility Point of Origin Languages : Gabonese Is Patient Female and 13-50 no hysterectomy : No LEELA MENDOZA RN - 12/14/2014 12:46 CDT ID Screen Travel Within Last 21 Days : No Contact with someone with Ebola : No LEELA MENDOZA RN - 12/14/2014 12:46 CDT Nutrition Have you recently lost weight without trying? : No Decreased Appetite Nutrition : No Tube Feedings or Parenteral Nutrition : No MST Score : 0 LEELA MENDOZA RN - 12/14/2014 12:46 CDT Home Environment Current Daily Living Assistance : None LEELA MENDOZA RN - 12/14/2014 12:46 CDT Dependent Habits Tobacco Use/Currently Using : No Exposure to Tobacco Smoke : Care provider denies smoking in home Smoking Status : Never smoker LEELA MENDOZA RN - 12/14/2014 12:46 CDT Caffeine Use Grid Caffeine Use : Current Type : Coffee Frequency : Daily Amount : 4 cups LEELA MENDOZA RN - 12/14/2014 12:46 CDT Recreational Drug Use Grid Drug Use : None LEELA MENDOZA RN - 12/14/2014 12:46 CDT Psychosocial Adult Domestic Abuse Concerns : None Behavioral Health Screen/Safety Assmt : No Mormon Preference : No qualifying data available. LEELA MENDOZA RN - 12/14/2014 12:46 CDT Advance Directive Advanced Directives : No Advance Directive Additional Information : No LEELA MENDOZA RN - 12/14/2014 12:46 CDT Educ Needs Learning Style Preference Adult Grid Patient : Demonstration, Printed materials, Verbal explanation Family : Demonstration, Printed materials, Verbal explanation LEELA MENDOZA RN - 12/14/2014 12:46 CDT Outpatient Assessment Procedural Respiratory : Respirations unlabored Procedural Cardiovascular : Heart rhythm regular Procedural Neurological : Alert, Oriented x 3 Procedural Integumentary : Skin integrity intact LEELA MENDOZA RN - 12/14/2014 12:46 CDT Psycho/Emotional Pain Symptoms : No LEELA MENDOZA RN - 12/14/2014 12:46 CDT Peripheral IV Peripheral IV Assess/Intervention Grid Peripheral IV #1 IV Activity : Start, Assessment Number of Attempts : 1 Date of Insertion : 12/14/2014 CDT IV Site : Forearm Laterality : Right Site Condition : No complications LEELA MENDOZA RN - 12/14/2014 12:46 CDT Source: [employer] Document Id: [id number] CDT!55 documented in this encounter OR Notes Op Note - Rehana Cook M.D. - 12/14/2014 1:42 PM CDT PATIENT LOCATION _SDS POST OP CONTINUOUS NERVE BLOCK n/a POST OP CONTINUOUS EPIDURAL n/a COMPLICATIONS none, alert, no PONV, no pain, VSS Electronically Signed By: REHANA COOK MD On: 12/14/2014 01:43 PM Source: [employer] Document Id: [id number] Op Note - Rehana Cook M.D. - 12/14/2014 12:55 PM CDT NPO STATUS _yes ANESTHESIA PLAN MAC [...] the patient's condition. Electronically Signed By: REHANA COKO MD On: 12/14/2014 01:42 PM Source: [facility] POWERCHART Document Id: [id number] Op Note - Latrell Cavanaugh M.D. - 12/14/2014 12:00 AM CDT OPH-SURG PREOPERATIVE DIAGNOSIS Visually disabling nuclear sclerotic cataract of the right eye. PROCEDURE DIAGNOSIS Visually disabling nuclear sclerotic cataract of the right eye. PROCEDURE PERFORMED Phacoemulsification with lens implantation, right eye. PROCEDURES Phacoemulsification with lens implantation, right eye. SURGEON Latrell Cavanaugh MD. ANESTHESIA MAC. COMPLICATIONS None. Ms. Thompson presented with complaints of poor vision, right eye. She was noted to have a dense cataract. The risks, benefits, alternatives to surgery were discussed including suprachoroidal hemorrhage, endophthalmitis, and loss of the eye. She desired an emmetropic refractive with a monofocal lens and aconsent was obtained. PROCEDURE In the operating room after receiving topical anesthesia the RIGHT eye was prepped and draped in a sterile fashion. A lid speculum was placed in the eye. A 6:30 paracentesis tract was made. Viscoelastic was injected [...] and handpiece. Each nuclear fragment was captured, phacoemulsified and removed. The epinuclear bowl was captured, flipped over and removed in its entirety. Residual cortex was removed with the irrigation and aspiration handpiece. Viscoelastic filled the capsule and anterior chamber. An MINDY PCIOL model ZCB00 with a power of 18.5 diopters was inserted into the capsule without difficulty. Residual viscoelastic was removed from the capsule and anterior chamber. The stroma of the wound and paracentesis tracts were hydrated and the chamber filled to a normal intraocular pressure. The wounds were checked for leaksand none were found. The patient tolerated the procedure well and left the operating room in satisfactory condition. Both Miostat and Vigamox were injected into the anterior chamber at the end of the case. Latrell Cavanaugh M.D./toby Electronically Signed By: LATRELL CAVANAUGH MD On: 12/20/2014 09:31 PM Source: [facility] MHSDOLBEYNONRADSYS Document Id: [id number] Op Note - Rehana Cook M.D. 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 Major Depression Recurrent ANESTHESIC COMPLICATIONS none known MEDICATION LIST Medication [...] Electronically Signed By: REHANA COOK MD On: 12/11/2014 08:17 AM [facility] Document Id: [id number] documented in this encounter Miscellaneous Notes Miscellaneous - Conversion, Historical Provider Ser - 12/14/2014 2:33 PM CDT Coding Summary-Paper Based CODING DATE: 12/21/2014 FINAL RW [facility] STATUS: * Discharged to Home or Self Care PAYOR: Medicare APC DESCRIPTION 0233 Level II Anterior Segment Eye ADMIT DX: 366.16 Senile Nuclear Sclerosis REASON FOR VISIT DX: 366.16 Senile Nuclear Sclerosis FINAL DX: PRINCIPAL: 366.16 Senile Nuclear Sclerosis SECONDARY: 365.60 Glaucoma Associated with Unspecified Ocular Disorder 365.70 Glaucoma Stage, Unspecified 244.9 Unspecified Hypothyroidism PYMT PROC APC STAT DESCRIPTION DOCTOR NAME DATE 57468 CATARACT REMOVAL LATRELL CAVANAUGH 12/14/2014 INSERTION OF LENS RT RIGHT SIDE (USED TO IDENTIFY PROCEDURES PERFORMED ON THE RIGHT SIDE OF THE BODY) NOTE: The code number assigned matches the documented diagnosis and / or procedure in the patient's chart. However, the narrative phrase printed from the coding software may appear abbreviated, or result in slightly different terminology. Coded By: DOROTHY ROBERTO Date Saved: 12/21/2014 06:54 am [facility] Document Id: [id number] Miscellaneous - Jerad Bello, RCarlosN. - 12/14/2014 2:31 PM CDT Adult Postprocedure Assessment Adult Postprocedure Assessment Entered On: 12/14/2014 14:32 CDT Performed On: 12/14/2014 14:31 CDT by JERAD BELLO RN General Level of Consciousness : Alert Orientation : Oriented x 3 Skin Color : Normal for ethnicity Skin Description : Dry Skin Temperature : Warm Pain Symptoms : No JERAD BELLO RN - 12/14/2014 14:31 CDT Incision/Wound Incision/Wound Care Grid Activity : Assessed Type : Surgical acute Location : Eye Laterality : Right Drainage : None JERAD BELLO RN - 12/14/2014 14:31 CDT Peripheral IV Peripheral IV Assess/Intervention Grid Peripheral IV #1 IV Activity : Discontinue Number of Attempts : 1 Date of Insertion : 12/14/2014 CDT IV Site : Forearm Laterality : Right JERAD BELLO RN - 12/14/2014 14:31 CDT PARSAP Activity Status : Moves 4 [...] Score : 20 JERAD BELLO RN - 12/14/2014 14:31 CDT Source: [employer] Document Id: [id number] CDT!36 Jerad Steele RCarlosN. - 12/14/2014 2:01 PM CDT Adult Postprocedure Assessment Adult Postprocedure Assessment Entered On: 12/14/2014 14:31 CDT Performed On: 12/14/2014 14:01 CDT by JERAD BELLO RN General Level of Consciousness : Drowsy Orientation : Oriented x 3 Skin Color : Normal for ethnicity Skin Description : Dry Skin Temperature : Warm Pain Symptoms : No JERAD BELLO RN - 12/14/2014 14:31 CDT Source: [employer] Document Id: [id number] CDT!8 Arthur Arroyo RMatthias - 12/14/2014 1:31 PM CDT Adult Postprocedure Assessment Adult Postprocedure Assessment Entered On: 12/14/2014 13:45 CDT Performed On: 12/14/2014 13:31 CDT by ARTHUR COLE RN General Level of Consciousness : Alert Orientation : Oriented x 3 Skin Color : Normal for ethnicity Skin Description : Dry Skin Temperature : Warm Pain Symptoms : No ARTHUR COLE RN - 12/14/2014 13:42 CDT Respiratory Respiratory Patient Stated Symptoms : None Respirations : Unlabored Respiratory Pattern : Regular All Lobes Breath Sounds : Clear ARTHUR COLE RN - 12/14/2014 13:42 CDT Incision/Wound Incision/Wound Care Grid Activity : Assessed Type : Surgical acute Location : Eye Laterality : Right Drainage : None ARTHUR COLE RN - 12/14/2014 13:42 CDT Peripheral IV Peripheral IV Assess/Intervention Grid Peripheral IV #1 IV Activity : Discontinue Removal : Catheter intact Number of Attempts : 1 Date of Insertion : 12/14/2014 CDT IV Site : Forearm Laterality : Right Site Condition : No complications ARTHUR COLE RN - 12/14/2014 13:42 CDT PARSAP Activity Status : Moves 4 extremities voluntarily or on command Dressing : None Respiratory Component : Able to deep breathe and cough freely Pain : Pain free Circulation Component : BP 20% of preanesthetic level Ambulation : Vertigo when erect Consciousness : Fully awake Fasting and Feeding : Able to drink fluids Oxygen Saturation - Sedation : Can maintain > 92% on room air Urine Output, PARSAP : Not assessed PARSAP Score : 19 ARTHUR COLE RN - 12/14/2014 13:42 CDT Source: [employer] Document Id: [id number] CDT!43 documented in this encounter Plan of Treatment Not on filedocumented as of this encounter Visit Diagnoses Not on filedocumented in this encounter Additional Health Concerns Assessment Noted Time PHQ-9 Depression Total Score: 5 11/30/2014 3:40 PM CDT documented as of this encounter
--- OUTSIDE RECORDS SUMMARY | 2022-07-24 09:28 | XMS_ITS | Encounter Summary ---
:1940 Author Organization [facility] Address [address] [place] [address] Care Team Providers Name Role Phone Unavailable Primary Care Provider Unavailable Encounter Details Date Type Department Care Team Description 06/10/2010 Hospital Encounter H[facility] INPT/OBSRV Jonelle Jefferson, N.P. [address] [place] [phone] (Wo rk) Social History Tobacco Use Types Packs/Day Years Used Date Smoking Tobacco: Never Assessed Sex Assigned at Date Recorded Not on file documented as of this encounter Plan of Treatment Not on filedocumented as of this encounter Visit Diagnoses Not on filedocumented in this encounter
--- OUTSIDE RECORDS SUMMARY | 2022-07-24 09:28 | XMS_ITS | Encounter Summary ---
:1940 Author Organization [facility] Address [address] [place] [address] Care Team Providers Name Role Phone Unavailable Primary Care Provider Unavailable Encounter Details Date Type Department Care Team Description 06/21/2010 Hospital Encounter HX [facility] INPT/OBSRV Anais Sosa P.A.-C., P.A. [address] [place] [address] (Wo rk) Social History Tobacco Use Types Packs/Day Years Used Date Smoking Tobacco: Never Assessed Sex Assigned at Date Recorded Not on file documented as of this encounter Plan of Treatment Not on filedocumented as of this encounter Visit Diagnoses Not on filedocumented in this encounter
--- OUTSIDE RECORDS SUMMARY | 2022-07-24 09:28 | XMS_ITS | Encounter Summary ---
:1940 Author Organization [facility] Address [address] [place] [address] Care Team Providers Name Role Phone Unavailable Primary Care Provider Unavailable Encounter Details Date Type Department Care Team Description 09/24/2008 Hospital Encounter [facility] Garima Laureano D.O. [address] [place], [place] [address] (Wo rk) Social History Tobacco Use Types Packs/Day Years Used Date Smoking Tobacco: Never Assessed Sex Assigned at Date Recorded Not on file documented as of this encounter Miscellaneous Notes Telephone Encounter - Conversion, Historical Provider Ser - 09/24/2008 12:00 AM CST [id number] Lynnette Thompson called and has questions about her thyroid/TSH. Contact # [phone]. [facility] Document Id: [id number] Telephone Encounter - Evelyn Moore R.N. - 09/24/2008 12:00 AM CST [id number] MESSAGE LEFT FOR PATIENT TO CALL CLINIC [facility] Document Id: [id number] Electronically signed by [facility], [facility] Postdoctoral Scholar [id number] at 01/14/2017 7:14 PM CDT documented in this encounter Plan of Treatment Not on filedocumented as of this encounter Visit Diagnoses Not on filedocumented in this encounter
--- OUTSIDE RECORDS SUMMARY | 2022-07-24 09:28 | XMS_ITS | Encounter Summary ---
:1940 Author Organization [facility] Address [address] [place] [address] Care Team Providers Name Role Phone Unavailable Primary Care Provider Unavailable Encounter Details Date Type Department Care Team Description 01/02/2011 Hospital Encounter [facility] ME Pat Montelongo M.D. Social History Tobacco Use Types Packs/Day Years Used Date Smoking Tobacco: Never Assessed Sex Assigned at Date Recorded Not on file documented as of this encounter Progress Notes Pat Montelongo M.D. - 01/02/2011 12:00 AM CDT [id number] CHIEF COMPLAINT/REASON FOR VISIT Lynnette is here because of a sore knee. HISTORY OF PRESENTING ILLNESS She slipped when she got out of her car yesterday, this was in a tarred parking lot. She said she was afraid that she might hit the car next to her yesterday with her car door. So was not really watching. She thinks she might have caught her foot. She fell and landed on her right knee and her right elbow. The right elbow does not bother her that much but the knee is sore and swollen and hurts for her to go up and down steps. She does not i recall any problems with her knee prior to this. No previous injury. PHYSICAL EXAMINATION On exam she has full range of motion of the right knee. There is no instability. There is a mild effusion. There is some superficial abrasions. There is early ecchymosis. No erythema or warmth. She has no joint line tenderness but she is tender over the patella. I can move the patella without causing too much pain. She has good distal CMS. X-ray of the knee is negative for any fracture. IMPRESSION/REPORT/PLAN Contusion to the right knee. PLAN: We will have her use a compressive dressing, antibiotic ointment on the abrasions. She can use ice, ibuprofen or Tylenol for pain and rest and return as needed. Pat Montelongo M.D. /ashu Electronically Signed By: PAT MONTELONGO MD On: 01/06/2011 07:51 AM Source: [facility]BEYNON[facility]SYS Document Id: [id number] documented in this encounter Miscellaneous Notes Miscellaneous - Pat Montelongo M.D. - 01/02/2011 3:47 PM CDT Ambulatory Patient Summary [address] [address] Visit Information Name: LYNNETTE LAWTON Current Date: 01/02/2011 15:47:45 Primary Care Provider: PCP, UNASSIGNED Your Medications Here is a list of your medications. It is important to take your medications as directed. Use a pillbox or chart to help remind you to take your medications. Please let your doctor or nurse know if you have problems taking your medications. Medication/Strength Dose Route Frequency Indications/Special Instructions/Comments lorazepam (lorazepam) 1/2 Tab Oral as needed timolol ophthalmic (timolol ophthalmic 0.25% solution) Eyes(Both) once a day bimatoprost ophthalmic (Lumigan 0.01% ophthalmic solution) Eyes(Both) once a day (at bedtime) Your Allergies & Intolerances Substance Reaction Symptoms Category Comments penicillins Drug Your Problem List Problem Status Onset Comments No Problems found Your Recommendations We want to make sure you get the tests, immunizations, and guidance you need to stay healthy. Here is a customized list of recommendations, based on information we have in your medical record. Your doctor may have additional recommendations for you, based on your personal medical history and risk factors. You can help us by calling us to make an appointment when you are due for your tests. Additional information regarding recommendations: Test/Treatment Last Done Next Due Additional Information Screening Bone Density Once Women greater than age 64 01/02/2011 Checks for bone loss and osteoporosis. Screening Colonoscopy or Flex Sig or Occult Blood X3 01/02/2011 Checks for signs of cancer of the colon. Screening Mammogram every 1 year Women 40-75 01/02/2011 X-rays of breast to check for breast cancer. Lipid Panel every 5 years Age 20-75 01/02/2011 Checks blood for good (HDL) and bad (LDL) cholesterol. Know your numbers, they are one indicator of your risk for heart attack and stroke. Vaccine: Flu every 1 year 01/02/2011 Immunization to help prevent you from getting the flu strain expected to be a problem for that year's flu season. Vaccine: Pneumococcal Once 01/02/2011 Immunization to help prevent you from getting 23 kinds of pneumococcal bacteria that can lead to pneumonia, bacteremia and meningitis. Vaccine: Tetanus every 10 years 06/10/2010 06/07/2020 Immunization to help prevent you from getting the serious disease Tetanus (Lockjaw). Your Upcoming Appointments Date Time Location Reason Provider No Appointments found Your Goals/Additional instructions: [facility] Document Id: [id number] Miscellaneous - Pat Montelongo M.D. - 01/02/2011 3:47 PM CDT Ambulatory Depart Summary [address] [address] Visit Information Name: LYNNETTE LAWTON Current Date: 01/02/2011 15:47:45 Primary Care Provider: PCP, UNASSIGNED LYNNETTE LAWTON has been given the following list of medications: Your Medications It is important to take your medications as directed. Use a pill box or chart to help remind you to take your medications. Please let your doctor or nurse know if you have problems taking your medications. Medication/Strength Dose Route Frequency Indications/Special Instructions/Comments lorazepam (lorazepam) 1/2 Tab Oral as needed timolol ophthalmic (timolol ophthalmic 0.25% solution) Eyes(Both) once a day bimatoprost ophthalmic (Lumigan 0.01% ophthalmic solution) Eyes(Both) once a day (at bedtime) Additional Information: Source: [facility] POWERCHART Document Id: [id number] Miscellaneous - Trinidad Urban LCarlosP.N. - 01/02/2011 3:11 PM CDT Ambulatory Vitals Height Weight Ambulatory Vitals Height Weight Entered On: 01/02/2011 15:11 CDT Performed On: 01/02/2011 15:11 CDT by TRINIDAD URBAN LPN Vitals/Ht/Wt Systolic Blood Pressure: 138mmHg Diastolic Blood Pressure: 70mmHg NIBP Mean: 93mmHg BP Location: Left upper extremity TRINIDAD URBAN LPN - 01/02/2011 15:11 CDT Source: [facility] POWERCHART Document Id: [id number] CDT!6 Willi - Trinidad Urban L.P.NCarlos - 01/02/2011 3:09 PM CDT Health Assessment Health Assessment Entered On: 01/02/2011 15:10 CDT Performed On: 01/02/2011 15:09 CDT by TRINIDAD URBAN LPN Nutrition Nutrition Risk Factors by History Adult: None TRINIDAD URBAN LPN - 01/02/2011 15:09 CDT Functional Current Daily Living Assistance: None TRINIDAD URBAN LPN - 01/02/2011 15:09 CDT Dependent Habits Tobacco Use/Currently Using: No TRINIDAD URBAN LPN - 01/02/2011 15:09 CDT Caffeine Use Grid Caffeine Use: Current Type: Coffee Frequency: Daily Amount: 4 cups TRINIDAD URBAN LPN - 01/02/2011 15:09 CDT Recreational Drug Use Grid Drug Use: None TRINIDAD URBAN LPN - 01/02/2011 15:09 CDT Psychosocial Domestic Concerns: None TRINIDAD URBAN LPN - 01/02/2011 15:09 CDT Advance Directive Advanced Directives: No TRINIDAD URBAN LPN - 01/02/2011 15:09 CDT Educ Needs Learning Style Preference Adult Grid Patient: Printed materials Family: Printed materials TRINIDAD URBAN LPN - 01/02/2011 15:09 CDT Source: [facility] [employer] Document Id: [id number] CDT!24 Miscellaneous - Trinidad Urban L.PCarlosNCarlos - 01/02/2011 3:02 PM CDT Adult Case Mgr Intake/History Adult Case Mgr Intake/History Entered On: 01/02/2011 15:09 CDT Performed On: 01/02/2011 15:02 CDT by TRINIDAD URBAN LPN Intake Chief Complaint: Fell and hit right knee getting out of car and twisted fell to ground landing on side has some discomfort and swelling Onset of Symptoms: yesterday Temperature Core: 36.9C(Converted to: 98.4DegF) Peripheral Pulse Rate: 76/min Respiratory Rate: 22/min (HI) Systolic Blood Pressure: 146mmHg (HI) Diastolic Blood Pressure: 70mmHg NIBP Mean: 95mmHg BP Location: Left upper extremity Heart Rhythm: Regular Actual Weight: 43.400kg(Converted to: 95lb 11oz) Weight Source: Standing scale Dosing Weight Clinic: 43.40kg TRINIDAD URBAN LPN - 01/02/2011 15:02 CDT Subjective Pain Symptoms: Yes TRINIDAD URBAN LPN - 01/02/2011 15:02 CDT Pain Pain Assessment Grid Pain 1 Location: Knee Laterality: Right Intensity: 3 TRINIDAD URBAN LPN - 01/02/2011 15:02 CDT Dependent Habits Tobacco Use/Currently Using: No Alcohol Use: No TRINIDAD URBAN LPN - 01/02/2011 15:02 CDT Caffeine Use Grid Caffeine Use: Current Type: Coffee Frequency: Daily Amount: 4 cups TRINIDAD URBAN LPN - 01/02/2011 15:02 CDT Recreational Drug Use Grid Drug Use: None TRINIDAD URBAN LPN - 01/02/2011 15:02 CDT Allergy Allergies (Active) penicillins Estimated Onset Date: Unspecified ; Created By: TRINIDAD URBAN LPN; Reaction Status:Active ; Category: Drug ; Substance: penicillins ; Type: Allergy ; Updated By: TRINIDAD URBAN LPN; Reviewed Date: 01/02/2011 12:48 CDT Source: [facility] [employer] Document Id: [id number] CDT!35 documented in this encounter Plan of Treatment Not on filedocumented as of this encounter Visit Diagnoses Not on filedocumented in this encounter
--- OUTSIDE RECORDS SUMMARY | 2022-07-24 09:28 | XMS_ITS | Encounter Summary ---
:1940 Author Organization [facility] Address [address] [place] [address] Care Team Providers Name Role Phone Unavailable Primary Care Provider Unavailable Encounter Details Date Type Department Care Team Description 02/27/2012 Hospital Encounter [facility] ME Dioni Stoddard APRN, C.N.P., D. N.P. [address] [place] [address] (Wo rk) Social History Tobacco Use Types Packs/Day Years Used Date Smoking Tobacco: Never Assessed Sex Assigned at Date Recorded Not on file documented as of this encounter Last Filed Vital Signs Vital Sign Reading Time Taken Comments Blood Pressure 116/62 02/27/2012 7:20 AM CDT Pulse 70 02/27/2012 7:20 AM CDT Temperature - - Respiratory Rate 16 02/27/2012 7:20 AM CDT Oxygen Saturation - - Inhaled Oxygen Concentration - - Weight 43.4 kg (95 lb 10.9 oz) 02/27/2012 7:20 AM CDT Height - - Body Mass Index 16.33 12/14/2011 7:57 AM CDT documented in this encounter Progress Notes Dioni Stoddard APRN, C.N.P. - 02/27/2012 12:00 AM CDT [id number] CHIEF COMPLAINT/REASON FOR VISIT: 1. Hypothyroidism. HISTORY OF PRESENT ILLNESS: 1. Lynnette is a 71-year-old female who comes in today for a recheck of her hypothyroidism. She has a significant history of depression which she is quite reluctant for treatment. She states that she does not want to fill out a PHQ9 as she feels that has no change from her previous as she has not done any therapy, any changes in her life since that time and has not initiated any medication. Her last score was 20. Patient denies feeling suicidal or homicidal, but states that she just feels overwhelmed at times ever since her intermediate. She continues to do some volunteer work, however. She denies any constipation. She denies any changes in her skin on her hair. She states that she still feels nervous and denies any sleeping issues. CURRENT MEDICATIONS: New reconciled medication is Synthroid 50 mcg by mouth daily. Timolol ophthalmic drops both eyes daily. Lorazepam half tablet on an as-needed basis. New reconciled medication is Wellbutrin SR 100 mg daily for 2 weeks then increase it twice daily thereafter. ALLERGIES: Penicillin. SYSTEMS REVIEW: As noted above. PAST MEDICAL/SURGICAL HISTORY: Please see previous note. 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 She states that she was somewhat forced to retire before she was ready and felt that that was provoking of her anxiety, but she does recall having problems with depression and anxiety prior to that also. She thinks it is affecting her relationship also with her . She has been placed in the past on Zoloft and Celexa and did not tolerate either of these medications. She is very reluctant for starting medication for her depression but will consider. She also was on Synthroid 25 mcg and stated that when they increased the dose that she did not tolerate that either. She had symptoms of feeling heart palpitations and quit taking the medication. It seems that she yo-yo's off and on medication and takes herself off of medication on her own quite readily. PHYSICAL EXAMINATION: Patient appears nondistressed. She avoids eye contact significantly. She is very monotone voice. She is well-groomed. Appears very withdrawn LABORATORY STUDIES: TSH is 6.1. IMPRESSION/REPORT/PLAN: 1. Hypothyroidism. I am going to increase her Synthroid to 50 mcg daily. I did have a long discussion with patient in regards to this medication. She is quite concerned in regards to increasing the dose. We did discuss the mechanism of this and she is willing to try it. 2. Major depression. I think this is a major impact for her. I think she would benefit from seeing a counselor which she at this point is not willing to do. I did talk to her about different types of medication that can treat her depression, one of the most mild being Wellbutrin. Patient was willing to let me write her a prescription for that. She will decide from there whether she wants to take it. I did write her a prescription for Wellbutrin SR 100 mg 1 tablet daily for the first 2 weeks then increase to twice daily thereafter. I will plan to have patient be called in 2 weeks and I will plan to see her back within 2 months. Patient agrees with that plan. I spent 25 minutes counseling patient today and answering few questions that she did have. PATIENT EDUCATION: Ready to learn No apparent learning barriers were identified Learning preferences include listening Explained diagnosis and treatment plan Patient/Child/Caregiver expressed understanding of the content Leila Bermudez/hue Electronically Signed By: DIONI STODDARD RN, CNP On: 02/29/2012 02:42 PM Source: [facility] MHSDOLBEYNONRADSYS Document Id: [id number] documented in this encounter Miscellaneous Notes Miscellaneous - Dioni Stoddard APRN, C.N.P. - 02/27/2012 8:06 AM CDT Ambulatory Patient Summary [address] [address] Visit Information Name: LYNNETTE LAWTON Current Date: 02/27/2012 08:06:38 Physicians Attending Provider: DIONI STODDARD RN, HEALTH TECHNICAL WRITER Primary Care Provider: PCP, ELSEWHERE Your Medications Here is a list of your medications. It is important to take your medications as directed. Use a pillbox or chart to help remind you to take your medications. Please let your doctor or nurse know if you have problems taking your medications. Medication/Strength Dose Route Frequency Indications/Special Instructions/Comments buPROPion (Wellbutrin SR 100 mg/12 hours oral tablet, sustained release) 100 mg Oral two times a day levothyroxine (Synthroid 50 mcg (0.05 mg) oral tablet) 50 mcg Oral once a day latanoprost ophthalmic (latanoprost 0.005% ophthalmic solution) 1 drop(s) Eyes(Both) once a day (at bedtime) lorazepam (lorazepam) 1/2 Tab Oral as needed timolol ophthalmic (timolol ophthalmic 0.25% solution) Eyes(Both) once a day bimatoprost ophthalmic (Lumigan 0.01% ophthalmic solution) Eyes(Both) once a day (at bedtime) Attention: If you have any medications at [...] No Appointments found Your Goals/Additional instructions: Source: [facility] POWERCHART Document Id: [id number] Miscellaneous - Dioni Stoddard APRN, C.N.P. - 02/27/2012 8:06 AM CDT Ambulatory Depart Summary [address] [address] Visit Information Name: LYNNETTE LAWTON Visit Date: 02/27/2012 08:06:38 Attending Provider: DIONI STODDARD RN, HEALTH TECHNICAL WRITER Primary Care Provider: PCP, ELSEWHERE LYNNETTE LAWTON has been given the following list of medications: Your Medications It is important to take your medications as directed. Use a pill box or chart to help remind you to take your medications. Please let your doctor or nurse know if you have problems taking your medications. Medication/Strength Dose Route Frequency Indications/Special Instructions/Comments buPROPion (Wellbutrin SR 100 mg/12 hours oral tablet, sustained release) 100 mg Oral two times a day levothyroxine (Synthroid 50 mcg (0.05 mg) oral tablet) 50 mcg Oral once a day latanoprost ophthalmic (latanoprost 0.005% ophthalmic solution) 1 drop(s) Eyes(Both) once a day (at bedtime) lorazepam (lorazepam) 1/2 Tab Oral as needed timolol ophthalmic (timolol ophthalmic 0.25% solution) Eyes(Both) once a day bimatoprost ophthalmic (Lumigan 0.01% ophthalmic solution) Eyes(Both) once a day (at bedtime) Attention: If you have any medications at home that are not on this list, DO NOT take them until youcontact your provider for clarification. Additional Information: Source: [facility] POWERCHART Document Id: [id number] Miscellaneous - Trinidad Urban L.P.N. - 02/27/2012 7:20 AM CDT Adult Ladle Cleaner Intake/History Adult Ladle Cleaner Intake/History Entered On: 02/27/2012 7:25 CDT Performed On: 02/27/2012 7:20 CDT by TRINIDAD URBAN LPN Intake Chief Complaint : Thyroid check lab work done Temperature Core : 36.2C(Converted to: 97.2DegF) (LOW) Peripheral Pulse Rate : 70/min Respiratory Rate : 16/min Heart Rhythm : Regular Systolic Blood Pressure : 116mmHg Diastolic Blood Pressure : 62mmHg NIBP Mean : 80mmHg BP Location : Left upper extremity Blood Pressure Cuff Size : Regular Actual Weight : 43.4kg(Converted to: 95lb 11oz) Weight Source : Standing scale Dosing Weight Clinic : 43.40kg TRINIDAD URBAN LPN - 02/27/2012 7:20 CDT Subjective Pain Symptoms : No TRINIDAD URBAN LPN - 02/27/2012 7:20 CDT Dependent Habits Tobacco Use/Currently Using : No Exposure to Tobacco Smoke : Care provider denies smoking in home Smoking Status : Never smoker TRINIDAD URBAN LPN - 02/27/2012 7:20 CDT Tobacco Use Grid Last Use : never TRINIDAD URBAN LPN - 02/27/2012 7:20 CDT Alcohol Use : Yes TRINIDAD URBAN LPN - 02/27/2012 7:20 CDT Caffeine Use Grid Caffeine Use : Current Type : Coffee Frequency : Daily Amount : 4 cups TRINIDAD URBAN LPN - 02/27/2012 7:20 CDT Recreational Drug Use Grid Drug Use : None TRINIDAD URBAN LPN - 02/27/2012 7:20 CDT Allergy Allergies (Active) penicillins Estimated Onset Date: Unspecified ; Created By: TRINIDAD URBAN LPN; Reaction Status:Active ; Category: Drug ; Substance: penicillins ; Type: Allergy ; Updated By: TRINIDAD URBAN LPN; Reviewed Date: 12/14/2011 8:41 CDT Source: [employer] Document Id: [id number] documented in this encounter Plan of Treatment Not on filedocumented as of this encounter Visit Diagnoses Not on filedocumented in this encounter
--- OUTSIDE RECORDS SUMMARY | 2022-07-24 09:28 | XMS_ITS | Encounter Summary ---
:1940 Author Organization [facility] Address [address] [place] [address] Care Team Providers Name Role Phone Unavailable Primary Care Provider Unavailable Encounter Details Date Type Department Care Team Description 10/29/2009 Hospital Encounter HX [facility] INTERNMED Layla Nobles, F.N.P., R.N. [address] [place], [place] [address] (Wo rk) Social History Tobacco Use Types Packs/Day Years Used Date Smoking Tobacco: Never Assessed Sex Assigned at Date Recorded Not on file documented as of this encounter Miscellaneous Notes Telephone Encounter - Conversion, Historical Provider Ser - 10/29/2009 12:00 AM CDT [id number] Situation/What is the patients concern/need: Does she need Mammogram. Clinical Background/Recent Intervention: Our records indicate Mammogram done 2001.Had Mammogram in [place] 2007. She will have them sentto [place]. Instructed Mammogram screening recommended yearly so should still schedule. Felipa Holder notified and confirms recommendation. Recommendation/Patient Request: Patient declines to schedule Mammogram. Felipa notified of this. Best number(s) to reach patient: [phone]. [facility] Document Id: [id number] documented in this encounter Plan of Treatment Not on filedocumented as of this encounter Visit Diagnoses Not on filedocumented in this encounter
--- OUTSIDE RECORDS SUMMARY | 2022-07-24 09:28 | XMS_ITS | Encounter Summary ---
:1940 Author Organization [facility] Address [address] [place] [address] Care Team Providers Name Role Phone Unavailable Primary Care Provider Unavailable Encounter Details Date Type Department Care Team Description 02/09/2009 Hospital Encounter HX [facility] OBGYN Isrrael Faria R .N. Social History Tobacco Use Types Packs/Day Years Used Date Smoking Tobacco: Never Assessed Sex Assigned at Date Recorded Not on file documented as of this encounter Miscellaneous Notes Telephone Encounter - Isrrael Faria R.N. - 02/09/2009 12:00 AM CDT [id number] TELEPHONE TRIAGE ENCOUNTER FORM Date: 02/09/2009 PCP: Garima Laureano DO Patient Name: Lynnette Thompson Gender: female : 1940 Age:[age] year old Time: 9:09 AM Phone Numbers: [phone] (home) [phone] (work) Pharmacy: [facility] ASSESS[facility] Presenting Problem: Lump on leg Subjective/objective: Patient reports, I have a lump on the top of my leg where it meets the body.She just noticed it today and describes it as under the skin and tender to touch. The area is pinkish, but not red and has no red streaks or warmth. Patient adds, I have lost 10-12 pounds in the last 6 months without trying. She denies fever, N & V, chills, malaise, night sweats, swelling ofany other lymph nodes, sore throat, rash, fatigue or hx of deshawn swelling. Patient asks if she can get in today for an appointment with Dr. Larson. Onset: sudden Duration: Unsure-Patient noticed it today. Associated Sx: See above Problem list reviewed: YES Recent History: No. Recent Illness: No Allergies verified: YES Precipitated by: Unknown origin Med list reviewed: YES Alleviated by: N/A Immunosuppressed:N/A or not addressed Conclusion / Primary Problem: Lump on leg Protocol(s) Consulted: Telephone Triage Protocols for Nurses. Benito 2001 - [id number] PLAN / INTERVENTION Disposition: Patient has an appointment scheduled for tomorrow with PCP. Advised patient to have problem evaluated then. Advised OTC pain medication and a warm pack to the area for comfort per protocol. Caller verbalizes understanding of disposition? YES Caller agrees to plan? Yes EVALUATION / FOLLOW-UP Patient will see Dr. Laureano in clinic tomorrow at 1:30 pm. Source: [facility] RWHXTRANSXRTFSYS Document Id: [id number] Electronically signed by Conversion, [facility] Passenger Relations Representative [id number] at 01/14/2017 3:48 PM CDT documented in this encounter Plan of Treatment Not on filedocumented as of this encounter Visit Diagnoses Not on filedocumented in this encounter
--- OUTSIDE RECORDS SUMMARY | 2022-07-24 09:28 | XMS_ITS | Encounter Summary ---
:1940 Author Organization [facility] Address [address] [place] [address] Care Team Providers Name Role Phone Unavailable Primary Care Provider Unavailable Encounter Details Date Type Department Care Team Description 03/03/2009 Hospital Encounter [facility] Garima Laureano D.O. [address] [place], [place] [address] (Wo rk) Social History Tobacco Use Types Packs/Day Years Used Date Smoking Tobacco: Never Assessed Sex Assigned at Date Recorded Not on file documented as of this encounter Progress Notes Garima Laureano D.O. - 03/03/2009 3:15 PM CDT [id number] SUBJECTIVE: Ms. Thompson is a 68 year old female who comes in today for a possible bladder infection. She has noticed dysuria for months. She has not had suprapubic or flank pain; and has not had fever or chills. She goes more frequently in AM and up once at night. Review of Symptoms: GI: negative for nausea, vomiting, abdominal pain and diarrhea. : No LMP date recorded. Reason: Postmenopausal.. LYMPH: She was in earlier this month with an enlarged lympn node left groin and was to see Surgery this wek for possible biopsy but says it is no longer there. 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 Other Specified Glaucoma Unspecified Hypothyroidism Past Surgical History Procedure Date Biopsy of uterus lining 1995 proliferative type endometrium with glandular and stromal breakdown(anovulatory cycle) Current outpatient prescriptions Medication Sig LORAZEPAM 0.5 MG OR TABS 1 tablet by mouth twice daily if needed for stress LEVOTHYROXINE SODIUM 25 MCG OR TABS one daily for thyroid on empty stomach TIMOLOL 0.25 % OP SOLN one drop in each eye once daily LUMIGAN 0.03 % OP SOLN one drop each eye once daily MIRALAX OR POWD 255 grams- Per Instructions with 4 Bixacodyl tabs as directed BISACODYL 5 MG OR TBEC 4 tabs as directed ALLERGIES: Penicillins OBJECTIVE: Alert, lucid, well hydrated, no distress. VITALS: Blood pressure 117/80, pulse 82, temperature 97.3 ??F (36.3 ??C), temperature source Temporal, weight 92 lb (41.731 kg), last menstrual period Postmenopausal. ABDOMEN: bowel sounds normal, soft, no mass, no organomegally, no tenderness to deep palpation. LYMPPH: Left grin normal to palpation without lymphadenopathy. LABS: Urinalysis negative. ASSESSMENT: 1. urinary frequency without infection 2. Resolved groin lymphadenopathy PLAN: 1. Reassured no infection and no further lymphadenopathy. 2. Advised 4 to 6 glasses water daily. 3. Discussed ways to increase her weight. 4. Return if symptoms worsen or fail to improve. Source: [facility] RWHXTRANSXRTFSYS Document Id: [id number] documented in this encounter Plan of Treatment Not on filedocumented as of this encounter Visit Diagnoses Not on filedocumented in this encounter
--- OUTSIDE RECORDS SUMMARY | 2022-07-24 09:28 | XMS_ITS | Encounter Summary ---
:1940 Author Organization [facility] Address [address] [place] [address] Care Team Providers Name Role Phone Unavailable Primary Care Provider Unavailable Encounter Details Date Type Department Care Team Description 03/10/2010 Hospital Encounter HX [facility] Provider, [facility] Social History Tobacco Use Types Packs/Day Years Used Date Smoking Tobacco: Never Assessed Sex Assigned at Date Recorded Not on file documented as of this encounter Plan of Treatment Not on filedocumented as of this encounter Visit Diagnoses Not on filedocumented in this encounter
--- OUTSIDE RECORDS SUMMARY | 2022-07-24 09:28 | XMS_ITS | Encounter Summary ---
:1940 Author Organization [facility] Address [address] [place] [address] Care Team Providers Name Role Phone Unavailable Primary Care Provider Unavailable Encounter Details Date Type Department Care Team Description 10/26/2009 Hospital Encounter [facility] Garima Laureano D.O. [address] [place], [place] [address] (Wo rk) Social History Tobacco Use Types Packs/Day Years Used Date Smoking Tobacco: Never Assessed Sex Assigned at Date Recorded Not on file documented as of this encounter Plan of Treatment Not on filedocumented as of this encounter Visit Diagnoses Not on filedocumented in this encounter
--- OUTSIDE RECORDS SUMMARY | 2022-07-24 09:28 | XMS_ITS | Encounter Summary ---
:1940 Author Organization [facility] Address [address] [place] [address] Care Team Providers Name Role Phone Unavailable Primary Care Provider Unavailable Encounter Details Date Type Department Care Team Description 05/21/2008 Hospital Encounter HX [facility] Provider, [facility] Social History Tobacco Use Types Packs/Day Years Used Date Smoking Tobacco: Never Assessed Sex Assigned at Date Recorded Not on file documented as of this encounter Miscellaneous Notes Miscellaneous - Garima Laureano D.O. - 05/21/2008 9:45 AM CDT [id number] Lynnette Thompson [address] [place] [id number] 05/24/2008 Dear Lynnette, I am writing to inform you of the results of the laboratory tests you had performed during your recent visit to the clinic. Your thyroid (TSH) blood test: 5.45 normal range: 0.4-5.0 The T4 hormone is normal. Thyroid levels are improved and I recommend staying on same medication. If you have questions, please make an appointment to discuss with me. Sincerely, Garima Laureano D.O. Family Practice Department [facility] Document Id: [id number] documented in this encounter Plan of Treatment Not on filedocumented as of this encounter Visit Diagnoses Not on filedocumented in this encounter
--- OUTSIDE RECORDS SUMMARY | 2022-07-24 09:28 | XMS_ITS | Encounter Summary ---
:1940 Author Organization [facility] Address [address] [place] [address] Care Team Providers Name Role Phone Unavailable Primary Care Provider Unavailable Encounter Details Date Type Department Care Team Description 09/23/2008 Hospital Encounter [facility] Provider, [facility] Social History Tobacco Use Types Packs/Day Years Used Date Smoking Tobacco: Never Assessed Sex Assigned at Date Recorded Not on file documented as of this encounter Plan of Treatment Not on filedocumented as of this encounter Visit Diagnoses Not on filedocumented in this encounter
--- OUTSIDE RECORDS SUMMARY | 2022-07-24 09:28 | XMS_ITS | Encounter Summary ---
:1940 Author Organization [facility] Address [address] [place] [address] Care Team Providers Name Role Phone Unavailable Primary Care Provider Unavailable Encounter Details Date Type Department Care Team Description 05/03/2009 Hospital Encounter [facility] Provider, [facility] Social History Tobacco Use Types Packs/Day Years Used Date Smoking Tobacco: Never Assessed Sex Assigned at Date Recorded Not on file documented as of this encounter Plan of Treatment Not on filedocumented as of this encounter Visit Diagnoses Not on filedocumented in this encounter
--- OUTSIDE RECORDS SUMMARY | 2022-07-24 09:28 | XMS_ITS | Encounter Summary ---
:1940 Author Organization [facility] Address [address] [place] [address] Care Team Providers Name Role Phone Unavailable Primary Care Provider Unavailable Encounter Details Date Type Department Care Team Description 03/03/2009 Hospital Encounter HX [facility] Garima Laureano D.O. [address] [place], [place] [address] (Wo rk) Social History Tobacco Use Types Packs/Day Years Used Date Smoking Tobacco: Never Assessed Sex Assigned at Date Recorded Not on file documented as of this encounter Miscellaneous Notes Telephone Encounter - Conversion, Historical Provider Ser - 03/03/2009 12:00 AM CDT [id number] Lynnette Thompson calls and has been experiencing some burning with urination for which she is vague on'how long'. Does not qualify for [employer] and appt made. [facility] Document Id: [id number] documented in this encounter Plan of Treatment Not on filedocumented as of this encounter Visit Diagnoses Not on filedocumented in this encounter
--- OUTSIDE RECORDS SUMMARY | 2022-07-24 09:28 | XMS_ITS | Encounter Summary ---
:1940 Author Organization [facility] Address [address] [place] [address] Care Team Providers Name Role Phone Unavailable Primary Care Provider Unavailable Encounter Details Date Type Department Care Team Description 12/14/2011 Hospital Encounter HX [facility] Hailee Stoddard APRN, C.N.P., D. N.P. [address] [place] [address] (Wo rk) Social History Tobacco Use Types Packs/Day Years Used Date Smoking Tobacco: Never Assessed Sex Assigned at Date Recorded Not on file documented as of this encounter Last Filed Vital Signs Vital Sign Reading Time Taken Comments Blood Pressure 100/64 12/14/2011 7:57 AM CDT Pulse 76 12/14/2011 7:57 AM CDT Temperature - - Respiratory Rate 16 12/14/2011 7:57 AM CDT Oxygen Saturation - - Inhaled Oxygen Concentration - - Weight 43.5 kg (95 lb 14.4 oz) 12/14/2011 7:57 AM CDT Height 163 cm (5' 4.17) 12/14/2011 7:57 AM CDT Body Mass Index 16.37 12/14/2011 7:57 AM CDT documented in this encounter Progress Notes Hailee Stoddard APRN, C.N.P. - 12/14/2011 12:00 AM CDT [id number] CHIEF COMPLAINT/REASON FOR VISIT Thyroid testing, fatigue. HISTORY OF PRESENT ILLNESS 1. Lynnette is a 71-year-old female who comes in today with request of having her thyroid checked. She is outdated on her other health maintenance issues. States that she sees Dr. Laureano in [place] but has not been seen for the past 2-3 years. She is overdue for a colonoscopy and mammogram, etc. However, at this point time, she would like to just concentrate on her thyroid issues. She states that she was first diagnosed with hypothyroidism in 2006 when her TSH was 7.1 and because she was symptomatic she was started on Synthroid 50 mcg. Continued to wean that accordingly but patient started having palpitations and they cut the dose in half. Throughout the year she continued to recheck it. In July, her TSH was noted to be low at 0.1 and she discontinued the use of her Synthroid at all. She is here today for just a recheck of that. She states that she does have some issues with fatigue which prompted her to have her thyroid rechecked and possibly restart medication. 2. Dysthymic disorder. Patient has a history of dysthymic disorder. Looking back in her chart she has had elevated PHQ9 in the past and someone has prescribed to her some lorazepam which she states she takes about half a tablet daily but she has not been on any maintenance medication. She believes that Dr. Durham had placed her on sertraline but she did not tolerate it and discontinued the use of that. Patient's main concern is fatigue. She notices this is more than normal. CURRENT MEDICATIONS No new medications at this time. ALLERGIES Penicillin. SYSTEMS REVIEW She denies any weight loss. She admits to being very nervous. She denies any chest pain. She does occasionally have some heart palpitations, none recent. She denies any shortness of breath. No significant activity intolerance. She has noted her hair to be thinning a little bit. She states that she does sleep well. No lower extremity edema. The rest of her review of systems was noted to be negative. 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 VITAL SIGNS Vital signs: Her blood pressure is 100/64 with pulse of 76. Her BMI is 16.3. PHYSICAL EXAMINATION GENERAL: Patient appears nondistressed. SKIN: Skin is warm and dry. HEENT: Head is normocephalic. LYMPH: Lymph with no cervical or supraclavicular lymphadenopathy. Thyroid was noted to be generous but I do not appreciate any nodules or masses. VESSELS: Carotids with normal upstrokes, no bruits. HEART: Heart with regular rate and rhythm. LUNGS: Lungs are clear to auscultation. ABDOMEN: Soft with no organomegaly. EXTREMITIES: Extremities without any edema. MENTAL: PHQ9 score is 20. We did also do a SKYLA-7 screening which her score was 18. IMPRESSION/REPORT/PLAN 1. Fatigue and malaise. 2. Hypothyroidism. PLAN: We will go ahead and order a glucose, a TSH and a T4 and I will call patient with those results. Patient is agreeable to that. If she is to need medication, I did explain to her in that fragmented care is very unsafe in that she really should stick with one primary provider refilling her medications and being aware of all medications she is on. We would be happy to be that person but also, she should communicate with Dr. Laureano or follow through with Dr. Laureano for additional treatment options and keep her care in one place for these chronic issues and patient states that she agrees with that plan. 2. Dysthymic disorder. Clearly she has a significant dysthymic disorder, both reflected on her PHQ9 as well as her SKYLA-7 score and her assessment today. I did have a long conversation in regards to treatment options. I do think that sertraline is difficult to tolerate for some people and she may benefit from being placed on Celexa at a low dose and then gradually increased. I expressed to her this may help control her anxiety a little bit better and some of the things that to make her anxious. She is somewhat reluctant at this time and wishes to wait on it. I would like her to address this again in the future with her primary whoever that may be. Also informed her that she is due for colonoscopy, mammogram, and some of her health maintenance. Patient states that she understands that and she just does not want to proceed at this time and we will respect those wishes. Patient Education #1 Patient ready to learn. No apparent learning barriers were identified. Learning preferences included listening. Explained diagnosis and treatment plan. Patient expressed understanding of the content. Hailee Stoddard NAnder. /tahir Electronically Signed By: HAILEE STODDARD RN, GERALD On: 12/19/2011 04:50 PM Source: [facility] MHSDOLBEYNONRADSYS Document Id: [id number] documented in this encounter Miscellaneous Notes Miscellaneous - Hailee Stoddard APRN, C.N.P. - 12/14/2011 4:20 PM CDT Results Notification Document Contains Addenda Addendum by TRINIDAD JEAN LPN on 15 Dec 2011 15:35:40 CDT Rx called into [facility] Rx [place] updated not to fill Addendum by HAILEE STODDARD RN, CREDIT REVIEW ANALYST on 15 Dec 2011 14:21:21 CDT From: HAILEE STODDARD RN, CREDIT REVIEW ANALYST To: TRINIDAD JEAN LPN; Sent: 12/15/2011 14:21:21 CDT Show up: 12/15/2011 14:21:00 CDT Subject: RE: Results Notification please call to [place] and let raginiofigeorge know not to fill. thanks See med list. Addendum by TRINIDAD JEAN LPN on 15 Dec 2011 10:49:11 CDT From: TRINIDAD JEAN LPN To: HAILEE STODDARD RN, CREDIT REVIEW ANALYST; Sent: 12/15/2011 10:49:11 CDT ! Show up: 12/15/2011 10:49:00 CDT Subject: RE: Results Notification Patient was updated will follow up here please send medication to [facility] in [place] From: HAILEE STODDARD RN, CREDIT REVIEW ANALYST To: TREV VALERA DIANN; Sent: 12/14/2011 16:20:02 CDT Show up: 12/14/2011 16:19:00 CDT Subject: Results Notification please let pt know TSH is high at 7.47 and T4 and glucose are normal. She should be started on synthroid 50mcg daily and recehck TSH in 2 months. Does she want to do here or with Dr Laureano her primary provider? If here, I'd like to see her in 2mo with labs prior. Thanks. Results: Date Result Name Ind Value Ref Range 12/14/2011 09:00 Glucose Lvl 86 mg/dL (70 - 139) 12/14/2011 09:00 TSH (H) 7.47 mcIU/mL (0.30 - 5.00) 12/14/2011 09:00 T4 Free 1.2 ng/dL (0.8 - 1.8) [facility]: [facility] Document Id: [id number] Electronically signed by Je [facility] Practice Management Consultant [id number] at 01/14/2017 12:13 AM CDT Miscellaneous - Hailee Stoddard APRN, C.N.P. - 12/14/2011 3:15 PM CDT Quality Measures Quality Measures Entered On: 12/14/2011 15:15 CDT Performed On: 12/14/2011 15:15 CDT by HAILEE STODDARD RN, GERALD Depression PHQ-9 Score : 20 HAILEE STODDARD RN, CREDIT REVIEW ANALYST - 12/14/2011 15:15 CDT Source: [facility] Document Id: [id number] CDT!3 Miscellaneous - Hailee Stoddard APRN, C.N.P. - 12/14/2011 8:51 AM CDT Ambulatory Depart Summary [address] [address] Visit Information Name: LYNNETTE LAWTON Visit Date: 12/14/2011 08:51:56 Attending Provider: HAILEE STODDARD RN, GERALD Primary Care Provider: PCP, ELSEWHERE LYNNETTE LAWTON [...] your provider for clarification. Additional Information: Source: [facility] POWERCHART Document Id: [id number] Miscellaneous - Hailee Stoddard APRN, C.N.P. - 12/14/2011 8:51 AM CDT Ambulatory Patient Summary [address] [address] Visit Information Name: LYNNETTE LAWTON Current Date: 12/14/2011 08:51:56 Physicians Attending Provider: HAILEE STODDARD RN, GERALD Primary Care Provider: PCP, ELSEWHERE Your Medications [...] Associated with Unspecified Ocular Disorder Active 08/13/2004 Your Upcoming Appointments Date Time Location Reason Provider No Appointments found Your Goals/Additional instructions: Source: [facility] POWERCHART Document Id: [id number] Miscellaneous - Nya Padilla L.P.N. - 12/14/2011 8:01 AM CDT Health Assessment Health Assessment Entered On: 12/14/2011 8:01 CDT Performed On: 12/14/2011 8:01 CDT by NYA PADILLA LPN Health Assessment Complete Health Assessment Complete or Modified : Annual Health Assessment Annual Health Assessment Completed : Yes NYA PADILLA LPN - 12/14/2011 8:01 CDT Nutrition Nutrition Risk Factors by History Adult : None NYA PADILLA LPN - 12/14/2011 8:01 CDT Functional Current Daily Living Assistance : None NYA PADILLA LPN - 12/14/2011 8:01 CDT Dependent Habits Tobacco Use/Currently Using : No Exposure to Tobacco Smoke : Care provider denies smoking in home Smoking Status : Never smoker NYA PADILLA LPN - 12/14/2011 8:01 CDT Caffeine Use Grid Caffeine Use : Current Type : Coffee Frequency : Daily Amount : 4 cups NYA PADILLA LPN - 12/14/2011 8:01 CDT Recreational Drug Use Grid Drug Use : None NYA PADILLA LPN - 12/14/2011 8:01 CDT Psychosocial Domestic Abuse Concerns : None NYA PADILLA LPN - 12/14/2011 8:01 CDT Advance Directive Advanced Directives : No NYA PADILLA LPN - 12/14/2011 8:01 CDT Educ Needs Learning Style Preference Adult Grid Patient : None Family : None NYA PADILLA LPN - 12/14/2011 8:01 CDT Source: [facility] R[employer]R [employer] Document Id: [id number] CDT!29 Miscellaneous - Nya Padilla LCarlosP.NCarlos - 12/14/2011 7:57 AM CDT Adult Teachers Assistant Intake/History Adult Teachers Assistant Intake/History Entered On: 12/14/2011 8:01 CDT Performed On: 12/14/2011 7:57 CDT by NYA PADILLA LPN Intake Chief Complaint : Wants to have thyroid checked, Temperature Core : 36.2C(Converted to: 97.2DegF) (LOW) Peripheral Pulse Rate : 76/min Respiratory Rate : 16/min Heart Rhythm : Regular Systolic Blood Pressure : 100mmHg Diastolic Blood Pressure : 64mmHg NIBP Mean : 76mmHg BP Location : Left upper extremity Blood Pressure Cuff Size : Regular Height : 163cm(Converted to: 5ft 4inch(es), 64.17inch(es)) Actual Weight : 43.5kg(Converted to: 95lb 14oz) Weight Source : Standing scale Dosing Weight Clinic : 43.50kg Clinic BSA : 1.40 Body Mass Index : 16.37kg/m2 NYA PADILLA LPN - 12/14/2011 7:57 CDT Subjective Pain Symptoms : No NYA PADILLA LPN - 12/14/2011 7:57 CDT Dependent Habits Tobacco Use/Currently Using : No Tobacco Use/Last 12 months : No Tobacco Use/Advised to Quit : No Exposure to Tobacco Smoke : Care provider denies smoking in home Smoking Status : Never smoker Alcohol Use : Yes NYA PADILLA LPN - 12/14/2011 7:57 CDT Caffeine Use Grid Caffeine Use : Current Type : Coffee Frequency : Daily Amount : 4 cups NYA PADILLA LPN - 12/14/2011 7:57 CDT Recreational Drug Use Grid Drug Use : None NYA PADILLA LPN - 12/14/2011 7:57 CDT Allergy Allergies (Active) penicillins Estimated Onset Date: Unspecified ; Created By: TRINIDAD JEAN LPN; Reaction Status:Active ; Category: Drug ; Substance: penicillins ; Type: Allergy ; Updated By: TRINIDAD JEAN LPN; Reviewed Date: 12/14/2011 7:56 CDT Source: [facility] POWERCHART Document Id: [id number] CDT!36 documented in this encounter Plan of Treatment Not on filedocumented as of this encounter Procedures Procedure Name Priority Date/Time Associated Diagnosis Comme nts GLUCOSE, P Routine 12/14/2011 9:00 AM Results f or this CDT procedure are i n the results section. THYROID-STIMULATING Routine 12/14/2011 9:00 AM Re sults for this HORMONE-SENSITIVE CDT procedure are in (S-TSH) the results section. T4 (THYROXINE), Routine 12/14/2011 9:00 AM Result s for this FREE, S CDT procedure are i n the results section. documented in this encounter Results Glucose (12/14/2011 9:00 AM CDT) P athologist Signature Glucose 86 70 - 139 POWERCHART MGDL Specimen (Source) Anatomical Collection Method Collection Time Re ceived Time Location / / Volume Laterality Blood 12/14/2011 9:00 AM CDT Hailee Stoddard APRN, C.N.P., D.N.P. LAB BLOOD ADD-ON Performing Organization Address City/State/ZIP Code Phon e Number POWERCHART T4 (Thyroxine), Free (12/14/2011 9:00 AM CDT) P athologist Signature T4 (Thyroxine), 1.2 0.8 - 1.8 POWERCHART Free, S NGDL Specimen (Source) Anatomical Collection Method Collection Time Re ceived Time Location / / Volume Laterality Blood 12/14/2011 9:00 AM CDT Hailee Stoddard APRN, C.N.P., D.N.P. LAB BLOOD ADD-ON Performing Organization Address City/State/ZIP Code Phon e Number POWERCHART (ABNORMAL) Thyroid-Stimulating Hormone-Sensitive (s-TSH) (12/14/2011 9:00 AM CDT) Analysis Performed At Patho logist Time Signature TSH 7.47 (H) 0.30 - 5.00 POWERCHART (Thyrotropin) MCIUML Specimen (Source) Anatomical Collection Method Collection Time Re ceived Time Location / / Volume Laterality Blood 12/14/2011 9:00 AM CDT Hailee Stoddard APRN, C.N.P., D.N.P. LAB BLOOD ADD-ON Performing Organization Address City/State/ZIP Code Phon e Number POWERCHART documented in this encounter Visit Diagnoses Not on filedocumented in this encounter
--- OUTSIDE RECORDS SUMMARY | 2022-07-24 09:28 | XMS_ITS | Encounter Summary ---
:1940 Author Organization [facility] Address [address] [place] [address] Care Team Providers Name Role Phone Unavailable Primary Care Provider Unavailable Encounter Details Date Type Department Care Team Description 06/18/2009 Hospital Encounter HX [facility] Provider, Historic al Social History Tobacco Use Types Packs/Day Years Used Date Smoking Tobacco: Never Assessed Sex Assigned at Date Recorded Not on file documented as of this encounter Miscellaneous Notes Miscellaneous - Garima Laureano D.O. - 06/18/2009 9:15 AM CST [id number] Lynnette Thompson [address] [place] [id number] 06/19/2009 Dear Ms. Thompson, I am writing to inform you of the results of the laboratory tests you had performed during your recent visit to the clinic. Your TSH (thyroid stimulating hormone) blood test: 6.74 normal range: 0.34-4.82 Your T4 hormone 1.01 Normal Range .70-1.85 These tests show your thyroid still mildly underactive and needs stimulation to function normally. Salvador recommend continue your low dose medication if you can tolerate it. If you have been tolerating it thus far, we can discuss slightly increasing it. If you have any further questions or problems, please contact our office at [phone] for an appointment. Sincerely, Garima Laureano D.O. Family Practice Department [facility] Source: [facility] Document Id: [id number] Electronically signed by Conversion, [facility] Passenger Barge Master [id number] at 01/14/2017 6:30 PM CDT documented in this encounter Plan of Treatment Not on filedocumented as of this encounter Visit Diagnoses Not on filedocumented in this encounter
--- OUTSIDE RECORDS SUMMARY | 2022-07-24 09:28 | XMS_ITS | Encounter Summary ---
:1940 Author Organization [facility] Address [address] [place] [address] Care Team Providers Name Role Phone Unavailable Primary Care Provider Unavailable Encounter Details Date Type Department Care Team Description 02/10/2009 Hospital Encounter [facility] Garima Laureano D.O. [address] [place], [place] [address] (Wo rk) Social History Tobacco Use Types Packs/Day Years Used Date Smoking Tobacco: Never Assessed Sex Assigned at Date Recorded Not on file documented as of this encounter Progress Notes Garima Laureano D.O. - 02/10/2009 1:30 PM CDT [id number] Ms. Thompson is a 68 year old female who presents regarding small mass felt in left groin. She just noted this yesterday. It is tender only if pushed on. No recent infections or bleeding in bladder or vagina. No abdominal pain. She has been underweight for years and now weight is down 5# past year. No night sweats or fevers. Review of Systems PSYCH: she has Generalized Anxiety Disorder and says uses Lorazepam twice daily. She said she still feels like a nervous wreck. She cancelled her follow up visit in psych. ENDOCRINE: She is only taking her thyroid med as 1/2 tab every other day. She declines TSH today. I told her I would put in future order. She is hypothyroid and she thinks even minimal amounts Levothyroxine cause some of her anxiety. 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 Other Specified Glaucoma Unspecified Hypothyroidism Past Surgical History Procedure Date Biopsy of uterus lining 1995 proliferative type endometrium with glandular and stromal breakdown(anovulatory cycle) Social History: History Substance Use Topics Tobacco Use: Never Alcohol Use: Yes occasional glass of wine Current outpatient prescriptions Medication Sig LEVOTHYROXINE SODIUM 25 MCG OR TABS one daily for thyroid on empty stomach TIMOLOL 0.25 % OP SOLN one drop in each eye once daily MIRALAX OR POWD 255 grams- Per Instructions with 4 Bixacodyl tabs as directed BISACODYL 5 MG OR TBEC 4 tabs as directed LUMIGAN 0.03 % OP SOLN one drop each eye once daily LORAZEPAM 0.5 MG OR TABS 1 tablet by mouth twice daily if needed for stress EXAM: Ms. Thompson is alert, lucid, pleasant, and in no distress. Well nourished, good hydration. VITALS: BP 124/80 Pulse 70 Temp (Src) 97.8 ??F (36.6 ??C) (Temporal) Ht 5' 4 (1.626 m) Wt 93 lb (42.185 kg) LMP Postmenopausal ABDOMEN: bowel sounds normal, soft, no mass, no organomegally, no tenderness to deep palpation. LYMPH: left groin has a 2 cm well circumscribed firm mass, moveable. Appears to be enlarged lymph node. No erythema. PSYCH: normal dress and hygiene. mood anxious. affect flat. LABS: POTASSIUM 4.0 01/25/07 CR 0.69 01/25/07 HGB 14.4 01/25/07 LDL 115 02/07/08 AST 25 01/25/07 ASSESSMENT: Left groin lymphadenopathy PLAN: 1. Return for consult General Surgeon to see if biopsy needed. Discussed this may be lympadenitis but need to rule out tumor related. 2. Discussed returning to Psych for her Generalized Anxiety Disorder. She will not commit to this. 3. Advised to have TSH and she declines to have this done today. Source: [facility] LOZANOHXTRANSXRTFSYS Document Id: [id number] documented in this encounter Plan of Treatment Not on filedocumented as of this encounter Visit Diagnoses Not on filedocumented in this encounter
--- OUTSIDE RECORDS SUMMARY | 2022-07-24 09:28 | XMS_ITS | Encounter Summary ---
:1940 Author Organization [facility] Address [address] [place] [address] Care Team Providers Name Role Phone Unavailable Primary Care Provider Unavailable Encounter Details Date Type Department Care Team Description 11/19/2009 Hospital Encounter [facility] Provider, [facility] Social History Tobacco Use Types Packs/Day Years Used Date Smoking Tobacco: Never Assessed Sex Assigned at Date Recorded Not on file documented as of this encounter Miscellaneous Notes Telephone Encounter - Conversion, Historical Provider Ser - 11/19/2009 12:00 AM CDT [id number] TELEPHONE TRIAGE ENCOUNTER FORM Date: 11/19/2009 PCP: Garima Laureano DO Patient Name: Lynnette Thompson Gender: female : 1940 Age: [age] year old Time: 4:23 PM Phone Numbers: [phone] (home) [phone] (work) Pharmacy: [facility] ASSESSMENT Presenting Problem: Constipation Subjective/objective: Patient is reporting that she has an urge to have a bowel movement. However, she cannot get any stool to pass despite straining to do so. Having some mild abdominal cramping associated with the straining. Is calling for homecare advice for relief of constipation. Onset: unchanged Duration: 1 day Associated Sx: No fever noted. denies other problems Problem list reviewed: YES Recent History: Not recently. Recent Illness: No Allergies verified: N/A or not addressed Precipitated by: Yes - What is it? Constipation Med list reviewed: YES Alleviated by: N/A Immunosuppressed:NO Conclusion / Primary Problem: constipation Protocol(s) Consulted: Telephone Triage Protocols for Nurses. Katherin Oliver - [phone] PLAN / INTERVENTION Disposition: Home Care advice per protocol Homecare advice per protocol includes: Take warm bath andtry rectal massage to relax sphincter and promote stool passage,try glycerin rectal suppository or Fleets enema. Seek treatment in Urgent Care if no success with any of the above suggestions. Caller verbalizes understanding of disposition? YES Caller agrees to plan? Yes EVALUATION / FOLLOW-UP Advised to call back if symptoms fail to improve or worsen in anyway. Source: [facility] RWHXTRANSXRTFSYS Document Id: [id number] documented in this encounter Plan of Treatment Not on filedocumented as of this encounter Visit Diagnoses Not on filedocumented in this encounter
--- OUTSIDE RECORDS SUMMARY | 2022-07-24 09:29 | XMS_ITS | Encounter Summary ---
:1940 Author Organization [facility] Address [address] [place] [address] Care Team Providers Name Role Phone Unavailable Primary Care Provider Unavailable Encounter Details Date Type Department Care Team Description 11/06/2007 [facility] Garima Laureano D.OCarlos [address] [place], [place] [address] (Wo rk) Social History Tobacco Use Types Packs/Day Years Used Date Smoking Tobacco: Never Assessed Sex Assigned at Date Recorded Not on file documented as of this encounter Miscellaneous Notes Telephone Encounter - Conversion, Historical Provider Ser - 11/06/2007 12:00 AM CDT [id number] Last B/P: 130/[address] mccarthy in June of 2007.Accepting this Rx will FAX it directly to the pharmacy. Thank You! Source: [facility] Document Id: [id number] Telephone Encounter - Garima Laureano D.O. - 11/06/2007 12:00 AM CDT [id number] Patient's request for a refill has been approved. Order entered - it has been faxed to [facility]. Source: [facility] Document Id: [id number] Electronically signed by [facility], [facility] Instructional Support Specialist [id number] at 01/15/2017 2:04 AM CDT documented in this encounter Plan of Treatment Not on filedocumented as of this encounter Visit Diagnoses Not on filedocumented in this encounter
--- OUTSIDE RECORDS SUMMARY | 2022-07-24 09:29 | XMS_ITS | Encounter Summary ---
:1940 Author Organization [facility] Address [address] [place] [address] Care Team Providers Name Role Phone Unavailable Primary Care Provider Unavailable Encounter Details Date Type Department Care Team Description 10/10/2007 Hospital Encounter [facility] Provider, Historical INPT/OBSRV Social History Tobacco Use Types Packs/Day Years Used Date Smoking Tobacco: Never Assessed Sex Assigned at Date Recorded Not on file documented as of this encounter Plan of Treatment Not on filedocumented as of this encounter Visit Diagnoses Not on filedocumented in this encounter
--- OUTSIDE RECORDS SUMMARY | 2022-07-24 09:29 | XMS_ITS | Encounter Summary ---
:1940 Author Organization [facility] Address [address] [place] [address] Care Team Providers Name Role Phone Unavailable Primary Care Provider Unavailable Encounter Details Date Type Department Care Team Description 11/27/2007 [facility] Laure[facility] D.O. [address] [place], [place] [address] (Wo rk) Social History Tobacco Use Types Packs/Day Years Used Date Smoking Tobacco: Never Assessed Sex Assigned at Date Recorded Not on file documented as of this encounter Miscellaneous Notes Telephone Encounter - Conversion, Historical Provider Ser - 11/27/2007 12:00 AM CDT [id number] , Matt calls and would like to speak to you about what direction he should go with his Lynnette. She is getting to question a lot of things that he does, whats for supper, etc. He has spoke totati Flores a pschologist that he said is with [facility] and would like a referral to [facility] with someone over there. His number is [phone]. Source: [facility] Document Id: [id number] Telephone Encounter - Conversion, Historical Provider Ser - 11/27/2007 12:00 AM CDT [id number] Have spoke to Dr. Laureano and to contact patient's Matt and to let him know that he has to contact [place] or someone in behavior health on his own to set up appts. Have talked to Matt and gave number to Behavioral Health. Source: [facility] RWHXTRANSXRTFSYS Document Id: [id number] documented in this encounter Plan of Treatment Not on filedocumented as of this encounter Visit Diagnoses Not on filedocumented in this encounter
--- OUTSIDE RECORDS SUMMARY | 2022-07-24 09:29 | XMS_ITS | Encounter Summary ---
:1940 Author Organization [facility] Address [address] [place] [address] Care Team Providers Name Role Phone Unavailable Primary Care Provider Unavailable Encounter Details Date Type Department Care Team Description 08/19/2007 Hospital [facility] Garima Laureano D.O. [address] [place], [place] [address] (Wo rk) Social History Tobacco Use Types Packs/Day Years Used Date Smoking Tobacco: Never Assessed Sex Assigned at Date Recorded Not on file documented as of this encounter Miscellaneous Notes Telephone Encounter - Evelyn Moore R.N. - 08/19/2007 12:00 AM CST [id number] Patient calls stating that since she stopped the Levothyroxine in July she has not noticed a change in the symptoms that she had associated with the medication, such as insomnia, shakiness, and nervousness. She is wondering if she can restart the medication. TSH 0.48 07/25/2007, instructed her OK to restart her 25mcg dose, but to have TSH level drawn in one month. Advised patient to make appointment to see Dr. Laureano about her symptoms. She will do that in Sep when her Medicare insurance starts. Will inform Dr. Laureano that patient is starting Levothyroxine. Please advise if any change to the plan. Source: [facility] Document Id: [id number] Electronically signed by Je, [facility] [place] [id number] at 01/14/2017 11:29 PM CDT Telephone Encounter - Garima Laureano D.O. - 08/19/2007 12:00 AM CST [id number] Agree with plan. Thank you. Source: [facility] RWHXTRANSXRTFSYS Document Id: [id number] documented in this encounter Plan of Treatment Not on filedocumented as of this encounter Visit Diagnoses Not on filedocumented in this encounter
--- OUTSIDE RECORDS SUMMARY | 2022-07-24 09:29 | XMS_ITS | Encounter Summary ---
:1940 Author Organization [facility] Address [address] [place] [address] Care Team Providers Name Role Phone Unavailable Primary Care Provider Unavailable Encounter Details Date Type Department Care Team Description 12/24/2007 Hospital Encounter [facility] Sachin Dias, Ph.D. Social History Tobacco Use Types Packs/Day Years Used Date Smoking Tobacco: Never Assessed Sex Assigned at Date Recorded Not on file documented as of this encounter Plan of Treatment Not on filedocumented as of this encounter Visit Diagnoses Not on filedocumented in this encounter
--- OUTSIDE RECORDS SUMMARY | 2022-07-24 09:29 | XMS_ITS | Encounter Summary ---
:1940 Author Organization [facility] Address [address] [place] [address] Care Team Providers Name Role Phone Unavailable Primary Care Provider Unavailable Encounter Details Date Type Department Care Team Description 07/25/2007 Hospital [facility] Garima Laureano D.O. [address] [place], [place] [address] (Wo rk) Social History Tobacco Use Types Packs/Day Years Used Date Smoking Tobacco: Never Assessed Sex Assigned at Date Recorded Not on file documented as of this encounter Miscellaneous Notes Telephone Encounter - Evelyn Moore R.N. - 07/25/2007 12:00 AM CST [id number] Patient called requesting results of her TSH. Informed patient level within normal range. Despite decreasing the dose of her Levothyroxine she continues to experience nervousness, shakiness and has problems sleeping, which she attributes to the medication. She would like to stop medication. Please advise. Source: [facility]ITALXTRANSXRTFS[facility] Document Id: [id number] Telephone Encounter - Garima Laureano D.O. - 07/25/2007 12:00 AM CST [id number] TSH 0.48 07/25/2007 I spoke with patient regarding above results and symptoms. She is just on a 25 mcg tab so I advised she could stop for a couple months and see how she felt. Can repeat TSH in couple months if fatigue returns. Source: [facility]ITALXTSHAYYSXRTFSYS Document Id: [id number] Electronically signed by Conversion, [facility] Oil Spreader Operator [id number] at 01/15/2017 5:46 AM CDT documented in this encounter Plan of Treatment Not on filedocumented as of this encounter Visit Diagnoses Not on filedocumented in this encounter
--- OUTSIDE RECORDS SUMMARY | 2022-07-24 09:29 | XMS_ITS | Encounter Summary ---
:1940 Author Organization [facility] Address [address] [place] [address] Care Team Providers Name Role Phone Unavailable Primary Care Provider Unavailable Encounter Details Date Type Department Care Team Description 09/06/[address] [facility] Provider, Historical INPT/OBSRV Social History Tobacco Use Types Packs/Day Years Used Date Smoking Tobacco: Never Assessed Sex Assigned at Date Recorded Not on file documented as of this encounter Plan of Treatment Not on filedocumented as of this encounter Visit Diagnoses Not on filedocumented in this encounter
--- OUTSIDE RECORDS SUMMARY | 2022-07-24 09:29 | XMS_ITS | Encounter Summary ---
:1940 Author Organization [facility] Address [address] [place] [address] Care Team Providers Name Role Phone Unavailable Primary Care Provider Unavailable Encounter Details Date Type Department Care Team Description 01/22/2008 Hospital Encounter HX [facility] Provider, [facility] Social History Tobacco Use Types Packs/Day Years Used Date Smoking Tobacco: Never Assessed Sex Assigned at Date Recorded Not on file documented as of this encounter Plan of Treatment Not on filedocumented as of this encounter Visit Diagnoses Not on filedocumented in this encounter
--- OUTSIDE RECORDS SUMMARY | 2022-07-24 09:29 | XMS_ITS | Encounter Summary ---
:1940 Author Organization [facility] Address [address] [place] [address] Care Team Providers Name Role Phone Unavailable Primary Care Provider Unavailable Encounter Details Date Type Department Care Team Description 11/27/2007 Hospital Encounter [facility] Sachin Dias, Ph.D. Social History Tobacco Use Types Packs/Day Years Used Date Smoking Tobacco: Never Assessed Sex Assigned at Date Recorded Not on file documented as of this encounter Miscellaneous Notes Miscellaneous - Conversion, Historical Provider Ser - 11/27/2007 12:00 AM CDT [id number] LETTER Lynnette Thompson [address] [place] [id number] November 27, 2007 Dear Lynnette: Thank you for requesting an appointment for services at the [facility] Behavior[facility] Department. Initial 45 minute appointments have been scheduled in our Psychology Department with: Darshan Dias, Ph.D., L.P. Sunday, December 24, 2007 at 9:00 AM located on the 3rd floor: [facility] at [address] [place] [address]. If the above scheduled appointment is not convenient, please contact our office as soon as possible at or to reschedule. You need to contact your insurance company prior to your appointment for a possible prior authorization to avoid delays in payment or you may be responsible for payment. There will be a number on your insurance card for you to call. Please bring the authorization number that the insurance company gives you, to your first appointment.It is also important that you bring along all of your insurance information at the time of your visit so that billing can be handled promptly. When you make an appointment with our department, time is set aside for you. If you fail to arrive for this appointment, it is time that could have been used by other patients requesting these services. Therefore, if you are unable to keep this appointment, please contact our office prior to your appointment. If you do not contact us at least 24 hours prior to your appointment, you will be billed a Late Cancellation/ No Show Fee. Your insurance company will not reimburse for this fee; therefore, thecharge would be billed directly to you. The forms enclosed with this letter should be completed and returned to us prior to your scheduled appointment. This would include all forms on the right side of the folder. We trust that your experience with us will be a pleasant and worthwhile one. Sincerely, [facility] Contact Information November 27, 2007 Intake done by: Riana GARZON#: [id number] NAME: Lynnette Joseph Thompson SSN: [id number] : 1940 Age: [age] year old Sex: female Spouse/ S.O.: Aneudy Parent/Guardian: - ADDRESS: [address] [place] [id number] Phone Numbers: [phone] (home) [phone] (work) Phone Contact: Home: Yes Messages: Yes Work: No Messages: No Written Contact: Home: Yes Work: No Prior Contact with Psychology? No Date: - Doctor seen: NA No coverage found. 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 With: Darshan Dias, Ph.D., L.P. Initial: 12/23 9am F/U: - 3rd.: - Intake Packet Sent on Wait List No Source: [facility] Document Id: [id number] documented in this encounter Plan of Treatment Not on filedocumented as of this encounter Visit Diagnoses Not on filedocumented in this encounter
--- OUTSIDE RECORDS SUMMARY | 2022-07-24 09:29 | XMS_ITS | Encounter Summary ---
:1940 Author Organization [facility] Address [address] [place] [address] Care Team Providers Name Role Phone Unavailable Primary Care Provider Unavailable Encounter Details Date Type Department Care Team Description 05/05/2008 Hospital Encounter HX [facility] Provider, [facility] Social History Tobacco Use Types Packs/Day Years Used Date Smoking Tobacco: Never Assessed Sex Assigned at Date Recorded Not on file documented as of this encounter Miscellaneous Notes Telephone Encounter - Lor Quiroz - 05/05/2008 12:00 AM CDT [id number] TELEPHONE CALL: 05-05-08 The patients Matt phones to indicate that his has not been taking any of the medicationswe have been exploring recently. I call Lynnette herself and she states that she continues to worry about the wisdom of her decision to stop working. She is said by her to behave fairly normally and graciously with family and friends, but that she obsesses when alone at home during the day. She does state that in the past she has been treated with Effexor, one dose, which she says led to insomnia and dysphoria. She states she took one dose of the medicine some years ago and would be fearful of taking another dose now. SUGGEST: 1) Use Ativan 0.5 mg three times a day routinely. I ask her to telephone me in one week with response at my home office. She did not do this. 2) I telephone her today and there is no answer. I leave a message on her answering machine to contact me today if possible and let me know the response to this treatment plan. FA:davey D: 05-20-08 David Jasso M.D. T: 05-21-08 Source: [facility]UZIEXRTFSYS Document Id: [id number] Electronically signed by Conversion, [facility] Nutrition Tech [id number] at 01/14/2017 10:11 PM CDT documented in this encounter Plan of Treatment Not on filedocumented as of this encounter Visit Diagnoses Not on filedocumented in this encounter
--- OUTSIDE RECORDS SUMMARY | 2022-07-24 09:29 | XMS_ITS | Encounter Summary ---
:1940 Author Organization [facility] Address [address] [place] [address] Care Team Providers Name Role Phone Unavailable Primary Care Provider Unavailable Encounter Details Date Type Department Care Team Description 11/04/2007 Hospital En[facility] Provider, [facility] Social History Tobacco Use Types Packs/Day Years Used Date Smoking Tobacco: Never Assessed Sex Assigned at Date Recorded Not on file documented as of this encounter Miscellaneous Notes Miscellaneous - Conversion, Historical Provider Ser - 11/04/2007 12:00 AM CDT [id number] Lynnette Thompson [address] [facility] [place] [address] November 04, 2007 [id number] Dear Lynnette Thompson Our records indicate that you are approaching an important milestone in your life, your 67th Birthday. With that birthday, you also will be eligible to receive Medicare benefits. One of the new benefits you can receive through Medicare is called Medicare Part B. This is a one-time opportunity for you to undergo a complete physical exam and receive preventive health service. Think of it as a Welcome to Medicare exam. We want to encourage you to take advantage of this benefit. At [facility] we value and encourage preventive care and health education. It is simple to schedule your appointment. Call [phone] (toll-free: ), let the halver machine operator know that you would like to schedule a Medicare Part B appointment. The appointment will be with Alexandra Patiño PA-C, or Dory Peterson PA-C in Specialty Medical Services and your primary care pr ovider will be notified of the results. To provide you with the best possible care, we ask that you bring with you any medical records you have, your family health history and all medication you are taking. The exam begins with a meeting with a nurse who will review your background, medical history, health education needs and other critical information. This will be followed by an exam by a physician night assistant who will conduct a thorough health screening and make any recommendations for follow up care. Please be sure to allocate sufficient time for the appointment. It will last approximately 1.5 hours. There is a cost for the screening. Your Part B benefit will cover 80% of the cost, once you have met your deductible requirement. If you have questions on the cost, please contact the Patient Financial Services Department and they will help you understand what the cost to you could be. In addition the exam can be done only after you have enrolled in Medicare and within six months of receiving the Part B benefits. The details of this important benefit may seem confusing. We'll help you understand it and take advantage of the exam it offers. What isn't confusing is the reason it is offered, to help you maintain your health. At [facility], we are committed to being you partner for a healthy future. Pleasecall us when you are ready to schedule your appointment. Sincerely, CICI Ortega PA-C INTERNAL MEDICINE Source: [facility]XTRANSXRTFSYS Document Id: [id number] documented in this encounter Plan of Treatment Not on filedocumented as of this encounter Visit Diagnoses Not on filedocumented in this encounter
--- OUTSIDE RECORDS SUMMARY | 2022-07-24 09:29 | XMS_ITS | Encounter Summary ---
:1940 Author Organization [facility] Address [address] [place] [address] Care Team Providers Name Role Phone Unavailable Primary Care Provider Unavailable Encounter Details Date Type Department Care Team Description 12/04/2007 Hospital Encounter [facility] Garima Laureano D.O. [address] [place], [place] [address] (Wo rk) Social History Tobacco Use Types Packs/Day Years Used Date Smoking Tobacco: Never Assessed Sex Assigned at Date Recorded Not on file documented as of this encounter Progress Notes Garima Laureano DFrederic. - 12/04/2007 9:30 AM CDT [id number] Ms. Thompson is a 67 year old female who complains of something hanging down in anal area. She has noted this several months. Denies bowel change, melana. Weight flow sheet shows 4# weight loss last 6 months. Denies pain to area and no pain with bowel movement. She has declined routine colonoscopy screens in past and wants to wait now until her Welcome to Medicare physical before scheduling anything. Review of Systems PSYCH: says I'm a nervous wreck. 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 She has beenresistant to referral to Psych in past years but has gotten to point that anxiety can be so overwhelming, that now she is willing to go. She asks me to referher but when I looked in computer she already has appointment set up for Dr garcía next month and reports she has Psychiatrist appointment set up in February in [place]. She asks if she can get over her anxiety on her own without going to Psych. She is using Lorazepan 0.5m/2 tab at night, occasionally another 1/2 tab during day. Past Medical History Diagnosis Date DEPRESSIVE DISORDER NEC 1969 mental illness-hospitalized 2-3 weeks SYMPTOMATIC FEMALE CLIMACTERIC STATE estrogen 1996 to 1999. GLAUCOMA NEC HYPOTHYROIDISM NOS Past Surgical History Procedure Date Biopsy of uterus lining 1995 proliferative type endometrium with glandular and stromal breakdown(anovulatory cycle) Social History: History Substance Use Topics Tobacco Use: Never Alcohol Use: Yes occasional glass of wine Current outpatient prescriptions Medication Sig LUMIGAN 0.03 % OP SOLN one drop each eye once daily LORAZEPAM 0.5 MG OR TABS 1 tablet by mouth twice daily if needed for stress EXAM: Ms. Thompson is alert, lucid, pleasant, and in no distress. Well nourished, good hydration. VITALS: BP 138/82 Pulse 88 Temp (Src) 98.6 (Temporal) Ht 5' 5 (1.65m) Wt 98 lbs (44.5kg) LMP Postmenopausal ABDOMEN: bowel sounds normal, soft, no mass, no organomegally, no tenderness to deep palpation. RECTAL: 2 small external hemorrhoidal tags without inflammation. Normal digital exam. PSYCH: normal dress and hygiene. mood is depressed. affect flat and anxious. normal thought content.Fair eye contact. ASSESSMENT: 1. External hemorrhoid tags 2. Generalized Anxiety Disorder PLAN: 1. Urged to follow up with her Psych appointments. I told her I did not think she could get thru this on her own. 2. I explained the hemorrhoidal tag and can use Preparation H on it and call if problems. 3. She will follow up with Welcome to Medicare physical in [place]. Source: [facility] RWHXTRANSXRTFSYS Document Id: [id number] Electronically signed by Conversion, [facility] Sailing Instructor [id number] at 01/15/2017 2:43 AM CDT documented in this encounter Plan of Treatment Not on filedocumented as of this encounter Visit Diagnoses Not on filedocumented in this encounter
--- OUTSIDE RECORDS SUMMARY | 2022-07-24 09:29 | XMS_ITS | Encounter Summary ---
:1940 Author Organization [facility] Address [address] [place] [address] Care Team Providers Name Role Phone Unavailable Primary Care Provider Unavailable Encounter Details Date Type Department Care Team Description 12/18/2007 [facility] Garima Laureano D.O. [address] [place], [place] [address] (Wo rk) Social History Tobacco Use Types Packs/Day Years Used Date Smoking Tobacco: Never Assessed Sex Assigned at Date Recorded Not on file documented as of this encounter Miscellaneous Notes Telephone Encounter - Garima Laureano D.O. - 12/18/2007 12:[id number] Dias called me to say he had visit with Lynnette today and felt she needed medication for her anxiety and asked that I call Dr Jasso for advise as she could not get appt with Dr Jasso march. I called Dr Jasso (Psychiatrist) and he gave me several options to try in meantime. 1) Lorazepam as needed thru day every 5 to 6 hrs. Or 2) if not sleeping thru night, use Dalmane or Valium at night for the longer acting benefit. Clonazepam BID would be another choice. Or 3) trial of Tranzene. He also said avoid SSRIs as they will more than likely increase her anxiety. A low dose Welbutrin can be tried if the benzodiazepams not helpful, as can low dose Seroquel but he recommends good trial benzos first. He also said if Lynnette wanted to try herbal therapy, she could try Valerian root. I discussed recommendations by phone with Lynnette. She wants to first try the Lorazepam more frequently thru the day. She will call back if not beneficial. She says she is reluctant to go back for further Psych visits as discussing those issues makes her very frustrated and I encouraged her to continue her sessions as will help her work thru the issues and to go thru with her Welcome to Medicare physical. Source: [facility] RWMCHXTRANSXRTFSYS Document Id: [id number] documented in this encounter Plan of Treatment Not on filedocumented as of this encounter Visit Diagnoses Not on filedocumented in this encounter
--- OUTSIDE RECORDS SUMMARY | 2022-07-24 09:29 | XMS_ITS | Encounter Summary ---
:1940 Author Organization [facility] Address [address] [place] [address] Care Team Providers Name Role Phone Unavailable Primary Care Provider Unavailable Encounter Details Date Type Department Care Team Description 01/20/2008 Hospital Encounter [facility] Garima Laureano D.O. [address] [place], [place] [address] (Wo rk) Social History Tobacco Use Types Packs/Day Years Used Date Smoking Tobacco: Never Assessed Sex Assigned at Date Recorded Not on file documented as of this encounter Miscellaneous Notes Telephone Encounter - Evelyn Moore R.N. - 01/20/2008 12:00 AM CDT [id number] Patient called stating that she is no longer taking Levothyroxine, questions if she should have her TSH level rechecked. She has future orders in already from her Medicare physical. Please advise and nursing will contact patient. Source: [facility] Document Id: [id number] Electronically signed by Conversion, [facility] Radiology Technician [id number] at 01/15/2017 3:24 AM CDT Telephone Encounter - Garima Laureano D.O. - 01/20/2008 12:00 AM CDT [id number] Yes, She can come in to have TSH done when she has her lipid and glucose. You will need to be fasting from midnight the night before(water is ok to drink). Source: [facility] Document Id: [id number] Electronically signed by Conversion, [facility] Radiology Technician [id number] at 01/15/2017 3:24 AM CDT Telephone Encounter - Evelyn Moore R.N. - 01/20/2008 12:00 AM CDT [id number] Detailed message left on patient's home number Source: [facility] RWHXTRANSXRTFSYS Document Id: [id number] Electronically signed by Conversion, [facility] Radiology Technician [id number] at 01/15/2017 3:24 AM CDT documented in this encounter Plan of Treatment Not on filedocumented as of this encounter Visit Diagnoses Not on filedocumented in this encounter
--- OUTSIDE RECORDS SUMMARY | 2022-07-24 09:29 | XMS_ITS | Encounter Summary ---
:1940 Author Organization [facility] [place] Address [address] [place] [address] Care Team Providers Name Role Phone Unavailable Primary Care Provider Unavailable Encounter Details Date Type Department Care Team Description 12/17/2007 Hospital Encounter HX [facility] Sachin Dias, Ph.D. Social History Tobacco Use Types Packs/Day Years Used Date Smoking Tobacco: Never Assessed Sex Assigned at Date Recorded Not on file documented as of this encounter Plan of Treatment Not on filedocumented as of this encounter Visit Diagnoses Not on filedocumented in this encounter
--- OUTSIDE RECORDS SUMMARY | 2022-07-24 09:29 | XMS_ITS | Encounter Summary ---
:1940 Author Organization [facility] Address [address] [place] [address] Care Team Providers Name Role Phone Unavailable Primary Care Provider Unavailable Encounter Details Date Type Department Care Team Description 05/20/2008 Hospital Encounter HX [facility] Provider, [facility] Social History Tobacco Use Types Packs/Day Years Used Date Smoking Tobacco: Never Assessed Sex Assigned at Date Recorded Not on file documented as of this encounter Miscellaneous Notes Telephone Encounter - Lor Quiroz - 05/20/2008 12:00 AM CDT [id number] TELEPHONE CALL: 05-20-08 I do speak with the patient at home ([phone]). It is a difficult conversation. The patient seems to have trouble following or believing what I am telling her. She states that she has been taking lorazepam 0.25 mg bid and 0.5 mg at bedtime. She states that she is sleeping better but still has uncom fortable anxiety. I teach her about the wide dosage range of lorazepam and I also tell her that we must find out how valuable this medication is right now before future decisions about treatment can be made. The patientappears to understand this, but also she seems fearful and confused as well. She states she has been seeing Vanessa Boyd along with her and feels that this therapy is a bit helpful. SUGGEST: 1) Increase lorazepam to 0.5 mg tid. The patient may even use ?? pill per day if three per day are not sufficiently helpful. 2) I ask the patient to call and schedule an appointment to see me in approximately one month. FA:davey D: 05-20-08 David Jasso MD T: 05-21-08 Source: [facility] Document Id: [id number] documented in this encounter Plan of Treatment Not on filedocumented as of this encounter Visit Diagnoses Not on filedocumented in this encounter
--- OUTSIDE RECORDS SUMMARY | 2022-07-24 09:29 | XMS_ITS | Encounter Summary ---
:1940 Author Organization [facility] Address [address] [place] [address] Care Team Providers Name Role Phone Unavailable Primary Care Provider Unavailable Encounter Details Date Type Department Care Team Description 05/18/2008 Hospital Encounter [facility] Garima Laureano D.O. [address] [place], [place] [address] (Wo rk) Social History Tobacco Use Types Packs/Day Years Used Date Smoking Tobacco: Never Assessed Sex Assigned at Date Recorded Not on file documented as of this encounter Miscellaneous Notes Telephone Encounter - Conversion, Historical Provider Ser - 05/18/2008 12:00 AM CDT [id number] Lynnette Thompson called and stated that she was to return in For labs,for her thyroid. Could youplease place orders. Thank You! Source: [facility] Document Id: [id number] Telephone Encounter - Graima Laureano D.O. - 05/18/2008 12:00 AM CDT [id number] Orders in for TSH. Would you let patient know. Source: [facility] Document Id: [id number] Telephone Encounter - Conversion, Historical Provider Ser - 05/18/2008 12:00 AM CDT [id number] Patient notified. Source: [facility] RWHXTRANSXRTFSYS Document Id: [id number] documented in this encounter Plan of Treatment Not on filedocumented as of this encounter Visit Diagnoses Not on filedocumented in this encounter
--- OUTSIDE RECORDS SUMMARY | 2022-07-24 09:29 | XMS_ITS | Encounter Summary ---
:1940 Author Organization [facility] Address [address] [place] [address] Care Team Providers Name Role Phone Unavailable Primary Care Provider Unavailable Encounter Details Date Type Department Care Team Description 11/06/2007 Hospital Encounter HX [facility] Garima Laureano D.O. [address] [place], [place] [address] (Wo rk) Social History Tobacco Use Types Packs/Day Years Used Date Smoking Tobacco: Never Assessed Sex Assigned at Date Recorded Not on file documented as of this encounter Miscellaneous Notes Telephone Encounter - Evelyn Moore R.N. - 11/06/2007 12:00 AM CDT [id number] Patient calls requesting refill for Lorazepam. Reviewed Dr. Laureano's note from 09/05/07 recommending atthat time patient have a psych consult and Rx for lorazepam. Patient had refused both at the time. Patient not too interested in a psych consult, but would like Rx for Ativan. Asked patient if anxiety has become worse since August. She informs me that she was better for awhile and now things are not too good. Denies suicidal ideation's. Will forward request to Dr. Laureano and call patient back at her home with recommendations. #[phone] Source: [facility] Document Id: [id number] Telephone Encounter - Garima Laureano D.O. - 11/06/2007 12:00 AM CDT [id number] I can order the Ativan, but I still strongly recommend appointment Dr Jasso in Psychiatry. Would you inform patient. (What pharmacy does she want?) Source: [facility]XTR[facility]XRTFS[facility] Document Id: [id number] Telephone Encounter - Garima Laureano D.O. - 11/06/2007 12:00 AM CDT [id number] stopped in and wants refill at [facility]. Rx faxed. See refill encounter this date. Source: [facility]ITAL[facility] Document Id: [id number] documented in this encounter Plan of Treatment Not on filedocumented as of this encounter Visit Diagnoses Not on filedocumented in this encounter
--- OUTSIDE RECORDS SUMMARY | 2022-07-24 09:29 | XMS_ITS | Encounter Summary ---
:1940 Author Organization [facility] Address [address] [place] [address] Care Team Providers Name Role Phone Unavailable Primary Care Provider Unavailable Encounter Details Date Type Department Care Team Description 01/13/2008 Hospital Encounter HX [facility] Layla Nobles, F.N.P., R.N. [address] [place], [place] [address] (Wo rk) Social History Tobacco Use Types Packs/Day Years Used Date Smoking Tobacco: Never Assessed Sex Assigned at Date Recorded Not on file documented as of this encounter Progress Notes Felipa Nobles, C.N.P., R.N. - 01/13/2008 8:15 AM CDT [id number] Lynnette Thompson is a 67 year old female that is here for IPPE. Patient presents today reporting that she has been depressed and anxious since retiring in August. 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 Has seen Dr. Jasso and Johanne, she was started on Diazepam. Follow-up with Dr. Jasso next week. 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 Balanced, 3 meals daily. May be lacking in fruits. Exercise: No regular regimen MVI: Takes Vitamin B, but not a multi-vitamin Calcium: None Mood: Depressed and anxious. Review of Systems: Consitutional: Fatigue. Negative for weight loss, weight gain, sweats, chills, fevers, malaise, headache, body aches, dizziness, forgetfulness or sleep disturbance Eyes: Positive for glaucoma. Eye exams every 4 months. Glasses. Negative for visual blurring, doublevision, cataracts, eye pain, color blindness, dry eyes, itching, tearing, redness, matting of eyelids or purulent discharge ENT: negative forhayfever, sinus trouble, deafness, tinnitus, vertigo, ear pain, clogged ear, itchy ear canals , epistaxis, rhinorrhea, frequent URI's, persistent sore throat, tonsillitis, bleeding gums, dental problem, hoarseness, snoring, swollen glands or TMJ pain Respiratory: negative for cough, sputum, hemoptysis, pneumonia, asthma, wheezing or dyspnea on exertion Cardiovascular: negative for, palpitations, tachycardia, irregular heart beat, chest pain, exertional chest pain or pressure, dyspnea on exertion, orthopnea or lower extremity edema Gastrointestinal: Positive for hemorrhoids. negative for, poor appetite, dysphagia, nausea, heartburn or reflux, hematemesis, abdominal pain, melena, constipation, diarrhea or gallbladder trouble : Pain with intercourse related to vaginal dryness. Negative for, dysuria, frequency, urgency, hesitancy, hematuria or retention Musculoskeletal: negative for, back pain, neck pain, arthritis/joint pain, muscular weakness or muscle aches, soreness Skin: negative for, rash, scaling, itching, bruising, lumps or bumps, hair changes or nail changes Endocrine: Positive for hypothyroidism in the past. negative for, cold intolerance, heat intoleranceor diabetes Hemotologic: negative for, anemia, bleeding disorder, night sweats or weight loss Allergy/Immunology: negative Neurological: negative for, migraine headaches, syncope, seizures, paralysis, numbness or tingling of hands, numbness or tingling of feet, involuntary movements, tremor, weakness or balance disturbance Psychiatric: positive for worsening depression and anxiety. Physical Exam: Blood pressure 148/82, pulse 76, temperature 96.9 ??F (36.1 ??C), temperature source Tympanic, resp.rate 18, height 5' 4.5 (1.638 m), weight 98 lb 8 oz (44.679 kg), last menstrual period Postmenopausal. Constitutional: Patient is well nourished, alert, oriented and in no acute distress. Depressed mood and Flattend affect. Cooperative and interactive. Eyes: Eyeballs moist and glossy. Conjunctiva clear, sclera white. Extraocular movements and corneal light reflexes intact with PERRLA bilaterally. Fundi are normal, no papilledema, hemorrhages or exudates. No nystagmus. Ears: External canals clear, no redness, swelling, lesions or discharge. Tympanic membranes clear, pearly govea in color bilaterally, light reflex and landmarks intact. Nose: Symmetric and midline. Nares patent bilaterally. Mucosa pink, no discharge, lesions or polyps.No facial or sinus tenderness upon palpation. Mouth: Oral mucous membranes, pharynx and tongue pink and moist, without lesions and exudates. Dentition intact and in good repair. Gag reflex present. Neck: Supple, nontender with full range of motion. Symmetric, without jugular vein distension. Fullness noted around thyroid. NO nodules palpated. Lymph: No pre/post-auricular, occipital, tonsillar, submandibular, submental, cervical, supraclavicular, lymphadenopathy upon palpation. Chest: Atrophied breast tissue. Breasts are symmetric. Skin smooth with even coloration. Breast contour and consistency firm and homogeneous. No skin dimpling or nipple retractions or changes. Palpation reveals no dominant, discrete, fixed or suspicious masses. Self exam is verbally taught, physically demonstrated and encouraged by provider. Cardiac: Regular rate and rhythm. Normal S1 and S2 without any murmur, gallops or rubs. No S3 or S4 noted. No carotid bruits. No edema or cyanosis. Respiratory: Respirations even and unlabored at rest. Good excursion bilaterally. Lungs are clear toauscultation bilaterally both anteriorly and posteriorly. Good air movement bilaterally without rales, wheezes, or rhonchi. Abdomen: Soft and symmetric, without tenderness, guarding, mass or organomegaly. Bowel sounds are present within all four quadrants. No CVA tenderness or inguinal adenopathy noted. Pelvic exam: Atrophied vagina and vulva, normal cervix without lesions or tenderness, adenxa normal in size without tenderness, no palpable internal organs, pap smear done. MSK: Normal spinal curvature. Joints and muscles symmetric, without redness, warmth and tenderness or swelling. Full range of motion without crepitus. No lower extremities edema or calf tenderness. Skin: Warm, dry and smooth with even coloration, no suspicious lesions noted. Skin turgor elastic with rapid reactivity. Neurological:Alert and oriented, no apparent focal deficits., Cranial nerves 2- 12 intact, motor strength intact, reflexes normal, Romberg negative, Finger-Nose test negative, sensation intact, normal gait, intact tandem walk, heel and toe walk GUG: Unsteady gait or any shakiness? no Assessment and Plan: Counseled patient about pneumonia immunization-patient refused administration influenza vaccination-annually in fall hepatitis B vaccine-does not apply screening mammography-please schedule today screening pap-performed today in nic screening pelvic-performed today in clinic colorectal screening-please schedule today. Prep faxed. diabetes screening-return for fasthing labs bone mass screening-does not apply glaucoma screening-every 4 months as scheduled. nutritional needs--recommended addition of multivitamin and calcium supplementation, encouraged daily exercise Mqsui-kjsynq-dx with Dr. Jasso as scheduled. EKG: stable. Source: [facility] Document Id: [id number] Electronically signed by Conversion, [facility] Steam Turbine Assembler [id number] at 01/15/2017 3:24 AM CDT documented in this encounter Miscellaneous Notes Miscellaneous - Conversion, Historical Provider Ser - 01/13/2008 8:15 AM CDT [id number] Lynnette Thompson [address] [place] [id number] January 16, 2008 Dear Lynnette Thompson, I am happy to inform you that your recent cervical cancer screening test (PAP smear) was normal. Preventative screening such as this helps insure your health for years to come. Congratulations for taking care of yourself! Please contact my office if you have any further questions. [phone]. Sincerely, Felipa Negrete [facility] [employer] Source: [facility] Document Id: [id number] documented in this encounter Plan of Treatment Not on filedocumented as of this encounter Visit Diagnoses Not on filedocumented in this encounter
--- OUTSIDE RECORDS SUMMARY | 2022-07-24 09:29 | XMS_ITS | Encounter Summary ---
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
--- OUTSIDE RECORDS SUMMARY | 2022-07-24 09:29 | XMS_ITS | Encounter Summary ---
:1940 Author Organization [facility] Address [address] [place] [address] Care Team Providers Name Role Phone Unavailable [...]
--- OUTSIDE RECORDS SUMMARY | 2022-07-24 09:29 | XMS_ITS | Encounter Summary ---
:1940 Author Organization [facility] Address [address] [place] [address] Care Team Providers Name Role Phone Unavailable Primary Care Provider Unavailable Encounter Details Date Type Department Care Team Description 02/07/2008 Hospital Encounter HX [facility] Provider, Historic al Social History Tobacco Use Types Packs/Day Years Used Date Smoking Tobacco: Never Assessed Sex Assigned at Date Recorded Not on file documented as of this encounter Miscellaneous Notes Miscellaneous - Felipa Nobles C.N.P., R.N. - 02/07/2008 8:15 AM CDT [id number] Quick Note: Result letter has been sent to patient Source: [facility] Document Id: [id number] Miscellaneous - Felipa Nobles C.N.Tamara., R.N. - 02/07/2008 8:15 AM CDT [id number] February 07, 2008 Lynnette Thompson [address] [place] [id number] [id number] Dear Ms. Thompson: I am writing to inform you the results of the laboratory tests you had done during your recent visitto the clinic. The tests that are checked were performed and are satisfactory, unless otherwise noted. The results of your recent lab(s) were: Orders Only on 02/07/2008 Component Date Value Range Status TSH (mU/L) 02/07/2008 9.01* 0.4-5.0 Final CHOLESTEROL (mg/dL) 02/07/2008 204* 0-200 Final Comment: LDL Cholesterol is the primary guide to therapy: LDL-cholesterol goal in high risk patients is <100 mg/dL and in very high risk patients is <70 mg/dL. The NCEP recommends further evaluation of: patients with cholesterol <200 mg/dL if additional risk factors are present, cholesterol >240 mg/dL, triglycerides >150 mg/dL, or HDL <40 mg/dL. TRIGLYCERIDES (mg/dL) 02/07/2008 74 0-150 Final HDL CHOLESTEROL (mg/dL) 02/07/2008 75 50-110 Final LDL CHOLESTEROL, CALCULATED (mg/dL) 02/07/2008 115 0-129 Final VLDL-CALCULATED (mg/dL) 02/07/2008 15 0-30 Final CHOLESTEROL/HDL RATIO 02/07/2008 2.7 0.0-5.0 Final GLUCOSE (mg/dL) 02/07/2008 92 60-99 Final T4, free serum (ng/dL) 02/07/2008 0.94 0.70-1.85 Final You cholesterol is within normal limits. Your thyroid however requires some attention. Please discuss this with your primary provider. It was a pleasure to see you in the clinic. If you have any further questions or problems, please contact our office at [phone]. Sincerely, Felipa Negrete RN REPRESENTATIVE PERSONAL SERVICE [facility] Source: [facility] Document Id: [id number] Electronically signed by Conversion, [facility] Dag Coater [id number] at 01/15/2017 3:24 AM CDT Miscellaneous - Garima Laureano D.OCarlos - 02/07/2008 8:15 AM CDT [id number] Lynnette Thompson [address] [place] [address] [id number] 02/09/2008 Dear Lnynette, I am writing to inform you of the results of the laboratory tests you had performed during your recent visit to the clinic. Your thyroid is now in the underactive range. Please make an appointment so we can discuss treatment. It was a pleasure to see you in the clinic. If you have any further questions or problems, please contact our office at [phone]. Sincerely, Garima Laureano D.O. Family Practice Department [facility] Source: [facility] Document Id: [id number] Electronically signed by Conversion, [facility] Dag Coater [id number] at 01/15/2017 3:24 AM CDT documented in this encounter Plan of Treatment Not on filedocumented as of this encounter Visit Diagnoses Not on filedocumented in this encounter
--- OUTSIDE RECORDS SUMMARY | 2022-07-24 09:29 | XMS_ITS | Encounter Summary ---
:1940 Author Organization [facility] Address [address] [place] [address] Care Team Providers Name Role Phone Unavailable Primary Care Provider Unavailable Encounter Details Date Type Department Care Team Description 07/25/[address] [facility] Provider, Historic al Social History Tobacco Use Types Packs/Day Years Used Date Smoking Tobacco: Never Assessed Sex Assigned at Date Recorded Not on file documented as of this encounter Plan of Treatment Not on filedocumented as of this encounter Visit Diagnoses Not on filedocumented in this encounter
--- OUTSIDE RECORDS SUMMARY | 2022-07-24 09:29 | XMS_ITS | Encounter Summary ---
:1940 Author Organization [facility] Address [address] [place] [address] Care Team Providers Name Role Phone Unavailable Primary Care Provider Unavailable Encounter Details Date Type Department Care Team Description 02/17/2008 Hospital Encounter [facility]ILY[facility] Garima Laureano D.O. [address] [place], [place] [address] (Wo rk) Social History Tobacco Use Types Packs/Day Years Used Date Smoking Tobacco: Never Assessed Sex Assigned at Date Recorded Not on file documented as of this encounter Progress Notes Garima Laureano DFrederic. - 02/17/2008 3:30 PM CDT [id number] Ms. Thompson is a 67 year old female who presents for a follow up regarding Hypothyroidism. Her recent TSH was elevated. TSH 9.01 02/07/08 She has had elevated TSH in past but was quite anxious about taking the medication and eventually stopped. She does have fatigue. She has had stable weight last 3 months but about 8# loss in past year.She asks whether her glaucoma drops could cause her thyroid to be underactive. And asks why her thyro id is underactive when she is so anxious, and if her underactive thyroid is causing the anxiety. . Review of Systems PSYCH: She has had major anxiety problems in past year after she retired and can't seem to calm those. She has been seen by Psych Dr Jasso and I reviewed his most recent note. She is on Lorazepam. Past Medical History Diagnosis Date Depressive Disorder, [...] 2 MG OR TABS 1 TABLET DAILY MIRALAX OR POWD 255 grams- Per Instructions with 4 Bixacodyl tabs as directed BISACODYL 5 MG OR TBEC 4 tabs as directed LUMIGAN 0.03 % OP SOLN one drop each eye once daily LORAZEPAM 0.5 MG OR TABS 1 tablet by mouth twice daily if needed for stress PREPARATION H 0.25-3-14-71.9 % RE OINT apply to hemorrhoids twice daily as needed BRIEF REVIEW OF SYSTEMS: ENT: Denies cold symptoms, sinus congestion, and sore throat. CARDIOVASCULAR: Denies chest pain, dyspnea, orthopnea, paroxysmal nocturnal dyspnea, palpitations, and edema. GASTROINTESTINAL: Denies heartburn, abdominal pain, constipation, and diarrhea. PULMONARY: no wheezing, no shortness of breath, no chronic cough. : negative for dysuria, urgency, frequency. EXAM: Ms. Thompson is alert, lucid, pleasant, and in no distress. Well nourished, good hydration. VITALS: BP 162/90 Pulse 72 Temp (Src) 98.2 ??F (36.8 ??C) (Temporal) Ht 5' 5 (1.651 m) Wt 98 lb (44.453 kg) LMP Postmenopausal NECK: thyroid normal size. PSYCH: normal dress and hygiene. mood normal and affect anxious. good eye contact. ASSESSMENT: Hypothyroid PLAN: 1. Levothyroxine 25 mcg one daily 2. Return in about 2 months (around 04/20/2008) for repeat thyroid blood test. I assured her I did notfeel the glaucoma drops are causing her thyroid problem and that her anxiety was not causing thyroidproblems, nor visa/versa. 3. Return for nurse blood pressure check. 4. She asks if ok to put off her colonoscopy and I advised since she has never had one, I would recommend that she have it. 5. 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 Source: [facility] Document Id: [id number] documented in this encounter Plan of Treatment Not on filedocumented as of this encounter Visit Diagnoses Not on filedocumented in this encounter
--- OUTSIDE RECORDS SUMMARY | 2022-07-24 09:30 | XMS_ITS | Encounter Summary ---
:1940 Author Organization [facility] Address [address] [place] [address] Care Team Providers Name Role Phone Unavailable Primary Care Provider Unavailable Encounter Details Date Type Department Care Team Description 01/25/2007 Hospital Encounter [facility] RW LAB Provider, Historic [place] Social History Tobacco Use Types Packs/Day Years Used Date Smoking Tobacco: Never Assessed Sex Assigned at Date Recorded Not on file documented as of this encounter Plan of Treatment Not on filedocumented as of this encounter Visit Diagnoses Not on filedocumented in this encounter
--- OUTSIDE RECORDS SUMMARY | 2022-07-24 09:30 | XMS_ITS | Encounter Summary ---
:1940 Author Organization [facility] Address [address] [place] [address] Care Team Providers Name Role Phone Unavailable Primary Care Provider Unavailable Encounter Details Date Type Department Care Team Description 06/21/2007 Hospital Encounter [facility] Cindy Balderas M.D. [facility] [place] [address] (Wo rk) Social History Tobacco Use Types Packs/Day Years Used Date Smoking Tobacco: Never Assessed Sex Assigned at Date Recorded Not on file documented as of this encounter Progress Notes Viet Balderas M.D. - 06/21/2007 3:00 PM CST [id number] SUBJECTIVE: Lynnette Thompson 66 year old female who complains of plugged ears, ear pain, facial pressure/pain and nasal congestion of moderate severity persisting for 1 weeks without modifying factors. She denies other contributing symtoms on ROS of eyes, ENT, Resp, CV or GI. Medications reviewed. History Substance Use Topics Tobacco Use: Never Alcohol Use: Yes occasional glass of wine Objective:Blood pressure 130/80, pulse 72, temperature 97.8, temperature source Temporal, weight 102lbs 12.8 oz (46.6 kg), last menstrual period Postmenopausal. The patients general appearance is wellnourished well developed without apparent distress. Patient exhibits stable mood, affect, judgment, insight and orientation during conversation. External ears nose are within normal limits. Normal lipsteeth and gums. Neck is grossly normal without obvious thyroid abnormality. Skin is without cyanosisand of normal color. No focal neurological deficits noted on gross inspection.Eyes with normal lids,conjunctiva, pupils and irises., ENT:Normal external ears and nose . Normal canals and TM's. Normal lips teeth and gums, post nasal drip noted, left TM fluid noted, left maxillary sinus tender and nasal mucosa congested and Chest wall normal to inspection and palpation. Good excursion bilaterally. Lungs clear to auscultation. Good air movement bilaterally without rales, wheezes, or rhonchi. Regular rate and rhythm. S1 and S2 normal, no murmurs, clicks, gallops or rubs. No edema or JVD. ASSESSMENT: Encounter Diagnoses Code Name Primary? Qualifier 461.9 ACUTE SINUSITIS NOS Yes Plan: AZITHROMYCIN 250 MG OR TABS Call or return to clinic prn if these symptoms worsen or fail to improve as anticipated. Source: [facility] RWHXTRANSXRT[facility]YS Document Id: [id number] documented in this encounter Plan of Treatment Not on filedocumented as of this encounter Visit Diagnoses Not on filedocumented in this encounter
--- OUTSIDE RECORDS SUMMARY | 2022-07-24 09:30 | XMS_ITS | Encounter Summary ---
:1940 Author Organization [facility] Address [address] [place] [address] Care Team Providers Name Role Phone Unavailable Primary Care Provider Unavailable Encounter Details Date Type Department Care Team Description 07/02/2007 Hospital Encounter HX [facility] Cindy Balderas M.D. [address] [place] [phone] (Wo rk) Social History Tobacco Use Types Packs/Day Years Used Date Smoking Tobacco: Never Assessed Sex Assigned at Date Recorded Not on file documented as of this encounter Miscellaneous Notes Telephone Encounter - Conversion, Historical Provider Ser - 07/02/2007 12:00 AM CST [id number] Please call lynnette regarding her TSH results she had done in [facility]-the results have been scanned in. [phone] simeon mujica Source: [facility] Document Id: [id number] Telephone Encounter - Viet Balderas M.D. - 07/02/2007 12:00 AM CST [id number] Called patient. She will continue on her 25 mcg dose ans f/u in 1-2 months for recheck of TSH. Source: [facility] Document Id: [id number] Electronically signed by Conversion, [facility] Vocational Instructor [id number] at 01/15/2017 10:01 AM CDT documented in this encounter Plan of Treatment Not on filedocumented as of this encounter Visit Diagnoses Not on filedocumented in this encounter
--- OUTSIDE RECORDS SUMMARY | 2022-07-24 09:30 | XMS_ITS | Encounter Summary ---
:1940 Author Organization [facility] Address [address] [place] [address] Care Team Providers Name Role Phone Unavailable Primary Care Provider Unavailable Encounter Details Date Type Department Care Team Description 07/11/2007 Hospital Encounter [facility] Cindy Balderas M.D. [address] [place] [phone] (Wo rk) Social History Tobacco Use Types Packs/Day Years Used Date Smoking Tobacco: Never Assessed Sex Assigned at Date Recorded Not on file documented as of this encounter Miscellaneous Notes Telephone Encounter - Viet Balderas M.D. - 07/11/2007 12:00 AM CST [id number] I spoke with Lynnette today. We changed her Thyroxine dose 2 weeks ago and she is still having some symptoms and is wondering when we should recheck this. I told her that it woruld reach a steady state 4-6 weeks after the dose change but she should see gradual improvement in symptoms. She will f/u if symptoms persist or in 2-4 more weeks for recheck of TSH. Source: [facility]XTR[facility]XRT[facility] Document Id: [id number] Electronically signed by Conversion, [facility] Insurance Manager [id number] at 01/15/2017 10:01 AM CDT documented in this encounter Plan of Treatment Not on filedocumented as of this encounter Visit Diagnoses Not on filedocumented in this encounter
--- OUTSIDE RECORDS SUMMARY | 2022-07-24 09:30 | XMS_ITS | Encounter Summary ---
:1940 Author Organization [facility] Address [address] [place] [address] Care Team Providers Name Role Phone Unavailable Primary Care Provider Unavailable Encounter Details Date Type Department Care Team Description 02/18/2007 Hospital Encounter [facility]X [facility] Garima Laureano D.O. [address] [place], [place] [address] (Wo rk) Social History Tobacco Use Types Packs/Day Years Used Date Smoking Tobacco: Never Assessed Sex Assigned at Date Recorded Not on file documented as of this encounter Miscellaneous Notes Miscellaneous - Garima Laureano D.O. - 02/18/2007 12:00 AM CDT [id number] Lynnette Thompson [address] [place] [phone] [id number] 03/12/2007 Dear Ms. Thompson, I am writing to answer questions in your recent letter. Your thyroid is mildly underactive: Your TSH (thyroid stimulating hormone) was 7.13 normal range: 0.34-4.82 When this TSH is high, it means your pituitary gland is trying to stimulate your thyroid to produce more of the thyroid hormone. Your T4 (actual thyroid hormone) was 1.17 (Normal range 0.7-1.85) Your actual thyroid hormone is in the normal range because the pituitary gland is producing more of the TSH (thyroid stimulating hormone) to try to stimulate your thyroid to make more hormone. This canlead to a goiter, unless you can take the medication to balance your thyroid. The medication replenishes the hormone that your thyroid is not making. You are on a fairly low dose of medication: some people do have initial feelings of being jittery when they first start medication. This usually passes in days to a week or 2. You can break your thyroid tablet in half and just take a 1/2 tab daily and see if you tolerate that better. Regarding which of your symptoms the medication will help: I expect the medication to help the fatigue and weakness in time but need to be patient as may take a couple weeks. Regarding the side effects of the medication you have read about: I can tell you from many years ofexperience that the majority of patients tolerate their thyroid pills very well. There will always be side effects of medications for some people. The side effects of nervousness and insomnia are due to being on too much thyroid medication. To prevent ever getting too much medication, we recommend periodic thyroid blood tests when on medcation (2 to 3 times the 1st year then yearly after that). I do not think your symptoms of nervousness and insomnia can all be blamed on your thyroid. Some ofyour symptoms are due to anxiety. The nervousness and insomnia may improve once your thyroid is in balance, and especially they may improve as your fatigue improves. If the nervousness and insomnia continue, then we really need to have you reconsider seeing someone in our Psychology Clinic. As you have found, the nervousness and insomnia can make you veryweak and fatigued. If you have any further questions, please make an appointment to discuss with me, or if you prefer,I can refer you to someone for a 2nd opinion. Sincerely, Garima Laureano D.O. Family Practice Department [facility] Source: [facility] Document Id: [id number] Electronically signed by [facility], [facility] Bus Girl [id number] at 01/15/2017 6:20 AM CDT Telephone Encounter - Conversion, Historical Provider Ser - 02/18/2007 12:00 AM CDT [id number] Lynnette Thompson calls and has questions about her thyroid med. She wants to know by how much underactive her thyroid was and if this will now strenghten out her 'anxious and nervous attacks'? Source: [facility] Document Id: [id number] Telephone Encounter - Garima Laureano D.O. - 02/18/2007 12:00 AM CDT [id number] Letter sent. Source: [facility] RWHXTRANSXRTFSYS Document Id: [id number] documented in this encounter Plan of Treatment Not on filedocumented as of this encounter Visit Diagnoses Not on filedocumented in this encounter
--- OUTSIDE RECORDS SUMMARY | 2022-07-24 09:30 | XMS_ITS | Encounter Summary ---
:1940 Author Organization [facility] Address [address] [place] [address] Care Team Providers Name Role Phone Unavailable Primary Care Provider Unavailable Encounter Details Date Type Department Care Team Description 10/23/2006 Hospital Encounter [facility]X [facility] Joseph Chris M.D. [address] [place], [place] [phone] (Wo rk) Social History Tobacco Use Types Packs/Day Years Used Date Smoking Tobacco: Never Assessed Sex Assigned at Date Recorded Not on file documented as of this encounter Miscellaneous Notes Miscellaneous - Conversion, Historical Provider Ser - 10/23/2006 12:00 AM CDT [id number] October 19, 2006 Emmanuel Marin O[address] [place] [address] RE: Lynnette Thompson EMR# [id number] : 1940 Dear Emmanuel: I saw Lynnette Thompson in followup on October 18, 2006. If you recall, we switched her from Xalatan to timolol 0.5% gel foamy solution 1 drop in both eyes in the morning. She reported that her anxiety levels had decreased with the change in medication. Her visual acuity remained stable at 20/25 in the right eye and 20/30 in the left eye. Her intraocular pressure measured 22, right eye, and 20 left eye at 3:15 in the afternoon. Lynnette has had a reasonable pressure response to timolol. In addition, appears to be experiencing less anxiety. I suggested that she continue with the timolol and see you in about 3 months for a pressure check. I appreciate you involving me in her care. If you have any questions or would like me to see her in the future, I would be more than happy to do so. Sincerely, Ramon Restrepo M.D. Department of Ophthalmology [facility] Source: [facility] RWHXTRANSXRTFSYS Document Id: [id number] documented in this encounter Plan of Treatment Not on filedocumented as of this encounter Visit Diagnoses Not on filedocumented in this encounter
--- OUTSIDE RECORDS SUMMARY | 2022-07-24 09:30 | XMS_ITS | Encounter Summary ---
:1940 Author Organization [facility] Address [address] [place] [address] Care Team Providers Name Role Phone Unavailable Primary Care Provider Unavailable Encounter Details Date Type Department Care Team Description 05/09/2007 Hospital Encounter HX [facility] Joseph Chris M.D. [address] [place], [place] [phone] (Wo rk) Social History Tobacco Use Types Packs/Day Years Used Date Smoking Tobacco: Never Assessed Sex Assigned at Date Recorded Not on file documented as of this encounter Miscellaneous Notes Telephone Encounter - Conversion, Historical Provider Ser - 05/09/2007 12:00 AM CDT [id number] Accepting this RX, will fax it directly to the selected pharmacy. Source: [facility] Document Id: [id number] documented in this encounter Plan of Treatment Not on filedocumented as of this encounter Visit Diagnoses Not on filedocumented in this encounter
--- OUTSIDE RECORDS SUMMARY | 2022-07-24 09:30 | XMS_ITS | Encounter Summary ---
:1940 Author Organization [facility] Address [address] [place] [address] Care Team Providers Name Role Phone Unavailable Primary Care Provider Unavailable Encounter Details Date Type Department Care Team Description 01/29/2007 Hospital Encounter HX [facility] Garima Laureano D.OCarlos [address] [employer], [place] [address] (Wo rk) Social History Tobacco Use Types Packs/Day Years Used Date Smoking Tobacco: Never Assessed Sex Assigned at Date Recorded Not on file documented as of this encounter Miscellaneous Notes Miscellaneous - Garima Laureano D.O. - 01/29/2007 12:00 AM CDT [id number] Lynnette Thompson [address] [place] [phone] [id number] 01/29/2007 Dear Ms. Thompson, I am writing to inform you of the results of the laboratory tests you had performed during your recent visit to the clinic. Your blood count is normal with no sign of anemia. Your Vitamin B12 level is normal. The following tests were normal: sodium, potassium, kidney function, liver function, calcium and glucose(sugar). Your protein(albumin) level was a little high: Protein =8.4 (normal 6-8.2) Albumin=5.2 (normal 3.2-4.5) We would need further tests (blood tests and a 24hr urine collection to be tested for protein) and avisit with one of our Internists to see if this was anything to be concerned about. Your thyroid test shows your thyroid is mildly underactive. This means your thyroid gland is not making enough of the thyroid hormone. I recommend you start a low dose thyroid medication which will give you the additional thyroid hormone. I'll enclose a prescription. After you have been on this for 3 months, we'll check your thyroid blood test(TSH) again. It was a pleasure to see you in the clinic. If you have any further questions or problems, please contact our office at [phone]. Sincerely, Garima Laureano D.O. Family Practice Department [facility] Source: [facility]XTRANSXRTF[facility] Document Id: [id number] Electronically signed by Conversion, [facility] Customs Manager [id number] at 01/15/2017 7:16 AM CDT Telephone Encounter - Garima Laureano D.O. - 01/29/2007 12:00 AM CDT [id number] Attempted to call, no answer. Letter sent. Source: [facility]XTR[facility]XRTFS[facility] Document Id: [id number] Electronically signed by Conversion, [facility] Customs Manager [id number] at 01/15/2017 7:16 AM CDT documented in this encounter Plan of Treatment Not on filedocumented as of this encounter Visit Diagnoses Not on filedocumented in this encounter
--- OUTSIDE RECORDS SUMMARY | 2022-07-24 09:30 | XMS_ITS | Encounter Summary ---
:1940 Author Organization [facility] Address [address] [place] [address] Care Team Providers Name Role Phone Unavailable Primary Care Provider Unavailable Encounter Details Date Type Department Care Team Description 07/22/2007 [facility] Garima Laureano D.OCarlos [address] [place], [place] [address] (Wo rk) Social History Tobacco Use Types Packs/Day Years Used Date Smoking Tobacco: Never Assessed Sex Assigned at Date Recorded Not on file documented as of this encounter Miscellaneous Notes Telephone Encounter - Conversion, Historical Provider Ser - 07/22/2007 12:00 AM CST [id number] Please call pt in regards to questions about thyroid meds/labs. [phone] [address]: [facility] Document Id: [id number] Telephone Encounter - Garima Laureano D.O. - 07/22/2007 12:00 AM CST [id number] Please call and see what patient needs. Source: [facility]RT[facility] Document Id: [id number] Electronically signed by Conversion, [facility] Media Supervisor [id number] at 01/15/2017 5:46 AM CDT Telephone Encounter - Evelyn Moore R.N. - 07/22/2007 12:00 AM CST [id number] Called patient, she states that she has lowered her dose of the Levothyroxine from 50mcg to 25mcg on06/26/07 as instructed. She continues to have the same symptoms of insomnia, nervousness, feels likeher heart races. She would like to stop taking the Levothyroxine. Please advise. Source: [facility] Document Id: [id number] Electronically signed by Conversion, [facility] Media Supervisor [id number] at 01/15/2017 5:46 AM CDT Telephone Encounter - Garima Laureano D.O. - 07/22/2007 12:00 AM CST [id number] Attempted to call. Not available. Source: [facility] Document Id: [id number] Electronically signed by Conversion, [facility] Media Supervisor [id number] at 01/15/2017 5:46 AM CDT Telephone Encounter - Garima Laureano D.O. - 07/22/2007 12:00 AM CST [id number] I spoke with patient regarding symptoms below. I advised get a TSH first. She says she will come in . Orders in. Source: [facility] SYSTEMRANSXRDealCircle Document Id: [id number] Electronically signed by Conversion, [facility] Media Supervisor [id number] at 01/15/2017 5:46 AM CDT documented in this encounter Plan of Treatment Not on filedocumented as of this encounter Visit Diagnoses Not on filedocumented in this encounter
--- OUTSIDE RECORDS SUMMARY | 2022-07-24 09:30 | XMS_ITS | Encounter Summary ---
:1940 Author Organization [facility] Address [address] [place] [address] Care Team Providers Name Role Phone Unavailable Primary Care Provider Unavailable Encounter Details Date Type Department Care Team Description 01/24/2007 [facility] [address] [place], [place] [address] (Wo rk) Social History Tobacco Use Types Packs/Day Years Used Date Smoking Tobacco: Never Assessed Sex Assigned at Date Recorded Not on file documented as of this encounter Miscellaneous Notes Telephone Encounter - Evelyn Moore R.N. - 01/24/2007 12:00 AM CDT [id number] Patient calls stating that she checked on prices for the blood work that you suggested she have done, including CBC, chem, Vit. B 12, HgA1C...and so on. Since she is paying out of pocket for all labs she is wondering if she could have the most important done now and forego the rest until later? Source: [facility] Document Id: [id number] Electronically signed by Conversion, [facility] Fiction And Nonfiction Author [id number] at 01/15/2017 7:16 AM CDT Telephone Encounter - Garima Laureano D.O. - 01/24/2007 12:00 AM CDT [id number] The only one I would recommend could wait until later would be the lipid. Source: [facility] Document Id: [id number] Electronically signed by Conversion, [facility] Fiction And Nonfiction Author [id number] at 01/15/2017 7:16 AM CDT Telephone Encounter - Evelyn Moore R.N. - 01/24/2007 12:00 AM CDT [id number] Message left at patients home. Source: [facility] RWHXTRANSXRTFSYS Document Id: [id number] Electronically signed by Conversion, [facility] Fiction And Nonfiction Author [id number] at 01/15/2017 7:16 AM CDT documented in this encounter Plan of Treatment Not on filedocumented as of this encounter Visit Diagnoses Not on filedocumented in this encounter
--- OUTSIDE RECORDS SUMMARY | 2022-07-24 09:30 | XMS_ITS | Encounter Summary ---
:1940 Author Organization [facility] Address [address] [place] [address] Care Team Providers Name Role Phone Unavailable Primary Care Provider Unavailable Encounter Details Date Type Department Care Team Description 06/26/2007 Hospital Encounter HX [facility] Garima Laureano D.O. [address] [place], [place] [address] (Wo rk) Social History Tobacco Use Types Packs/Day Years Used Date Smoking Tobacco: Never Assessed Sex Assigned at Date Recorded Not on file documented as of this encounter Miscellaneous Notes Telephone Encounter - Garima Laureano D.O. - 06/26/2007 12:00 AM CST [id number] Attempted to call, no answer. Will try again later. TSH drawn at [facility] is 0.01 Source: [facility] Document Id: [id number] Electronically signed by Conversion, [facility] Gut Dropper [id number] at 01/15/2017 10:01 AM CDT Telephone Encounter - Garima Laureano D.O. - 06/26/2007 12:00 AM CST [id number] I spoke with patient regarding TSH low at 0.01. Lab was faxed here from [facility]. She will decrease her Levothyroxine to 25 mcg daily and recheck TSH in 2 months. Source: [facility] Document Id: [id number] documented in this encounter Plan of Treatment Not on filedocumented as of this encounter Visit Diagnoses Not on filedocumented in this encounter
--- OUTSIDE RECORDS SUMMARY | 2022-07-24 09:30 | XMS_ITS | Encounter Summary ---
:1940 Author Organization [facility] Address [address] [place] [address] Care Team Providers Name Role Phone Unavailable Primary Care Provider Unavailable Encounter Details Date Type Department Care Team Description 10/18/2006 Hospital Encounter HX NO MAPPING Martin Restrepo M.D. [address] [place] [address] [phone] (Wo rk) Social History Tobacco Use Types Packs/Day Years Used Date Smoking Tobacco: Never Assessed Sex Assigned at Date Recorded Not on file documented as of this encounter Miscellaneous Notes Miscellaneous - Ramon Restrepo M.D. - 10/18/2006 2:45 PM CST [id number] CLINIC ENCOUNTER HISTORY OF PRESENT ILLNESS: Lynnette feels like her anxiety levels have lessened since she discontinued the Xalatan and started on timolol XE daily. There has been no change in vision. OBJECTIVE: SLIT LAMP EXAMINATION BOTH EYES: Conjunctivae/sclerae quiet. Corneas clear. Chambers deep and quiet. IOPs (intraocular pressures) noted above. IMPRESSION: Open-angle glaucoma better IOP (intraocular pressure) control on timolol versus Xalatan. In addition, her anxiety level has decreased. PLAN: Would recommend continuing with timolol 0.5% gel-forming solution every morning. She should see Dr. Marin in three months for a pressure check and should have annual visual granados. Monica Case cc: [facility]: [facility] Document Id: [id number] documented in this encounter Plan of Treatment Not on filedocumented as of this encounter Visit Diagnoses Not on filedocumented in this encounter
--- OUTSIDE RECORDS SUMMARY | 2022-07-24 09:30 | XMS_ITS | Encounter Summary ---
:1940 Author Organization [facility] Address [address] [place] [address] Care Team Providers Name Role Phone Unavailable Primary Care Provider Unavailable Encounter Details Date Type Department Care Team Description 01/24/2007 Hospital Encounter HX [facility] Garima Laureano D.O. [address] [place], [place] [address] (Wo rk) Social History Tobacco Use Types Packs/Day Years Used Date Smoking Tobacco: Never Assessed Sex Assigned at Date Recorded Not on file documented as of this encounter Progress Notes Garima Laureano D.O. - 01/24/2007 10:30 AM CDT [id number] Ms. Thompson is a 66 year old female who presents regarding left ear hissing and feeling overly fatigued for several months. Regarding ear problem: she describes a hissing not ringing sound left ear which has come on over 3to 4 months. She has not noted decline in hearing. No associated dizziness or vertigo. No sore throat or ear ache. No sinus congestion. The hissing sound is now continuous. She reports some soreness back of tongue. Regarding fatigue: says feels exhausted all the time, even after a good night sleep. She usually is asleep at 10:30PM and up at 6AM. When asked if her anxiety/depression was bothering, she says I don't know. She has had anxiety and depression in past and needed Pysch hospitalizations in 1968. Her Dad has pernicious anemia and is worried maybe she does too. Last Hgb: HGB 14.5 06/19/2002. Reports eats well although flow sheet shows 8# weight loss over past 2 years. No recurrent illnesses. Review of Systems GI: appetite good. No bowel trouble. No pain. : no post menopaual bleeding. Last pap normal in 2001. Declines update. Wants to wait until she callum Medicare. Past Medical History Diagnosis Date DEPRESSIVE DISORDER NEC 1968 mental illness-hospitalized 2-3 weeks SYMPTOMATIC FEMALE CLIMACTERIC STATE estrogen 1996 to 1999. GLAUCOMA NEC Past Surgical History Procedure Date Biopsy of uterus lining 1995 proliferative type endometrium with glandular and stromal breakdown(anovulatory cycle) Social History: History Substance Use Topics Tobacco Use: Never Alcohol Use: Yes occasional glass of wine Current outpatient prescriptions Medication Sig XALATAN 0.005 % OP SOLN one drop in each eye at bedtime EXAM: Ms. Thompson is alert, lucid, pleasant, and in no distress. Well nourished, good hydration. VITALS: BP 142/90 Pulse 76 Temp (Src) 98.7 (Temporal) Wt 106 lbs (48.1kg) LMP Postmenopausal ENT: throat clear of inflammation, nasal mucosa not inflammed, ears show clear TMs and canals. No enlarged cervical or submandibular nodes. NECK: thyroid palpates normally. No lymphadenopathy. LUNGS: Normal respiratory effort and auscultation reveals lungs to be clear. HEART: regular rhythm with controlled rate. No murmur is present. Lower extremity edema is not present. PSYCH: normal dress and hygiene. mood is mildly depressed and anxious. affect mildly flat. Wrings hands frequently. normal thought content. ASSESSMENT: 1. Hissing sound left ear 2. Anxiety 3. Fatigue PLAN: 1. Advised for hissing sound: see Audiology and ENT. 2. To work up fatigue and exhaustion: CBC, Comprehensive metabolic panel, Lipids, TSh, Vitamin B12 and folate. 3. Advised see Tracie Olivera NP in Psych for anxiety/depression. 4. She reports she has high insurance deductable and wants to know how much each of the above costs and will discuss with . Our office manager receptionist called the [employer] office and wrote down prices for her. Lynnette will discuss with and get back to us. Source: [facility] RWHXTRANSXRTFSYS Document Id: [id number] Electronically signed by Conversion, [facility] Director Of Child Welfare Services [id number] at 01/15/2017 7:16 AM CDT documented in this encounter Plan of Treatment Not on filedocumented as of this encounter Visit Diagnoses Not on filedocumented in this encounter
--- OUTSIDE RECORDS SUMMARY | 2022-07-24 09:31 | XMS_ITS | Encounter Summary ---
:1940 Author Organization [facility] Address [address] [place] [address] Care Team Providers Name Role Phone Unavailable Primary Care Provider Unavailable Encounter Details Date Type Department Care Team Description 06/19/[address] [facility] Provider, Historic al Social History Tobacco Use Types Packs/Day Years Used Date Smoking Tobacco: Never Assessed Sex Assigned at Date Recorded Not on file documented as of this encounter Miscellaneous Notes Miscellaneous - Garima Laureano D.O. - 06/19/2002 9:00 AM CST [id number] Lynnette Thompson [address] [place] [phone] [id number] 07/06/2002 Dear Ms. Thompson, I am writing to inform you of the results of the laboratory tests you had performed during your recent visit to the clinic. Your blood count is normal with no sign of anemia. Your Vitamin B12 level is normal. Your test for diabetes is normal. Your cholesterol tests were: normal. CHOL 199 06/19/2002 TRIG 48 06/19/2002 HDL 88 06/19/2002 LDL 101 06/19/2002 Normal values for cholesterol: less than 200; for triglyceride: less than 200; for HDL(good cholesterol): greater than 35; for LDL (bad cholesterol): less than 130 and ideally less than 100. I think the soy supplement is okay to take since it is helping your hot flashes. Soy supplements have not at this time been linked to breast cancer. It was a pleasure to see you in the clinic. If you have any further questions or problems, please contact our office at [phone]. Sincerely, Garima Laureano D.O. Family Practice Department [facility] Source: [facility] RWHXTRANSXRTFSYS Document Id: [id number] Electronically signed by Conversion, [facility] Or Delivery Clerk [id number] at 01/15/2017 8:23 PM CDT documented in this encounter Plan of Treatment Not on filedocumented as of this encounter Visit Diagnoses Not on filedocumented in this encounter
--- OUTSIDE RECORDS SUMMARY | 2022-07-24 09:31 | XMS_ITS | Encounter Summary ---
:1940 Author Organization [facility] Address [address] [place] [address] Care Team Providers Name Role Phone Unavailable Primary Care Provider Unavailable Encounter Details Date Type Department Care Team Description 07/30/2001 Hospital Encounter HX NO MAPPING Provider, Historical Social History Tobacco Use Types Packs/Day Years Used Date Smoking Tobacco: Never Assessed Sex Assigned at Date Recorded Not on file documented as of this encounter Plan of Treatment Not on filedocumented as of this encounter Visit Diagnoses Not on filedocumented in this encounter
--- OUTSIDE RECORDS SUMMARY | 2022-07-24 09:31 | XMS_ITS | Encounter Summary ---
:1940 Author Organization [facility] Address [address] [place] [address] Care Team Providers Name Role Phone Unavailable Primary Care Provider Unavailable Encounter Details Date Type Department Care Team Description 05/10/2006 Hospital Encounter HX [facility] Garima Laureano D.O. [address] [place], [place] [address] (Wo rk) Social History Tobacco Use Types Packs/Day Years Used Date Smoking Tobacco: Never Assessed Sex Assigned at Date Recorded Not on file documented as of this encounter Miscellaneous Notes Telephone Encounter - Garima Laureano D.O. - 05/10/2006 12:00 AM CDT [id number] I spoke with patient regarding concerns with first dose Effexor. She said she was up twice during the night with diarrhea, and was so nervous that she hardly slept, and felt awful the next day. (this was the 37.5 mg tab). She likes the Klonazepam and wants to use just that. I advised giving the Effexor another try as symptoms may be from her anxiety, not the medication, but she declines. I advised seeing Tracie Olivera NP in Psych but she declines, saying she will see how her anxiety does. I'll put Psych order in just in case she decides to follow up with my recommendation. Source: [facility] Document Id: [id number] documented in this encounter Plan of Treatment Not on filedocumented as of this encounter Visit Diagnoses Not on filedocumented in this encounter
--- OUTSIDE RECORDS SUMMARY | 2022-07-24 09:31 | XMS_ITS | Encounter Summary ---
:1940 Author Organization [facility] Address [address] [place] [address] Care Team Providers Name Role Phone Unavailable Primary Care Provider Unavailable Encounter Details Date Type Department Care Team Description 11/03/2005 Hospital Encounter HX [facility] Garima Laureano D.O. [address] [place], [place] [address] (Wo rk) Social History Tobacco Use Types Packs/Day Years Used Date Smoking Tobacco: Never Assessed Sex Assigned at Date Recorded Not on file documented as of this encounter Miscellaneous Notes Telephone Encounter - Conversion, Historical Provider Ser - 11/03/2005 12:00 AM CST [id number] Pt calls asking for abx (zithromax) for sinus infection. She states that she typically gets 2 per year. Could you please address in pcp abscence? Pt can be reached [phone] Uses [facility] Source: [facility] Document Id: [id number] documented in this encounter Plan of Treatment Not on filedocumented as of this encounter Visit Diagnoses Not on filedocumented in this encounter
--- OUTSIDE RECORDS SUMMARY | 2022-07-24 09:31 | XMS_ITS | Encounter Summary ---
:1940 Author Organization [facility] Address [address] [place] [address] Care Team Providers Name Role Phone Unavailable Primary Care Provider Unavailable Encounter Details Date Type Department Care Team Description 07/26/2001 Hospital Encounter [facility]X [facility] Garima Laureano D.O. [address] [place], [place] [address] (Wo rk) Social History Tobacco Use Types Packs/Day Years Used Date Smoking Tobacco: Never Assessed Sex Assigned at Date Recorded Not on file documented as of this encounter Progress Notes Conversion, Historical Provider Ser - 07/26/2001 4:10 PM CST [id number] Ms. Thompson is a 60 year old female who presents with complaint of sinus pressure and congestion. There is an associated cough which is non-productive. Lynnette denies wheezing, dyspnea or fever. There have been associated symptoms of: lack of energy and runny nose. PAST MEDICAL HISTORY: DEPRESSIVE DIS ORDER NEC 1968 Comment: mental illness-hospitalized 2-3 weeks FEM [facility]ON[facility] CLIMACTERIC STATE PAST SURGICAL HISTORY: BIOPSY OF UTERUS LINING 1995 Comment: proliferative ty pe endometrium with glandular and stromal breakdown(anovulatory cycle)MEDICATIONS: no neEXAM:Alert, lucid, without distress. Hydration is good.VITALS: BP 120/80 Pulse 80 Temp 97 .5 Temp Src: Tympanic Wt 116 lbs 8 oz (52.844 kg) LMP PostmenopausalEYES: clear scleraEARS: T ympanic membranes are normal, minimal middle ear fluid.NOSE: Mucosa erythematous and nasal drainage is white. THROAT: Post pharynx is not inflammed without post nasal drainage. Tonsils present and are not enlarged, without exudate.NECK: Supple, with swollen right submandibular lymph nodes.LUNGS: No rmal respiratory effort. Ant/post auscultation reveals Clear.HEART: regular rhythm, without murmur, and without extra beats.EXTREMETIES: without edema.ASSESSMENT:SinusitisPLAN:Zithromax 250 mg. 2 today, then 1 daily for 4 days. Follow up as needed. Lynnette had questions about hot flashes and I s uggested low dose estrogen(0.3 mg) because she is concerned about breast cancer in the family(would n eed progesterone too), mentioned other options. But needs physical, pap, mammo first and Lynnette under stands this. Source: [facility] RWHXTRANSXSYS Document Id: [id number] documented in this encounter Plan of Treatment Not on filedocumented as of this encounter Visit Diagnoses Not on filedocumented in this encounter
--- OUTSIDE RECORDS SUMMARY | 2022-07-24 09:31 | XMS_ITS | Encounter Summary ---
:1940 Author Organization [facility] Address [address] [place] [address] Care Team Providers Name Role Phone Unavailable Primary Care Provider Unavailable Encounter Details Date Type Department Care Team Description 11/25/2002 Hospital Encounter HX [facility] Garima Laureano D.O. [address] [place], [place] [address] (Wo rk) Social History Tobacco Use Types Packs/Day Years Used Date Smoking Tobacco: Never Assessed Sex Assigned at Date Recorded Not on file documented as of this encounter Miscellaneous Notes Telephone Encounter - Conversion, Historical Provider Ser - 11/25/2002 12:00 AM CDT [id number] >> GARIMA Marte Nov 25, 2002 1:45 PM >> CALL RECEIVED. Contact: Did well last time on Zpak for sinusitis and symptoms have returned. Repeat Zpac and come in if not improving. Source: [facility] Document Id: [id number] documented in this encounter Plan of Treatment Not on filedocumented as of this encounter Visit Diagnoses Not on filedocumented in this encounter
--- OUTSIDE RECORDS SUMMARY | 2022-07-24 09:31 | XMS_ITS | Encounter Summary ---
:1940 Author Organization [facility] Address [address] [place] [address] Care Team Providers Name Role Phone Unavailable Primary Care Provider Unavailable Encounter Details Date Type Department Care Team Description 05/03/2006 Hospital Encounter HX [facility] Garima Laureano D.O. [address] [place], [place] [address] (Wo rk) Social History Tobacco Use Types Packs/Day Years Used Date Smoking Tobacco: Never Assessed Sex Assigned at Date Recorded Not on file documented as of this encounter Progress Notes Garima Laureano DFrederic. - 05/03/2006 2:00 PM CDT [id number] Ms. Thompson is a 65 year old female who presents regarding Anxiety and depression. She has experiencedsadness, tearfulness, insomnia, fatigue, decreased euthusiasm, decreased interest, and difficulty making decisions. This has been occurring for the past several weeks. Lynnette has a past history of depression requiring hospitalization in 1968 and was also on depression medication in 1989 for awhile. Since then she has used periodic lorazepam if needed for anxiety. Patient is not currently not having suicidal ideation. She feels stress has triggered this increase in depression. Review of Systems CV: has had anxiety associated palpitations. No chest pain or dyspnea. GI: a little anxiety related upset stomach. negative for nausea, vomiting, abdominal pain and diarrhea. Weight down 3# from last year. Past Medical History Diagnosis Date DEPRESSIVE DISORDER NEC 1968 mental illness-hospitalized 2-3 weeks SYMPTOMATIC FEMALE CLIMACTERIC STATE estrogen 1996 to 1999. GLAUCOMA NEC Past Surgical History Procedure Date Biopsy of uterus lining 1995 proliferative type endometrium with glandular and stromal breakdown(anovulatory cycle) History Substance Use Topics Tobacco Use: Never Alcohol Use: Yes occasional glass of wine OBJECTIVE: Alert, lucid, no distress, well nourished and well hydrated. VITALS: Blood pressure 132/82, pulse 80, temperature 98.1, temperature source Temporal, height 5' 5.5 (1.66 m), weight 111 lbs (50.3 kg), last menstrual period Postmenopausal. CARDIOVASCULAR: regular rate and rhythm, without murmur, no extra beats. PULMONARY: normal respiratory effort, lung granados clear anterior and posterior. PSYCH: normal dress and hygiene. mood mildly depressed/tearful/anxious and affect mildly flattened. good eye contact. Good eye contact. Normal thought content. ASSESSMENT: Depression with Anxiety PLAN: 1. Discussed therapy with both medication and counseling. Lynnette is willing to try medication and says she can get counseling thru an assistance program at work. 2. Trial of Effexor XR 37.5mg daily for 4 to 5 weeks. Discussed side effects. Clonazepam 0.5mg (see medication list) for prn use for anxiety attacks. 3. Recheck 4 weeks. 4. Encouraged to return for preventive exam, pap, mammogram, Colonoscopy. Source: [facility] Document Id: [id number] Electronically signed by Conversion, [facility] Decorator Hand [id number] at 01/15/2017 3:07 PM CDT documented in this encounter Miscellaneous Notes Miscellaneous - Garima Laureano D.O. - 05/03/2006 2:00 PM CDT [id number] Lynnette Thompson [address] [place] [phone] 05/03/2006 To Whom It May Concern: I recommend Ms. Thompson not participate in jury duty for an indefinate time due to medical reasons. If you have any further questions, please contact our office at [phone]. Sincerely, Garima Laureano D.O. Family Practice Department [facility] Source: [facility] Document Id: [id number] Electronically signed by Conversion [facility] Decorator Hand [id number] at 01/15/2017 3:07 PM CDT documented in this encounter Plan of Treatment Not on filedocumented as of this encounter Visit Diagnoses Not on filedocumented in this encounter
--- OUTSIDE RECORDS SUMMARY | 2022-07-24 09:31 | XMS_ITS | Encounter Summary ---
:1940 Author Organization [facility] Address [address] [place] [address] Care Team Providers Name Role Phone Unavailable Primary Care Provider Unavailable Encounter Details Date Type Department Care Team Description 04/10/2002 Hospital Encounter [facility] Garima Laureano D.OCarlos [address] [place], [place] [address] (Wo rk) Social History Tobacco Use Types Packs/Day Years Used Date Smoking Tobacco: Never Assessed Sex Assigned at Date Recorded Not on file documented as of this encounter Progress Notes Conversion, Historical Provider Ser - 04/10/2002 9:30 AM CDT [id number] Ms. Thompson is a 61 year old female who presents today for a annual physical. She presents without complaint. Review of patient's past medical history indicates: DEPRESSIVE DISORDER NEC 1968 Comment: mental illness-hospitalized 2-3 weeks FEMALE CLIMACTERIC STAT E Comment: estrogen 1996 to 1999. 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 does wear corrective lenses . Denies blurred vision, visual loss or eye pain.ENT: Arian ear pain, sinus congestion, recurrent in fections, frequent sore throat, hoarseness. Hears adequate.CARDIOVASCULAR: Denies chest pain, orthop alma rosa, paroxysmal nocturnal dyspnea, palpitations, or edema.RESPIRATORY: Denies wheezing, asthma, or d yspnea. does not have cough.GASTROINTESTINAL: good appetite, denies abdominal pain, dysphagia, nause a, vomiting, diarrhea, constipation, melana, or rectal bleeding.GENITOURINARY: Denies dysuria, incon tinence, nocturia, hematuria. Was on Prempro 1996 to 1999. No bleeding since 1996. Occasional hot fl ashes.MUSCULOSKELETAL: does not have joint pain. does not have muscle pain.NEUROLOGICAL: does not have headaches. Denies seizures, syncope, tremor, dizziness, or weakness.SKIN: Denies rashes, suspic ious moles or non healing wounds.ENDOCRINE: Denies thyroid trouble, denies heat/cold intolerance, or hair loss.LYMPHATIC: No swollen glands/nodes. No previous blood disorders.PHYSICAL EXAM:Ms. Browne rt is well nourished, good hydration. In no distress. Pleasant, using appropriate conversation, orie nted. good hygiene. Cooperative with exam.VITALS: BP 112/70 Pulse 72 Temp 97.2 Temp Src: Tympa zoila Ht 5' 5.2 (1.656m) Wt 114 lbs (51.710 kg) LMP Postmenopausal EYES: Conjunctiva are clear. Pupils equal and reactive. Extra ocular movements intact, without ptosis.ENT: Ear canals clear of c erumen. TM's are normal. Nose shows normal nasal mucosa, without drainage. Throat shows that tonsils are present and are not enlarged. Post pharynx is not inflammed.NECK: Thyroid Normal. LYMPHATIC: Ly mph nodes normal in cervical, supraclavicular, submandibular, axillary and inguinal areas.BREASTS: n o suspicious skin changes, no masses, no nodes. LUNGS: Normal respiratory effort, clear to auscultat ion in anterior and posterior granados. No wheeze. No rales.CARDIOVASCULAR: regular rate and rhythm, w ithout murmur and no extra beats. Edema is not present. Varicose vein disease is not present. Dorsal is pedis pulses are Normal.ABDOMEN: Bowels sounds normal. Non distended, no mass, no hepatosplenomag liset. No bruits without previous surgical scar.GENITALIA: normal external genitalia without lesion. Cervix is clear. Uterus is normal size, non tender, adnexa normal to palpation. RECTAL: There is no t external hemorrhoids, and no mass on digital exam.MUSCULOSKELETAL: No swollen or erythematous join ts. Kyphosis is not present.SKIN: No rashes, ulcerations or suspicious moles. ASSESSMENT:[facility] Annual PhysicalFamily history of diabetes and pernicious anemiaPLAN:The following procedures have been ordered: PAP, mammogram, urine dipstick, occult stool cards x3 and declines flex sigmoido scopy.The following labs have been ordered: CBC, lipid, A1C and b12 level. Will return fasying for labs. Will follow up with results.Declines dT booster. [facility] Document Id: [id number] documented in this encounter Plan of Treatment Not on filedocumented as of this encounter Visit Diagnoses Not on filedocumented in this encounter
--- OUTSIDE RECORDS SUMMARY | 2022-07-24 09:31 | XMS_ITS | Encounter Summary ---
:1940 Author Organization [facility] Address [address] [place] [address] Care Team Providers Name Role Phone Unavailable Primary Care Provider Unavailable Encounter Details Date Type Department Care Team Description 03/20/2003 Hospital Encounter HX NO MAPPING Provider, Historical Social History Tobacco Use Types Packs/Day Years Used Date Smoking Tobacco: Never Assessed Sex Assigned at Date Recorded Not on file documented as of this encounter Miscellaneous Notes Miscellaneous - Conversion, Historical Provider Ser - 03/20/2003 12:00 AM CDT [id number] medical record release to [facility] [address] [place] [address] retrieval 13.99 copies 13.65 tax 1.80 clini c notes to present Source: [facility] RWHXTRANSXSYS Document Id: [id number] documented in this encounter Plan of Treatment Not on filedocumented as of this encounter Visit Diagnoses Not on filedocumented in this encounter
--- OUTSIDE RECORDS SUMMARY | 2022-07-24 09:31 | XMS_ITS | Encounter Summary ---
:1940 Author Organization [facility] Address [address] [place] [address] Care Team Providers Name Role Phone Unavailable Primary Care Provider Unavailable Encounter Details Date Type Department Care Team Description 09/04/2006 Hospital Encounter HX NO MAPPING Provider, Historical Social History Tobacco Use Types Packs/Day Years Used Date Smoking Tobacco: Never Assessed Sex Assigned at Date Recorded Not on file documented as of this encounter Plan of Treatment Not on filedocumented as of this encounter Visit Diagnoses Not on filedocumented in this encounter
--- OUTSIDE RECORDS SUMMARY | 2022-07-24 09:31 | XMS_ITS | Encounter Summary ---
:1940 Author Organization [facility] Address [address] [place] [address] Care Team Providers Name Role Phone Unavailable Primary Care Provider Unavailable Encounter Details Date Type Department Care Team Description 02/07/2002 Hospital Encounter HX [facility] Natacha Lopez D.O. [address] [place], [place] [address] (Wo rk) Social History Tobacco Use Types Packs/Day Years Used Date Smoking Tobacco: Never Assessed Sex Assigned at Date Recorded Not on file documented as of this encounter Miscellaneous Notes Telephone Encounter - Conversion, Historical Provider Ser - 02/07/2002 12:00 AM CDT [id number] >> ANDRES CONWAY Fri Feb 07, 2002 4:53 PM patient contacted via phone. will come in next week. >> NATACHA UMANA SunFeb 07, 2002 4:43 PM yes. please call and have her stop in next week for Hemoglobin A1c (I'll put order in computer). does not need to be fasting. >> ANAT JEAN Fri Feb 07, 2002 10:59 AM >> CALL RECEIVED. Contact: Wants to know if she can have blood test to find out if she is diabetic. Brother, age 60, was just d iagnosed and has a grandmother who also is diabetic. Thank You! Source: [facility] Document Id: [id number] documented in this encounter Plan of Treatment Not on filedocumented as of this encounter Visit Diagnoses Not on filedocumented in this encounter
--- OUTSIDE RECORDS SUMMARY | 2022-07-24 09:31 | XMS_ITS | Encounter Summary ---
:1940 Author Organization [facility] Address [address] [place] [address] Care Team Providers Name Role Phone Unavailable Primary Care Provider Unavailable Encounter Details Date Type Department Care Team Description 11/03/2005 Hospital Encounter HX [facility] Juliet Pedro D, P.A.-C. Social History Tobacco Use Types Packs/Day Years Used Date Smoking Tobacco: Never Assessed Sex Assigned at Date Recorded Not on file documented as of this encounter Plan of Treatment Not on filedocumented as of this encounter Visit Diagnoses Not on filedocumented in this encounter
--- OUTSIDE RECORDS SUMMARY | 2022-07-24 09:31 | XMS_ITS | Encounter Summary ---
:1940 Author Organization [facility] Address [address] [place] [address] Care Team Providers Name Role Phone Unavailable Primary Care Provider Unavailable Encounter Details Date Type Department Care Team Description 07/30/2002 Hospital Encounter HX [facility] Garima Laureano D.O. [address] [place], [place] [address] (Wo rk) Social History Tobacco Use Types Packs/Day Years Used Date Smoking Tobacco: Never Assessed Sex Assigned at Date Recorded Not on file documented as of this encounter Progress Notes Conversion, Historical Provider Ser - 07/30/2002 3:30 PM CST [id number] Ms. Thompson is a 61 year old female who presents with complaint of sinus congestion for several days. T here is not an associated cough. Lynnette denies wheezing, dyspnea or fever, but has had chills. There have been associated symptoms of: loss of appetite, lack of energy, sore throat, ear pressure and pos tnasal drainage. Review of patient's past medical history indicates: DEPRESSIVE DISORDER NEC 1968 Comment: mental illness-hospitalized 2-3 weeks SYMPTOMATIC FEMAL E CLIMACTERIC STATE Comment: estrogen 1996 to 1999.Review of patient's sd st surgical history indicates: BIOPSY OF UTERUS LINING 1995 Comme nt: proliferative type endometrium with glandular and stromal breakdown(anovulatory cyc le)NO ACTIVE MEDICATIONS .EXAM:Alert, lucid, without distress. Hydration is good.VITALS: BP 1 50/80 Pulse 100 Temp 98.2 Temp Src: Tympanic Wt 116 lbs (52.617 kg) LMP PostmenopausalEYES : clear scleraEARS: Tympanic membranes are dull/retracted.NOSE: Mucosa erythematous and nasal drain age is purelent. THROAT: Post pharynx is inflammed without post nasal drainage. NECK: Supple, with mildly swollen anterior cervical lymph nodes.LUNGS: Normal respiratory effort. Ant/post auscultation reveals clear.ASSESSMENT:SinusitisPLAN:Rest, increase clear fluids, avoid milk 2 to 3 days. Ta ke acetaminophen PRN fever. Start Zithromax 250 mg. 2 today, then 1 daily for 4 days. Follow-up PRN. Source: [facility] RWHXTRANSXSYS Document Id: [id number] documented in this encounter Plan of Treatment Not on filedocumented as of this encounter Visit Diagnoses Not on filedocumented in this encounter
--- OUTSIDE RECORDS SUMMARY | 2022-07-24 09:31 | XMS_ITS | Encounter Summary ---
:1940 Author Organization [facility] Address [address] [place] [address] Care Team Providers Name Role Phone Unavailable Primary Care Provider Unavailable Encounter Details Date Type Department Care Team Description 10/04/2006 Hospital Encounter HX NO MAPPING Martin Restrepo M.D. [address] [phone] (Wo rk) Social History Tobacco Use Types Packs/Day Years Used Date Smoking Tobacco: Never Assessed Sex Assigned at Date Recorded Not on file documented as of this encounter Miscellaneous Notes Miscellaneous - Ramon Restrepo M.D. - 10/04/2006 2:15 PM CST [id number] CLINIC ENCOUNTER Lynnette is seen today in consultation at the request of Dr. Marin. He has been following her for primary opening of glaucoma. Enclosed are copies of visual rubi and records of intraocular pressures over time. Dr. Marin is concerned that the IOPs are inadequately controlled despite the use of Xalatan. The patient is wondering whether the Xalatan may play some role in her anxiety. She started the Xalatan in the fall and then developed anxiety about two or three months later. The patient's mother had a history of glaucoma and had rather advanced disease with significant visual loss, according to the patient. CONFRONTATION VISUAL RUBI: Intact. MOTILITY: Full. PUPILS: 4/2 brisk. No RAPD. EXTERNAL: Nose and facial skin would suggest the presence of rosacea. SLIT LAMP EXAMINATION: There is +1 meibomian gland dysfunction. The tear films are somewhat attenuated. Corneas clear without punctate keratopathy. Chambers deep and quiet. Gonioscopy reveals open angles with estimated angle degree of about 30 with +1 pigmentation. Lenses clear. FUNDUS: (Dilated) Cup-to-disk ratio 0.8 vertical, 0.7 horizontal right eye, and 0.7 vertical, 0.7 horizontal left eye. The maculae, arcades and periphery are unremarkable. Review of the records from Dr. Marin's office demonstrate an entrance pressure in the mid 20s to 30s. Visual field changes first occurred in 2004. She essentially always had pressures that were normal in both eyes. The visual field tests over the last two years have remained stable. IMPRESSION: 1. Primary open angle glaucoma. 2. Anxiety. PLAN: 1. I think it is unlikely but certainly possible that the Xalatan may have some role in her anxiety, and therefore, I have asked her to discontinue it for the time being. 2. Trial of timolol 0.5 percent gel foamy solution, one drop both eyes q.a.m. 3. Return to clinic in two weeks to assess IOP as well as determine whether the change in medication has any effect on her anxiety. 4. The goal IOP should be within normal range, between 15 and 20 mm of mercury. If medication is low and not adequately controlling intraocular pressure, then I would suggest a selective laser trabeculoplasty. Ramon Restrepo M.D. SABRINA/jerrell cc: Source: [facility] RWHXTRANSXSYS Document Id: [id number] Electronically signed by Conversion, [facility] [employer] Beverage Assistant Manager [id number] at 01/15/2017 8:44 AM CDT Miscellaneous - Conversion, Historical Provider Ser - 10/04/2006 2:15 PM HEEL STAINER [id number] October 04, 2006 Emmanuel Marin O[address] [place] [address] RE: Lynnette Thompson : 1940 EMR# [id number] Dear Emmanuel: Thanks for having me see Lynnette Thompson regarding glaucoma. I appreciate your enclosing pressures and visual rubi for review. The patient relates a history of use of Lumigan and then switched to Xalatan because of insurance purposes. She feels however that shortly after she first started using the drops she developed anxiety and is wondering whether if that currently is a source of anxiety for her. She also relates a history of her mother having glaucoma with rather significant vision loss in both eyes. By reviewing her pressures over time, it appears that only a couple of times that her pressures were within normal range. I agree with you that the visual rubi over the last several years have not changed significantly. On examination in clinic, her corrected visual acuity measured 20/25 in each eye. Confrontational visual rubi, motility and pupil testing were within normal limits. The external examination showed changes characteristic of rosacea with erythema of the cheeks and nose. Slit lamp examination demonstrates +1 meibomian gland dysfunction with somewhat attenuated tear films. The corneal examination was unremarkable and the chambers were deep and quiet. Gonioscopy revealed open angles with +1 pigmentation. The lenses were clear. A dilated fundus examination revealed that the right optic nerve had a cup-to-disk ratio of 0.8 vertically and 0.7 horizontally. In the left eye, the vertical and horizontal dimensions were 0.7. There was no maculopathy and the peripheral retinal examination was unremarkable. The intraocular pressures at 3 o'clock in the afternoon measured 24 right eye and 23 left eye. Page-2 RE: Lynnette Thompson EMR: [id number] My impression is that Ms. Thompson has primary open-angle glaucoma with borderline intraocular pressurecontrol given her cupping, visual field changes and a strong family history. There is also a question of whether the prostaglandin agents are having some role in her anxiety. I suggested that she hold using Xalatan at this time. I did place her on Timolol 0.5% gel forming solution to be used once daily in the morning. Curiously enough the beta josh effect of the Timolol may have some positive effect on her level of anxiety. I will see her back in a couple of weeks to check on the pressure control and to see if the change in medications have had any effect on her anxiety level as well. If she is indeed medication sensitive, then in the future we may consider selective laser trabeculoplasty to better control the intraocular pressures. I will keep you updated on her progress. Thanks again for involving me in her care. Sincerely, Ramon Restrepo M.D. Department of Ophthalmology SABRINA/carol ann Source: [facility] RWHXTRANSXRTFSYS Document Id: [id number] documented in this encounter Plan of Treatment Not on filedocumented as of this encounter Visit Diagnoses Not on filedocumented in this encounter
--- OUTSIDE RECORDS SUMMARY | 2022-07-24 09:31 | XMS_ITS | Encounter Summary ---
:1940 Author Organization [facility] Address [address] [place] [address] Care Team Providers Name Role Phone Unavailable Primary Care Provider Unavailable Encounter Details Date Type Department Care Team Description 07/25/2001 Hospital Encounter HX NO MAPPING Provider, Historical Social History Tobacco Use Types Packs/Day Years Used Date Smoking Tobacco: Never Assessed Sex Assigned at Date Recorded Not on file documented as of this encounter Plan of Treatment Not on filedocumented as of this encounter Visit Diagnoses Not on filedocumented in this encounter
--- OUTSIDE RECORDS SUMMARY | 2022-07-24 09:31 | XMS_ITS | Encounter Summary ---
:1940 Author Organization [facility] Address [address] [place] [address] Care Team Providers Name Role Phone Unavailable Primary Care Provider Unavailable Encounter Details Date Type Department Care Team Description 09/23/[address] [facility] Garima Laureano D.O. [address] [place], [place] [address] (Wo rk) Social History Tobacco Use Types Packs/Day Years Used Date Smoking Tobacco: Never Assessed Sex Assigned at Date Recorded Not on file documented as of this encounter Progress Notes Conversion, Historical Provider Ser - 09/23/2004 11:00 AM CST [id number] Ms. Thompson is a 63 year old female who presents with complaint of sore throat, congestion and ear pressure. Symptoms have been present for 1 week, worse this AM. There is not an associated cough. Hamzahondenies wheezing, dyspnea and has not had fever, but has had chills. There have been associated symptoms of: runny nose, post nasal drainage and sneezing. Second concern is stress. Lynnette has felt very stressed this week, not able to keep focused on work.She has had history of depression needing hospitalization 1968, so wanted to discuss what to do. Joon has used Lorazepam when he has anxiety issues and uses rarely but helps when needed, and Lynnette asks if something like that would be good for her. Other than using diazepam many years ago, she has not been on recent depression or anxirty medication. Lynnette took the depression self reportand scored 7 with is very mild depression symptoms(this will be scanned into [employer]). REVIEW OF SYSTEMS: GI: has noted looser stools. negative for nausea, vomiting, abdominal pain. Review of patient's past medical history indicates: DEPRESSIVE DISORDER NEC 1968 Comment: mental illness-hospitalized 2-3 weeks SYMPTOMATIC FEMALE CLIMACTERIC STATE Comment: estrogen 1996 to 1999. Review of patient's past surgical history indicates: BIOPSY OF UTERUS LINING 1995 Comment: proliferative type endometrium with glandular and stromal breakdown(anovulatory cycle) Tobacco Use: Never Alcohol Use: Yes Comment: occasional glass of wine Current prescriptions: NO ACTIVE MEDICATIONS EXAM: Alert, lucid, without distress. Hydration is good. VITALS: BP 128/80 Pulse 81 Temp (Src) 98.6 (Temporal) Wt 114 lbs (51.7kg) LMP Postmenopausal EYES: clear sclera EARS: Tympanic membranes are normal. NOSE: Mucosa erythematous and swollen and nasal drainage is thin/white. THROAT: Post pharynx is inflammed without post nasal drainage. Tonsils present and are not enlarged,without inflamation, without exudate. NECK: Supple, with swollen anterior cervical lymph nodes. LUNGS: Normal respiratory effort. Ant/post auscultation reveals clear. HEART: regular rhythm, without murmur, and without extra beats. lower extremities: without edema. PSYCH: normal dress and hygiene. mood seems normal and affect mildly flattened. good eye contact. normal thought process. ASSESSMENT: Sinusitis Situational anxiety PLAN: 1. Rest, increase clear fluids. 2. Fof anxiety: Lorazepam for as needed use (see medication list) and discussed addiction potential. 3. For sinusitis: Zithromax 250 mg. 2 today, then 1 daily for 4 days. 4. Follow-up as needed. Source: [facility] RWHXTRANSXSYS Document Id: [id number] documented in this encounter Plan of Treatment Not on filedocumented as of this encounter Visit Diagnoses Not on filedocumented in this encounter
--- OUTSIDE RECORDS SUMMARY | 2022-07-24 09:31 | XMS_ITS | Encounter Summary ---
:1940 Author Organization [facility] Address [address] [place] [address] Care Team Providers Name Role Phone Unavailable Primary Care Provider Unavailable Encounter Details Date Type Department Care Team Description 09/21/2006 Hospital Encounter HX [facility]ILY[facility] Garima Laureano D.O. [address] [place], [place] [address] (Wo rk) Social History Tobacco Use Types Packs/Day Years Used Date Smoking Tobacco: Never Assessed Sex Assigned at Date Recorded Not on file documented as of this encounter Progress Notes Garima Laureano DEliazar - 09/21/2006 9:45 AM CST [id number] Ms. Thompson is a 65 year old female who presents with complaint of sore throat and sinus congestion. Symptoms have been present for several day(s). There is not an associated cough. Lynnette has not had wheezing, dyspnea and has not had fever, but has had chills. There have been associated symptoms of: fatigue, purulent nasal drainage and post nasal drainage. REVIEW OF SYSTEMS: GI: negative for nausea, vomiting, diarrhea. PSYCH: she wants to go back to periodic Lorazepam use for anxiety. She did not start the Clonazepam as was too worried when she read the side effects. She uses the Lorazepam only 4 or 5 times monthly. She does not yet need refill. Past Medical History Diagnosis Date DEPRESSIVE DISORDER [...] drop in each eye at bedtime EXAM: Alert, lucid, without distress. Hydration is good. VITALS: BP 150/80 Pulse 74 Temp (Src) 98.8 (Temporal) Ht 5' 6 (1.68m) Wt 109 lbs (49.4kg) LMP Postmenopausal EYES: clear sclera EARS: Tympanic membranes are dull and retracted. NOSE: Mucosa erythematous and swollen and nasal drainage is purelent. THROAT: Post pharynx is inflammed without post nasal drainage. NECK: Supple, without swollen anterior cervical, posterior cervical and submandibular lymph nodes. LUNGS: Normal respiratory effort. Ant/post auscultation reveals clear. HEART: regular rhythm, without murmur, and without extra beats. ASSESSMENT: Acute Sinusitis Elevated blood pressure PLAN: 1. Rest, increase clear fluids, avoid milk 2 to 3 days. 2. Take acetaminophen PRN fever. 3. Medication: Azithromycin (see medication list) 4. Follow-up PRN. Recommended return for physical and pap. Stop in for monthly blood pressure checks a couple months. Source: [facility] [id number] Document Id: [id number] documented in this encounter Plan of Treatment Not on filedocumented as of this encounter Visit Diagnoses Not on filedocumented in this encounter
--- OUTSIDE RECORDS SUMMARY | 2022-07-24 09:31 | XMS_ITS | Encounter Summary ---
:1940 Author Organization [facility] Address [address] [place] [address] Care Team Providers Name Role Phone Unavailable Primary Care Provider Unavailable Encounter Details Date Type Department Care Team Description 09/22/2004 Hospital Encounter HX [facility] Natacha Laureano D.O. [address] [place], [place] [address] (Wo rk) Social History Tobacco Use Types Packs/Day Years Used Date Smoking Tobacco: Never Assessed Sex Assigned at Date Recorded Not on file documented as of this encounter Miscellaneous Notes Telephone Encounter - Conversion, Historical Provider Ser - 09/22/2004 12:00 AM CST [id number] >> NATACHA Terrazas Sep 23, 2004 1:30 PM was evaluated in clinic 09/23/2004. >> ANAT Fowler Sep 22, 2004 8:43 AM Pt. calls and is having problems with her nerves a long time ago had similar problem an d was on medication. Is having a hard time keeping mind on track. Highly encouraged her to come in b ut can't get off work this am or tomorrow. Is off this aftenoon and will think about seeing another provider. would like to speak to you and number at work is [phone]. until noon. Thank You! Source: [facility] BILOXIHXTRANSXSYS Document Id: [id number] documented in this encounter Plan of Treatment Not on filedocumented as of this encounter Visit Diagnoses Not on filedocumented in this encounter
--- OUTSIDE RECORDS SUMMARY | 2022-07-24 09:31 | XMS_ITS | Encounter Summary ---
:1940 Author Organization [facility] Address [address] [place] [address] Care Team Providers Name Role Phone Unavailable Primary Care Provider Unavailable Encounter Details Date Type Department Care Team Description 04/11/2002 Hospital Encounter HX NO MAPPING Garima Laureano D.O. [address] [place], [place] [address] (Wo rk) Social History Tobacco Use Types Packs/Day Years Used Date Smoking Tobacco: Never Assessed Sex Assigned at Date Recorded Not on file documented as of this encounter Plan of Treatment Not on filedocumented as of this encounter Visit Diagnoses Not on filedocumented in this encounter
--- OUTSIDE RECORDS SUMMARY | 2022-07-24 09:33 | XMS_ITS | Encounter Summary ---
:1940 Author Organization [facility] Address [address] [place] [address] Care Team Providers Name Role Phone Noris Carter MD Primary Care Provider Reason for Visit Reason Comments Immunizations Encounter Details Date Type Department Care Team Description 03/15/2021 Immunization [place] Immunization due (Primary [address] Dx) [place], [place] [address] Social History Tobacco Use Types Packs/Day Years Used Date Smoking Tobacco: Never Smokeless Tobacco: Never Alcohol Use Standard Drinks/Week Comments Yes 1 (1 standard drink = 0.6 oz pure alcoho l) Alcohol Habits Answer Date Recorded How often do you have a drink containing alcohol? Monthly or less 08/07/2019 How many drinks containing alcohol do you have on a 1 or 2 08/07/2019 typical day when you are drinking? How often do you have six or more drinks on one Not asked occasion? Sex Assigned at Date Recorded Not on file documented as of this encounter Plan of Treatment Not on filedocumented as of this encounter Visit Diagnoses Diagnosis Immunization due - Primary documented in this encounter Care Teams Stoneworker Relationship Specialty Start Date End Date Noris Carter MD PCP - General Family Medicine 06/08/[address] [place] [address] documented as of this encounter
--- OUTSIDE RECORDS SUMMARY | 2022-07-24 09:33 | XMS_ITS | Encounter Summary ---
:1940 Author Organization [facility] Address [address] [place] [address] Care Team Providers Name Role Phone Noris Carter MD Primary Care Provider Reason for Visit Reason Onset Date Comments fasting labs 11/17/2021 Encounter Details Date Type Department Care Team Description 11/17/2021 Telephone [place] Noris Carter MD fasting labs [address] [place], [place] [address] [place], [place] [phone] (Wo rk) Social History Tobacco Use Types [...] this encounter Miscellaneous Notes Telephone Encounter - Lyn Naik MD - 11/17/2021 3:41 PM CDT Orders are already in place. Bone alkaline phosphatase has to be done fasting. Telephone Encounter - Heaven Kauffman MA - 11/17/2021 3:36 PM CDT Patient is coming in tomorrow for fasting labs for Dr. Naik. There is lab orders active but no fasting labs. Please advise and place necessary fasting lab orders. Called to speak with Dr. Naik's nurse as well regarding fasting labs. Alk. Phos lab is fasting.All labs ok per Dr. Naik. documented in this encounter Plan of Treatment Not on filedocumented as of this encounter Visit Diagnoses Not on filedocumented in this encounter Care Teams Architecture Instructor Relationship Specialty Start Date End Date Noris Carter MD PCP - General Family Medicine 06/08/20 [address] [place] [address] documented as of this encounter
--- OUTSIDE RECORDS SUMMARY | 2022-07-24 09:33 | XMS_ITS | Encounter Summary ---
:1940 Author Organization [facility] Address [address] [place] [address] Care Team Providers Name Role Phone Noris Carter MD Primary Care Provider Reason for Visit Reason Comments OP Infusion Consultation (Routine) - Authorized Specialty Diagnoses / Procedures Referred By Contact Refer red To Contact Infusion Therapy Diagnoses Age-related osteoporosis without current pathological fracture Lyn Naik [facility] [address] [place] [address] [place], [place] Phone: [phone] Fax: Referral ID Status Reason Start Expiration Visits Visits Date Date Requested Authorized [id number] Authorized Specialty 12/14/2021 12/14/2022 1 1 Services Required Encounter Details Date Type Department Care Team Description 12/19/2021 Infusion [facility] Infusion Age-re lated osteoporosis Therapy without current pathological [address] [place] [address] fracture (Primary Dx) [place] [address] Social History Tobacco Use Types Packs/Day Years [...] Sign Reading Time Taken Comments Blood Pressure 112/54 12/19/2021 11:51 AM CDT Pulse 58 12/19/2021 11:51 AM CDT Temperature 36.3 ??C (97.3 ??F) 12/19/2021 11:51 AM CDT Respiratory Rate 16 12/19/2021 11:51 AM CDT Oxygen Saturation 100% 12/19/2021 11:51 AM CDT Inhaled Oxygen Concentration - - Weight - - Height - - Body Mass Index - - documented in this encounter Plan of Treatment Not on filedocumented as of this encounter Visit Diagnoses Diagnosis Age-related osteoporosis without current pathological fracture - Primary documented in this encounter Administered Medications Inactive Administered Medications - up to 3 most recent administrations Medication Order MAR Action Action Date Dose Rate Site zoledronic acid (RECLAST) IVPB New Bag 12/19/2021 11:22 AM CDT 5 m g 300 mL/hr 5 mg 5 mg, Intravenous, at 300 mL/hr, Administer over 20 Minutes, rn call center, On Sun12/19/21 at 1200, For 1 dose, NIOSH Class 3: ? ? Unit dose tablet, unit dose vaginal insert, patch: wear single pair of gloves (ASTM). ? ? Cream/gel: wear double pair of gloves (ASTM). ? ? Oral solution/feeding tube administration/potential for vomit or spit up: wear double gloves (ASTM), mask, eye protection. ? ? Injection solution: wear double pair of gloves (ASTM). Wear mask, eye protection and chemo gown if there is risk of liquid splashing. ? ? Avoid contact during /while nursing. documented in this encounter Care Teams Cia Agent Relationship Specialty Start Date End Date Noris Carter MD PCP - General Family Medicine 06/08/[address] [place] [address] documented as of this encounter
--- OUTSIDE RECORDS SUMMARY | 2022-07-24 09:33 | XMS_ITS | Encounter Summary ---
:1940 Author Organization [facility] Address [address] [place] [address] Care Team Providers Name Role Phone Noris Carter MD Primary Care Provider Reason for Referral Consultation (Routine) - Authorized Specialty Diagnoses / Procedures Referred By Contact Refer red To Contact Infusion Therapy Diagnoses Age-related osteoporosis without current pathological fracture Lyn Naik Om[facility] [address] [place], [place] [address] [place] [address] Phone: [phone] Fax: Referral ID Status Reason Start Expiration Visits Visits Date Date Requested Authorized [id number] Authorized Specialty 12/14/2021 12/14/2022 1 1 Services Required Encounter Details Date Type Department Care Team Description 12/14/2021 Orders Only [facility] Endocrinology [place], Age-related osteoporosis [address] [facility] [place] [address] pathological fracture [phone] (Primary Dx) Social History Tobacco Use Types Packs/Day Years [...] Type Priority Associated Diagnoses Order S chedule Ambulatory referral Outpatient Referral Routine Age-related O rdered: for Infusion osteoporosis without 022 current pathological fracture documented as of this encounter Visit Diagnoses Diagnosis Age-related osteoporosis without current pathological fracture - Primary documented in this encounter Care Teams Reinforcing Bar Setter Relationship Specialty Start Date End Date Noris Carter MD PCP - General Family Medicine 06/08/[address] [place] [address] documented as of this encounter
--- OUTSIDE RECORDS SUMMARY | 2022-07-24 09:33 | XMS_ITS | Encounter Summary ---
:1940 Author Organization [facility] Address [address] [place] [address] Care Team Providers Name Role Phone Noris Carter MD Primary Care Provider Encounter Details Date Type Department Care Team Description 11/18/2021 Lab [place] Age-related osteoporosis [address] without current pathological [place] [address] fracture [phone] Social History Tobacco Use Types Packs/Day Years [...] Name Priority Date/Time Associated Diagnosis Comme nts GLOMERULAR Routine 11/18/2021 8:03 AM Age-related Results f or this FILTRATION RATE CDT osteoporosis without proc edure are in current pathological the res ults fracture section. ALKALINE Routine 11/18/2021 8:03 AM Age-related Results f or this PHOSPHATASE, BONE CDT osteoporosis without pr ocedure are in SPECIFIC current pathological the res ults fracture section. CREATININE, SERUM Routine 11/18/2021 8:03 AM Age-related Resu lts for this CDT osteoporosis without procedu re are in current pathological the res ults fracture section. CALCIUM Routine 11/18/2021 8:03 AM Age-related Results f or this CDT osteoporosis without procedu re are in current pathological the res ults fracture section. documented in this encounter Results Glomerular filtration rate (GFR) (11/18/2021 8:03 AM CDT) P athologist Signature GFR >60 11/18/2021 [facility] 8:58 AM CDT [facility] >60 11/18/2021 [facility] Syrian GFR 8:58 AM T [facility] Comment: GFR calculated from serum creatinine v alue Chronic Kidney Disease less than 60 mL/m in/1.73 m2 Kidney Failure less than 15 mL/min/1.73 m2 IDMS-Traceable MDRD Study Equation used. Specimen Anatomical Collection Method Collection Time Receive d Time (Source) Location / / Volume Laterality 11/18/2021 8:03 AM 8:03 CDT AM CDT Lyn Naik MD LAB BLOOD ORDERABLES Performing Organization Address City/State/ZIP Code Phon e Number [facility] [address] [place] [id number] Alkaline phosphatase, bone specific (11/18/2021 8:03 AM CDT) Patholo gist Method Time Signature Bone Alkaline 7.9 mcg/L 11/19/2021 [facility] Phosphatase 11:27 AM CDT LABORATOR[facility] Comment: REFERENCE VALUE------ <=14 (Premenopausal) <=22 (Postmenopausal) ADDITIONAL INFORMATIO N Liver-derived alkaline phosphatase (ALP) increases apparent measured bone alkaline phosphatase (BAP) in this assay by 2.5 mcg/L to 5.8 mcg/L for every 100 U/L of liver ALP. Accordingly, serum specimens with signif icant elevations of liver ALP activity may yield artificiall y elevated results in the BAP assay. Test Performed by: [facility] [address] [place], [place] [address] Nurse Practitioner Physician Assistant: Jose Ramon Tompkins M.D. Ph. D.; CLIA# [id number] Specimen Anatomical Collection Method Collection Time Receive d Time (Source) Location / / Volume Laterality Blood 11/18/2021 8:03 AM 2 2:30 CDT PM CDT Lyn Naik MD LAB BLOOD ORDERABLES Performing Organization Address City/State/ZIP Code Phon e Number [facility] see result attachment for specific address Calcium (11/18/2021 8:03 AM CDT) P athologist Signature Calcium, 9.5 8.4 - 10.2 11/18/2021 [facility] Total,S mg/dL 8:58 AM CDT [facility] Comment: . Specimen Anatomical Collection Method Collection Time Receive d Time (Source) Location / / Volume Laterality Blood 11/18/2021 8:03 AM 2 8:05 CDT AM CDT Lyn Naik MD LAB BLOOD ORDERABLES Performing Organization Address City/[facility] [address]/ZIP Code Phon e Number [facility] [place] [address] [place] [address] Creatinine, Serum (11/18/2021 8:03 AM CDT) P athologist Signature Creatinine 0.9 0.4 - 1.2 11/18/2021 [facility] mg/dL 8:58 AM CDT [place] Comment: . Specimen Anatomical Collection Method Collection Time Receive d Time (Source) Location / / Volume Laterality Blood 11/18/2021 8:03 AM 2 8:05 CDT AM CDT Lyn Naik MD LAB BLOOD ORDERABLES Performing Organization Address City/State/ZIP Code Phon e Number [facility] [place] [address] [place] [address] documented in this encounter Visit Diagnoses Diagnosis Age-related osteoporosis without current pathological fracture documented in this encounter Care Teams Kick Press Setter Relationship Specialty Start Date End Date Noris Carter MD PCP - General Family Medicine 06/08/[address] [place] [address] documented as of this encounter
--- OUTSIDE RECORDS SUMMARY | 2022-07-24 09:33 | XMS_ITS | Encounter Summary ---
:1940 Author Organization [facility] Address [address] [place] [address] Care Team Providers Name Role Phone Noris Carter MD Primary Care Provider Encounter Details Date Type Department Care Team Description 08/19/2020 Lab [place] Hypothyroidism, unspecified [address] type [place] [address] Social History Tobacco Use Types [...] Name Priority Date/Time Associated Diagnosis Comme nts TSH Routine 08/19/2020 8:53 AM Hypothyroidism, Result s for this SINTER FEEDER unspecified type procedure a re in the results section. documented in this encounter Results TSH (08/19/2020 8:53 AM SINTER FEEDER) P athologist Signature TSH, Sensitive 2.22 0.46 - 08/20/2020 [facility] 4.68 mIU/L 2:11 PM [facility] Comment: The results from this or any other diagn ostic test should be used and interpreted only in the context of the overall clinical picture. Biotin levels in serum remain elevated f or up to 24 hours after oral or intravenous biotin adminis tration and may interfere with this assay to produce unr eliable results. Heterophilic antibodies in serum or plas ma samples may cause interference in immunoassays. ??Exposure to animal antigens, either in the environment or as part of treatment or imaging procedures, may have circulating anti-an imal antibodies present. These antibodies may interfere with the assay reagents to produce unreliable results. ??Results which are inconsistent with clinical observations indicate the need for additional testing. Specimen Anatomical Collection Method Collection Time Receive d Time (Source) Location / / Volume Laterality Blood 08/19/2020 8:53 AM SINTER FEEDER 12:43 PM SINTER FEEDER Kellen Almeida APRN STEAM BOX HAND LAB BLOOD ORDERABLES Performing Organization Address City/State/ZIP Code Phon e Number [facility] [address] [place] [address] documented in this encounter Visit Diagnoses Diagnosis Hypothyroidism, unspecified type documented in this encounter Care Teams School Bus Mechanic Relationship Specialty Start Date End Date Noris Carter MD PCP - General Family Medicine 06/08/20 [address] [facility] [address] [place] [address] documented as of this encounter
--- OUTSIDE RECORDS SUMMARY | 2022-07-24 09:33 | XMS_ITS | Encounter Summary ---
:1940 Author Organization [facility] Address [address] [place] [address] Care Team Providers Name Role Phone Noris Carter MD Primary Care Provider Reason for Visit Reason Onset Date Comments Update on Colonoscopy 09/06/2021 Encounter Details Date Type Department Care Team Description 09/06/2021 Telephone [place] Noris Carter, Update on Colonoscopy [address] [place], [place] [address] [phone] [place] [address] Social History Tobacco Use Types Packs/Day Years [...] this encounter Miscellaneous Notes Telephone Encounter - Alexandra Moore LPN - 09/06/2021 9:09 AM CST Colonoscopy done on 09/01/2021 and is due to repeat 1 year. 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
--- OUTSIDE RECORDS SUMMARY | 2022-07-24 09:33 | XMS_ITS | Encounter Summary ---
:1940 Author Organization [facility] Address [address] [place] [address] Care Team Providers Name Role Phone Noris Carter MD Primary Care Provider Reason for Visit Reason Onset Date Comments Tetanus 03/01/2021 Encounter Details Date Type Department Care Team Description 03/01/2021 Telephone [place] Noris Carter MD Tetanus [address] [place], [place] [address] [place], [place] [phone] (Wo rk) Social History Tobacco Use Types [...] this encounter Miscellaneous Notes Telephone Encounter - Maren Leger RN - 03/01/2021 2:07 PM CDT Spoke with patient to confirm tetanus is due (last administered 06/10/2010). Will call to schedule appointment. Telephone Encounter - Florecita Rea - 03/01/2021 1:25 PM CDT Patient is wondering when she is due for a tetanus shot. Please call her at [phone]. documented in this encounter Plan of Treatment Not on filedocumented as of this encounter Visit Diagnoses Not on filedocumented in this encounter Care Teams Follow Up Rep Relationship Specialty Start Date End Date Noris Carter MD PCP - General Family Medicine 06/08/20 [address] [facility] [address] [place] [address] documented as of this encounter
--- OUTSIDE RECORDS SUMMARY | 2022-07-24 09:33 | XMS_ITS | Encounter Summary ---
:[address] [facility] Address [address] [place] [address] Care Team Providers Name Role Phone Mirella Conteh APRN, HOME ATTENDANT Primary Care Provider [phone] Reason for Visit Reason Comments OP Infusion Consultation (Routine) - Closed Specialty Diagnoses / Procedures Referred By Contact Refer red To Contact Infusion Therapy Diagnoses Age-related osteoporosis without current pathological fracture Lyn Naik Omch Infusion Therapy MD [address] [facility] [place] [address] [place], [place] Phone: [phone] Fax: Referral ID Status Reason Start Date Expiration Date Visits V isits Requested Authorized [id number] Closed Specialty 10/09/2019 10/09/2020 1 1 Services Required Encounter Details Date Type Department Care Team Description 10/31/2019 Infusion [place] Infusion Age-re lated osteoporosis Therapy without current pathological [address] [facility] fracture (Primary Dx) [place] [address] Social History Tobacco Use Types Packs/Day Years [...] Assigned at Date Recorded Not on file COVID-19 Exposure Response Date Recorded In the last month, have you been in contact with No / Unsure 10/31/2019 8:44 AM CDT someone who was confirmed or suspected to have Coronavirus / COVID-19? documented as of this encounter Last Filed Vital Signs Vital Sign Reading Time Taken Comments Blood Pressure 136/72 10/31/2019 9:33 AM CDT Pulse 59 10/31/2019 9:33 AM CDT Temperature 36.5 ??C (97.7 ??F) 10/31/2019 9:33 AM CDT Respiratory Rate 18 10/31/2019 9:33 AM CDT Oxygen Saturation 98% 10/31/2019 9:33 AM CDT Inhaled Oxygen Concentration - - [...] Site zoledronic acid (RECLAST) IVPB New Bag 10/31/2019 9:03 AM CDT 5 mg 200 mL/hr 5 mg 5 mg, Intravenous, at 300 mL/hr, Administer over 20 Minutes, scallop raker, On Sun10/31/19 at 0930, For 1 dose documented in this encounter Care Teams Locomotive Lubricating Systems Clerk Relationship Specialty Start Date End Date Mirella Conteh APRN, HOME ATTENDANT PCP - General 03/19/18 04/19/20 100 COUNTS INCLUDE 234 BEDS AT [facility] [place] [id number] documented as of this encounter
--- OUTSIDE RECORDS SUMMARY | 2022-07-24 09:33 | XMS_ITS | Encounter Summary ---
:1940 Author Organization [facility] Address [address] [place] [address] Care Team Providers Name Role Phone Noris Carter MD Primary Care Provider Reason for Visit Reason Comments Immunizations Encounter Details Date Type Department Care Team Description 05/23/2021 Immunization [place] [address] [place], [place] [address] Social History Tobacco Use [...] documented as of this encounter Progress Notes Su Lord RN - 05/23/2021 9:30 AM CDT Patient denies a previous reaction to any vaccines. Reviewed screening questionnaire with patient prior to administration. VIS given. documented in this encounter Plan of Treatment Not on filedocumented as of this encounter Visit Diagnoses Not on filedocumented in this encounter Care Teams Title One Teacher Relationship Specialty Start Date End Date Noris Carter MD PCP - General Family Medicine 06/08/20 [address] [place] [address] documented as of this encounter
--- OUTSIDE RECORDS SUMMARY | 2022-07-24 09:33 | XMS_ITS | Encounter Summary ---
:1940 Author Organization [facility] Address [address] [place] [address] Care Team Providers Name Role Phone Noris Carter MD Primary Care Provider Reason for Visit Reason Comments OP Infusion Consultation (Routine) - Closed Specialty Diagnoses / Procedures Referred By Contact Refer red To Contact Infusion Therapy Diagnoses Age-related osteoporosis without current pathological fracture Lyn Naik [facility] Infusion [facility] [address] [place] [address] [place], [place] Phone: [phone] Fax: Referral ID Status Reason Start Date Expiration Date Visits V isits Requested Authorized [id number] Closed Specialty 11/03/2020 11/03/2021 1 1 Services Required Encounter Details Date Type Department Care Team Description 11/23/2020 Infusion [facility] Infusion Age-re lated osteoporosis Therapy without current pathological [address] [facility] fracture (Primary Dx) [place] [address] Social History Tobacco Use Types Packs/Day Years [...] Sign Reading Time Taken Comments Blood Pressure 133/66 11/23/2020 10:13 AM CDT Pulse 57 11/23/2020 10:13 AM CDT Temperature 35.9 ??C (96.6 ??F) 11/23/2020 10:13 AM CDT Respiratory Rate 16 11/23/2020 10:13 AM CDT Oxygen Saturation 100% 11/23/2020 10:13 AM CDT Inhaled Oxygen Concentration - - [...] Site zoledronic acid (RECLAST) IVPB New Bag 11/23/2020 9:40 AM CDT 5 mg 300 mL/hr 5 mg 5 mg, Intravenous, at 300 mL/hr, Administer over 20 Minutes, body recall instructor, On Sun11/23/20 at 1000, For 1 dose, NIOSH Class 3: ? [...] nursing. documented in this encounter Care Teams Art Framing Manager Relationship Specialty Start Date End Date Noris Carter MD PCP - General Family Medicine 06/08/[address] [place] [address] documented as of this encounter
--- OUTSIDE RECORDS SUMMARY | 2022-07-24 09:33 | XMS_ITS | Encounter Summary ---
:1940 Author Organization [facility] Address [address] [place] [address] Care Team Providers Name Role Phone Noris Carter MD Primary Care Provider Encounter Details Date Type Department Care Team Description 12/06/2021 Hospital Encounter [facility] [address] [place] [address] Social History Tobacco Use Types Packs/Day Years [...] on file documented as of this encounter Medications at Time of Discharge Medication Sig Dispensed Refills Start Date End Date Ascorbic Acid (VITAMIN Take 500 mg by mouth 1 0 C) 500 MG tablet (one) time each day During winter months Calcium Take 1 tablet by mouth 0 Carb-Cholecalciferol (HM 2 (two) times a day Calcium-Vitamin D) 600-800 MG-UNIT tablet calcium citrate-vitamin Take 1 tablet by mouth 120 tablet 0 11/15/2021 D (Calcitrate) 315-250 2 (two) times a day At MG-UNIT lunch and evening meal tabletIndications: Osteoporosis, unspecified osteoporosis type, unspecified pathological fracture presence Diclofenac Sodium 1 % APPLY TWO GRAM 0 10/25/2021 gel gel TOPICALLY FOUR TIMES A DAY latanoprost (XALATAN) Administer 1 drop into both eyes 1 (one) time each day 0 0.005 % ophthalmic solution timolol (TIMOPTIC) 0.5 % Administer 1 drop into 10 mL 0 08/19/2020 ophthalmic both eyes 2 (two) solutionIndications: times a day Open-angle glaucoma of both eyes, unspecified glaucoma stage, unspecified open-angle glaucoma type documented as of this encounter Plan of Treatment Not on filedocumented as of this encounter Procedures Procedure Name Priority Date/Time Associated Diagnosis Comme nts DEXA BONE DENSITY Routine 12/06/2021 12:13 PM Age-related Res ults for this CDT osteoporosis without procedu re are in current pathological the res ults fracture section. documented in this encounter Results Dexa bone density axial skeleton (12/06/2021 12:13 PM CDT) Anatomical Region Laterality Modality Wrist, Hip, L-spine Radiographic Imaging Specimen (Source) Anatomical Collection Method Collection Time Re ceived Time Location / / Volume Laterality 12/06/2021 12:13 PM CDT Impressions 12/06/2021 12:42 PM CDT IMPRESSION: Normal. FINDINGS: Patient: LYNNETTE LAWTON Birthdate: ??1940, [age] Height/Weight: ??62.2 in., 51.8 lbs. Gender/Ethnicity: Female, White Facility ID: (not specified) Referring Physician: Lyn Naik ? ? Measured: ??12/06/2021, 11:51:18 AM, 18 ?? SP 3 Analyzed: ??12/06/2021, 12:10:10 PM, 18 ?? SP 3 Results: Region ?Measured ?Age ?? BMD ?T-score ??Z-score L1-L4 ? 12/06/2021 ??79.1 ??0.887 g/cm2 ??-2.4 ? 0.7 L1-L4 ? 09/29/2019 ??76.9 ??0.844 g/cm2 ??-2.8 ? -0.6 Neck Left ?? 12/06/2021 ??79.1 ??0.759 g /cm2 ??-2.0 ? 1.0 Neck Left ?? 09/29/2019 ??76.9 ??0.789 g /cm2 ??-1.8 ? 0.5 Neck Right ??12/06/2021 ??79.1 ??0.825 g /cm2 ??-1.5 ? 1.4 Neck Right ??09/29/2019 ??76.9 ??0.791 g /cm2 ??-1.8 ? 0.5 Total Left ??12/06/2021 ??79.1 ??0.690 g /cm2 ??-2.5 ? 0.4 Total Left ??09/29/2019 ??76.9 ??0.715 g /cm2 ??-2.3 ? -0.2 Total Right 12/06/2021 ??79.1 ??0.738 g/ cm2 ??-2.1 ? 0.8 Total Right 09/29/2019 ??76.9 ??0.748 g/ cm2 ??-2.1 ? 0.1 FRAX* Based on femoral neck BMD: DualFem ur (Left) 10-year Probability of Fracture FRAX Adj usted for TBS Major Osteoporotic Fracture: 25.1 % Hip Fracture: ?12. 3 % Population: ?[place] A () Risk Factors: ?Fam molina Hist. (Parent hip fracture) *FRAX is a trademark of the [employer]'s Lee for Metabolic Bone Diseases, a Wo rld Health Organization (WHO) Collaborating Lee (7496-3636). Summary Comparisons Spine The least significant change for the BMD for the AP spine is 0.038 g/cm2. The absolute BMD change from the prior, 0.043 g/cm2, is SIGNIFICANTLY INCREASED. Left Neck The least significant change for the BMD for the Left Femur Neck is 0.049 g/cm2. The absolute BMD change from the prior, -0.030 g/cm2, is NOT SIGNIFICANT. Right Neck The least significant change for the BMD for the Right Femur Neck is 0.049 g/cm2. The absolute BMD change from the prior, 0.034 g/cm2, is NOT SIGNIFICANT. Left Total The least significant change for the BMD for the Left Femur Total is 0.026 g/cm2. The absolute BMD change from the prior, -0.025 g/cm2, is NOT SIGNIFICANT. Right Total The least significant change for the BMD for the Right Femur Total is 0.026 g/cm2. The absolute BMD change from the prior, -0.010 g/cm2, is NOT SIGNIFICANT. ASSESSMENT: The diagnosis in pre-menopausal women an d men can be based on low bone mass or evidence of skeletal fragility i n the appropriate clinical setting. World Health Organization - Definition o f osteoporosis and Osteopenia for Women* Normal: T-Score at or above -1 SD Osteopenia: T-Score between -1 and -2.5 SD Osteoporosis: T-Score at or below -2.5 S D Established Osteoporosis: T-Score at or below -2.5 SD plus fragility fracture *WHO definitions only apply when a young healthy Women reference database is used to determine T- Scores. Narrative 12/06/2021 12:42 PM CDT INDICATION: Post menopause (age-related, natural) Procedure Note Dory Bear DO - 12/06/2021F ormatting of this note might be different from the original. INDICATION: Post menopause (age-related, natural) IMPRESSION: Normal. FINDINGS: Patient: LYNNETTE LAWTON Birthdate: 1940, [age] Height/Weight: 62.2 in., 51.8 lbs. Gender/Ethnicity: Female, White Facility ID: (not specified) Referring Physician: Lyn Lloyd Measured: 12/06/2021, 11:51:18 AM, 18 SP 3 Analyzed: 12/06/2021, 12:10:10 PM, 18 SP 3 Results: Region Measured Age BMD T-score Z-score L1-L4 12/06/2021 81.1 0.887 g/cm2 -2.4 0 .7 L1-L4 09/29/2019 78.9 0.844 g/cm2 -2.8 - 0.6 Neck Left 12/06/2021 79.1 0.759 g/cm2 -2 .0 1.0 Neck Left 09/29/2019 76.9 0.789 g/cm2 -1 .8 0.5 Neck Right 12/06/2021 79.1 0.825 g/cm2 - 1.5 1.4 Neck Right 09/29/2019 76.9 0.791 g/cm2 - 1.8 0.5 Total Left 12/06/2021 79.1 0.690 g/cm2 - 2.5 0.4 Total Left 09/29/2019 76.9 0.715 g/cm2 - 2.3 -0.2 Total Right 12/06/2021 79.1 0.738 g/cm2 -2.1 0.8 Total Right 09/29/2019 76.9 0.748 g/cm2 -2.1 0.1 FRAX* Based on femoral neck BMD: DualFem ur (Left) 10-year Probability of Fracture FRAX Adj usted for TBS Major Osteoporotic Fracture: 25.1 % Hip Fracture: 12.3 % Population: [place] () Risk Factors: Family Hist. (Parent hip f racture) *FRAX is a trademark of the [employer]'s Lee for Metabolic Bone Diseases, a Wo rld Health Organization (WHO) Collaborating Lee ([id number]). Summary Comparisons Spine The least significant change for the BMD for the AP spine is 0.038 g/cm2. The absolute BMD change from the prior, 0.043 g/cm2, is SIGNIFICANTLY INCREASED. Left Neck The least significant change for the BMD for the Left Femur Neck is 0.049 g/cm2. The absolute BMD change from the prior, -0.030 g/cm2, is NOT SIGNIFICANT. Right Neck The least significant change for the BMD for the Right Femur Neck is 0.049 g/cm2. The absolute BMD change from the prior, 0.034 g/cm2, is NOT SIGNIFICANT. Left Total The least significant change for the BMD for the Left Femur Total is 0.026 g/cm2. The absolute BMD change from the prior, -0.025 g/cm2, is NOT SIGNIFICANT. Right Total The least significant change for the BMD for the Right Femur Total is 0.026 g/cm2. The absolute BMD change from the prior, -0.010 g/cm2, is NOT SIGNIFICANT. ASSESSMENT: The diagnosis in pre-menopausal women an d men can be based on low bone mass or evidence of skeletal fragility i n the appropriate clinical setting. World Health Organization - Definition o f osteoporosis and Osteopenia for Women* Normal: T-Score at or above -1 SD Osteopenia: T-Score between -1 and -2.5 SD Osteoporosis: T-Score at or below -2.5 S D Established Osteoporosis: T-Score at or below -2.5 SD plus fragility fracture *WHO definitions only apply when a young healthy Women reference database is used to determine T- Scores. Lyn Naik MD IMG DXA PROCEDURES documented in this encounter Visit Diagnoses Not on filedocumented in this encounter Care Teams Integrated Circuits Inspector Relationship Specialty Start Date End Date Noris Carter MD PCP - General Family Medicine 06/08/20 [address] [place] [address] documented as of this encounter
--- OUTSIDE RECORDS SUMMARY | 2022-07-24 09:33 | XMS_ITS | Encounter Summary ---
:1940 Author Organization [facility] Address [address] [place] [address] Care Team Providers Name Role Phone Noris Carter MD Primary Care Provider Reason for Visit Reason Comments Tick Bite Encounter Details Date Type Department Care Team Description 12/20/2020 Office Visit [facility] Noris Carter Tick bite, initial encounter (Primary Dx); [address] [place] Bug bite, initial encounter [place], [place] [address] [place] [address] Social History Tobacco Use Types Packs/Day Years [...] Sign Reading Time Taken Comments Blood Pressure 142/72 12/20/2020 10:29 AM CDT Pulse 88 12/20/2020 10:29 AM CDT Temperature 36.4 ??C (97.6 ??F) 12/20/2020 10:29 AM CDT Respiratory Rate 14 12/20/2020 10:29 AM CDT Oxygen Saturation 98% 12/20/2020 10:29 AM CDT Inhaled Oxygen Concentration - - Weight 49 kg (108 lb) 12/20/2020 10:29 AM CDT Height 157.5 cm (5' 2.01) 12/20/2020 10:29 AM CDT Body Mass Index 19.75 12/20/2020 10:29 AM CDT documented in this encounter Progress Notes Noris Carter MD - 12/20/2020 10:40 AM CDT Estab Patient Visit Subjective Patient ID: Lynnette Thompson is a 80 y.o. female. HPI the patient is here today because of a tick bite that she incurred 1 week ago plus a couple other skin issues that she has some questions about The patient is outdoors in her garden doing work around the house but does not necessarily go out into the [place]. A week ago she was able to pull a tick off of her left inner thigh but it still just a little bit red so she wanted to look at. She also brought to can with her for us to look at as well. She also had a few other whitaker on her body that she wanted to see as well Review of Systems Objective Physical Exam she is alert she appears comfortable blood pressure 142/72 pulse 88 regular rate and rhythm temp 97.6 her current weight is 108 pounds her BMI is 19.7 and her O2 sats 98% on room air On the inner aspect of her left thigh there is an area which is an obvious bite jamal surrounded by alittle bit of erythema proximately 2 cm going out. There is not a bull's-eye lesion. And after looking at the lesion there is no drainage there is no significant redness just a little erythema and there is no tenderness there is no lumps or bumps in the tick that she brought in but we looked at under magnification there is definitely a wood tick. She also had a bite jamal on the inner aspect of her right side as well as the back of her neck and all these areas are consistent with bug bites at this time none appear to be infected Assessment/Plan Diagnoses and all orders for this visit: Tick bite, initial encounter Bug bite, initial encounter The overall assessment is as above and the plan at this time is just observation use of Cortaid or other skin lotions as needed for itch and irritation. documented in this encounter Plan of Treatment Not on filedocumented as of this encounter Visit Diagnoses Diagnosis Tick bite, initial encounter - Primary Bug bite, initial encounter documented in this encounter Care Teams Manager Adobe Relationship Specialty Start Date End Date Noris Carter MD PCP - General Family Medicine 06/08/[address] [place] [address] documented as of this encounter
--- OUTSIDE RECORDS SUMMARY | 2022-07-24 09:33 | XMS_ITS | Encounter Summary ---
:[address] [facility] Address [address] [place] [address] Care Team Providers Name Role Phone Noris Carter MD Primary Care Provider Reason for Visit Reason Onset Date Comments Tick bite 12/16/2020 Encounter Details Date Type Department Care Team Description 12/16/2020 Telephone [place] Noris Carter MD Tick bite [address] [place], [place] [address] [place], [place] [phone] [address] (Wo rk) Social History Tobacco Use Types [...] this encounter Miscellaneous Notes Telephone Encounter - Noris Carter MD - 12/16/2020 9:50 AM CDT Sounds OK Telephone Encounter - Su Lord RN - 12/16/2020 9:44 AM CDT Patient reports yesterday evening she found a tick on her inner thigh. She was able to remove it andput it in a bag. She stated she noticed a 1/2 white shoshone-bannock around the area with a red dot where thetick was attached. She was advised to monitor the area for now. If you'd like to do anything else please let nursing know. Telephone Encounter - Florecita Rea - 12/16/2020 9:01 AM CDT Patient would like to speak to a nurse about a tick bite. Please call her at [phone]. documented in this encounter Plan of Treatment Not on filedocumented as of this encounter Visit Diagnoses Not on filedocumented in this encounter Care Teams Checkering Machine Operator Relationship Specialty Start Date End Date Noris Carter MD PCP - General Family Medicine 06/08/20 [address] [facility] [address] [place] [address] documented as of this encounter
--- OUTSIDE RECORDS SUMMARY | 2022-07-24 09:33 | XMS_ITS | Encounter Summary ---
:1940 Author Organization [facility] Address [address] [place] [address] Care Team Providers Name Role Phone Noris Carter MD Primary Care Provider Reason for Visit Reason Comments Immunizations Flu Encounter Details Date Type Department Care Team Description 06/20/2022 Immunization [facility] Immunization due (Primary [address] Dx) [place] [address] Social History Tobacco Use Types [...] documented as of this encounter Progress Notes Maren Leger RN - 06/20/2022 9:30 AM CST Nurse Note OTELEPHONE OPERATOR documented in this encounter Plan of Treatment Not on filedocumented as of this encounter Visit Diagnoses Diagnosis Immunization due - Primary documented in this encounter Care Teams Licensed Customs Broker Relationship Specialty Start Date End Date Noris Carter MD PCP - General Family Medicine 06/08/[address] [place] [address] documented as of this encounter
--- OUTSIDE RECORDS SUMMARY | 2022-07-24 09:33 | XMS_ITS | Clinical Summary ---
:1940 Author Organization [facility] Address [address] [place] [address] Care Team Providers Name Role Phone Noris Carter MD Primary Care Provider Allergies Active Allergy Reactions Severity Noted Date Comments Penicillins Rash Medium 08/13/1989 Medications Medication Sig Dispensed Refills Start Date End Date Status latanoprost (XALATAN) Administer 1 drop into both eyes 1 (one) time each day 0 Active 0.005 % ophthalmic solution Ascorbic Acid Take 500 mg by 0 A ctive (VITAMIN C) 500 MG mouth 1 (one) time tablet each day During winter timolol (TIMOPTIC) Administer 1 drop 10 mL 0 08/19/2020 Active 0.5 % ophthalmic into both eyes 2 solutionIndications: (two) times a day Open-angle glaucoma of both eyes, unspecified glaucoma stage, unspecified open-angle glaucoma type levothyroxine Take 1 tablet (88 90 tablet 3 08/23/2020 Active (Synthroid) 88 MCG mcg total) by tabletIndications: mouth 1 (one) time Hypothyroidism, each day unspecified type calcium Take 1 tablet by 120 tablet 0 11/15/2021 A ctive citrate-vitamin D mouth 2 (two) (Calcitrate) 315-250 times a day At MG-UNIT lunch and evening tabletIndications: meal Osteoporosis, unspecified osteoporosis type, unspecified pathological fracture presence Calcium Take 1 tablet by 0 Act jaren Carb-Cholecalciferol mouth 2 (two) (HM Calcium-Vitamin times a day D) 600-800 MG-UNIT tablet Diclofenac Sodium 1 % APPLY TWO GRAM 0 10/25/2021 Active gel gel TOPICALLY FOUR TIMES A DAY Active Problems Problem Noted Date Hypothyroidism 08/19/2020 Other specified glaucoma 08/19/2020 Open-angle glaucoma of both eyes 08/19/2020 Age-related osteoporosis without current pathological fracture 10/07/2018 Overview: Managed by endocrine. Reclast infusion i n 10/2018, 10/2019. Last bone density in 09/2019. Recommended to continue Reclast for total of 4 years prior to considering drug holiday. Last endocrine visit in 10/2020. Follow-u p visit in 1 year with repeat bone density, lumbar and thoracic spine x-rays will be arranged. Chronic sinusitis 10/04/2017 Chronic low back pain 01/12/2017 Overview: History of vertebral compression fractur e. Resolved Problems Problem Noted Date Resolved Date Episode of dizziness 07/22/2018 08/19/2020 Recurrent major depressive disorder 12/14/201102/2021 Overview: Overview: Major Depression Recurrent Episode NOS ( 296.30) onset unknown Generalized anxiety disorder 05/03/2006 08/19/2020 Encounters Date Type Specialty Care Team Description 06/20/2022 Immunization Family Medicine Immunization due (Primary Dx) from Last 3 Months Immunizations Name Administration Dates Next Due COVID-19, mRNA, LNP-S, PF, 01/24/2022, 01/24/2021, 1 30mcg/0.3mL dose Pfizer Flu Vaccine High Dose 65yrs and Older 06/20/2022, 05/23/2021 , 06/08/2020, IM 06/18/2019 TD Preservative Free 03/15/2021, 06/10/2010 Td 06/10/2010 Tdap 06/10/2010 Family History Medical History Relation Comments Colon cancer Brother 2 Metastatic Diabetes Brother 2 Hip fracture Father Breast cancer Father's Sister Other Mother Supranuclear palsy Breast cancer Sister Relation Status Comments Brother 1 Alive Brother 2 Father Father's Sister Mother Sister Alive Social History Tobacco Use Types Packs/Day Years [...] CDT Inhaled Oxygen Concentration - - Weight 51.8 kg (114 lb 1.4 oz) 11/15/2021 8:27 AM CDT Height 156 cm (5' 1.42) 11/15/2021 8:27 AM CDT Body Mass Index 21.27 11/15/2021 8:27 AM CDT Plan of Treatment Health Maintenance Due Date Last Done Comments Zoster Vaccines (1 of 2) 1992 Pneumococcal Vaccine: 65+ 2007 Years (1 - PCV) [facility] Annual Wellness 02/01/2019 02/01/2018 DTaP,Tdap,and Td Vaccines 03/16/2021 03/15/2021, 06/10/2010 , (1 - Tdap) 06/10/2010, Additional history exists Glaucoma Screening 67+ Yr 08/19/2021 08/19/2020, 08/19/2020 , 08/19/2020, Additional history exists COVID-19 Vaccine (4 - 03/21/2022 01/24/2022, 08/25/2021, Booster for Pfizer series) 01/24/2021, Additiona l history exists Fall Risk Performed 11/15/2022 11/15/2021 HPV Vaccines Aged Out No longer eligib kehinde based on patient 's age to complete this topic Mammogram Discontinued Insurance Payer Benefit Plan / Subscriber ID Effective Dates Phone Addre ss Type Group MEDICARE MEDICARE [id number] 2007-[place] [address] [place] [id number] BCBS OF BCBS [place] [id number] 2017-Davion [address] [address] [place] [address] [place], [place] MEDICARE NON [id number] ADVANTAGE Care Teams Transmission Systems Operator Relationship Specialty Start Date End Date Noris Carter MD PCP - General Family Medicine 06/08/[address] [place] [address]
--- OUTSIDE RECORDS SUMMARY | 2022-07-24 09:33 | XMS_ITS | Encounter Summary ---
:1940 Author Organization [facility] Address [address] [place] [address] Care Team Providers Name Role Phone Mirella Conteh APRN, DISPENSING AND MEASURING OPTICIAN Primary Care Provider [phone] Encounter Details Date Type Department Care Team Description 10/23/2019 Travel Social History Tobacco Use Types Packs/Day Years [...] on filedocumented in this encounter Care Teams Dye Jig Operator Relationship Specialty Start Date End Date Mirella Conteh APRN, DISPENSING AND MEASURING OPTICIAN PCP - General 03/19/18 04/19/[address] [place] [address] documented as of this encounter
--- OUTSIDE RECORDS SUMMARY | 2022-07-24 09:33 | XMS_ITS | Encounter Summary ---
:1940 Author Organization [facility] Address [address] [place] [address] Care Team Providers Name Role Phone Mirella Conteh APRN, METALS ANALYST Primary Care Provider [phone] Encounter Details Date Type Department Care Team Description 10/31/2019 Travel Social History Tobacco Use Types Packs/Day [...] / COVID-19? documented as of this encounter Plan of Treatment Not on filedocumented as of this encounter Visit Diagnoses Not on filedocumented in this encounter Care Teams Alcohol Still Operator Relationship Specialty Start Date End Date Mirella Conteh APRN, METALS ANALYST PCP - General 03/19/18 04/19/[address] [place] [address] [place] [address] documented as of this encounter
--- OUTSIDE RECORDS SUMMARY | 2022-07-24 09:33 | XMS_ITS | Encounter Summary ---
:1940 Author Organization [facility] Address [address] [place] [address] Care Team Providers Name Role Phone Noris Carter MD Primary Care Provider Reason for Visit Reason Comments Osteoporosis Encounter Details Date Type Department Care Team Description 11/15/2021 Office Visit [facility] Muthusamy, Age-related osteoporosis wit hout current pathological fracture (Primary Dx); [address] MD Lyn History of vertebral pritesh yokasta fracture; [place] [address] Family history of fracture o f hip in parent; [phone] Osteoporosis, u nspecified osteoporosis type, unspecified pathological fracture presence Social History Tobacco Use Types Packs/Day Years [...] Sign Reading Time Taken Comments Blood Pressure 118/66 11/15/2021 8:27 AM CDT Pulse 72 11/15/2021 8:27 AM CDT Temperature 36.3 ??C (97.3 ??F) 11/15/2021 8:27 AM CDT Respiratory Rate 16 11/15/2021 8:27 AM CDT Oxygen Saturation 99% 11/15/2021 8:27 AM CDT Inhaled Oxygen Concentration - - Weight 51.8 kg (114 lb 1.4 oz) 11/15/2021 8:27 AM CDT Height 156 cm (5' 1.42) 11/15/2021 8:27 AM CDT Body Mass Index 21.27 11/15/2021 8:27 AM CDT documented in this encounter Patient Instructions Patient InstructionsLyn Naik MD - 11/15/2021 9:00 AM CDT 1. Call with details of calcium/vitamin supplement (type of calcium/vitamin D, dose and serving size) [phone] If calcium carbonate need to be taken at mealtime 2. Complete fasting labs in [place] and bone density 3. Once this is completed will decide on best treatment for bones documented in this encounter Progress Notes Lyn Naik MD - 11/15/2021 9:00 AM CDT Estab Patient Visit Primary Care Provider: Noris Carter MD Chief Complaint: Follow-up of osteoporosis Subjective Patient ID: Lynnette Thompson is a 81 y.o. female. DISEASE SUMMARY: Patient seen for initial consultation in 08/2018. Has history of first bone density done at [facility] in 2014 that showed a T score of - 3.2 at L1-L2, left femoral neck -2.3 total hip -2.6, right femoral neck -1.8, total hip -2.3. She had deferred pharmacotherapy for osteoporosis at that point. She developed back pain in 2016 and had a lumbar spine x-ray which showed multiple compression fractures at L1, L2, L3 and L5. She also had a CT abdomen and 10/2017 at an outside facility which noted T12 compression as well. Imaging in 2019 showed compression deformity involving T4, T5,T6 and T7. She had menopause in her 50s and was on hormone replacement for a few years. There is history of parental hip fracture in her father which appeared to be spontaneous. She has history of acidreflux. Her labs done in 07/2018 showed vitamin D of 43.9. HPI Last endocrine visit in 10/2020. Weight up by 7 pounds since last visit Patient received Reclast infusion in 11/2020 Reports having mid back pain of new onset in the last few months with rib pain and abdominal pain. She follows through [facility] with Ms. Mirella Conteh and underwent CT scan which showed multiple compression deformities involving the thoracolumbar vertebral bodies including T6, T7, T8, L1-L5. She also underwent colonoscopy and removal of several polyps. Reports being treated with NSAID with some improvement in pain. Denies any recent falls. She walks 3/4th of a mile 2-4 times a week. 1-2 servings of dairy/day. She reports being on calcium/vitamin D, likely calcium carbonate twice a day and takes it at lunch and evening meal. from Levothyroxine by more than 4 hours. Further details of supplements not known. She visits the dentist on a regular basis and denies any concerns. Last bone density in 09/2019 Did not complete bone density recommended prior to visit. Review of systems: As in HPI. All other systems negative. LAB RESULTS Vitamin D from 07/2019: 36.8 Lab Results Component Value Date CREATININE 0.7 11/15/2020 Lab Results Component Value Date CALCIUM 9.4 11/15/2020 PHOS 3.8 09/30/2018 Outpatient Encounter Medications as of 11/15/2021 Medication Sig Dispense Refill ??? Ascorbic Acid (VITAMIN C) 500 MG tablet Take 500 mg by mouth 1 (one) time each day During ??? calcium citrate-vitamin D (Calcitrate) 315-250 MG-UNIT tablet Take 1 tablet by mouth 2 (two) times a day At lunch and evening meal 120 tablet ??? latanoprost (XALATAN) 0.005 % ophthalmic solution Administer 1 drop into both eyes 1 (one) time each day ??? timolol (TIMOPTIC) 0.5 % ophthalmic solution Administer 1 drop into both eyes 2 (two) times a day 10 mL ??? [DISCONTINUED] calcium citrate-vitamin D (CALCITRATE) 315-250 MG-UNIT tablet Take 2 tablets by mouth 2 (two) times a day At lunch and evening meal 120 tablet ??? levothyroxine (Synthroid) 88 MCG tablet Take 1 tablet (88 mcg total) by mouth 1 (one) time each day 90 tablet 3 No facility-administered encounter medications on file as of 11/15/2021. Allergies as of 11/15/2021 - Reviewed 11/15/2021 Allergen Reaction Noted ??? Penicillins Rash 1989 Objective Visit Vitals BP 118/66 (BP Location: Left arm, Patient Position: Sitting) Pulse 72 Temp 36.3 ??C (97.3 ??F) (Temporal) Resp 16 Ht 1.56 m (5' 1.42) Wt 51.8 kg (114 lb 1.4 oz) SpO2 99% BMI 21.27 kg/m?? Smoking Status Never Smoker BSA 1.5 m?? Physical Exam Patient appears well with no apparent distress. Ambulates independently without any concerns. Cardio vascular - regular rate and rhythm no murmur. Musculoskeletal -has mild mid thoracic vertebral tenderness, has mild kyphosis. Assessment/Plan Diagnoses and all orders for this visit: Age-related osteoporosis without current pathological fracture - Alkaline phosphatase, bone specific; Future - Calcium; Future - Creatinine, Serum; Future History of vertebral compression fracture Family history of fracture of hip in parent Osteoporosis, unspecified osteoporosis type, unspecified pathological fracture presence Reclast infusion in 10/2018, 10/2019, 11/[address] scan report that patient brings shows mention of mild-moderate compression deformity in the areas that were previously known. Any progression cannot be delineated unless these images were directly compared. I discussed with patient about lack of certainty of etiology of her back pain. If pain continues to be an issue she will require further evaluation in pain management clinic or spine center at [place]. 2. Otherwise to decide on further pharmacotherapy for osteoporosis it would benefit to update bone density and bone alkaline phosphatase. If there is indication of decline in bone density and elevated bone alkaline phosphatase, a more effective antiresorptive agent such as denosumab versus anabolic therapy can be considered. 3. Recommended to communicate details of calcium/vitamin D supplementation. 4. Calcium/creatinine will also be updated. 5. Follow-up will be determined based on test results and treatment plan. Patient understands and agrees with the above plan. Addie Bridges MA - 11/15/2021 9:00 AM CDT Nurse Note Patient called with her current calcium supplement. She is taking Calcium Carbonate plus Vitamin D3. Calcuim has 600 mg and Vitamin D3 has 800 units pertablet. Patient is taking 1 tablet BID with lunch and evening meal. Please advise if patient should continue this current medication or proceed with calcium supplement that was sent into pharmacy today. Lyn Naik MD - 11/15/2021 9:00 AM CDT She can continue taking the calcium/vitamin D supplement that she is using. Please update in med list. Addie Bridges MA - 11/15/2021 9:00 AM CDT Patient informed of above message and verbalized an understanding. documented in this encounter Plan of Treatment Not on filedocumented as of this encounter Results Creatinine, Serum (11/18/2021 8:03 AM CDT) athologist Signature Creatinine 0.9 0.4 - 1.2 11/18/2021 [facility] mg/dL 8:58 AM CDT [place] Comment: . Specimen Anatomical Collection Method Collection Time Receive d Time (Source) Location / / Volume Laterality Blood 11/18/2021 8:03 AM 2 8:05 CDT AM CDT Lyn Naik MD LAB BLOOD ORDERABLES Performing Organization Address City/State/ZIP Code Phon e Number [facility] [place] [address] [place] [address] Calcium (11/18/2021 8:03 AM CDT) athologist Signature Calcium, 9.5 8.4 - 10.2 11/18/2021 [facility] Total,S mg/dL 8:58 AM CDT [place] Comment: . Specimen Anatomical Collection Method Collection Time Receive d Time (Source) Location / / Volume Laterality Blood 11/18/2021 8:03 AM 2 8:05 CDT AM CDT Lyn Naik MD LAB BLOOD ORDERABLES Performing Organization Address City/[facility] Code Phon e Number [facility] [place] [address] [place] [address] Alkaline phosphatase, bone specific (11/18/2021 8:03 AM CDT) [facility] Method Time Signature Bone Alkaline 7.9 mcg/L 11/19/2021 [facility] Phosphatase 11:27 AM CDT LABORATORIES Comment: [...] in the BAP assay. Test Performed by: [facility] [address] [place] [address] Surface Boss: Jose Ramon Tompkins M.D. Ph. D.; CLIA# [id number] Specimen Anatomical Collection Method Collection Time Receive d Time (Source) Location / / Volume Laterality Blood 11/18/2021 8:03 AM 2 2:30 CDT PM CDT Lyn Naik MD LAB BLOOD ORDERABLES Performing Organization Address City/[facility]/ZIP Code Phon e Number [employer] [facility] see result attachment for specific address documented in this encounter Visit Diagnoses Diagnosis Age-related osteoporosis without current pathological fracture - Primary History of vertebral compression fractur e Family history of fracture of hip in par ent Osteoporosis, unspecified osteoporosis t ype, unspecified pathological fracture presence documented in this encounter Care Teams Utilization Supervisor Relationship Specialty Start Date End Date Noris Carter MD PCP - General Family Medicine 06/08/[address] [place] [address] documented as of this encounter
--- OUTSIDE RECORDS SUMMARY | 2022-07-24 09:33 | XMS_ITS | Encounter Summary ---
:1940 Author Organization [facility] Address [address] [place] [address] Care Team Providers Name Role Phone Noris Carter MD Primary Care Provider Encounter Details Date Type Department Care Team Description 08/23/2020 Telephone [place] Noris Carter MD [address] [place], [place] [address] [place], [place] [phone] (Wo rk) Social History Tobacco Use Types [...] this encounter Miscellaneous Notes Telephone Encounter - Su Lord RN - 08/23/2020 2:21 PM CST Patient informed of TSH result. NSED PROSTHETIST/ORTHOTIST documented in this encounter Plan of Treatment Not on filedocumented as of this encounter Visit Diagnoses Not on filedocumented in this encounter Care Teams [employer] Sales Relationship Specialty Start Date End Date Noris Carter MD PCP - General Family Medicine 06/08/[address] [place] [address] documented as of this encounter
--- OUTSIDE RECORDS SUMMARY | 2022-07-24 09:33 | XMS_ITS | Encounter Summary ---
:1940 Author Organization [facility] Address [address] [place] [address] Care Team Providers Name Role Phone Mirella Conteh LUMBER CARRIER, LOGISTICS SUPERVISOR Primary Care Provider [phone] Reason for Visit Reason Onset Date Comments lab results 10/27/2019 Encounter Details Date Type Department Care Team Description 10/27/2019 Telephone Asaf Quispe Mirella Conteh, lab results [address] LUMBER CARRIER, LOGISTICS SUPERVISOR [place], [place] [address] [address] [facility] [address] [phone] [place], [place] [address] Social History Tobacco Use Types Packs/Day Years [...] this encounter Miscellaneous Notes Telephone Encounter - Addie Bridges MA - 10/27/2019 4:38 PM CDT Patient informed of above message and verbalized an understanding. Telephone Encounter - Lyn Naik MD - 10/27/2019 2:28 PM CDT Please let patient know that calcium and kidney test are in the normal range. Proceed with Reclast infusion as planned. Telephone Encounter - Addie Bridges MA - 10/27/2019 9:49 AM CDT Please advise on lab results from 10/23/19 Telephone Encounter - Su Lord RN - 10/27/2019 9:42 AM CDT Please call patient regarding results. Telephone Encounter - Dory Contreras - 10/27/2019 9:23 AM CDT Pt called stating she was in for lab work last and is wondering about the results. Please call Pt at [phone] to advise. documented in this encounter Plan of Treatment Not on filedocumented as of this encounter Visit Diagnoses Not on filedocumented in this encounter Care Teams Supervisor Contact And Service Clerks Relationship Specialty Start Date End Date Mirella Conteh APRN, LOGISTICS SUPERVISOR PCP - General 03/19/18 04/19/[address] [place] [address] [place] [address] documented as of this encounter
--- OUTSIDE RECORDS SUMMARY | 2022-07-24 09:33 | XMS_ITS | Encounter Summary ---
:1940 Author Organization [facility] Address [address] [place] [address] Care Team Providers Name Role Phone Noris Carter MD Primary Care Provider Encounter Details Date Type Department Care Team Description 06/08/2020 Clinical Support Asaf Quispe Canceled (Other-No [address] letter needed) [place] [address] Social History Tobacco Use Types [...] on filedocumented in this encounter Care Teams Electronic Sensing Equipment Assembler Relationship Specialty Start Date End Date Noris Carter MD PCP - General Family Medicine 06/08/[address] [place] [address] documented as of this encounter
--- OUTSIDE RECORDS SUMMARY | 2022-07-24 09:33 | XMS_ITS | Encounter Summary ---
:[address] [facility] Address [address] [place] [address] Care Team Providers Name Role Phone Mirella Conteh APRN, CONFIGURATION SPECIALIST Primary Care Provider [phone] Encounter Details Date Type Department Care Team Description 10/23/2019 Lab Asaf Quispe Age-related osteoporosis [address] without current pathological [place] [address] fracture [phone] Social History Tobacco Use Types Packs/Day Years [...] Date/Time Associated Diagnosis Comme nts GLOMERULAR Routine 10/23/2019 8:04 AM Age-related Results f or this FILTRATION RATE CDT osteoporosis without proc edure are in current pathological the res ults fracture section. CREATININE, SERUM Routine 10/23/2019 8:04 AM Age-related Resu lts for this CDT osteoporosis without procedu re are in current pathological the res ults fracture section. CALCIUM Routine 10/23/2019 8:04 AM Age-related Results f or this CDT osteoporosis without procedu re are in current pathological the res ults fracture section. documented in this encounter Results Glomerular filtration rate (GFR) (10/23/2019 8:04 AM CDT) athologist Signature GFR >60 10/23/2019 [facility] 8:21 AM CDT [facility] >60 10/23/2019 [facility] Croatian GFR 8:21 AM CDT [facility] Comment: GFR calculated from serum creatinine v alue Chronic Kidney Disease less than 60 mL/m in/1.73 m2 Kidney Failure less than 15 mL/min/1.73 m2 Note: effective 12/26/06 IDMS-Traceable MDRD Study Equation used. Specimen Anatomical Collection Method Collection Time Receive d Time (Source) Location / / Volume Laterality 10/23/2019 8:04 AM 0 8:04 CDT AM CDT Lyn Naik MD LAB BLOOD ORDERABLES Performing Organization Address City/[facility]/ZIP Code Phon e Number [facility] [address] [place] [address] Calcium (10/23/2019 8:04 AM CDT) athologist Signature Calcium, 9.3 8.4 - 10.2 10/23/2019 [facility] Total,S mg/dL 8:21 AM CDT [place] Comment: . Specimen Anatomical Collection Method Collection Time Receive d Time (Source) Location / / Volume Laterality Blood 10/23/2019 8:04 AM 0 8:05 CDT AM CDT Lyn Naik MD LAB BLOOD ORDERABLES Performing Organization Address City/[facility]/ZIP Code Phon e Number [facility] [place] [address] [place] [address] Creatinine, Serum (10/23/2019 8:04 AM CDT) P athologist Signature Creatinine 0.7 0.4 - 1.2 10/23/2019 [facility] mg/dL 8:21 AM CDT [place] Comment: . Specimen Anatomical Collection Method Collection Time Receive d Time (Source) Location / / Volume Laterality Blood 10/23/2019 8:04 AM 0 8:05 CDT AM CDT Lyn Naik MD LAB BLOOD ORDERABLES Performing Organization Address City/[facility]/ZIP Code Phon e Number [facility] [place] [address] [place] [address] documented in this encounter Visit Diagnoses Diagnosis Age-related osteoporosis without current pathological fracture documented in this encounter Care Teams Database Coordinator Relationship Specialty Start Date End Date Mirella Conteh APRN, CONFIGURATION SPECIALIST PCP - General 03/19/18 04/19/20 100 COUNTS INCLUDE 234 BEDS AT [facility] [place] [id number] documented as of this encounter
--- OUTSIDE RECORDS SUMMARY | 2022-07-24 09:33 | XMS_ITS | Encounter Summary ---
:1940 Author Organization [facility] Address [address] [place] [address] Care Team Providers Name Role Phone Noris Carter MD Primary Care Provider Reason for Visit Reason Comments Immunizations flu Encounter Details Date Type Department Care Team Description 06/08/2020 Immunization [place] [address] [place], [place] [address] Social History Tobacco Use [...] encounter Progress Notes Su Lord RN - 06/08/2020 11:00 AM CDT Patient denies a previous reaction to any vaccines. Reviewed screening questionnaire with patient prior to administration. VIS given. ERADICATOR documented in this encounter Plan of Treatment Not on filedocumented as of this encounter Visit Diagnoses Not on filedocumented in this encounter Care Teams Delivery Room Supervisor Relationship Specialty Start Date End Date Noris Carter MD PCP - General Family Medicine 06/08/20 [address] [facility] [address] [place] [address] documented as of this encounter
--- OUTSIDE RECORDS SUMMARY | 2022-07-24 09:33 | XMS_ITS | Encounter Summary ---
:1940 Author Organization [facility] Address [address] [place] [address] Care Team Providers Name Role Phone Noris Carter MD Primary Care Provider Reason for Visit Reason Onset Date Comments Covid vac 10/12/2020 Encounter Details Date Type Department Care Team Description 10/12/2020 Telephone [place] Noris Carter MD Covid vac [address] [place], [place] [address] [place], [place] [phone] (Wo rk) Social History Tobacco Use Types [...] Telephone Encounter - Noris Carter MD - 10/13/2020 1:20 PM CST Reuben mora UCTION OPERATOR Telephone Encounter - Su Lord RN - 10/12/2020 3:36 PM CST According to Edwina Phillips they can receive the vaccine any time after their isolation period is overand if they are not currently sick. Or if treated with monoclonal antibodies or convalescent plasma patient should wait 90 days. Patient informed. UCTION OPERATOR Telephone Encounter - Noris Carter MD - 10/12/2020 2:42 PM CST I believe the current recommendations is approximately 6 months. I would have you check with our Covid team just to be sure so that we are consistent in giving the same information to other patients aswell. UCTION OPERATOR Telephone Encounter - Su Lord RN - 10/12/2020 2:05 PM CST Please advise. UCTION OPERATOR Telephone Encounter - Florecita Rea - 10/12/2020 2:00 PM CST Patient tested positive for Covid on October 07. She is wondering how long she needs to wait until she can have her covid vaccine. Please call her at [phone]. UCTION OPERATOR documented in this encounter Plan of Treatment Not on filedocumented as of this encounter Visit Diagnoses Not on filedocumented in this encounter Care Teams Fisher Eel Relationship Specialty Start Date End Date Noris Carter MD PCP - General Family Medicine 06/08/20 [address] [facility] [address] [place] [address] documented as of this encounter
--- OUTSIDE RECORDS SUMMARY | 2022-07-24 09:33 | XMS_ITS | Encounter Summary ---
:1940 Author Organization [facility] Address [address] [place] [address] Care Team Providers Name Role Phone Noris Carter MD Primary Care Provider Encounter Details Date Type Department Care Team Description 11/15/2020 Lab Asaf Quispe Age-related osteoporosis [address] without current pathological [place] [address] fracture [phone] Social History Tobacco Use Types Packs/Day Years [...] Date/Time Associated Diagnosis Comme nts GLOMERULAR Routine 11/15/2020 8:27 AM Age-related Results f or this FILTRATION RATE CDT osteoporosis without proc edure are in current pathological the res ults fracture section. CREATININE, SERUM Routine 11/15/2020 8:27 AM Age-related Resu lts for this CDT osteoporosis without procedu re are in current pathological the res ults fracture section. CALCIUM Routine 11/15/2020 8:27 AM Age-related Results f or this CDT osteoporosis without procedu re are in current pathological the res ults fracture section. documented in this encounter Results Glomerular filtration rate (GFR) (11/15/2020 8:27 AM CDT) P athologist Signature GFR >60 11/15/2020 [facility] 3:12 PM CDT [facility] >60 11/15/2020 [facility] Paraguayan GFR 3:12 PM CDT [facility] Comment: GFR calculated from serum creatinine v alue Chronic Kidney Disease less than 60 mL/m in/1.73 m2 Kidney Failure less than 15 mL/min/1.73 m2 Note: effective 12/26/06 IDMS-Traceable MDRD Study Equation used. Specimen Anatomical Collection Method Collection Time Receive d Time (Source) Location / / Volume Laterality 11/15/2020 8:27 AM 8:27 CDT AM CDT Lyn Naik MD LAB BLOOD ORDERABLES Performing Organization Address City/[facility]/ZIP Code Phon e Number [facility] [address] [place] [phone] Calcium (11/15/2020 8:27 AM CDT) athologist Signature Calcium, 9.4 8.4 - 10.2 11/15/2020 [facility] Total,S mg/dL 3:12 PM CDT [facility] Specimen Anatomical Collection Method Collection Time Receive d Time (Source) Location / / Volume Laterality Blood 11/15/2020 8:27 AM 8:30 CDT AM CDT Lyn Naik MD LAB BLOOD ORDERABLES Performing Organization Address City/[facility]/ZIP Code Phon e Number [facility] [address] [place] [phone] Creatinine, Serum (11/15/2020 8:27 AM CDT) athologist Signature Creatinine 0.7 0.4 - 1.2 11/15/2020 [facility] mg/dL 3:12 PM CDT [facility] Specimen Anatomical Collection Method Collection Time Receive d Time (Source) Location / / Volume Laterality Blood 11/15/2020 8:27 AM 8:30 CDT AM CDT Lyn Naik MD LAB BLOOD ORDERABLES Performing Organization Address City/[facility]/ZIP Code Phon e Number [facility] [address] [place] [phone] documented in this encounter Visit Diagnoses Diagnosis Age-related osteoporosis without current pathological fracture documented in this encounter Care Teams Foreign Trade Teacher Relationship Specialty Start Date End Date Noris Carter MD PCP - General Family Medicine 06/08/[address] [place] [address] documented as of this encounter
--- OUTSIDE RECORDS SUMMARY | 2022-07-24 09:33 | XMS_ITS | Encounter Summary ---
:1940 Author Organization [facility] Address [address] [place] [address] Care Team Providers Name Role Phone Noris Carter MD Primary Care Provider Encounter Details Date Type Department Care Team Description 08/23/2020 Orders Only Asaf Quispe Kellen Almeida, Hypothyroidism, [address] RUF[place], GERALD unspecified type CHUCK Oropeza [address] [phone] [place], [place] [id number] Social History Tobacco Use Types Packs/Day Years [...] documented as of this encounter Progress Notes Kellen Almeida APRN, CNP - 08/23/2020 10:20 AM CST tsh 2.22 refilled for 1 yr. pls let pt know. Lord RN - 08/23/2020 10:20 AM CST No answer. IRER KILN CAR Su Lord RN - 08/23/2020 10:20 AM CST Patient informed. IRER KILN CAR documented in this encounter Plan of Treatment Not on filedocumented as of this encounter Visit Diagnoses Diagnosis Hypothyroidism, unspecified type documented in this encounter Care Teams Advertising Assistant Manager Relationship Specialty Start Date End Date Noris Carter MD PCP - General Family Medicine 06/08/20 [address] [place] [address] documented as of this encounter
--- OUTSIDE RECORDS SUMMARY | 2022-07-24 09:33 | XMS_ITS | Encounter Summary ---
:1940 Author Organization [facility] Address [address] [place] [address] Care Team Providers Name Role Phone Noris Carter MD Primary Care Provider Reason for Referral Consultation (Routine) - Closed Specialty Diagnoses / Procedures Referred By Contact Refer red To Contact Infusion Therapy Diagnoses Age-related osteoporosis without current pathological fracture Lyn Naik [facility] [address] [place], [place] [id number] [place] [address] Phone: [phone] Fax: Referral ID Status Reason Start Date Expiration Date Visits V isits Requested Authorized [id number] Closed Specialty 11/03/2020 11/03/2021 1 1 Services Required Reason for Visit Reason Comments Osteoporosis Encounter Details Date Type Department Care Team Description 11/03/2020 Office Visit [facility] [place], Age-related osteoporosis wit hout current pathological fracture (Primary Dx); [address] [place] [address] MD Lyn History of vertebral pritesh yokasta fracture; [place] [address] Family history of fracture o f hip in parent [phone] Social History Tobacco Use Types Packs/Day Years [...] Sign Reading Time Taken Comments Blood Pressure 122/70 11/03/2020 2:06 PM CDT Pulse 96 11/03/2020 2:06 PM CDT Temperature 36.9 ??C (98.4 ??F) 11/03/2020 2:06 PM CDT Respiratory Rate 16 11/03/2020 2:06 PM CDT Oxygen Saturation 98% 11/03/2020 2:06 PM CDT Inhaled Oxygen Concentration - - Weight 48.8 kg (107 lb 9.4 oz) 11/03/2020 2:06 PM CDT Height 157.5 cm (5' 2.01) 11/03/2020 2:06 PM CDT Body Mass Index 19.67 11/03/2020 2:06 PM CDT documented in this encounter Patient Instructions Patient InstructionsLyn Naik MD - 11/03/2020 2:00 PM CDT 1. Continue the Reclast for a total of 4 years 2. Continue calcium citrate/vitamin D 3. Walk as much as possible 4. Dont fall documented in this encounter Progress Notes Lyn Naik MD - 11/03/2020 2:00 PM CDT Estab Patient Visit Primary Care Provider: Noris Carter MD Chief Complaint: Follow-up of osteoporosis Subjective Patient ID: Lynnette Lawton is a 80 y.o. female. DISEASE SUMMARY: Patient seen for initial consultation on 09/12/2018. Has history of first bone density done at [facility] in 2014 that showed a T score of -3.2 at L1-L2, left femoral neck -2.3 total [...] facility which noted T12 compression as well. She had a menopause in her 50s and was on hormone replacement for a few years. There is history of parental hip fracture in her father which appeared to be spontaneous. She has history of acid reflux. Her labs done in 07/2018 showed a vitamin D of 43.9. HPI Last endocrine visit in 09/2019. Weight down by 8 lbs since last visit Denies any major interim illness. Had Covid-19, minimally symptomatic in between. Patient received Reclast infusion on 10/2019 Reports discomfort in upper abdominal pain after eating in the evening Does some walking and exercises provided by physical therapy. Denies any balance concerns, falls, fractures. 1-2 servings of dairy/day. She continues on calcium citrate plus vitamin D 2 tablets twice a day andtakes it in the morning and afternoon. from Levothyroxine by more than 4 hours. She visits the dentist on a regular basis and denies any concerns. Last bone density in 09/2019 Review of systems: As in HPI. All other systems negative. LAB RESULTS Vitamin D from 07/2019: 36.8 Lab Results Component Value Date CREATININE 0.7 10/23/2019 Lab Results Component Value Date CALCIUM 9.3 10/23/2019 PHOS 3.8 09/30/2018 Outpatient Encounter Medications as of 11/03/2020 Medication Sig Dispense Refill ??? Ascorbic Acid (VITAMIN C) 500 MG tablet Take 500 mg by mouth 1 (one) time each day During ??? calcium citrate-vitamin D (CALCITRATE) 315-250 MG-UNIT tablet Take 2 tablets by mouth 2 (two) times a day At lunch and evening meal 120 tablet ??? latanoprost (XALATAN) 0.005 % ophthalmic solution Administer 1 drop into both eyes 1 (one) time each day ??? levothyroxine (Synthroid) 88 MCG tablet Take 1 tablet (88 mcg total) by mouth 1 (one) time each day 90 tablet 3 ??? timolol (TIMOPTIC) 0.5 % ophthalmic solution Administer 1 drop into both eyes 2 (two) times a day 10 mL No facility-administered encounter medications on file as of 11/03/2020. Allergies as of 11/03/2020 - Reviewed 11/03/2020 Allergen Reaction Noted ??? Penicillins Rash 1989 Objective Visit Vitals BP 122/70 (BP Location: Left arm, Patient Position: Sitting) Pulse 96 Temp 36.9 ??C (98.4 ??F) (Temporal) Resp 16 Ht 1.575 m (5' 2.01) Wt 48.8 kg (107 lb 9.4 oz) SpO2 98% BMI 19.67 kg/m?? Smoking Status Never Smoker BSA 1.46 m?? Physical Exam Patient appears well with no apparent distress. Ambulates independently without any concerns. Cardio vascular - regular rate and rhythm no murmur. Musculoskeletal - no vertebral tenderness, has mild kyphosis. Assessment/Plan Diagnoses and all orders for this visit: Age-related osteoporosis without current pathological fracture - Ambulatory referral for Infusion - Calcium; Future - Creatinine, Serum; Future - X-ray lumbar spine 2-3 views; Future - Dexa bone density axial skeleton; Future - X-ray thoracic spine 2 views; Future History of vertebral compression fracture - X-ray lumbar spine 2-3 views; Future - X-ray thoracic spine 2 views; Future Family history of fracture of hip in parent Other orders - zoledronic acid (RECLAST) IVPB 5 mg - heparin flush (porcine) 100 UNIT/ML injection 300 Units - acetaminophen (TYLENOL) tablet 650 mg - diphenhydrAMINE (BENADRYL) tablet 25 mg - diphenhydrAMINE (BENADRYL) injection 50 mg - methylPREDNISolone sodium succinate (SOLU-Medrol) injection 125 mg - acetaminophen (TYLENOL) tablet 650 mg - EPINEPHrine (EPIPEN) 0.3 MG/0.3ML injection syringe 0.3 mg - sodium chloride 0.9 % bolus 500 mL - methylPREDNISolone sodium succinate (SOLU-Medrol) injection 125 mg - diphenhydrAMINE (BENADRYL) injection 50 mg - acetaminophen (TYLENOL) tablet 650 mg - ibuprofen (ADVIL) tablet 600 mg - diphenhydrAMINE (BENADRYL) tablet 50 mg - diphenhydrAMINE (BENADRYL) injection 25 mg - ondansetron (ZOFRAN) injection 4 mg - albuterol (2.5 MG/3ML) 0.083% nebulizer solution 2.5 mg - famotidine (PEPCID) injection 20 mg - aluminum & magnesium hydroxide-simethicone (MYLANTA) 200-200-20 MG/5ML oral suspension 30 mL Reclast infusion in 10/2018, 10/2019 1. Patient remains clinically stable. Recommended to continue with Reclast for total of 4 years prior to considering drug holiday. She will complete calcium/creatinine prior to infusion. 2. Continued calcium/vitamin D intake, weightbearing activity and fall avoidance was emphasized. Sheunderstands to switch to calcium carbonate if desired. Currently she plans to continue with calcium citrate. 3. Follow-up visit will be arranged in 1 year with repeat bone density, lumbar and thoracic spine x-rays. Patient understands and agrees with the above plan. documented in this encounter Plan of Treatment Scheduled Orders Name Type Priority Associated Diagnoses Order S chedule X-ray lumbar spine 2-3 Imaging Routine Age-related osteop orosis Expected: 11/03/2021, views without current Expires: pathological fra cture History of vertebral compression fracture X-ray thoracic spine 2 Imaging Routine Age-related osteop orosis Expected: 11/03/2021, views without current Expires: pathological fra cture History of vertebral compression fracture Scheduled Referrals Name Type Priority Associated Diagnoses Order S chedule Ambulatory referral Outpatient Referral Routine Age-related O rdered: for Infusion osteoporosis without 021 current pathological fracture documented as of this encounter Procedures Procedure [...] a trademark of the [employer] for Metabolic Bone Diseases, a Wo d Health Organization (WHO) Collaborating Gove ([id number]). Summary Comparisons Spine The least significant change [...] a trademark of the [employer] for Metabolic Bone Diseases, a Wo rld Health Organization (WHO) Collaborating Gove ([id number]). Summary Comparisons Spine The least significant change [...] to determine T- Scores. Lyn Naik MD IM DXA PROCEDURES Creatinine, Serum (11/15/2020 8:27 AM CDT) athologist Signature Creatinine 0.7 0.4 - 1.2 11/15/2020 [facility] mg/dL 3:12 PM CDT [facility] Specimen Anatomical Collection Method Collection Time Receive d Time (Source) Location / / Volume Laterality Blood 11/15/2020 8:27 AM 8:30 CDT AM CDT Lyn Naik MD LAB BLOOD ORDERABLES Performing Organization Address City/State/ZIP Code Phon e Number [facility] [address] [place] [id number] Calcium (11/15/2020 8:27 AM CDT) P athologist Signature Calcium, 9.4 8.4 - 10.2 11/15/2020 [facility] Total,S mg/dL 3:12 PM CDT [facility] Specimen Anatomical Collection Method Collection Time Receive d Time (Source) Location / / Volume Laterality Blood 11/15/2020 8:27 AM 8:30 CDT AM CDT Lyn Naik MD LAB BLOOD ORDERABLES Performing Organization Address City/State/ZIP Code Phon e Number [facility] [address] [place] [address] documented in this encounter Visit Diagnoses Diagnosis Age-related osteoporosis without current pathological fracture - Primary History of vertebral compression fractur e Family history of fracture of hip in par ent documented in this encounter Care Teams Aerophysics Engineer Relationship Specialty Start Date End Date Noris Carter MD PCP - General Family Medicine 06/08/[address] [place] [address] documented as of this encounter
--- OUTSIDE RECORDS SUMMARY | 2022-07-24 09:33 | XMS_ITS | Encounter Summary ---
:1940 Author Organization [facility] Address [address] [place] [address] Care Team Providers Name Role Phone Noris Carter MD Primary Care Provider Reason for Referral Consultation (Routine) - Closed Specialty Diagnoses / Procedures Referred By Contact Refer red To Contact Physical Therapy Diagnoses History of vertebral compression fracture Age-related osteoporosis without current pathological fracture Kellen Almieda APRN, [facility] [address] [address] [place] [address] Phone: Fax: Referral ID Status Reason Start Date Expiration Date Visits V isits Requested Authorized [id number] Closed Specialty 08/19/2020 08/19/2021 1 1 Services Required Scheduling Instructions [facility] in [place], [place]. Hx of vertebral compression fracture, ch ronic low back pain. OL GUARD Reason for Visit Reason Comments Establish Care Medication Refill Encounter Details Date Type Department Care Team Description 08/19/2020 Office Visit [place] Kellen Almeida Well adult exam (Primary Dx) ; [address] GERALD HOOPER Hypothyroidism, unspecified type; [place], [place] [address] Age-related osteoporosis without current pathological fracture; [phone] [place], [place] Open-angle gla ucoma of both eyes, unspecified glaucoma stage, unspecified open-angle glaucoma type; [address] History of vertebral compression fractur e Social History Tobacco Use Types Packs/Day Years [...] Sign Reading Time Taken Comments Blood Pressure 120/68 08/19/2020 8:11 AM PATROL GUARD Pulse 70 08/19/2020 8:11 AM PATROL GUARD Temperature 36.4 ??C (97.6 ??F) 08/19/2020 8:11 AM PATROL GUARD Respiratory Rate 12 08/19/2020 8:11 AM PATROL GUARD Oxygen Saturation 98% 08/19/2020 8:11 AM PATROL GUARD Inhaled Oxygen Concentration - - Weight 48.5 kg (107 lb) 08/19/2020 8:11 AM PATROL GUARD Height 157.5 cm (5' 2) 08/19/2020 8:11 AM PATROL GUARD Body Mass Index 19.57 08/19/2020 8:11 AM PATROL GUARD documented in this encounter Patient Instructions Patient InstructionsTchantal Almeida APRN, CNP - 08/19/2020 8:20 AM CST Continue calcium/vit d supplement. Referral to PT for back exercises. Cream to back for pain aspercreme with lidocaine to back if needed 2-3x/day. Tylenol 325mg, 2 tabs every 6 hours as needed for pain. Ice or heat 20min each time 2-3x/day. OL GUARD documented in this encounter Progress Notes Kellen Almeida APRN, CNP - 08/19/2020 8:20 AM CST Subjective Patient ID: Lynnette Thompson is a 79 y.o. female. Chief Complaint Patient presents with ??? Establish Care Medication Refill HPI The patient presents to [facility] today for an annual visit and medication review. The patient indicates that most nights she gets around eight hours of sleep a night. She denies any anxiety or depression episodes. She states that her sleep has improved greatly since her back pain has lessened. For quite awhile she was unable to turn in bed without significant pain in her lower back. She also mentioned that she does not feel as though she is completely able to straighten her back any more. She is wondering about what stretches would be appropriate for her to do with her history ofback fractures and osteoporosis. The patient denies any fever, chills, or changes in appetite. She did feel that she was over weight and started eating less. This resulted in the loss of around 8 lbs in the past 11 months. The patientreports that she has not had any problems with stooling. The patient denies any concerns with her medications. She does note that her timolol prescription has been recently changed one drop in each eye twice a day instead of just daily. The patient indicatesthat her eye care is currently taken care of at the [facility]. The patient's osteoporosis is being managed by Dr. Naik in endocrinology. She reports that she will be seeing endocrinologyagain soon to see if she is in need of another Reclast infusion. The patient reports that she lives with her Aneudy. They have lived in the area since the , but she is originally from the [place] [facility]. She does not have any children and there are no pets in the home. 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 The following portions of the patient's chart were reviewed in this encounter and updated as appropriate: Tobacco Allergies Meds Problems Med Hx Surg Hx Fam Hx Current Outpatient Medications: ??? Ascorbic Acid (VITAMIN C) 500 MG tablet, Take 500 mg by mouth 1 (one) time each day During winter months, Disp: , Rfl: ??? calcium citrate-vitamin D (CALCITRATE) 315-250 MG-UNIT tablet, Take 2 tablets by mouth 2 (two) times a day At lunch and evening meal, Disp: 120 tablet, Rfl: ??? latanoprost (XALATAN) 0.005 % ophthalmic solution, Administer 1 drop into both eyes 1 (one) timeeach day , Disp: , Rfl: ??? timolol (TIMOPTIC) 0.5 % ophthalmic solution, Administer 1 drop into both eyes 2 (two) times a day, Disp: 10 mL, Rfl: ??? levothyroxine (SYNTHROID) 88 MCG tablet, Take 1 tablet (88 mcg total) by mouth 1 (one) time eachday, Disp: 90 tablet, Rfl: 3 Allergies Allergen Reactions ??? Penicillins Rash Past Medical History: Diagnosis Date ??? Anxiety ??? Cataract ??? Depression ??? Disease of thyroid gland ??? Episode of dizziness 07/22/2018 ??? Generalized anxiety disorder 05/03/2006 ??? Glaucoma ??? Headache ??? History of vertebral compression fracture ??? Osteoporosis ??? Pneumonia TWICE ??? Recurrent major depressive disorder (HCC) 12/14/2011 Overview: Major Depression Recurrent Episode NOS (296.30) onset unknown ??? Varicella ??? Visual impairment GLASSES Past Surgical History: Procedure Laterality Date ??? CATARACT EXTRACTION, BILATERAL 2014 Social History Socioeconomic History ??? Marital status: Spouse name: Not on file ??? Number of children: Not on file ??? Years of education: Not on file ??? Highest education level: Not on file Occupational History ??? Not on file Social Needs ??? Financial resource strain: Not on file ??? Food insecurity Worry: Not on file Inability: Not on file ??? Transportation needs Medical: Not on file Non-medical: Not on file Tobacco Use ??? Smoking status: Never Smoker ??? Smokeless tobacco: Never Used Substance and Sexual Activity ??? Alcohol use: Yes Alcohol/week: 1.0 standard drinks Types: 1 Glasses of wine per week Frequency: Monthly or less Drinks per session: 1 or 2 ??? Drug use: No ??? Sexual activity: Never Lifestyle ??? Physical activity Days per week: Not on file Minutes per session: Not on file ??? Stress: Not on file Relationships ??? Social connections Talks on phone: Not on file Gets together: Not on file Attends restoration service: Not on file Active member of club or organization: Not on file Attends meetings of clubs or organizations: Not on file Relationship status: Not on file ??? Intimate partner violence Fear of current or ex partner: Not on file Emotionally abused: Not on file Physically abused: Not on file Forced sexual activity: Not on file Other Topics Concern ??? Not on file Social History Narrative ??? Not on file Family History Problem Relation Age of Onset ??? Other Mother Supranuclear palsy ??? Hip fracture Father ??? Breast cancer Sister 58 ??? Colon cancer Brother Metastatic ??? Diabetes Brother ??? Breast cancer Father's Sister Immunization History Administered Date(s) Administered ??? Flu Vaccine High Dose 65yrs and Older IM 06/18/2019, 06/08/2020 ??? TD Preservative Free 06/10/2010 ??? Td 06/10/2010 ??? Tdap 06/10/2010 Review of Systems Constitutional: Negative for activity change and appetite change. Respiratory: Negative for cough, chest tightness and shortness of breath. Gastrointestinal: Negative for blood in stool and constipation. Genitourinary: Negative for hematuria. Musculoskeletal: Positive for back pain (hx compression fx). Neurological: Negative for dizziness and headaches. Psychiatric/Behavioral: Negative for dysphoric mood and sleep disturbance. All other systems reviewed and negative Objective Visit Vitals BP 120/68 (BP Location: Right arm, Patient Position: Sitting) Pulse 70 Temp 36.4 ??C (97.6 ??F) (Temporal) Resp 12 Ht 1.575 m (5' 2) Wt 48.5 kg (107 lb) SpO2 98% BMI 19.57 kg/m?? Smoking Status Never Smoker BSA 1.46 m?? Physical Exam GENERAL APPEARANCE: The patient is a healthy and pleasant appearing female, in no acute distress. HEENT: Normocephalic and atraumatic. EOMI, Conjunctivae clear. Oropharynx is clear. Mouth revealed good dentition, no lesions. Tympanic membranes are clear. NECK: Supple. No thyroid enlargement. LUNGS: Lungs are clear to auscultation at all lobes anterior/posterior. No wheezes, rhonchi, or rales. HEART: Regular rate and rhythm with normal S1 and S2. No murmurs. No lower extremity edema. ABDOMEN: Soft, nontender, bowel sounds intact. No masses or organomegaly. MUSC: No asymmetry or weakness. NEUROLOGIC: Gait is normal. Cranial nerves II through XII are intact. PSYCHIATRIC: The patient is awake, alert, and oriented x3. Recent and remote memory is intact. Appropriate mood and affect. SKIN: Warm, dry, and well perfused. Good turgor. BREASTS: patient defer. GENITOURINARY: patient defer. Assessment/Plan Problem List Items Addressed This Visit Nervous Open-angle glaucoma of both eyes Relevant Medications timolol (TIMOPTIC) 0.5 % ophthalmic solution Musculoskeletal Age-related osteoporosis without current pathological fracture Overview Managed by endocrine. Reclast infusion on 10/21/2018 Last bone density in 09/2019. Recommended to continue Reclast for total of 4 years prior to considering drug holiday. Follow-up visit arranged in 1 year. Bone density to be deferred to 2 years. Relevant Orders Ambulatory referral to Physical Therapy Endocrine/Metabolic Hypothyroidism Relevant Orders TSH Other Visit Diagnoses Well adult exam - Primary History of vertebral compression fracture Relevant Orders Ambulatory referral to Physical Therapy The patient declined her pneumonia and tetanus vaccine at this time. Discussed importance and rationale of vaccinations. Will await TSH results and refill her medications, she has about 1 week left of pills. No other labsneeded and no new complaints requiring further labs. She was agreeable with the plan and no further questions. Health Maintenance Due Topic Date Due ??? [facility] Annual Wellness 02/01/2019 ??? Fall Risk Performed 10/07/2019 Patient Instructions Continue calcium/vit d supplement. Referral to PT for back exercises. Cream to back for pain aspercreme with lidocaine to back if needed 2-3x/day. Tylenol 325mg, 2 tabs every 6 hours as needed for pain. Ice or heat 20min each time 2-3x/day. OL GUARD documented in this encounter Plan of Treatment Scheduled Referrals Name Type Priority Associated Diagnoses Order S chedule Ambulatory referral Outpatient Referral Routine History of venessa tebral Ordered: to Physical Therapy compression fracture 08/19/2020 Age-related osteoporosis without current pathological fracture documented as of this encounter Results TSH (08/19/2020 8:53 AM PATROL GUARD) P athologist Signature TSH, Sensitive 2.22 0.46 - 08/20/2020 [facility] 4.68 mIU/L 2:11 PM PATROL GUARD [facility] Comment: The results from this [...] / Volume Laterality Blood 08/19/2020 8:53 AM PATROL GUARD 12:43 PM PATROL GUARD Kellen Almeida APRN, DISTRICT MANAGER IN TRAINING LAB BLOOD ORDERABLES Performing Organization Address City/State/ZIP Code Phon e Number [facility] [address] [place] [address] documented in this encounter Visit Diagnoses Diagnosis Well adult exam - Primary Routine general medical examination at a health care facility Hypothyroidism, unspecified type Age-related osteoporosis without current pathological fracture Open-angle glaucoma of both eyes, unspec ified glaucoma stage, unspecified open-angle glaucoma type History of vertebral compression fractur e documented in this encounter Care Teams Home Organizer Relationship Specialty Start Date End Date Noris Carter MD PCP - General Family Medicine 06/08/[address] [place] [address] documented as of this encounter
--- OUTSIDE RECORDS SUMMARY | 2022-07-24 09:34 | XMS_ITS | Encounter Summary ---
:[address] [facility] Address [address] [place] [address] Care Team Providers Name Role Phone Mirella oCnteh APRN, CNP Primary Care Provider [phone] Reason for Referral Consultation (Routine) - Closed Specialty Diagnoses / Procedures Referred By Contact Refer red To Contact Endocrinology Diagnoses Osteoporosis, unspecified osteoporosis type, unspecified pathological fracture presence Mirella Conteh APRN, CNP [address] [place] [address] Referral ID Status Reason Start Date Expiration Date Visits V isits Requested Authorized [id number] Closed Specialty 07/30/2018 07/30/2019 1 1 Services Required Scheduling Instructions Please call the Endocrinology Environmental Inspector desk at [phone] to schedule an appointment. ITY ASSURANCE NURSE Reason for Visit Reason Comments Consult Encounter Details Date Type Department Care Team Description 07/30/2018 Office Visit [facility] Quispe Mirella Conteh Osteoporosis, unspecified os teoporosis type, unspecified pathological fracture presence (Primary Dx); [address] RUFUS Coats CNP Hypothyroidism, unspecified type CHUCK Oropeza [address] [facility] [id number] [place] [address] [phone] Social History Tobacco Use Types Packs/Day Years [...] Sign Reading Time Taken Comments Blood Pressure 136/80 07/30/2018 10:31 AM QUALITY ASSURANCE NURSE Pulse 68 07/30/2018 10:31 AM QUALITY ASSURANCE NURSE Temperature 37.2 ??C (98.9 ??F) 07/30/2018 10:31 AM QUALITY ASSURANCE NURSE Respiratory Rate 16 07/30/2018 10:31 AM QUALITY ASSURANCE NURSE Oxygen Saturation 99% 07/30/2018 10:31 AM QUALITY ASSURANCE NURSE Inhaled Oxygen Concentration - - Weight 52.7 kg (116 lb 2.9 oz) 07/30/2018 10:31 AM QUALITY ASSURANCE NURSE Height - - Body Mass Index 21.11 07/15/2018 7:49 AM QUALITY ASSURANCE NURSE documented in this encounter Patient Instructions Patient InstructionsChcullen Conteh APRN, CNP - 07/30/2018 10:20 AM QUALITY ASSURANCE NURSE Will arrange an endocrinology appointment ITY ASSURANCE NURSE documented in this encounter Progress Notes Mirella Conteh APRN, CNP - 07/30/2018 10:20 AM CST Estab Patient Visit Subjective Patient ID: Lynnette Thompson is a 77 y.o. female presenting for the following concerns. Chief Complaint Patient presents with ??? Consult HPI: The patient is a pleasant 77-year-old female presenting ambulatory to the clinical setting today to review her DEXA scan report which she had completed on 07/22/2018, at [facility] in [place], the second DEXA scan she has had in her life. The first 1 was on 07/19/2015, and the final impression was osteoporosis. No osteoporosis treatment. 0, para 0. The patient went into menopause greater than 20 years ago. She does recall being on estrogen for couple of years following menses cessation. The patient did have a lumbar x-ray done on 01/12/2017 with the final impression being multipleage-indeterminate lumbar compression fractures. No family history of osteoporosis; however, her father did have a hip fracture at the age of 95, she believes he stood up and fractured his hip, but the possibility exists he fell and fractured it. The patient had a calcium level on 10/29/2017 which was 9.2, vitamin D on 07/15/2018 was 43.9, and TSH on 07/15/18 was 5.75, with an increase in her synthroid from 75 to 88 mcg, rechecking a TSH in 3 months. The patient does take a Hugo-Citrate b.i.d., and has for an extended period of time. The patient reports she is actively walking 3-4 times a week in an indoor setting, walking about a mile each time. She does not walk as much in the summertime, but does doyard work. She inquires about AlgaeCal for treatment of her osteoporosis. She is a non-smoker. ROS: ENDOCRINOLOGY: See HPI. The patient had osteoporosis in 2014 and has not received any treatment. Thepatient does have a history of hypothyroidism, recently had an increase of Synthroid from 75 mcg to 88 mcg daily; the patient is requesting a generic prescription written for her synthroid; TSH on 07/15/2018 was 5.75. MUSCULOSKELETAL: See HPI. The patient has a history of multiple age indeterminate lumbar compressionfractures on a lumbar x-ray, on January 12, 2017, after she was having significant back pain. The patient reports she continues to have lower back pain particularly when laying down, laying gingerly on flat surfaces, and she works cautiously in her yard. The following portions of the patient's chart were reviewed in this encounter and updated as appropriate: Tobacco Allergies Meds Problems Med Hx Surg Hx Fam Hx Soc Hx Objective Visit Vitals BP 136/80 (BP Location: Left arm, Patient Position: Sitting) Pulse 68 Temp 37.2 ??C (98.9 ??F) (Temporal) Resp 16 Wt 52.7 kg (116 lb 2.9 oz) SpO2 99% BMI 21.11 kg/m?? Smoking Status Never Smoker BSA 1.52 m?? GENERAL: The patient is alert, orientated, and in no apparent distress. DIAGNOSTICS: DEXA scan from 07/22/2018 final impression: Osteoporosis Assessment/Plan Lynnette was seen today for consult. Diagnoses and all orders for this visit: Osteoporosis, unspecified osteoporosis type, unspecified pathological fracture presence (Primary) - Ambulatory referral to Endocrinology Hypothyroidism, unspecified type - levothyroxine (SYNTHROID) 88 MCG tablet; Take 1 tablet (88 mcg total) by mouth 1 (one) time each day Discussed the plan of care with the patient. Will refer the patient to endocrinology to discuss treatment options for her osteoporosis, particularly with her compression fractures. She will continue calcium and vitamin D. Renewed the levothyroxine 88 mcg daily, generic, for 3 months, and then she willhave her TSH level redrawn. The patient agrees and understands this plan of care. Mirella Conteh APRN, GERALD ITY ASSURANCE NURSE documented in this encounter Plan of Treatment Scheduled Referrals Name Type Priority Associated Diagnoses Order S chedule Ambulatory referral to Outpatient Routine Osteoporosis, Orde red: Endocrinology Referral unspecified 07/30/2018 osteoporosis type, unspecified pathological fracture presence documented as of this encounter Visit Diagnoses Diagnosis Osteoporosis, unspecified osteoporosis t ype, unspecified pathological fracture presence - Primary Hypothyroidism, unspecified type documented in this encounter Care Teams Ammonium Nitrate Crystallizer Relationship Specialty Start Date End Date Mirella Conteh APRN, GERALD PCP - General 03/19/18 04/19/20 [address] [facility] [place] [address] documented as of this encounter
--- OUTSIDE RECORDS SUMMARY | 2022-07-24 09:34 | XMS_ITS | Encounter Summary ---
:1940 Author Organization [facility] Address [address] [place] [address] Care Team Providers Name Role Phone Mirella Conteh APRN, CNP Primary Care Provider [phone] Encounter Details Date Type Department Care Team Description 07/06/2018 Telephone [place] Mirella Conteh, [address] GERALD [place], [place] [address] [address] [facility] [phone] [place], [place] [address] Social History Tobacco Use [...] this encounter Miscellaneous Notes Telephone Encounter - Mirella Conteh APRN, CNP - 07/08/2018 12:20 PM AUTOMOBILE BRAKES BONDER TSH order has been placed. MOBILE BRAKES BONDER Telephone Encounter - Iva Cunningham MA - 07/08/2018 8:43 AM CST Spoke with patient and she is not interested in going to podiatry right now. Patient also transferred to the front to schedule a lab appt for her thyroid. Please make sure labs are in. MOBILE BRAKES BONDER Telephone Encounter - Mirella Conteh APRN, CNP - 07/06/2018 6:27 AM AUTOMOBILE BRAKES BONDER Please determine if the patient has decided if she would like to go [facility] for podiatry, thanks Florencio MOBILE BRAKES BONDER documented in this encounter Plan of Treatment Not on filedocumented as of this encounter Visit Diagnoses Diagnosis Hypothyroidism, unspecified type - Prima ry documented in this encounter Care Teams Computer Recycling Worker Relationship Specialty Start Date End Date Mirella Conteh APRN, GERALD PCP - General 03/19/18 04/19/20 100 [facility] [place] [id number] documented as of this encounter
--- OUTSIDE RECORDS SUMMARY | 2022-07-24 09:34 | XMS_ITS | Encounter Summary ---
:[address] [facility] Address [address] [place] [address] Care Team Providers Name Role Phone Mirella Conteh APRN, SLUDGE MILL OPERATOR Primary Care Provider [phone] Encounter Details Date Type Department Care Team Description 09/28/2018 [facility] Mirella Conteh APRN, [address] [place] [address] [phone] [place], [place] [address] Social History Tobacco Use [...] on filedocumented in this encounter Care Teams Development Planner Relationship Specialty Start Date End Date Mirella Conteh APRN, SLUDGE MILL OPERATOR PCP - General 03/19/18 04/19/[address] [place] [address] documented as of this encounter
--- OUTSIDE RECORDS SUMMARY | 2022-07-24 09:34 | XMS_ITS | Encounter Summary ---
:1940 Author Organization [facility] Address [address] [place] [address] Care Team Providers Name Role Phone Mirella Conteh APRN, PHOTOGRAMMETRIC TECH Primary Care Provider [phone] Encounter Details Date Type Department Care Team Description 09/29/2019 Hospital Encounter [facility] Edda Naik Radiology MD Lyn [address] [place] [id number] Social History Tobacco Use Types Packs/Day Years [...] Acid (VITAMIN Take 500 mg by mouth 0 C) 500 MG tablet 1 (one) time each day During winter latanoprost (XALATAN) Administer 1 drop into both eyes 1 (one) time each day 0 0.005 % ophthalmic solution calcium citrate-vitamin Take 2 tablets by 120 tablet 0 10/0711/15/2021 D (CALCITRATE) 315-250 mouth 2 (two) times MG-UNIT a day At lunch and tabletIndications: evening meal Osteoporosis, unspecified osteoporosis type, unspecified pathological fracture presence levothyroxine Take 1 tablet (88 90 tablet 3 08/07/201908/13 (SYNTHROID) 88 MCG mcg total) by mouth tabletIndications: 1 (one) time each Hypothyroidism, day unspecified type timolol (BETIMOL) 0.5 % Administer 1 drop into both eyes 1 (one) time each day 0 08/19/2020 ophthalmic solution timolol (TIMOPTIC) 0.5 % Administer 1 drop 0 02/0 04/201908/19/2020 ophthalmic solution into both eyes every morning documented as of this encounter Plan of Treatment Not on filedocumented as of this encounter Procedures Procedure Name Priority Date/Time Associated Diagnosis Comme nts DEXA BONE DENSITY Routine 09/29/2019 10:43 AM Age-related Res ults for this WAREHOUSE LABORER osteoporosis without procedu re are in current pathological the res ults fracture section. documented in this encounter Results Dexa bone density axial skeleton (09/29/2019 10:43 AM WAREHOUSE LABORER) Anatomical Region Laterality Modality Wrist, Hip, L-spine Radiographic Imaging Specimen (Source) Anatomical Collection Method Collection Time Re ceived Time Location / / Volume Laterality 09/29/2019 10:43 AM WAREHOUSE LABORER Impressions 09/29/2019 11:02 AM WAREHOUSE LABORER IMPRESSION: Osteoporosis FINDINGS: Patient: LYNNETTE LAWTON Birthdate: ??1940, [age] Height/Weight: ??158.0 cm, 51.0 kg Gender/Ethnicity: Female, White Facility ID: (not specified) Referring Physician: Lyn Naik ? ? Measured: ??09/29/2019, 10:27:36 AM, 13.6 0 Analyzed: ??09/29/2019, 10:39:23 AM, 13.6 0 Results: Region ?Measured ?? Age ?? BMD ?T-score ??Z-score L1-L4 ? 09/29/2019 ??[age] ??0.844 g/cm2 ??-2.8 ? -0.6 Neck Left ?? 09/29/2019 ??[age] ??0.789 g/ cm2 ??-1.8 ? 0.5 Neck Right ??09/29/2019 ??78.9 ??0.791 g/ cm2 ??-1.8 ? 0.5 Total Left ??09/29/2019 ??[age] ??0.715 g/ cm2 ??-2.3 ? -0.2 Total Right 09/29/2019 ??[age] ??0.748 g/c m2 ??-2.1 ? 0.1 ASSESSMENT: The diagnosis in pre-menopausal women an [...] is used to determine T- Scores. Narrative 09/29/2019 11:02 AM WAREHOUSE LABORER INDICATION: Post menopause (age-related, natural) Procedure Note Livier Salcedo MD - 09/29/2019Formattin g of this note might be different from the original. INDICATION: Post menopause (age-related, natural) IMPRESSION: Osteoporosis FINDINGS: Patient: LYNNETTE LAWTON Birthdate: 1940, 78.9 Height/Weight: 158.0 cm, 51.0 kg Gender/Ethnicity: Female, White Facility ID: (not specified) Referring Physician: yLn Lloyd Measured: 09/29/2019, 10:27:36 AM, 13.60 Analyzed: 09/29/2019, 10:39:23 AM, 13.60 Results: Region Measured Age BMD T-score Z-score L1-L4 09/29/2019 [age] 0.844 g/cm2 -2.8 -0 .6 Neck Left 09/29/2019 76.9 0.789 g/cm2 -1. 8 0.5 Neck Right 09/29/2019 76.9 0.791 g/cm2 -1 .8 0.5 Total Left 09/29/2019 76.9 0.715 g/cm2 -2 .3 -0.2 Total Right 09/29/2019 76.9 0.748 g/cm2 - 2.1 0.1 ASSESSMENT: The diagnosis in pre-menopausal women an [...] on filedocumented in this encounter Care Teams Shipper And Receiving Relationship Specialty Start Date End Date Mirella Conteh APRN, PHOTOGRAMMETRIC TECH PCP - General 03/19/18 04/19/[address] [place], [place] [address] [address] documented as of this encounter
--- OUTSIDE RECORDS SUMMARY | 2022-07-24 09:34 | XMS_ITS | Encounter Summary ---
:1940 Author Organization [facility] Address [address] [place] [address] Care Team Providers Name Role Phone Mirella Conteh HOPPER OPERATOR, [facility] Primary Care Provider [phone] Reason for Visit Reason Onset Date Comments APPOINTMENT AT ANOTHER FACILITY 05/31/2018 Encounter Details Date Type Department Care Team Description 05/31/2018 Telephone [place] Mirella Conteh, APPOINTMENT AT ANOTHER [address] HOPPER OPERATOR, [facility] FACILITY [place], [place] [address] [address] [facility] [phone] [place], [place] [address] Social History Tobacco Use [...] Telephone Encounter - Alexandra Moore LPN - 06/03/2018 9:28 AM CDT Patient was very unsure so she is going to think on this and get back to us with an answer about going to [facility]. Telephone Encounter - Mirella Conteh NP - 06/03/2018 9:12 AM CDT Would she be willing to go to [facility] Telephone Encounter - Su Lord RN - 05/31/2018 4:30 PM CDT Patient can not be seen by [facility] until she is seen by a general provider there. Patient wanted to know if there are any other recommendations for podiatry that you can think of. Telephone Encounter - Dory Contreras - 05/31/2018 4:00 PM CDT Pt called requesting to speak with a nurse about an appointment she is supposed to have at another facility. Please return call to Pt at [phone]. documented in this encounter Plan of Treatment Not on filedocumented as of this encounter Visit Diagnoses Not on filedocumented in this encounter Care Teams Senior Support Engineer Relationship Specialty Start Date End Date Mirella Conteh, HOPPER OPERATOR, COMPUTED TOMOGRAPHY TECHNOLOGIST PCP - General 03/19/18 04/19/20 [address] [place] [address] documented as of this encounter
--- OUTSIDE RECORDS SUMMARY | 2022-07-24 09:34 | XMS_ITS | Encounter Summary ---
:1940 Author Organization [facility] Address [address] [place] [address] Care Team Providers Name Role Phone Mirella Conteh APRN, STARCH COOKER Primary Care Provider [phone] Encounter Details Date Type Department Care Team Description 10/09/2019 Travel Social History Tobacco Use Types Packs/Day [...] on filedocumented in this encounter Care Teams Head And Neck Surgeon Relationship Specialty Start Date End Date Mirella Conteh APRN, STARCH COOKER PCP - General 03/19/18 04/19/[address] [place] [id number] documented as of this encounter
--- OUTSIDE RECORDS SUMMARY | 2022-07-24 09:34 | XMS_ITS | Encounter Summary ---
:1940 Author Organization [facility] Address [address] [place] [address] Care Team Providers Name Role Phone Mirella Conteh APRN, CULINARY DIRECTOR Primary Care Provider [phone] Reason for Referral Consultation (Routine) - Closed Specialty Diagnoses / Procedures Referred By Contact Refer red To Contact Infusion Therapy Diagnoses Age-related osteoporosis without current pathological fracture Lyn Naik Omch Infusion [facility] [address] [facility] [place], [place] [address] [place] [address] Phone: [phone] Fax: Referral ID Status Reason Start Date Expiration Date Visits V isits Requested Authorized [id number] Closed Specialty 10/07/2018 10/07/2019 1 1 Services Required UM FRAME OPERATOR Reason for Visit Reason Comments Osteoporosis Follow up Encounter Details Date Type Department Care Team Description 10/07/2018 Office Visit [facility] [place], Age-related osteoporosis wit hout current pathological fracture (Primary Dx); [address] [facility] MD Lyn History of vertebral pritesh yokasta fracture; [place] [address] Gastroesophageal reflux dise ase, esophagitis presence not specified; [phone] Family history of fracture of hip in parent; Osteoporosis, u nspecified osteoporosis type, unspecified pathological [...] Sign Reading Time Taken Comments Blood Pressure 112/71 10/07/2018 11:34 AM VACUUM FRAME OPERATOR Pulse 81 10/07/2018 11:34 AM VACUUM FRAME OPERATOR Temperature 36.4 ??C (97.5 ??F) 10/07/2018 11:34 AM VACUUM FRAME OPERATOR Respiratory Rate 16 10/07/2018 11:34 AM VACUUM FRAME OPERATOR Oxygen Saturation 97% 10/07/2018 11:34 AM VACUUM FRAME OPERATOR Inhaled Oxygen Concentration - - Weight 51.9 kg (114 lb 6.7 oz) 10/07/2018 11:34 AM VACUUM FRAME OPERATOR Height 158 cm (5' 2.21) 10/07/2018 11:34 AM VACUUM FRAME OPERATOR Body Mass Index 20.79 10/07/2018 11:34 AM VACUUM FRAME OPERATOR documented in this encounter Patient Instructions Patient InstructionsLyn Naik MD - 10/07/2018 12:15 PM CST 1. Proceed with Reclast infusion 2. Calcium citrate + Vitamin D - 2 tablets twice a day at lunch and after If trying calcium carbonate can take 600 mg + vitamin D 400 units twice a day at lunch and after Can stop the separate vitamin D 3. Dont fall UM FRAME OPERATOR documented in this encounter Progress Notes Lyn Naik MD - 10/07/2018 12:15 PM CST Estab Patient Visit Primary Care Provider: Mirella Conteh APRN, CULINARY DIRECTOR Chief Complaint: Follow-up after tests in the setting of osteoporosis Subjective Patient ID: Lynnette Lawton is a 78 y.o. female. DISEASE SUMMARY: Patient seen for initial consultation on 09/12/2018. Has history of first bone density done at [facility] in 2014 that showed a T score [...] showed a vitamin D of 43.9. HPI Patient completed labs and x-ray as recommended. X-ray of the lumbar and thoracic spine shows multiple vertebral body compression fractures involving L1, L2, L3, L5 and mild compression deformity involving T4, T5, T6, moderate compression deformity involving T7, mild to moderate compression deformity i nvolving T12. Patient has done research about Reclast and had several questions. She also had questions pertaining to calcium/vitamin D supplementation. LAB RESULTS Recent Results (from the past 336 hour(s)) Tissue transglutaminase, IgA Collection Time: 09/30/18 8:09 AM Result Value Ref Range Tiss.Transglutaminase Ab, S (IgA) <1.2 <4.0 (Negative) U/mL Protein electrophoresis, serum Collection Time: 09/30/18 8:09 AM Result Value Ref Range Protein, Total 7.4 6.3 - 7.9 g/dL Albumin, Serum 4.0 3.4 - 4.7 g/dL Rbyrw-7-Caizyiek 0.2 0.1 - 0.3 g/dL Qobnm-3-Oybdivxw 0.9 0.6 - 1.0 g/dL Beta Globulin 0.9 0.7 - 1.2 g/dL Gamma Globulin 1.4 0.6 - 1.6 g/dL A/G Ratio 1.16 Impression SEE BELOW Immunoglobulin A (IgA) Collection Time: 09/30/18 8:09 AM Result Value Ref Range Immunoglobulin A (IgA) 327 61 - 356 mg/dL Intact PTH with Minerals Collection Time: 09/30/18 8:09 AM Result Value Ref Range Parathyroid Hormone 36.5 12.1 - 60.1 pg/mL Calcium, Total,S 9.2 8.4 - 10.2 mg/dL Creatinine 0.8 0.4 - 1.2 mg/dL Phosphorus 3.8 2.5 - 4.5 mg/dL Alkaline phosphatase, bone specific Collection Time: 09/30/18 8:09 AM Result Value Ref Range Bone Alkaline Phosphatase 9.5 mcg/L Glomerular filtration rate (GFR) Collection Time: 09/30/18 8:09 AM Result Value Ref Range GFR >60 GFR >60 Outpatient Encounter Medications as of 10/07/2018 Medication Sig Dispense Refill ??? Ascorbic Acid (VITAMIN C) 500 MG tablet Take 500 mg by mouth 1 (one) time each day During ??? calcium citrate-vitamin D (CALCITRATE) 315-250 MG-UNIT tablet Take 2 tablets by mouth 1 (one) time each day 180 tablet 3 ??? Cholecalciferol 400 units capsule Take 400 Units by mouth 1 (one) time each day. ??? latanoprost (XALATAN) 0.005 % ophthalmic solution Administer 1 drop into both eyes 1 (one) time each day ??? levothyroxine (SYNTHROID) 88 MCG tablet Take 1 tablet (88 mcg total) by mouth 1 (one) time each day 90 tablet 3 ??? timolol (BETIMOL) 0.5 % ophthalmic solution Administer 1 drop into both eyes 1 (one) time each day ??? timolol (TIMOPTIC) 0.5 % ophthalmic solution Administer 1 drop into both eyes every morning No facility-administered encounter medications on file as of 10/07/2018. Allergies as of 10/07/2018 - Reviewed 10/07/2018 Allergen Reaction Noted ??? Penicillins Rash Objective Visit Vitals BP 112/71 (BP Location: Left arm, Patient Position: Sitting) Pulse 81 Temp 36.4 ??C (97.5 ??F) Resp 16 Ht 1.58 m (5' 2.21) Wt 51.9 kg (114 lb 6.7 oz) SpO2 97% BMI 20.79 kg/m?? Smoking Status Never Smoker BSA 1.51 m?? Physical Exam General-appears well, no apparent distress Assessment/Plan Diagnoses and all orders for this visit: Age-related osteoporosis without current pathological fracture - Ambulatory referral for Infusion - Dexa bone density axial skeleton; Future History of vertebral compression fracture Gastroesophageal reflux disease, esophagitis presence not specified Family history of fracture of hip in parent Osteoporosis, unspecified osteoporosis type, unspecified pathological fracture presence Other orders - zoledronic acid (RECLAST) IVPB 5 mg - heparin flush (porcine) 100 UNIT/ML injection 300 Units - acetaminophen (TYLENOL) tablet 650 mg - diphenhydrAMINE (BENADRYL) tablet 25 mg - diphenhydrAMINE (BENADRYL) injection 50 mg - methylPREDNISolone sodium succinate (SOLU-Medrol) 125 mg in sodium chloride 0.9 % 100 mL IVPB - acetaminophen (TYLENOL) tablet 650 mg - EPINEPHrine (EPIPEN) 0.3 MG/0.3ML injection syringe 0.3 mg - sodium chloride 0.9 % bolus 500 mL - methylPREDNISolone sodium succinate (SOLU-Medrol) 125 mg in sodium chloride 0.9 % 100 mL IVPB - diphenhydrAMINE (BENADRYL) injection 50 mg - acetaminophen (TYLENOL) tablet 650 mg - ibuprofen (ADVIL,MOTRIN) tablet 600 mg - diphenhydrAMINE (BENADRYL) tablet 50 mg - diphenhydrAMINE (BENADRYL) injection 25 mg - ondansetron (ZOFRAN) injection 4 mg - albuterol (2.5 MG/3ML) 0.083% nebulizer solution 2.5 mg - famotidine (PEPCID) injection 20 mg - aluminum & magnesium hydroxide-simethicone (MYLANTA) 200-200-20 MG/5ML oral suspension 30 mL 1. I reviewed the x-ray images and all test results with the patient in detail. With multiple vertebral compression fractures/wedging in the setting of osteoporosis I have recommended to proceed with treatment. Answered all questions pertaining to Reclast to her satisfaction. Patient is agreeable to proceed. Order placed. 2. We also discussed about pros and cons to different calcium supplementation with regards to impacton constipation and also the importance of them from levothyroxine. Options of considering either calcium citrate or carbonate and appropriate doses were discussed. She understands to stop separate vitamin D with this. 3. Follow-up in 1 year with repeat bone density has been arranged. 4. Fall avoidance was emphasized. Patient understands and agrees with the above plan. I have spent 20 minutes in patient care and greater then 50% of the time spent in counseling on evaluation, management and plan of her endocrine issues. UM FRAME OPERATOR documented in this encounter Plan of Treatment Scheduled Referrals Name Type Priority Associated Diagnoses Order S [facility] Ambulatory referral Outpatient Referral Routine Age-related O rdered: for Infusion osteoporosis without 019 current pathological fracture documented as of this encounter Procedures Procedure Name Priority Date/Time Associated Diagnosis Comme nts DEXA BONE DENSITY Routine 09/29/2019 10:43 AM Age-related Res ults for this VACUUM FRAME OPERATOR osteoporosis without procedu re are in current pathological the res ults fracture section. documented in this encounter Results Dexa bone density axial skeleton (09/29/2019 10:43 AM VACUUM FRAME OPERATOR) Anatomical Region Laterality Modality Wrist, Hip, L-spine Radiographic Imaging Specimen (Source) Anatomical Collection Method Collection Time Re ceived Time Location / / Volume Laterality 09/29/2019 10:43 AM VACUUM FRAME OPERATOR Impressions 09/29/2019 11:02 AM VACUUM FRAME OPERATOR IMPRESSION: Osteoporosis FINDINGS: Patient: LYNNETTE LAWTON Birthdate: [...] determine T- Scores. Narrative 09/29/2019 11:02 AM VACUUM FRAME OPERATOR INDICATION: Post menopause (age-related, natural) Procedure Note Livier Salcedo MD - 09/29/2019Formattin g of this note might be different from the original. INDICATION: Post menopause (age-related, natural) IMPRESSION: Osteoporosis FINDINGS: Patient: LYNNETTE LAWTON Birthdate: 1940, [age] Height/Weight: 158.0 cm, 51.0 kg Gender/Ethnicity: Female, White Facility ID: (not specified) Referring Physician: Lyn Lloyd Measured: 09/29/2019, 10:27:36 AM, 13.60 Analyzed: [...] to determine T- Scores. Lyn Naik MD IMNaun DXA PROCEDURES documented in this encounter Visit Diagnoses Diagnosis Age-related osteoporosis without current pathological fracture - Primary History of vertebral compression fractur e Gastroesophageal reflux disease, esophag itis presence not specified Family history of fracture of hip in par ent Osteoporosis, unspecified osteoporosis t ype, unspecified pathological fracture presence documented in this encounter Care Teams Truer Pinion And Wheel Relationship Specialty Start Date End Date Mirella Conteh, MUSIC LIBRARY ASSISTANT, CULINARY DIRECTOR PCP - General 03/19/18 04/19/20 [address] [place] [address] documented as of this encounter
--- OUTSIDE RECORDS SUMMARY | 2022-07-24 09:34 | XMS_ITS | Encounter Summary ---
:1940 Author Organization [facility] Address [address] [place] [address] Care Team Providers Name Role Phone Mirella Conteh ACCREDITED FARM MANAGER, MEDICAL PSYCHOTHERAPIST Primary Care Provider [phone] Reason for Visit Reason Onset Date Comments fax 07/15/2018 Encounter Details Date Type Department Care Team Description 07/15/2018 Telephone Asaf Quispe Mirella Conteh, fax [address] ACCREDITED FARM MANAGER, MEDICAL PSYCHOTHERAPIST [place], [place] [address] [phone] [place], [place] [address] Social History Tobacco Use [...] this encounter Miscellaneous Notes Telephone Encounter - Florecita Rea - 07/15/2018 1:14 PM CST Referral faxed. HEAD CLEANER Telephone Encounter - Su Lord RN - 07/15/2018 12:55 PM CST Please fax patients cologaurd order with a face sheet and front/back of insurance card. HEAD CLEANER documented in this encounter Plan of Treatment Not on filedocumented as of this encounter Visit Diagnoses Not on filedocumented in this encounter Care Teams Prekindergarten Teacher Relationship Specialty Start Date End Date Mirella Conteh APRN, MEDICAL PSYCHOTHERAPIST PCP - General 03/19/18 04/19/20 [address] [facility] [address] documented as of this encounter
--- OUTSIDE RECORDS SUMMARY | 2022-07-24 09:34 | XMS_ITS | Encounter Summary ---
:1940 Author Organization [facility] Address [address] [place] [address] Care Team Providers Name Role Phone Mirella Conteh RIG MANAGER, GENERAL CLEANER Primary Care Provider [phone] Reason for Visit Reason Onset Date Comments ENDOCRINOLOGY LETTER 08/19/2018 Encounter Details Date Type Department Care Team Description 08/19/2018 Telephone Asaf Quispe Mirella Conteh, ENDOCRINOLOGY LETTER [address] RIG MANAGER, GENERAL CLEANER [place], [place] [address] [address] [facility] [phone] [place], [place] [address] Social History Tobacco Use [...] this encounter Miscellaneous Notes Telephone Encounter - Iva Cunningham MA - 08/20/2018 9:27 AM CST Spoke with Oralia who will call patient to schedule for Endo appt. REPAIRER BENCH Telephone Encounter - Iva Cunningham MA - 08/20/2018 8:49 AM CST Please add dept and provider referring too. REPAIRER BENCH Telephone Encounter - Mirella Conteh APRN, GERALD - 08/20/2018 8:18 AM TOOL REPAIRER BENCH Please find out what happened. Does this go through our referral or does this go directly to the department. Thanks, Florencio REPAIRER BENCH Telephone Encounter - Alexandra Moore LPN - 08/20/2018 7:53 AM CST I see the referral? What do you think is happening with this Florencio? REPAIRER BENCH Telephone Encounter - Michelle Olivo - 08/19/2018 4:40 PM CST Lynnette returned call. Read her the information. She called down there to schedule the appt with Endo, but they had no idea what she was talking about and didn't have the referral. Lynnette would like someone to call her back after checking to make sure referral is still in place prior to her calling down again to schedule. REPAIRER BENCH Telephone Encounter - Alexandra Moore LPN - 08/19/2018 3:35 PM CST Left message on the home number for Lynnette. Talked to Florencio and it was a referral to Endo for osteoporosis. REPAIRER BENCH Telephone Encounter - Michelle Olivo - 08/19/2018 2:11 PM CST Oralia from endo called stating the patient received a letter and is not sure what she's suppose to be doing. She was unable to transfer the patient and informed her that our staff would look into thisand call her back. REPAIRER BENCH documented in this encounter Plan of Treatment Not on filedocumented as of this encounter Visit Diagnoses Not on filedocumented in this encounter Care Teams Circular Knife Cutter Machine Relationship Specialty Start Date End Date Mirella Conteh APRN, GENERAL CLEANER PCP - General 03/19/18 04/19/20 [address] [place] [address] documented as of this encounter
--- OUTSIDE RECORDS SUMMARY | 2022-07-24 09:34 | XMS_ITS | Encounter Summary ---
:1940 Author Organization [facility] Address [address] [place] [address] Care Team Providers Name Role Phone Mirella Conteh APRN, GERALD Primary Care Provider [phone] Reason for Visit Reason Comments Med Refill Encounter Details Date Type Department Care Team Description 07/23/2018 Refill Asaf Quispe Mirella Conteh, Osteoporosis, [address] [place] unspecified osteoporosis [place] [address] type, unspecified [phone] [place], [place] [address] pathological fracture presence (Primary Dx) Social History Tobacco Use Types [...] Encounter - Mirella Conteh APRN, CNP - 07/25/2018 11:42 AM IN CLASSROOM TUTOR Written as requested. CLASSROOM TUTOR Telephone Encounter - Carla Quintanilla LPN - 07/25/2018 11:07 AM CST calcitrate 315-250 mg-unit tablet Take 2 tablets by mouth daily. Last Written: 05/15/17 Quantity: 180 tablets Refills: 3 Duration: 1 year Last appointment: 07/15/18 Next appointment: 07/30/18 CLASSROOM TUTOR documented in this encounter Plan of Treatment Not on filedocumented as of this encounter Visit Diagnoses Diagnosis Osteoporosis, unspecified osteoporosis t ype, unspecified pathological fracture presence - Primary documented in this encounter Care Teams Visual Presentation Manager Relationship Specialty Start Date End Date Mirella Conteh APRN, ERGONOMICS TECHNICIAN PCP - General 03/19/18 04/19/[address] [place] [address] [place] [address] documented as of this encounter
--- OUTSIDE RECORDS SUMMARY | 2022-07-24 09:34 | XMS_ITS | Encounter Summary ---
:[address] [facility] Address [address] [place] [address] Care Team Providers Name Role Phone Noris Carter MD Primary Care Provider Encounter Details Date Type Department Care Team Description 09/19/2018 Telephone [place] Mirella Conteh, [address] [employer], [place], [place] [address] [phone] [place], [place] [address] Social History Tobacco Use [...] on filedocumented in this encounter Care Teams Medical Claims Processor Relationship Specialty Start Date End Date Noris Carter MD PCP - General Family Medicine 06/08/[address] [place] [address] documented as of this encounter
--- OUTSIDE RECORDS SUMMARY | 2022-07-24 09:34 | XMS_ITS | Encounter Summary ---
:1940 Author Organization [facility] Address [address] [place] [address] Care Team Providers Name Role Phone Mirella Conteh APRN, BREAKFAST AND ROOM ATTENDANT Primary Care Provider [phone] Reason for Visit Reason Onset Date Comments Follow up 07/22/2019 Encounter Details Date Type Department Care Team Description 07/22/2019 Telephone Asaf Quispe Mirella Conteh, Follow up [address] [place], [place], [place] [address] [address] [phone] [place], [place] [address] Social History Tobacco Use [...] Notes Telephone Encounter - Florecita Rea - 07/28/2019 10:17 AM CST Patient scheduled. RNET ASSESSOR Telephone Encounter - Su Lord RN - 07/23/2019 12:23 PM CST Patient informed, please call patient to set up fasting labs and an appointment to see Florencio. RNET ASSESSOR Telephone Encounter - Mirella Conteh APRN, BREAKFAST AND ROOM ATTENDANT - 07/23/2019 12:19 PM INTERNET ASSESSOR Placed a Vitamin D, TSH, Lipid, BMP, and CBC with diff. Please let the patient know these are fasting labs. Thanks, Florencio RNET ASSESSOR Telephone Encounter - Su Lord RN - 07/22/2019 10:39 AM CST Patient was last seen 07/2018 Please order any labs that you would like the patient to have prior tothis visit. RNET ASSESSOR Telephone Encounter - Florecita Rea - 07/22/2019 10:15 AM CST Patient would like to know when she should come in for labs and/ or office visit. Please call her [phone]. RNET ASSESSOR documented in this encounter Plan of Treatment Not on filedocumented as of this encounter Visit Diagnoses Not on filedocumented in this encounter Care Teams Reinspector Relationship Specialty Start Date End Date Mirella Conteh APRN, BREAKFAST AND ROOM ATTENDANT PCP - General 03/19/18 04/19/20 [address] [facility] [place] [address] documented as of this encounter
--- OUTSIDE RECORDS SUMMARY | 2022-07-24 09:34 | XMS_ITS | Encounter Summary ---
:1940 Author Organization [facility] Address [address] [place] [address] Care Team Providers Name Role Phone Mirella Conteh MACHINE SIGN WRITER, RECEIVING ASSOCIATE STORE Primary Care Provider [phone] Encounter Details Date Type Department Care Team Description 07/15/2018 Telephone [place] Mirella Conteh, [address] MACHINE SIGN WRITER, [place], [place] [address] [address] [facility] [address] [phone] [place], [place] [address] Social History Tobacco Use [...] Telephone Encounter - Florecita Rea - 07/15/2018 9:38 AM CST Referral faxed. RVISOR WATERPROOFING Telephone Encounter - Su Lord RN - 07/15/2018 8:46 AM CST Please fax order for bone density scan to [facility]. RVISOR WATERPROOFING documented in this encounter Plan of Treatment Not on filedocumented as of this encounter Visit Diagnoses Not on filedocumented in this encounter Care Teams Tow Mate Relationship Specialty Start Date End Date Mirella Conteh, MACHINE SIGN WRITER, RECEIVING ASSOCIATE STORE PCP - General 03/19/18 04/19/20 [address] [facility] [place] [address] documented as of this encounter
--- OUTSIDE RECORDS SUMMARY | 2022-07-24 09:34 | XMS_ITS | Encounter Summary ---
:1940 Author Organization [facility] Address [address] [place] [address] Care Team Providers Name Role Phone Mirella Conteh APRN, SYSTEMS MANAGEMENT CONSULTANT Primary Care Provider [phone] Encounter Details Date Type Department Care Team Description 09/30/2018 Lab Asaf Quispe Age-related osteoporosis [address] without current pathological CHUCK Oropeza [address] fracture [phone] Social History Tobacco Use Types Packs/Day Years [...] Priority Date/Time Associated Diagnosis Comme nts GLOMERULAR FILTRATION Routine 09/30/2018 8:09 Age-related Res ults for this RATE AM FURNACE COMBUSTION TESTER osteoporosis without procedu re are in current pathological the res ults fracture section. INTACT PTH WITH Routine 09/30/2018 8:09 Age-related Results f or this MINERALS AM FURNACE COMBUSTION TESTER osteoporosis without procedu re are in current pathological the res ults fracture section. IMMUNOGLOBULIN A (IGA) Routine 09/30/2018 8:09 Age-related Re sults for this AM FURNACE COMBUSTION TESTER osteoporosis without procedu re are in current pathological the res ults fracture section. TISSUE Routine 09/30/2018 8:09 Age-related Results for this TRANSGLUTAMINASE, IGA AM FURNACE COMBUSTION TESTER osteoporosis withou t procedure are in current pathological the res ults fracture section. ALKALINE PHOSPHATASE, Routine 09/30/2018 8:09 Age-related Res ults for this BONE SPECIFIC AM FURNACE COMBUSTION TESTER osteoporosis without proced ure are in current pathological the res ults fracture section. PROTEIN Routine 09/30/2018 8:09 Age-related Results for this ELECTROPHORESIS, SERUM AM FURNACE COMBUSTION TESTER osteoporosis witho ut procedure are in current pathological the res ults fracture section. documented in this encounter Results Glomerular filtration rate (GFR) (09/30/2018 8:09 AM FURNACE COMBUSTION TESTER) athologist Signature GFR >60 09/30/2018 [facility] 12:58 PM FURNACE COMBUSTION TESTER [facility] >60 09/30/2018 [facility] Ecuadorean GFR 12:58 PM [facility] Comment: GFR calculated from serum creatinine v alue Chronic Kidney Disease less than 60 mL/m in/1.73 m2 Kidney Failure less than 15 mL/min/1.73 m2 Note: effective 12/26/06 IDMS-Traceable MDRD Study Equation used. Specimen Anatomical Collection Method Collection Time Receive d Time (Source) Location / / Volume Laterality 09/30/2018 8:09 AM 9 8:09 FURNACE COMBUSTION TESTER AM FURNACE COMBUSTION TESTER Lyn Naik MD LAB BLOOD ORDERABLES Performing Organization Address City/[facility]/ZIP Code Phon e Number [facility] [address] [place] [phone] Alkaline phosphatase, bone specific (09/30/2018 8:09 AM FURNACE COMBUSTION TESTER) Patholo gist Method Time Signature Bone Alkaline 9.5 mcg/L 09/30/2018 [facility] Phosphatase 8:05 PM FURNACE COMBUSTION TESTER [facility] Comment: REFERENCE VALUE------ <=14 (Premenopausal) <=22 (Postmenopausal) Test Performed by: [facility] [address] [place] [address] [phone] Specimen Anatomical Collection Method Collection Time Receive d Time (Source) Location / / Volume Laterality Blood 09/30/2018 8:09 AM 9 2:00 FURNACE COMBUSTION TESTER PM FURNACE COMBUSTION TESTER Lyn Naik MD LAB BLOOD ORDERABLES Performing Organization Address City/[facility] Phon e Number [facility] see result attachment for specific address Intact PTH with Minerals (09/30/2018 8:09 AM FURNACE COMBUSTION TESTER) P athologist Signature Parathyroid 36.5 12.1 - 09/30/2018 [place] Hormone 60.1 pg/mL 1:48 PM FURNACE COMBUSTION TESTER [facility] Comment: The results from this or [...] observations indicate the need for additional testing. Calcium, Total,S 9.2 8.4 - 10.2 mg/dL 09/30/2018 12:58 PM [facility] Creatinine 0.8 0.4 - 1.2 mg/dL 09/30/2018 12:[address] [facility] Phosphorus 3.8 2.5 - 4.5 mg/dL 09/30/2018 12:[address] [facility] Specimen Anatomical Collection Method Collection Time Receive d Time (Source) Location / / Volume Laterality Blood 09/30/2018 8:09 AM 9 FURNACE COMBUSTION TESTER 12:34 PM FURNACE COMBUSTION TESTER Lyn Naik MD LAB BLOOD ORDERABLES Performing Organization Address City/State/ZIP Code Phon e Number [facility] [address] [place] [address] Immunoglobulin A (IgA) (09/30/2018 8:09 AM FURNACE COMBUSTION TESTER) Patholo gist Method Time Signature Immunoglobulin A 327 61 - 356 10/01/2018 [facility] (IgA) mg/dL 10:32 AM FURNACE COMBUSTION TESTER [facility] Comment: Test Performed by: [facility] [address] [place], [place] [address] Specimen Anatomical Collection Method Collection Time Receive d Time (Source) Location / / Volume Laterality Blood 09/30/2018 8:09 AM 9 2:00 FURNACE COMBUSTION TESTER PM FURNACE COMBUSTION TESTER Lyn Naik MD LAB BLOOD ORDERABLES Performing Organization Address City/State/ZIP Code Phon e Number [facility] see result attachment for specific address Protein electrophoresis, serum (09/30/2018 8:09 AM FURNACE COMBUSTION TESTER) Patholo gist Method Time Signature Protein, Total 7.4 6.3 - 7.9 2018 [facility] g/dL 4:36 PM FURNACE COMBUSTION TE[facility] Albumin, Serum 4.0 3.4 - 4.7 2018 [facility] g/dL 4:36 PM FURNACE COMBUSTION TE[facility] Jbwoo-2-Xuwymn 0.2 0.1 - 0.3 2018 [facility] in g/dL 4:36 PM FURNACE COMBUSTION TESTER [facility] Hzvil-9-Ddzplg 0.9 0.6 - 1.0 2018 [facility] in g/dL 4:36 PM [facility]NA[facility] COMBUSTION [facility] Beta Globulin 0.9 0.7 - 1.2 2018 [facility] g/dL 4:36 PM [facility] Gamma Globulin 1.4 0.6 - 1.6 2018 [facility] g/dL 4:36 PM [facility]BUST[facility] A/G Ratio 1.16 2018 [facility] 4:36 PM [facility]NACE COMBUSTION [facility] Impression SEE BELOW 2018 [facility] 4:36 PM FURNACE COMBUSTION TE[facility] Comment: No apparent monoclonal protein on serum electrophoresis. Test Performed by: [facility] [address] [place] [address] Specimen Anatomical Collection Method Collection Time Receive d Time (Source) Location / / Volume Laterality Blood 09/30/2018 8:09 AM 9 2:00 FURNACE COMBUSTION TESTER PM FURNACE COMBUSTION TESTER Lyn Naik MD LAB BLOOD ORDERABLES Performing Organization Address City/State/ZIP Code Phon e Number [facility] see result attachment for specific address Tissue transglutaminase, IgA (09/30/2018 8:09 AM FURNACE COMBUSTION TESTER) P athologist Signature Tiss.Transglut <1.2 <4.0 10/01/2018 [facility] aminase Ab, S (Negative) 2:04 PM FURNACE COMBUSTION TESTER [facility] (IgA) U/mL Comment: Test Performed by: [facility] [address] , [place], [place] [address] (IgA) Specimen Anatomical Collection Method Collection Time Receive d Time (Source) Location / / Volume Laterality Blood 09/30/2018 8:09 AM 9 2:00 FURNACE COMBUSTION TESTER PM FURNACE COMBUSTION TESTER Lyn Naik MD LAB BLOOD ORDERABLES Performing Organization Address City/State/ZIP Code Phon e Number [facility] see result attachment for specific address documented in this encounter Visit Diagnoses Diagnosis Age-related osteoporosis without current pathological fracture documented in this encounter Care Teams Ship Joiner Relationship Specialty Start Date End Date Mirella Conteh, TRUCK SPOTTER, SYSTEMS MANAGEMENT CONSULTANT PCP - General 03/19/18 04/19/[address] [place] [address] documented as of this encounter
--- OUTSIDE RECORDS SUMMARY | 2022-07-24 09:34 | XMS_ITS | Encounter Summary ---
:1940 Author Organization [facility] Address [address] [place] [address] Care Team Providers Name Role Phone Mirella Conteh CARPENTER PROTOTYPE, CERTIFIED MEDICAL ASSISTANT Primary Care Provider [phone] Reason for Visit Reason Onset Date Comments Flu shot questions 06/09/2019 Encounter Details Date Type Department Care Team Description 06/09/2019 Telephone Asaf Quispe Mirella Conteh, Flu shot questions [address] CARPENTER PROTOTYPE, CERTIFIED MEDICAL ASSISTANT [place], [place] [address] [address] [phone] [place], [place] [address] Social History Tobacco Use [...] Telephone Encounter - Alexandra Moore LPN - 06/10/2019 12:29 PM CDT Patient has never had a flu shot. Informed her that she is welcome to stay in clinic 20 to 30 mintues after the vaccine is giving to watch for any possible reaction. Also informed her that she will be get the high dose (the patient referred to it as the Senior dose). Telephone Encounter - Florecita Rea - 06/10/2019 10:24 AM CDT Patient returned call. Telephone Encounter - Alexandra Moore LPN - 06/10/2019 8:54 AM CDT LMTC Telephone Encounter - Dory Contreras - 06/09/2019 4:28 PM CDT Pt called requesting to talk with a nurse as she has some flu shot questions. Please call Pt at [phone] to advise. documented in this encounter Plan of Treatment Not on filedocumented as of this encounter Visit Diagnoses Not on filedocumented in this encounter Care Teams Workers' Compensation Mediator Relationship Specialty Start Date End Date Mirella Conteh, CARPENTER PROTOTYPE, CERTIFIED MEDICAL ASSISTANT PCP - General 03/19/18 04/19/20 [address] [facility] [place] [address] documented as of this encounter
--- OUTSIDE RECORDS SUMMARY | 2022-07-24 09:34 | XMS_ITS | Encounter Summary ---
:1940 Author Organization [facility] Address [address] [place] [address] Care Team Providers Name Role Phone Mirella Conteh APRN, RV REPAIR TECHNICIAN Primary Care Provider [phone] Reason for Visit Reason Comments OP Infusion Consultation (Routine) - Closed Specialty Diagnoses / Procedures Referred By Contact Refer red To Contact Infusion Therapy Diagnoses Age-related osteoporosis without current pathological fracture Lyn Naik Omch Infusion Therapy MD [address] [facility] [place] [address] [place], [place] Phone: [phone] Fax: Referral ID Status Reason Start Date Expiration Date Visits V isits Requested Authorized [id number] Closed Specialty 10/07/2018 10/07/2019 1 1 Services Required Encounter Details Date Type Department Care Team Description 10/21/2018 Infusion [facility] Infusion Age-re lated osteoporosis Therapy without current pathological [address] [facility] fracture (Primary Dx) [place] [address] Social History Tobacco Use Types Packs/Day Years [...] Sign Reading Time Taken Comments Blood Pressure 141/81 10/21/2018 10:02 AM CDT Pulse 61 10/21/2018 10:02 AM CDT Temperature 36.9 ??C (98.4 ??F) 10/21/2018 10:02 AM CDT Respiratory Rate 16 10/21/2018 10:02 AM CDT Oxygen Saturation 99% 10/21/2018 10:02 AM CDT Inhaled Oxygen Concentration - - [...] Site zoledronic acid (RECLAST) IVPB New Bag 10/21/2018 9:33 AM CDT 5 mg 200 mL/hr 5 mg 5 mg, Intravenous, at 300 mL/hr, Administer over 20 Minutes, call centre supervisor, On Sun10/21/18 at 1000, For 1 dose documented in this encounter Care Teams Tobacco Drier Operator Relationship Specialty Start Date End Date Mirella Conteh, CARBON SEQUESTRATION PLANT MANAGER, RV REPAIR TECHNICIAN PCP - General 03/19/18 04/19/[address] [place] [address] [place] RIGGS [id number] documented as of this encounter
--- OUTSIDE RECORDS SUMMARY | 2022-07-24 09:34 | XMS_ITS | Encounter Summary ---
:1940 Author Organization [facility] Address [address] [place] [address] Care Team Providers Name Role Phone Mirella Conteh APRN, GERALD Primary Care Provider [phone] Encounter Details Date Type Department Care Team Description 07/17/2018 Orders Only Asaf Quispe Mirella Conteh, Hypothyroidism, [address] GERALD HOOPER unspecified type CHUCK Oropeza [address] (Primary Dx) [address] [place] [address] Social History Tobacco Use Types Packs/Day Years [...] ry documented in this encounter Care Teams Refund Specialist Relationship Specialty Start Date End Date Mirella Conteh, RUFUS, GERALD PCP - General 03/19/18 04/19/[address] [place] [address] documented as of this encounter
--- OUTSIDE RECORDS SUMMARY | 2022-07-24 09:34 | XMS_ITS | Encounter Summary ---
:1940 Author Organization [facility] Address [address] [place] [address] Care Team Providers Name Role Phone Mirella Conteh APRN, COMPUTERIZED MACHINE FABRIC CUTTER Primary Care Provider [phone] Encounter Details Date Type Department Care Team Description 07/28/2019 Lab [place] Screening, lipid; [address] Screening for diabetes melli tus; [place] [address] Screening, anemia, deficienc y, iron; [phone] Hypothyroidism, unspecified type; Osteoporosis, u nspecified osteoporosis type, unspecified pathological [...] Date/Time Associated Diagnosis Comme nts GLOMERULAR Routine 07/28/2019 8:07 AM Screening for Results for this FILTRATION RATE [place] diabetes mellitus procedu re are in the results section. VITAMIN D, TOTAL Routine 07/28/2019 8:07 AM Osteoporosis, Resu lts for this [place] unspecified procedure are i n osteoporosis type, the resul ts unspecified section. pathological fracture presence CBC BRANCH OFFICE Routine 07/28/2019 8:07 AM Screening, anemia , Results for this W/DIFF [place] deficiency, iron procedure a re in the results section. TSH Routine 07/28/2019 8:07 AM Hypothyroidism, Result s for this [place] unspecified type procedure a re in the results section. LIPID PANEL Routine 07/28/2019 8:07 AM Screening, lipid Resul ts for this [place] procedure are i n the results section. BASIC METABOLIC Routine 07/28/2019 8:07 AM Screening for Resul ts for this PANEL [place] diabetes mellitus procedure are in the results section. documented in this encounter Results Glomerular filtration rate (GFR) (07/28/2019 8:07 AM [place]) athologist Signature GFR >60 07/28/2019 [facility] 1:10 PM [facility] [place] [facility] >60 07/28/2019 [facility] Samoan GFR 1:10 PM [facility] Comment: GFR calculated from serum creatinine v alue Chronic Kidney Disease less than 60 mL/m in/1.73 m2 Kidney Failure less than 15 mL/min/1.73 m2 Note: effective 12/26/06 IDMS-Traceable MDRD Study Equation used. Specimen Anatomical Collection Method Collection Time Receive d Time (Source) Location / / Volume Laterality 07/28/2019 8:07 AM 9 8:07 [place] AM [place] Mirella Conteh APRN, COMPUTERIZED MACHINE FABRIC CUTTER LAB BLOOD ORDERABLES Performing Organization Address City/State/ZIP Code Phon e Number [facility] [address] [place] [address] Vitamin D, Total (07/28/2019 8:07 AM [place]) athologist Signature Vitamin D, 36.8 ng/mL 07/28/2019 [facility] Total 1:33 PM [facility] Comment: Deficient ?<20 ? ng/mL Insufficient ? 20-<30 ??ng/mL Sufficient ? 30-100 ??ng/mL Vitamin D2/D3 fractionation is recommend ed at the discretion of the clinician if Total Vitamin D is w ithin deficient or insufficient range. Specimen Anatomical Collection Method Collection Time Receive d Time (Source) Location / / Volume Laterality Blood 07/28/2019 8:07 AM 9 [place] 12:35 PM [place] Mirella Conteh APRN, CNP LAB BLOOD ORDERABLES Performing Organization Address [facility] Phon e Number [facility] [address] [place] [address] TSH (07/28/2019 8:07 AM [place]) P athologist Signature TSH, Sensitive 4.09 0.46 - 07/28/2019 [facility] 4.68 mIU/L 1:46 PM [facility] Comment: The results from this [...] (Source) Location / / Volume Laterality Blood 07/28/2019 8:07 AM 9 [place] 12:35 PM [place] Mirella Conteh APRN, CNP LAB BLOOD ORDERABLES Performing Organization Address [facility] Phon e Number [facility] [address] [place] [address] (ABNORMAL) CBC Branch Off w/Diff (07/28/2019 8:07 AM [place]) Patholo gist Method Time Signature WBC 3.7 3.5 - 10.5 07/28/2019 [facility] K/uL 8:49 AM [place] RBC 4.22 3.90 - 07/28/2019 [facility] 5.00 M/uL 8:49 AM [place] Hemoglobin 12.7 12.0 - 07/28/2019 [facility] 15.5 g/dL 8:49 AM [place] Hematocrit 37.3 35.0 - 07/28/2019 [facility] 44.0 % 8:49 AM [place] Platelets 235 150 - 450 07/28/2019 [facility] K/uL 8:49 AM [place] MCV 88.4 81.6 - 07/28/2019 [facility] 98.3 fL 8:49 AM [place] MCH 30.1 26.0 - 07/28/2019 [facility] 32.0 pg 8:49 AM [place] MCHC 34.0 32.0 - 07/28/2019 [facility] 36.0 g/dL 8:49 AM [place] RDW 13.6 11.9 - 07/28/2019 [facility] 15.5 % 8:49 AM [place] Lymphocytes % 34.1 18.0 - 07/28/2019 [facility] 45.0 % 8:49 AM [place] Mid-size Cells 13.0 (H) 3.3 - 10.1 07/28/2019 [facility] % 8:49 AM [place] Granulocytes/Eileen 52.9 45.8 - 07/28/2019 [facility] trophils 73.7 % 8:49 AM [place] Lymphocytes 1.3 0.9 - 2.9 07/28/2019 [facility] Absolute K/uL 8:49 AM [place] MIDS Absolute 0.5 0.2 - 0.8 07/28/2019 [facility] K/uL 8:49 AM [place] Granulocytes/Eileen 1.9 (L) 2.1 - 8.7 07/28/2019 [facility] trophils K/uL 8:49 AM [place] Absolute Specimen Anatomical Collection Method Collection Time Receive d Time (Source) Location / / Volume Laterality Blood 07/28/2019 8:07 AM 9 8:09 [place] AM [place] Mirella Conteh RAILWAY TRACTION LINE WORKER, COMPUTERIZED MACHINE FABRIC CUTTER LAB BLOOD ORDERABLES Performing Organization Address City/State/ZIP Code Phon e Number [facility] [place] [address] [place] [address] (ABNORMAL) Basic metabolic panel (07/28/2019 8:07 AM [place]) P athologist Signature Sodium 143 135 - 145 07/28/2019 [place] mEq/L 1:10 PM [facility] Potassium 3.8 3.5 - 5.1 07/28/2019 [place] mEq/L 1:10 PM [facility] Chloride 101 98 - 107 07/28/2019 [place] mEq/L 1:10 PM [facility] CO2 31 (H) 22 - 29 07/28/2019 [place] mmol/L 1:10 PM [facility] Creatinine 0.8 0.4 - 1.2 07/28/2019 [place] mg/dL 1:10 PM [facility] BUN 14 5 - 25 07/28/2019 [place] mg/dL 1:10 PM [facility] Glucose 89 70 - 100 07/28/2019 [place] mg/dL 1:10 PM [facility] Calcium, 9.2 8.4 - 10.2 07/28/2019 [place] Total,S mg/dL 1:10 PM [facility] Specimen Anatomical Collection Method Collection Time Receive d Time (Source) Location / / Volume Laterality Blood 07/28/2019 8:07 AM 9 [place] 12:35 PM [place] Mirella Conteh APRN, COMPUTERIZED MACHINE FABRIC CUTTER LAB BLOOD ORDERABLES Performing Organization Address City/State/ZIP Code Phon e Number [facility] [address] [place] [address] Lipid panel (07/28/2019 8:07 AM [facility]) athologist Signature Cholesterol 171 0 - 199 07/28/2019 [facility] mg/dL 1:10 PM [facility] Comment: Recommended by National Cholesterol Education Program (ATP III) -------- Cholesterol Ranges -------- <200 ? Desirable 200-239 ? Borderline high >=240 ? High Triglycerides 74 0 - 149 mg/dL 07/28/2019 1:10 PM [facility] Comment: -------- TRIG Ranges -------- <150 ?Normal 150-199 ? Borderline high 200-499 ? High >=500 ? Very high HDL 60 40 - 60 mg/dL 07/28/2019 1:10 PM [facility] Comment: -------- HDL Ranges -------- <40 ?Low 40-59 ?Normal >=60 ? Optimal LDL Calculated 96 0 - 99 mg/dL 07/28/2019 1:10 PM [place] [place] [place] [facility] Comment: -------- LDL Ranges -------- <100 ? Optimal 100-129 ?Near optimal/above op timal 130-159 ?Borderline high 160-189 ?High >=190 ?Very high Fasting? Yes 07/28/2019 8:10 AM [place] [facility] Specimen Anatomical Collection Method Collection Time Receive d Time (Source) Location / / Volume Laterality Blood 07/28/2019 8:07 AM 9 [place] 12:35 PM [facility] [place] [facility] Mirella Conteh APRN, COMPUTERIZED MACHINE FABRIC CUTTER LAB BLOOD ORDERABLES Performing Organization Address City/State/ZIP Code Phon e Number [facility] [address] [place] [address] documented in this encounter Visit Diagnoses Diagnosis Screening, lipid Screening for diabetes mellitus Screening, anemia, deficiency, iron Screening for iron deficiency anemia Hypothyroidism, unspecified type Osteoporosis, unspecified osteoporosis t ype, unspecified pathological fracture presence documented in this encounter Care Teams Personal Computer Network Analyst Relationship Specialty Start Date End Date Mirella Conteh APRN, COMPUTERIZED MACHINE FABRIC CUTTER PCP - General 03/19/18 04/19/20 [address] [place] [address] documented as of this encounter
--- OUTSIDE RECORDS SUMMARY | 2022-07-24 09:34 | XMS_ITS | Encounter Summary ---
:1940 Author Organization [facility] Address [address] [place] [address] Care Team Providers Name Role Phone Mirella Conteh APRN, DAIRY FARMER Primary Care Provider [phone] Reason for Visit Reason Comments Immunizations Flu Shot Encounter Details Date Type Department Care Team Description 06/18/2019 Immunization Asaf Quispe [address] [place], [place] [address] Social History Tobacco Use [...] encounter Progress Notes Su Lord RN - 06/18/2019 1:30 PM CST This is patients first flu vaccine. Patient answered no to all screening questions. Patient denies a previous reaction to any vaccines. Reviewed screening questionnaire with patient prior to administration. VIS given. 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 Patient asked to wait 15 minutes following administration prior to leaving. CETYLENE TORCH OPERATOR documented in this encounter Plan of Treatment Not on filedocumented as of this encounter Visit Diagnoses Not on filedocumented in this encounter Care Teams Inter Com Installer Relationship Specialty Start Date End Date Mirella Conteh APRN, DAIRY FARMER PCP - General 03/19/18 04/19/[address] [place], [place] [address], [place] [address] documented as of this encounter
--- OUTSIDE RECORDS SUMMARY | 2022-07-24 09:34 | XMS_ITS | Encounter Summary ---
:[address] [facility] Address [address] [place] [address] Care Team Providers Name Role Phone Mirella Conteh LABORER PLUMBING, MEDICAL GENETICS DIRECTOR Primary Care Provider [phone] Reason for Visit Reason Comments Medication Visit Encounter Details Date Type Department Care Team Description 08/07/2019 Office Visit Laura Quispe Mirella Conteh Hypothyroidism, unspecified type (Primary Dx); [address] M, LABORER PLUMBING, MEDICAL GENETICS DIRECTOR Abdominal discomfort [place], [place] [address] [address] [place] [address] [phone] Social History Tobacco Use Types Packs/Day Years [...] Sign Reading Time Taken Comments Blood Pressure 110/62 08/07/2019 1:04 PM HOLE PUNCHER STRAP Pulse 72 08/07/2019 1:04 PM HOLE PUNCHER STRAP Temperature 36.4 ??C (97.5 ??F) 08/07/2019 1:04 PM HOLE PUNCHER STRAP Respiratory Rate 16 08/07/2019 1:04 PM HOLE PUNCHER STRAP Oxygen Saturation - - Inhaled Oxygen Concentration - - Weight 52.1 kg (114 lb 14.4 oz) 08/07/2019 1:04 PM HOLE PUNCHER STRAP Height 157 cm (5' 1.81) 08/07/2019 1:04 PM HOLE PUNCHER STRAP Body Mass Index 21.14 08/07/2019 1:04 PM HOLE PUNCHER STRAP documented in this encounter Patient Instructions Patient InstructionsChcullen Conteh APRN, CNP - 08/07/2019 1:20 PM HOLE PUNCHER STRAP Consider Shingrix (shingles), Prevnar (pneumonia) immunization Will be due for Tetanus in the fall Consider mammogram Vitamin D 1000 international units daily until you see endocrinology MiraLax 3 teaspoons daily x one week and see if symptoms resolve; then may return to current dose ofone teaspoon daily PUNCHER STRAP documented in this encounter Progress Notes Mirella Conteh APRN, CNP - 08/07/2019 1:20 PM CST Estab Patient Visit Subjective Patient ID: Lynnette Thompson is a 78 y.o. female presenting for the following concerns. Chief Complaint Patient presents with ??? Medication Visit HPI: The patient is a pleasant 78 y.o. year old female presenting ambulatory to the clinical setting for medication review and to review her labs, which were completed on July 28, 2019. The patient's past medical history includes anxiety, depression, hypothyroidism, glaucoma, cataracts, headaches, vertebral compression fractures, osteoporosis, pneumonia, and varicella. The patient is currently on Synthroid 88 mcg daily for her hypothyroidism diagnosed in 2008 or 2009, when she was feeling nervous and had lost weight. The patient denies any palpitations, fatigue, hair loss, nervousness and/or weight loss. The patient has constipation, which is not new. The patient did experience situational anxiety and depression after she retired, a difficult time in her life, which lasted for about 2 years. The patient is under the care of optometry for glaucoma and is on eyedrops prescribed by them. The patient has had cataract surgery bilaterally. The patient is currently under the care of endocrinology for her osteoporosis, has an appointment scheduled in September. The patient reports her back pain certainly has improved since her osteoporosis has been treated. The patient is taking calcium citrate 2, twice daily and was taking an additional vitamin D 1000 international units daily, but not at this time. The patient reports has been experiencing a fullness, an uncomfortable discomfort across her upper abdominal area, only in the evening after eating dinner, for the past few months. The pain does not radiate into her back. No nausea or vomiting. No fever, no chills. The patient reports her stools are co nstipated pieces. The patient does pass flatus once in a while. The patient describes the pain as ithurts, not an ache, and lasts until she lays down to go to bed at night. The patient does not awakenfrom the pain. The patient feels her stomach protrudes, bulges, as she has poor muscle tone and inquires if that is from her previous compression fractures. The patient has a history of constipation, which is worse since starting a calcium supplement for osteoporosis. The patient has been taking 1 MiraLAX teaspoon daily. The patient's Tdap is up-to-date on 06/10/2010. The patient had a seasonal flu shot. The patient is due for the Prevnar, Pneumovax, and Shingrix. The patient's last mammogram was on 10/10/2017. The patient had normal Cologuard testing in 08/27/2018, due in 3 years. 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 The patient spent time with family yesterday for and had an enjoyable day. ROS: INTEGUMENTARY: The patient denies hair loss. BREASTS: The patient's last mammogram was on 09/24/2017 and she is due. GASTROINTESTINAL: See HPI. The patient has had abdominal discomfort in her upper abdominal area bilaterally, after her evening meal only, for the past several months. She is experiencing constipation passing constipated pieces of stool. No nausea or vomiting associated with her discomfort. ENDOCRINOLOGY: See HPI. The patient currently has osteoporosis and is under the care of endocrinology receiving a yearly infusion. MUSCULOSKELETAL: The patient reports her back pain certainly has improved since her osteoporosis hasbeen treated. NEUROLOGICAL: See HPI. The patient no longer has headache discomfort. PSYCHIATRIC: The patient had anxiety and depression for 2 years after she retired, which has since resolved. The following portions of the patient's chart were reviewed in this encounter and updated as appropriate: Tobacco Allergies Meds Med Hx Surg Hx Fam Hx Soc Hx Past Medical History: Diagnosis Date ??? Anxiety ??? Cataract ??? Depression ??? Disease of thyroid gland ??? Glaucoma ??? Headache ??? History of vertebral compression fracture ??? Osteoporosis ??? Pneumonia TWICE ??? Varicella ??? Visual impairment GLASSES Current Outpatient Medications: ??? Ascorbic Acid (VITAMIN [...] day , Disp: , Rfl: ??? timolol (BETIMOL) 0.5 % ophthalmic solution, Administer 1 drop into both eyes 1 (one) time each day , Disp: , Rfl: ??? levothyroxine (SYNTHROID) 88 MCG tablet, Take 1 tablet (88 mcg total) by mouth 1 (one) time eachday, Disp: 90 tablet, Rfl: 3 ??? timolol (TIMOPTIC) 0.5 % ophthalmic solution, Administer 1 drop into both eyes every morning, Disp: , Rfl: Objective Visit Vitals BP 110/62 (BP Location: Left arm, Patient Position: Sitting) Pulse 72 Temp 36.4 ??C (97.5 ??F) (Temporal) Resp 16 Ht 1.57 m (5' 1.81) Wt 52.1 kg (114 lb 14.4 oz) BMI 21.14 kg/m?? Smoking Status Never Smoker BSA 1.51 m?? GENERAL: The patient is alert, orientated, and in no apparent distress. GASTROENTEROLOGY: Abdomen protruding, poor muscle tone. Abdomen is soft, no organomegaly, positive bowel sounds. DIAGNOSTICS: Offered to a flat and upright abdominal xray which the patient declined. Lab on 07/28/2019 Component Date Value Ref Range Status ??? Cholesterol 07/28/2019 171 0 - 199 mg/dL Final ??? Triglycerides 07/28/2019 74 0 - 149 mg/dL Final ??? HDL 07/28/2019 60 40 - 60 mg/dL Final ??? LDL Calculated 07/28/2019 96 0 - 99 mg/dL Final ??? Fasting? 07/28/2019 Yes Final ??? Sodium 07/28/2019 143 135 - 145 mEq/L Final ??? Potassium 07/28/2019 3.8 3.5 - 5.1 mEq/L Final ??? Chloride 07/28/2019 101 98 - 107 mEq/L Final ??? CO2 07/28/2019 31* 22 - 29 mmol/L Final ??? Creatinine 07/28/2019 0.8 0.4 - 1.2 mg/dL Final ??? BUN 07/28/2019 14 5 - 25 mg/dL Final ??? Glucose 07/28/2019 89 70 - 100 mg/dL Final ??? Calcium, Total,S 07/28/2019 9.2 8.4 - 10.2 mg/dL Final ??? WBC 07/28/2019 3.7 3.5 - 10.5 K/uL Final ??? RBC 07/28/2019 4.22 3.90 - 5.00 M/uL Final ??? Hemoglobin 07/28/2019 12.7 12.0 - 15.5 g/dL Final ??? Hematocrit 07/28/2019 37.3 35.0 - 44.0 % Final ??? Platelets 07/28/2019 235 150 - 450 K/uL Final ??? MCV 07/28/2019 88.4 81.6 - 98.3 fL Final ??? MCH 07/28/2019 30.1 26.0 - 32.0 pg Final ??? MCHC 07/28/2019 34.0 32.0 - 36.0 g/dL Final ??? RDW 07/28/2019 13.6 11.9 - 15.5 % Final ??? Lymphocytes % 07/28/2019 34.1 18.0 - 45.0 % Final ??? Mid-size Cells 07/28/2019 13.0* 3.3 - 10.1 % Final ??? Granulocytes/Neutrophils 07/28/2019 52.9 45.8 - 73.7 % Final ??? Lymphocytes Absolute 07/28/2019 1.3 0.9 - 2.9 K/uL Final ??? MIDS Absolute 07/28/2019 0.5 0.2 - 0.8 K/uL Final ??? Granulocytes/Neutrophils Absolute 07/28/2019 1.9* 2.1 - 8.7 K/uL Final ??? TSH, Sensitive 07/28/2019 4.09 0.46 - 4.68 mIU/L Final ??? Vitamin D, Total 07/28/2019 36.8 ng/mL Final ? ? GFR 07/28/2019 >60 Final ? ? GFR 07/28/2019 >60 Final Assessment/Plan Lynnette was seen today for medication visit. Diagnoses and all orders for this visit: Hypothyroidism, unspecified type (Primary) - levothyroxine (SYNTHROID) 88 MCG tablet; Take 1 tablet (88 mcg total) by mouth 1 (one) time each day Abdominal discomfort Discussed the plan of care with the patient. Renewed Synthroid 88 mcg daily x one year for her hypothyroidism. The patient will continue to receive her cares [place] [facility] [place]. The patient will continue vitamin D 1000 international units daily, until she has a consultation with the retail sales associate bilingual, as her vitamin D level today is 36.8. The patient will continue calciumcitrate 2, twice daily. Offered to do a flat and upright of the abdomen to assess her abdominal discomfort, the patient declined. The patient will increase her MiraLAX to 1 tablespoon daily x1 week to see if that alleviates her abdominal discomfort, which is likely constipation, and then decrease to 1 teaspoon daily after having good bowel movements. The patient will notify me if her abdominal discomfort continues for consideration of imaging. Recommended Shingrix and the Prevnar, the patient declines. The patient will update her Tdap in the fall. Recommended a mammogram, which the patient will consider. The patient agrees and understands this plan of care. Mirella Conteh APRN, CNP PUNCHER STRAP documented in this encounter Plan of Treatment Not on filedocumented as of this encounter Visit Diagnoses Diagnosis Hypothyroidism, unspecified type - Prima ry Abdominal discomfort Abdominal pain, unspecified site documented in this encounter Care Teams Contract Technical Writer Relationship Specialty Start Date End Date Mirella Conteh APRN, CNP PCP - General 03/19/18 04/19/20 [address] [place] [address] documented as of this encounter
--- OUTSIDE RECORDS SUMMARY | 2022-07-24 09:34 | XMS_ITS | Encounter Summary ---
:1940 Author Organization [facility] Address [address] [place] [address] Care Team Providers Name Role Phone Mirella Conteh LUNG PULLER, BELLSTAND ATTENDANT Primary Care Provider [phone] Reason for Visit Reason Onset Date Comments EYE DROPS 05/20/2018 Encounter Details Date Type Department Care Team Description 05/20/2018 Telephone Asaf Quispe Mirella Conteh, EYE DROPS [address] LUNG PULLER, BELLSTAND ATTENDANT [place], [place] [address] [address] [facility] [address] [phone] [place], [place] [address] Social History Tobacco Use [...] Telephone Encounter - Iva Cunningham MA - 05/20/2018 10:22 AM CDT Patient informed Telephone Encounter - Mirella Conteh NP - 05/20/2018 10:17 AM CDT The patient should be using her eyedrops as directed. There were 2 timolol eyedrops on her record 1 was discontinued because of a duplicate only. Please explained to patient and yes she should continueher eyedrops. Telephone Encounter - Iva Cunningham MA - 05/20/2018 9:35 AM CDT Please advise. Should patient still be using her eye drops? Telephone Encounter - Michelle Olivo - 05/20/2018 9:00 AM CDT THE PATIENT WAS SEEN ON Sunday BY KELLY AND WAS JUST READING HER SUMMARY WHICH STATED SHE SHOULD STOP USING HER EYE DROPS. SHE DOESN'T THINK THAT'S CORRECT AND WOULD LIKE TO CHECK ON THAT. documented in this encounter Plan of Treatment Not on filedocumented as of this encounter Visit Diagnoses Not on filedocumented in this encounter Care Teams Digital Imager Relationship Specialty Start Date End Date Mirella Conteh, LUNG PULLER, BELLSTAND ATTENDANT PCP - General 03/19/18 04/19/20 [address] [facility] [place] [address] documented as of this encounter
--- OUTSIDE RECORDS SUMMARY | 2022-07-24 09:34 | XMS_ITS | Encounter Summary ---
:1940 Author Organization [facility] Address [address] [place] [address] Care Team Providers Name Role Phone Mirella Conteh APRN, GERALD Primary Care Provider [phone] Reason for Visit Reason Onset Date Comments call 07/24/2018 Encounter Details Date Type Department Care Team Description 07/24/2018 Telephone Asaf Quispe Mirella Conteh, call [address] GERALD [place], [place] [address] [phone] [place], [place] [address] Social History Tobacco Use [...] Telephone Encounter - Su Lord RN - 07/24/2018 4:54 PM CST Patient informed of this and was transferred to the front to schedule. AL PLANTING AND CULTIVATION MANAGER Telephone Encounter - Mirella Conteh APRN, GERALD - 07/24/2018 1:13 PM AERIAL PLANTING AND CULTIVATION MANAGER The patient should come in to discuss her DEXA scan report and discuss treatment options. Florencio Duarte AL PLANTING AND CULTIVATION MANAGER Telephone Encounter - Su Lord RN - 07/24/2018 12:24 PM CST Please explain. AL PLANTING AND CULTIVATION MANAGER Telephone Encounter - Mirella Conteh APRN, CNP - 07/24/2018 12:10 PM AERIAL PLANTING AND CULTIVATION MANAGER Please contact the patient to review her recent DEXA scan report and develop plan of care. AL PLANTING AND CULTIVATION MANAGER documented in this encounter Plan of Treatment Not on filedocumented as of this encounter Visit Diagnoses Not on filedocumented in this encounter Care Teams Team Manager Relationship Specialty Start Date End Date Mirella Conteh APRN, CNP PCP - General 03/19/18 04/19/[address] [place] [address] [place] [address] documented as of this encounter
--- OUTSIDE RECORDS SUMMARY | 2022-07-24 09:34 | XMS_ITS | Encounter Summary ---
:1940 Author Organization [facility] Address [address] [place] [address] Care Team Providers Name Role Phone Mirella Conteh APRN, DIVISION ORDER TECHNICIAN Primary Care Provider [phone] Encounter Details Date Type Department Care Team Description 07/15/2018 Lab Laura Quispe Encounter for vitamin defici ency screening; [address] Hypothyroidism, unspecified type Laura Quispe [place] [address] Social History Tobacco Use Types [...] Name Priority Date/Time Associated Diagnosis Comme nts VITAMIN D, TOTAL Routine 07/15/2018 8:48 AM Encounter for jessica min Results for this QUALITY ASSURANCE GROUP LEADER deficiency screening procedu re are in the results section. TSH Routine 07/15/2018 8:48 AM Hypothyroidism, Result s for this QUALITY ASSURANCE GROUP LEADER unspecified type procedure a re in the results section. documented in this encounter Results (ABNORMAL) TSH (07/15/2018 8:48 AM [facility]) Analysis Performed At [facility] Time Signature TSH, Sensitive 5.75 (H) 0.46 - 07/15/2018 [place] 4.68 mIU/L 1:23 PM [facility] Comment: The results from this [...] (Source) Location / / Volume Laterality Blood (Blood, 07/15/2018 8:48 AM 07/15/20 18 Venous) QUALITY ASSURANCE GROUP LEADER 12:17 PM QUALITY ASSURANCE GROUP LEADER Mirella Conteh APRN, CNP LAB BLOOD ORDERABLES Performing Organization Address [facility] Phon e Number [facility] [address] [place] [id number] Vitamin D, Total (07/15/2018 8:48 AM QUALITY ASSURANCE GROUP LEADER) athologist Signature Vitamin D, 43.9 ng/mL 07/15/2018 [facility] Total 1:11 PM QUALITY ASSURANCE GROUP LEADER [facility] Comment: ---- Deficient ?<20 ? ng/mL Insufficient ? 20-<30 ??ng/mL Sufficient ? 30-100 ??ng/mL Vitamin D2/D3 fractionation is recommend ed at the discretion of the clinician if Total Vitamin D is w ithin deficient or insufficient range. Specimen Anatomical Collection Method Collection Time Receive d Time (Source) Location / / Volume Laterality Blood (Blood, 07/15/2018 8:48 AM 07/15/20 18 Venous) QUALITY ASSURANCE GROUP LEADER 12:17 PM QUALITY ASSURANCE GROUP LEADER Mirella Conteh APRN, CNP LAB BLOOD ORDERABLES Performing Organization Address [facility] Phon e Number [facility] [address] [place] [phone] documented in this encounter Visit Diagnoses Diagnosis Encounter for vitamin deficiency screeni ng Hypothyroidism, unspecified type documented in this encounter Care Teams Dobby Loom Fixer Relationship Specialty Start Date End Date Mirella Conteh APRN, DIVISION ORDER TECHNICIAN PCP - General 03/19/18 04/19/20 [address] [facility] [place] [address] documented as of this encounter
--- OUTSIDE RECORDS SUMMARY | 2022-07-24 09:34 | XMS_ITS | Encounter Summary ---
:1940 Author Organization [facility] Address [address] [place] [address] Care Team Providers Name Role Phone Mirella Conteh APRN, TRAINING PROJECT MANAGER Primary Care Provider [phone] Reason for Visit Reason Comments Osteoporosis Consultation (Routine) - Closed Specialty Diagnoses / Procedures Referred By Contact Refer red To Contact Endocrinology Diagnoses Osteoporosis, unspecified osteoporosis type, unspecified pathological fracture presence Mirella Conteh APRN, TRAINING PROJECT MANAGER [address] [place] [address] Referral ID Status Reason Start Date Expiration Date Visits V isits Requested Authorized [id number] Closed Specialty 07/30/2018 07/30/2019 1 1 Services Required Encounter Details Date Type Department Care Team Description 09/12/2018 Consult [facility] Endocrinology Muthusamy, Age-related osteoporosis wit hout current pathological fracture (Primary Dx); [address] [facility] MD Lyn History of vertebral pritesh yokasta fracture; [place] [address] Gastroesophageal reflux dise ase, esophagitis presence not specified; [phone] Family history of fracture of hip in parent Social History Tobacco Use Types Packs/Day Years [...] Sign Reading Time Taken Comments Blood Pressure 132/76 09/12/2018 1:10 PM [facility] Pulse 94 09/12/2018 1:10 PM [facility] Temperature 37.1 ??C (98.7 ??F) 09/12/2018 1:10 PM [facility] Respiratory Rate 16 09/12/2018 1:10 PM [facility] Oxygen Saturation 98% 09/12/2018 1:10 PM [facility] Inhaled Oxygen Concentration - - Weight 50.8 kg (111 lb 15.9 oz) 09/12/2018 1:10 PM [facility] Height 155.4 cm (5' 1.18) 09/12/2018 1:10 PM [facility] Body Mass Index 21.04 09/12/2018 1:10 PM [facility] documented in this encounter Patient Instructions Patient InstructionsLyn Naik MD - 09/12/2018 1:15 PM CST 1. Recommend calcium: 1200 mg/day Vitamin D3: 1000 units/day Calcium carbonate 600 mg + vitamin D3 500 units twice a day. This can replace both calcium citrate and the vitamin D that you are taking 2. Options for bone loss prevention: Reclast (zolendronic acid) Prolia National Osteoporosis Foundation website 3. Continue walking Avoid lifting more than 20 lbs 4. Dont fall [facility] documented in this encounter Progress Notes Lyn Naik MD - 09/12/2018 1:15 PM CST Consultation Primary Care Provider: Mirella Conteh APRN, TRAINING PROJECT MANAGER Referring Provider: Mirella Conteh, SELMA* Chief Complaint: New consult for evaluation and management of osteoporosis Subjective Patient ID: Lynnette Thompson is a 77 y.o. female. HPI Patient had her first bone density done at [facility] in 2014 that showed a T score of -3.2 at L1-L2, left femoral neck -2.3 total hip -2.6, right femoral neck -1.8, total hip -2.3. She had deferred pharmacotherapy for osteoporosis at that point. She developed back pain in 2016 and had a lumbarspine x-ray which showed multiple compression fractures at L1, L2, L3 and L5. She also had a CT abdomen and 10/2017 at an outside facility which noted T12 compression as well. Patient reports improvement in the back pain. She has lost 3 inches in height and total. She denies any history of fragility fractures otherwise. She had repeat bone density in 07/2018 at [facility] which indicated a T score of -3.3 at L1-L4 and was noted to have a 5.2% decline compared to 2015. Lowest hip T score was -2.5 but separate scores for each site was not provided. Percentage change was noted to be 0.7%. She had a menopause in her 50s and was on hormone replacement for a few years. There is history of parental hip fracture in her father which appeared to be spontaneous. She has history of acid reflux but denies peptic ulcer disease or upper GI bleed. No history of cancer, exposure to chemotherapy, radiation, immunosuppressants, glucocorticoids. No use of antiseizure medications or anticoagulants. No history of eating disorder or celiac disease. Patient reports a remaining active and denies any balance concerns. She had 2 falls over the past year when she tripped and fell down the stairs. She receives regular dental care and denies any current concerns. She does not take much dairy products. She takes a combination calcium citrate plus vitamin D 2 tablets a day and separate vitamin D of 400 units/day. She has hypothyroidism and is on levothyroxine replacement. She reports taking the levothyroxine in the middle of the night to ensure appropriate separation from calcium. Her labs done in 07/2018 showed a vitamin D of 43.9. Her TSH was 5.75 (0.46- 4.68) and levothyroxine dose is being adjusted. Labs from 10/2017 showed creatinine of 0.7 and calcium of 9.2 (8.4-10.2). She reports being thin built all her life with some recent weight gain. Review of systems: Negative. Otherwise as in HPI. Outpatient Encounter Medications as of 09/12/2018 Medication Sig Dispense Refill ??? Ascorbic Acid (VITAMIN C) 500 MG tablet Take 500 mg by mouth 1 (one) time each day During winter ??? calcium citrate-vitamin D (CALCITRATE) 315-250 MG-UNIT [...] eyes 1 (one) time each day ??? [DISCONTINUED] Calcium Citrate 333 MG tablet Take 333 mg by mouth twice a day ??? [DISCONTINUED] levothyroxine (SYNTHROID) 75 MCG tablet Take 75 mcg by mouth 1 (one) time each day. No facility-administered encounter medications on file as of 09/12/2018. Allergies as of 09/12/2018 - Reviewed 09/12/2018 Allergen Reaction Noted ??? Penicillins Past Medical History: Diagnosis Date ??? Anxiety ??? Cataract ??? Depression ??? Disease of thyroid gland ??? Glaucoma ??? Headache ??? Osteoporosis ??? Pneumonia TWICE ??? Varicella ??? Visual impairment GLASSES Past Surgical History: Procedure Laterality Date ??? EYE SURGERY CATERATE SURGERY Family History Problem Relation Age of Onset ??? Hip fracture Father ??? Breast cancer Sister ??? Colon cancer Brother Metastatic SOCIAL HISTORY: . Not currently working. Does not smoke. Rare alcohol use. Objective Visit Vitals BP 132/76 (BP Location: Left arm, Patient Position: Sitting) Pulse 94 Temp 37.1 ??C (98.7 ??F) (Temporal) Resp 16 Ht 1.554 m (5' 1.18) Wt 50.8 kg (111 lb 15.9 oz) SpO2 98% BMI 21.04 kg/m?? Smoking Status Never Smoker BSA 1.48 m?? Physical Exam GENERAL: Patient appears well. No apparent distress. Ambulates well without any concerns HEENT: Pupils equal, reactive to light. Normal oral cavity. No oral ulcers NECK: No palpable thyroid abnormality LUNGS: Clear to auscultation CARDIOVASCULAR: Regular rate and rhythm. No murmur ABDOMEN: Soft, nontender. No hepatosplenomegaly MUSCULOSKELETAL: No vertebral tenderness. No kyphoscoliosis EXTREMITIES: Lower extremities - no edema NEUROLOGIC: Deep tendon reflexes, biceps 2+ SKIN: Normal Assessment/Plan Diagnoses and all orders for this visit: Age-related osteoporosis without current pathological fracture - Alkaline phosphatase, bone specific; Future - Intact PTH with Minerals; Future - Immunoglobulin A (IgA); Future - Protein electrophoresis, serum; Future - Tissue transglutaminase, IgA; Future - X-ray thoracic spine 2 views; Future - X-ray lumbar spine 2-3 views; Future History of vertebral compression fracture Gastroesophageal reflux disease, esophagitis presence not specified Family history of fracture of hip in parent 1. The bone density scores indicate osteoporosis but the current report is noted to be inadequate without complete information of the different hip sites. The actual images of the bone density will be requested to obtain more detailed information. 2. Otherwise I discussed extensively about pathogenesis of osteoporosis and pharmacotherapy available with anabolic versus antiresorptive therapy. I discussed specifically about antiresorptive therapy choices including oral bisphosphonate, IV bisphosphonate and Prolia. 3. To complete evaluation for secondary causes of bone loss PTH with minerals, serum protein electrophoresis, TTG, IgA will be done. Bone alkaline phosphatase will also be established at baseline. 4. X-ray of lumbar and thoracic spine will also be obtained to establish baseline of vertebral compression/changes and any changes compared to prior with lack of pharmacotherapy in the interim. 5. I also discussed with her about optimal calcium and vitamin D supplementation. It might be best for her to switch to calcium carbonate 600 mg plus vitamin D3-500 units twice a day to replace both her calcium and vitamin D supplementation. 6. Continued weightbearing exercises and fall avoidance was emphasized. 7. Patient was encouraged to research further about therapeutic choices on National osteoporosis foundation website. She remains undecided at this point. She will return after completing the test to discuss about treatment options further. Patient understands and agrees with the above plan. I have spent 45 minutes in patient care and greater then 50% of the time spent in counseling on evaluation, management and plan of her endocrine issues. [facility] Addie Bridges MA - 09/12/2018 1:15 PM CST Patient will be going to [facility] to have x-rays and labs completed. Can you please have patient sign BRIE for Dr. Naik so she can obtain images of last bone density done at [facility] in 07/2018. Rea - 09/12/2018 1:15 PM CST Patient signed BRIE. [facility] documented in this encounter Plan of Treatment Not on filedocumented as of this encounter Procedures Procedure Name Priority Date/Time Associated Diagnosis Comme nts XR LUMBAR SPINE 2-3 Routine 09/30/2018 8:30 AM Age-related Re sults for this VIEWS [facility] osteoporosis without procedu re are in current pathological the res ults fracture section. XR THORACIC SPINE 3 Routine 09/30/2018 8:29 AM Re sults for this VIEWS [facility] procedure are i n the results section. documented in this encounter Results X-ray lumbar spine 2-3 views (09/30/2018 8:30 AM [facility]) Anatomical Region Laterality Modality Spine, L-spine Radiographic Imaging Specimen (Source) Anatomical Collection Method Collection Time Re ceived Time Location / / Volume Laterality 09/30/2018 8:30 AM [facility] Impressions 09/30/2018 8:43 AM [facility] IMPRESSION: No significant interval change compared to the 01/12 2017 exam as described above, most significantly invo lving the L5 vertebral body. No new acute fracture identified within limitations discussed above. Other chronic findings as above. Narrative 09/30/2018 8:43 AM [facility] INDICATION: To followup/evaluate vertebral compressi on fractures in the setting of osteoporosis COMPARISON: 01/12/2017. FINDINGS: Three views. The overall bone density remains signifi cantly decreased. ??Evaluation is also compromised due to overlying stool and bowel gas. ??Given differences in technique, there has been no signific ant change in appearance of multiple vertebral body compression frac tures involving the L1, L2, L3, and L5 levels. ??The L5 level is most si gnificantly involved, and the L2 level is least significantly involved. ? ?No gross acute fracture identified. ??Mild levoscoliosis centere d at L3. ??Mild-moderate multilevel intervertebral degenerative changes, mos t significant at L4-5. ??Irregular calcification overlying the lower pelvis to the left of midline consistent with a degenerating uterine fibroid.. Procedure Note Thom Duran MD - 09/30/2018Form atting of this note might be different from the original. INDICATION: To followup/evaluate vertebral compressi on fractures in the setting of osteoporosis COMPARISON: 01/12/2017. FINDINGS: Three views. The overall bone density remains signifi cantly decreased. Evaluation is also compromised due to overlying stool and bowel gas. Given differences in technique, there has been no signific ant change in appearance of multiple vertebral body compression frac tures involving the L1, L2, L3, and L5 levels. The L5 level is most sign ificantly involved, and the L2 level is least significantly involved. N o gross acute fracture identified. Mild levoscoliosis centered at L3. Mild-moderate multilevel intervertebral degenerative changes, mos t significant at L4-5. Irregular calcification overlying the lower pelvis to the left of midline consistent with a degenerating uterine fibroid.. IMPRESSION: No significant interval change compared to the 01/12 2017 exam as described above, most significantly invo lving the L5 vertebral body. No new acute fracture identified within limitations discussed above. Other chronic findings as above. Lyn Naik MD IMG XR PROCEDURES X-ray thoracic spine 3 views (09/30/2018 8:29 AM [facility]) Anatomical Region Laterality Modality Spine, T-spine Radiographic Imaging Specimen (Source) Anatomical Collection Method Collection Time Re ceived Time Location / / Volume Laterality 09/30/2018 8:29 AM [facility] Impressions 09/30/2018 8:57 AM [facility] IMPRESSION: Diffuse osteopenia. ??Multilevel vertebr al body compression deformities as described above. Mild-moderate multilevel intervertebral degenerative changes. Narrative 09/30/2018 8:57 AM [facility] INDICATION: To followup/evaluate vertebral compressi on fractures in the setting of osteoporosis COMPARISON: Images from a lumbar spine series dated 09/30/2018 and 01/12/2017. FINDINGS: Three views. The overall bone density is significantl y decreased. ??Mild compression deformity involving the T4, T5, and T6 v ertebral bodies. ??Moderate compression deformity involving the T7 v ertebral body. ??Mild-moderate compression deformity involving the T12 vertebral body. ??Mild-moderate multilevel intervertebral degenerative c hanges. ??No abnormal paraspinal soft tissue mass identified. ??The pedic les are intact. ??Additional compression fractures involving the lumb ar spine are described in the lumbar spine series report from the same day. Procedure Note Thom Duran MD - 09/30/2018Form atting of this note might be different from the original. INDICATION: To followup/evaluate vertebral compressi on fractures in the setting of osteoporosis COMPARISON: Images from a lumbar spine series dated 09/30/2018 and 01/12/2017. FINDINGS: Three views. The overall bone density is significantl y decreased. Mild compression deformity involving the T4, T5, and T6 v ertebral bodies. Moderate compression deformity involving the T7 v ertebral body. Mild-moderate compression deformity involving the T12 vertebral body. Mild-moderate multilevel intervertebral degenerative c hanges. No abnormal paraspinal soft tissue mass identified. The pedicle s are intact. Additional compression fractures involving the lumb ar spine are described in the lumbar spine series report from the same day. IMPRESSION: Diffuse osteopenia. Multilevel vertebral body compression deformities as described above. Mild-moderate multilevel intervertebral degenerative changes. Lyn Naik MD IMG XR PROCEDURES Tissue transglutaminase, IgA (09/30/2018 8:09 AM [facility]) athologist Signature Tiss.Transglut <1.2 <4.0 10/01/2018 [facility] aminase Ab, S (Negative) 2:04 PM [facility] (IgA) U/mL Comment: Test Performed by: [facility] [address] [place] [address] (IgA) Specimen Anatomical Collection Method Collection Time Receive d Time (Source) Location / / Volume Laterality Blood 09/30/2018 8:09 AM 9 2:00 [facility] PM [facility] Lyn Naik MD LAB BLOOD ORDERABLES Performing Organization Address City/State/ZIP Code Phon e Number [facility] see result attachment for specific address Protein electrophoresis, serum (09/30/2018 8:09 AM [facility]) Patholo gist Method Time Signature Protein, Total 7.4 6.3 - 7.9 2018 [facility] g/dL 4:36 PM [facility] Albumin, Serum 4.0 3.4 - 4.7 2018 [facility] g/dL 4:36 PM [facility] Pdhea-8-Lizygy 0.2 0.1 - 0.3 2018 [facility] in g/dL 4:36 PM [facility] Ydxkk-5-Vrctmk 0.9 0.6 - 1.0 2018 [facility] in g/dL 4:36 PM [facility] Beta Globulin 0.9 0.7 - 1.2 2018 [facility] g/dL 4:36 PM [facility] Gamma Globulin 1.4 0.6 - 1.6 2018 [facility] g/dL 4:36 PM [facility] A/G Ratio 1.16 2018 [facility] 4:36 PM [facility] Impression SEE BELOW 2018 [facility] 4:36 PM [facility] Comment: No apparent monoclonal protein on serum electrophoresis. Test Performed by: [place] [id number] [place] [address] Specimen Anatomical Collection Method Collection Time Receive d Time (Source) Location / / Volume Laterality Blood 09/30/2018 8:09 AM 9 2:00 [facility] PM [facility] Lyn Naik MD LAB BLOOD ORDERABLES Performing Organization Address City/[facility]/ZIP Code Phon e Number [facility] see result attachment for specific address Immunoglobulin A (IgA) (09/30/2018 8:09 AM [facility]) Patholo gist Method Time Signature Immunoglobulin A 327 61 - 356 10/01/2018 [facility] (IgA) mg/dL 10:32 AM [facility] Comment: Test Performed by: [facility] [place] [address] Specimen Anatomical Collection Method Collection Time Receive d Time (Source) Location / / Volume Laterality Blood 09/30/2018 8:09 AM 9 2:00 [facility] PM [facility] Lyn Naik MD LAB BLOOD ORDERABLES Performing Organization Address City/State/ZIP Code Phon e Number [facility] see result attachment for specific address Intact PTH with Minerals (09/30/2018 8:09 AM [facility]) P athologist Signature Parathyroid 36.5 12.1 - 09/30/2018 [place] Hormone 60.1 pg/mL 1:48 PM [facility] Comment: The results from [...] 8.4 - 10.2 mg/dL 09/30/2018 12:58 PM [facility] Creatinine 0.8 0.4 - 1.2 mg/dL 09/30/2018 12:58 PM [facility] Phosphorus 3.8 2.5 - 4.5 mg/dL 09/30/2018 12:58 PM [facility] Specimen Anatomical Collection Method Collection Time Receive d Time (Source) Location / / Volume Laterality Blood 09/30/2018 8:09 AM 9 [facility] 12:34 PM [facility] Lyn Naik MD LAB BLOOD ORDERABLES Performing Organization Address City/State/ZIP Code Phon e Number [facility] [address] [place] [id number] Alkaline phosphatase, bone specific (09/30/2018 8:09 AM [facility]) [facility] Method Time Signature Bone Alkaline 9.5 mcg/L 09/30/2018 [facility] Phosphatase 8:05 PM [facility] Comment: REFERENCE VALUE------ <=14 (Premenopausal) <=22 (Postmenopausal) Test Performed by: [facility] [address] [place] [address] 09 Specimen Anatomical Collection Method Collection Time Receive d Time (Source) Location / / Volume Laterality Blood 09/30/2018 8:09 AM 9 2:00 [facility] PM [facility] Lyn Naik MD LAB BLOOD ORDERABLES Performing Organization Address City/[facility]/ZIP [facility] Phon e Number [facility] see result attachment for specific address documented in this encounter Visit Diagnoses Diagnosis Age-related osteoporosis without current pathological fracture - Primary History of vertebral compression fractur e Gastroesophageal reflux disease, esophag itis presence not specified Family history of fracture of hip in par ent documented in this encounter Care Teams [employer] Relationship Specialty Start Date End Date Mirella Conteh APRN, TRAINING PROJECT MANAGER PCP - General 03/19/18 04/19/20 [address] [place] [address] documented as of this encounter
--- OUTSIDE RECORDS SUMMARY | 2022-07-24 09:34 | XMS_ITS | Encounter Summary ---
:1940 Author Organization [facility] Address [address] [place] [address] Care Team Providers Name Role Phone Mirella Conteh APRN, FLIGHT FOLLOWER Primary Care Provider [phone] Encounter Details Date Type Department Care Team Description 07/23/2019 Orders Only [place] Mirella Conteh Screening, lipid (Primary Dx ); [address] MRUFUS CNP Hypothyroidism, unspecified type; [place] [address] Screening, anemia, deficiency, iron; [address] [place] [address] Screening for diabetes mellitus; [phone] Osteopor osis, unspecified osteoporosis type, unspecified pathological fracture presence Social [...] on filedocumented as of this encounter Results Lipid panel (07/28/2019 8:07 AM WORKDAY MANAGER) athologist Signature Cholesterol 171 0 - 199 07/28/2019 [facility] mg/dL 1:10 PM WORKDAY MANAGER [facility] Comment: Recommended by National Cholesterol Education Program (ATP III) -------- Cholesterol Ranges -------- <200 ? Desirable 200-239 ? Borderline high >=240 ? High Triglycerides 74 0 - 149 mg/dL 07/28/2019 1:10 PM [facility] Comment: -------- TRIG Ranges -------- <150 ?Normal 150-199 ? Borderline high 200-499 ? High >=500 ? Very high HDL 60 40 - 60 mg/dL 07/28/2019 1:10 PM [facility] Comment: -------- HDL Ranges -------- <40 ?Low 40-59 ?Normal >=60 ? Optimal LDL Calculated 96 0 - 99 mg/dL 07/28/2019 1:10 PM [facility] Comment: -------- LDL Ranges -------- <100 ? Optimal 100-129 ?Near optimal/above op timal 130-159 ?Borderline high 160-189 ?High >=190 ?Very high Fasting? Yes 07/28/2019 8:10 AM [facility] Specimen Anatomical Collection Method Collection Time Receive d Time (Source) Location / / Volume Laterality Blood 07/28/2019 8:07 AM 9 WORKDAY MANAGER 12:35 PM WORKDAY MANAGER Mirella Conteh APRN, FLIGHT FOLLOWER LAB BLOOD ORDERABLES Performing Organization Address City/State/ZIP Code Phon e Number [facility] [address] [place] [address] (ABNORMAL) Basic metabolic panel (07/28/2019 8:07 AM [facility]) P athologist Signature Sodium 143 135 - 145 07/28/2019 [facility] mEq/L 1:[address] [facility] Potassium 3.8 3.5 - 5.1 07/28/2019 [facility] mEq/L 1:[address] [facility] Chloride 101 98 - 107 07/28/2019 [facility] mEq/L 1:[address] [facility] CO2 31 (H) 22 - 29 07/28/2019 [facility] mmol/L 1:[address] [facility] Creatinine 0.8 0.4 - 1.2 07/28/2019 [facility] mg/dL 1:[address] [facility] BUN 14 5 - 25 07/28/2019 [facility] mg/dL 1:[address] [facility] Glucose 89 70 - 100 07/28/2019 [facility] mg/dL 1:[address] [facility] Calcium, 9.2 8.4 - 10.2 07/28/2019 [facility] Total,S mg/dL 1:[address] [facility] Specimen Anatomical Collection Method Collection Time Receive d Time (Source) Location / / Volume Laterality Blood 07/28/2019 8:07 AM 9 WORKDAY MANAGER 12:35 PM WORKDAY MANAGER Mirella Conteh APRN, FLIGHT FOLLOWER LAB BLOOD ORDERABLES Performing Organization Address City/State/ZIP Code Phon e Number [facility] [address] [place] [phone] (ABNORMAL) CBC Branch Off w/Diff (07/28/2019 8:07 AM WORKDAY MANAGER) [facility] gist Method Time Signature WBC 3.7 3.5 - 10.5 07/28/2019 [facility] K/uL 8:49 AM WORKDAY MANAGER [place] RBC 4.22 3.90 - 07/28/2019 [facility] 5.00 M/uL 8:49 AM WORKDAY MANAGER [place] Hemoglobin 12.7 12.0 - 07/28/2019 [facility] 15.5 g/dL 8:49 AM WORKDAY MANAGER [place] Hematocrit 37.3 35.0 - 07/28/2019 [facility] 44.0 % 8:49 AM WORKDAY MANAGER [place] Platelets 235 150 - 450 07/28/2019 [facility] K/uL 8:49 AM WORKDAY MANAGER [place] MCV 88.4 81.6 - 07/28/2019 [facility] 98.3 fL 8:49 AM WORKDAY MANAGER [place] MCH 30.1 26.0 - 07/28/2019 [facility] 32.0 pg 8:49 AM WORKDAY MANAGER [place] MCHC 34.0 32.0 - 07/28/2019 [facility] 36.0 g/dL 8:49 AM WORKDAY MANAGER [place] RDW 13.6 11.9 - 07/28/2019 [facility] SANCHEZ 15.5 % 8:49 AM WORKDAY MANAGER [place] Lymphocytes % 34.1 18.0 - 07/28/2019 [facility] SANCHEZ 45.0 % 8:49 AM WORKDAY MANAGER [place] Mid-size Cells 13.0 (H) 3.3 - 10.1 07/28/2019 [facility] SANCHEZ % 8:49 AM WORKDAY MANAGER [place] Granulocytes/Eileen 52.9 45.8 - 07/28/2019 [facility] SANCHEZ trophils 73.7 % 8:49 AM WORKDAY MANAGER [place] Lymphocytes 1.3 0.9 - 2.9 07/28/2019 [facility] SANCHEZ Absolute K/uL 8:49 AM WORKDAY MANAGER [place] MIDS Absolute 0.5 0.2 - 0.8 07/28/2019 [facility] SANCHEZ K/uL 8:49 AM WORKDAY MANAGER [place] Granulocytes/Eileen 1.9 (L) 2.1 - 8.7 07/28/2019 [facility] SANCHEZ trophils K/uL 8:49 AM WORKDAY MANAGER [place] Absolute Specimen Anatomical Collection Method Collection Time Receive d Time (Source) Location / / Volume Laterality Blood 07/28/2019 8:07 AM 9 8:09 WORKDAY MANAGER AM WORKDAY MANAGER Mirella Conteh APRN, FLIGHT FOLLOWER LAB BLOOD ORDERABLES Performing Organization Address City/State/ZIP Code Phon e Number [facility] [place] [address] [place] [address] TSH (07/28/2019 8:07 AM WORKDAY MANAGER) P athologist Signature TSH, Sensitive 4.09 0.46 - 07/28/2019 [facility] L 4.68 mIU/L 1:46 PM WORKDAY MANAGER [facility] Comment: The results from this [...] Volume Laterality Blood 07/28/2019 8:07 AM 9 WORKDAY MANAGER 12:35 PM WORKDAY MANAGER Mirella Conteh APRN, CNP LAB BLOOD ORDERABLES Performing Organization Address City/[facility]/ZIP [facility] Phon e Number [facility] [address] [place] [phone] Vitamin D, Total (07/28/2019 8:07 AM WORKDAY MANAGER) athologist Signature Vitamin D, 36.8 ng/mL 07/28/2019 [facility] Total 1:33 PM WORKDAY MANAGER [facility] Comment: Deficient ?<20 ? ng/mL Insufficient ? 20-<30 ??ng/mL Sufficient ? 30-100 ??ng/mL Vitamin D2/D3 fractionation is recommend ed at the discretion of the clinician if Total Vitamin D is w ithin deficient or insufficient range. Specimen Anatomical Collection Method Collection Time Receive d Time (Source) Location / / Volume Laterality Blood 07/28/2019 8:07 AM 9 WORKDAY MANAGER 12:35 PM WORKDAY MANAGER Mirella Conteh APRN, CNP LAB BLOOD ORDERABLES Performing Organization Address City/[facility] Phon e Number [facility] [address] [place] [address] documented in this encounter Visit Diagnoses Diagnosis Screening, lipid - Primary Hypothyroidism, unspecified type Screening, anemia, deficiency, iron Screening for iron deficiency anemia Screening for diabetes mellitus Osteoporosis, unspecified osteoporosis t ype, unspecified pathological fracture presence documented in this encounter Care Teams Circus Performer Relationship Specialty Start Date End Date Mirella Conteh APRN, FLIGHT FOLLOWER PCP - General 03/19/18 04/19/20 [address] [place] [address] documented as of this encounter
--- OUTSIDE RECORDS SUMMARY | 2022-07-24 09:34 | XMS_ITS | Encounter Summary ---
:1940 Author Organization [facility] Address [address] [place] [address] Care Team Providers Name Role Phone Mirella Conteh APRN, DESIGN PRINTING MACHINE SETTER Primary Care Provider [phone] Encounter Details Date Type Department Care Team Description 09/09/2018 Abstract [facility] Mirella Conteh APRN, [address] [place] [address] [phone] [place], [place] [address] Social History Tobacco Use [...] on filedocumented in this encounter Care Teams Energy Auditor Relationship Specialty Start Date End Date Mirella Conteh APRN, GERALD PCP - General 03/19/18 04/19/[address] [place] [address] documented as of this encounter
--- OUTSIDE RECORDS SUMMARY | 2022-07-24 09:34 | XMS_ITS | Encounter Summary ---
:1940 Author Organization [facility] Address [address] [place] [address] Care Team Providers Name Role Phone Mirella Conteh APRN, CNP Primary Care Provider [phone] Encounter Details Date Type Department Care Team Description 08/20/2018 Orders Only [place] Mirella Conteh, [address] GERALD HOOPER CHUCK [place] [address] [phone] [place], [place] [address] Social History Tobacco Use [...] documented as of this encounter Progress Notes Mirella Conteh APRN, CNP - 08/20/2018 9:08 AM CST a ERY STRIPER documented in this encounter Plan of Treatment Not on filedocumented as of this encounter Visit Diagnoses Not on filedocumented in this encounter Care Teams Adult Education Instructor Relationship Specialty Start Date End Date Mirella Conteh APRN, CNP PCP - General 03/19/18 04/19/[address] [place], [place] [id number] documented as of this encounter
--- OUTSIDE RECORDS SUMMARY | 2022-07-24 09:34 | XMS_ITS | Encounter Summary ---
:1940 Author Organization [facility] Address [address] [place] [address] Care Team Providers Name Role Phone Mirella Conteh APRN, HEEL NAILING MACHINE OPERATOR Primary Care Provider [phone] Reason for Referral Consultation (Routine) - Closed Specialty Diagnoses / Procedures Referred By Contact Refer red To Contact Infusion Therapy Diagnoses Age-related osteoporosis without current pathological fracture Lyn Naik [facility] [address] [place], [place] [address] [place] [address] Phone: [phone] Fax: Referral ID Status Reason Start Date Expiration Date Visits V isits Requested Authorized [id number] Closed Specialty 10/09/2019 10/09/2020 1 1 Services Required REMENT SPECIALIST Reason for Visit Reason Comments Osteoporosis 1 year follow up Encounter Details Date Type Department Care Team Description 10/09/2019 Office Visit [facility] [place] Age-related osteoporosis byron murray current pathological fracture (Primary Dx); [address] [place] [address] MD Lyn History of vertebral pritesh yokasta fracture; [place] [address] Gastroesophageal reflux dise ase, esophagitis presence not specified; [phone] Family history of fracture of hip in [...] Sign Reading Time Taken Comments Blood Pressure 111/60 10/09/2019 9:42 AM RETIREMENT SPECIALIST Pulse 96 10/09/2019 9:42 AM RETIREMENT SPECIALIST Temperature 36.9 ??C (98.5 ??F) 10/09/2019 9:42 AM RETIREMENT SPECIALIST Respiratory Rate 18 10/09/2019 9:42 AM RETIREMENT SPECIALIST Oxygen Saturation 98% 10/09/2019 9:42 AM RETIREMENT SPECIALIST Inhaled Oxygen Concentration - - Weight 52.4 kg (115 lb 8 oz) 10/09/2019 9:42 AM RETIREMENT SPECIALIST Height 159 cm (5' 2.6) 10/09/2019 9:42 AM RETIREMENT SPECIALIST Body Mass Index 20.72 10/09/2019 9:42 AM RETIREMENT SPECIALIST documented in this encounter Patient Instructions Patient InstructionsLyn Naik MD - 10/09/2019 10:00 AM CST 1. Last Reclast infusion date: 10/21/2018 Will continue Reclast infusion for a total of 4 years 2. Make sure to separate first dose of calcium from thyroid medicine by more than 4 hours 3. Complete calcium and kidney blood test (non fasting) about a week before infusion 4. Continue the same calcium and vitamin D 5. Work on balance and dont fall REMENT SPECIALIST documented in this encounter Progress Notes Lyn Naik MD - 10/09/2019 10:00 AM CST Estab Patient Visit Primary Care Provider: Mirella Conteh APRN, HEEL NAILING MACHINE OPERATOR Chief Complaint: Follow-up of osteoporosis Subjective Patient ID: Lynnette Thompson is a 79 y.o. female. DISEASE SUMMARY: Patient seen for initial consultation on 09/12/2018. Has history of first bone density done at [facility] in 2014 that showed a T [...] of 43.9. HPI Last endocrine visit in 09/2018. Patient received Reclast infusion on 10/21/2018 Denies any major interim illness. Denies any falls, fractures. Does have some balance concerns. She walks a mile 3 to 4 days a week. No vision concerns. She continues on calcium citrate plus vitamin D 2 tablets twice a day and takes it in the morning and afternoon. She moved it from the evening due to bloating after evening meal with calcium intake. She takes a levothyroxine in the morning. She takes about 1 serving of dairy per day. She takes a glass of wine a week. No tobacco intake. She visits the dentist on a regular basis and denies any concerns. Bone density from 09/2019 showed a T score of -2.8 at the lumbar spine, left femoral neck -1.8, totalhip -2.3, right femoral neck -1.8, total hip -2.1. Could not be officially compared to prior bone density from [facility] Review of systems: As in HPI. All other systems negative. LAB RESULTS Vitamin D from 07/2019: 36.8 Lab Results Component Value Date CREATININE 0.8 07/28/2019 Lab Results Component Value Date CALCIUM 9.2 07/28/2019 PHOS 3.8 09/30/2018 Outpatient Encounter Medications as of 10/09/2019 Medication Sig Dispense Refill ??? Ascorbic Acid [...] facility-administered encounter medications on file as of 10/09/2019. Allergies as of 10/09/2019 - Reviewed 10/09/2019 Allergen Reaction Noted ??? Penicillins Rash Objective Visit Vitals BP 111/60 (BP Location: Left arm, Patient Position: Sitting) Pulse 96 Temp 36.9 ??C (98.5 ??F) Resp 18 Ht 1.59 m (5' 2.6) Wt 52.4 kg (115 lb 8 oz) SpO2 98% BMI 20.72 kg/m?? Smoking Status Never Smoker BSA 1.52 m?? Physical Exam Patient appears well with no apparent distress. Ambulates independently without any concerns. Oral cavity - normal with no ulcers. Cardio vascular - regular rate and rhythm no murmur. Musculoskeletal - no vertebral tenderness, has kyphosis. Assessment/Plan Diagnoses and all orders for this visit: Age-related osteoporosis without current pathological fracture - Calcium; Future - Creatinine, Serum; Future - Ambulatory referral for Infusion History of vertebral compression fracture Gastroesophageal reflux [...] MG/5ML oral suspension 30 mL Reclast infusion on 10/21/2018 1. I reviewed the bone density results with patient. The scores cannot be officially compared to thescores from [facility] but previously her T-scores range from -2.5 to -3.3 and hence there is likely improvement. I have recommended to continue with Reclast for total of 4 years prior to considering drug holiday. Order placed. 2. She will update calcium and creatinine prior to the infusion. 3. She has optimal calcium/vitamin D intake. She was encouraged to continue with this. She understands to separate first dose of calcium by more than 4 hours from levothyroxine to prevent any interference with absorption. 4. Provided with a pamphlet on balance exercises. Fall avoidance was emphasized. 5. Follow-up visit arranged in 1 year. Bone density can be deferred to 2 years. Spine x-rays can also be updated at that time. Patient understands and agrees with the above plan. I have spent 20 minutes in patient care and greater then 50% of the time spent in counseling on evaluation, management and plan of her endocrine issues. REMENT SPECIALIST Oralia Gomez - 10/09/2019 10:00 AM CST Reminder letter scheduled to be sent. REMENT SPECIALIST Mirella Conteh APRN, GERALD - 10/09/2019 10:00 AM CST Reviewed. REMENT SPECIALIST documented in this encounter Plan of Treatment Scheduled Referrals Name Type Priority Associated Diagnoses [facility] Outpatient Referral Routine Age-related O rdered: for Infusion osteoporosis without 020 current pathological fracture documented as of this encounter Results Creatinine, Serum (10/23/2019 8:04 AM CDT) P athologist Signature Creatinine 0.7 0.4 - 1.2 10/23/2019 [facility] mg/dL 8:21 AM CDT [place] Comment: . Specimen Anatomical Collection Method Collection Time Receive d Time (Source) Location / / Volume Laterality Blood 10/23/2019 8:04 AM 0 8:05 CDT AM CDT Lyn Naik MD LAB BLOOD ORDERABLES Performing Organization Address City/State/ZIP Code Phon e Number [facility] [place] [address] [place] [address] Calcium (10/23/2019 8:04 AM CDT) P athologist Signature Calcium, 9.3 8.4 - 10.2 10/23/2019 [facility] Total,S mg/dL 8:21 AM CDT [place] Comment: . Specimen Anatomical Collection Method Collection Time Receive d Time (Source) Location / / Volume Laterality Blood 10/23/2019 8:04 AM 0 8:05 CDT AM CDT Lyn Naik MD LAB BLOOD ORDERABLES Performing Organization Address City/[facility]/ZIP Code Phon e Number [facility] [place] [address] [place] [address] documented in this encounter Visit Diagnoses Diagnosis Age-related osteoporosis without current pathological fracture - Primary History of vertebral compression fractur e Gastroesophageal reflux disease, esophag itis presence not specified Family history of fracture of hip in par ent documented in this encounter Care Teams Gis Instructor Relationship Specialty Start Date End Date Mirella Conteh, RIP MACHINE OPERATOR, HEEL NAILING MACHINE OPERATOR PCP - General 03/19/18 04/19/20 [address] [facility] [place] [address] documented as of this encounter
--- OUTSIDE RECORDS SUMMARY | 2022-07-24 09:34 | XMS_ITS | Encounter Summary ---
:1940 Author Organization [facility] Address [address] [place] [address] Care Team Providers Name Role Phone Mirella Conteh PANEL GLUER, LICENSED CLUB MANAGER Primary Care Provider [phone] Reason for Visit Reason Comments Labs Only Consult DEXA Encounter Details Date Type Department Care Team Description 07/15/2018 Office Visit Asaf Quispe Mirella Conteh Hypothyroidism, unspecified type (Primary Dx); [address] M, RUFUS, LICENSED CLUB MANAGER Osteoporosis, unspecified osteoporosis t ype, unspecified pathological fracture presence; CHUCK Oropeza [address] Episode of dizziness; [address] [place] [address] Encounter for vitamin deficiency screeni [phone] Social History Tobacco Use Types Packs/Day Years [...] Sign Reading Time Taken Comments Blood Pressure 132/80 07/15/2018 7:49 AM AUTO PHONE INSTALLER Pulse 84 07/15/2018 7:49 AM AUTO PHONE INSTALLER Temperature 36.2 ??C (97.1 ??F) 07/15/2018 7:49 AM AUTO PHONE INSTALLER Respiratory Rate 17 07/15/2018 7:49 AM AUTO PHONE INSTALLER Oxygen Saturation 98% 07/15/2018 7:49 AM AUTO PHONE INSTALLER Inhaled Oxygen Concentration - - Weight 51.3 kg (113 lb 1.5 oz) 07/15/2018 7:49 AM AUTO PHONE INSTALLER Height 158 cm (5' 2.21) 07/15/2018 7:49 AM AUTO PHONE INSTALLER Body Mass Index 20.55 07/15/2018 7:49 AM AUTO PHONE INSTALLER documented in this encounter Patient Instructions Patient InstructionsChcullen Conteh APRN, CNP - 07/15/2018 8:00 AM AUTO PHONE INSTALLER Will call with the lab results Consider the following immunizations: flu, Shingrix, Prevnar, and Pneumovax Will call with the DEXA scan report PHONE INSTALLER documented in this encounter Progress Notes Mirella Conteh APRN, CNP - 07/15/2018 8:00 AM CST Estab Patient Visit Subjective Patient ID: Lynnette Thompson is a 77 y.o. female presenting for the following concerns. Chief Complaint Patient presents with ??? Labs Only ??? Consult DEXA HPI: The patient is a pleasant 77-year-old female presenting ambulatory to the clinical setting today requesting to have her thyroid medication renewed and lab work completed. The patient has a history of hypothyroidism diagnosed in either 2008 or 2009, when she was having episodes of nervousness and losing weight, and part of the evaluation included lab work, indicated she had hypothyroidism. The patientreports she was initially started on a dose of 25 mcg daily, and currently she is on 75 mcg daily. The patient reports she has a history of osteopenia; however, when reviewing her DEXA scan from 07/19/2015, the patient has osteoporosis, and was unaware of the diagnosis. The patient is taking calcium Hugo-Citrate twice daily and not consistently the second dose. The patient reports she fell a month ago, in her restoration, with no fractures nor pain. The patient is requesting to have a Vitamin D level checked. The patient is uncertain if she has a family history of osteoporosis. 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 The patient reports her symptoms were associated with head movement,and if she laid flat, with her eyes closed her symptoms improved. The patient felt a bit nauseous. No neurological symptoms, no trouble swallowing, weakness on one side of the body or the other. The patient denied any cardiovascular symptoms no chest pain, discomfort, palpitations, syncope, presyncope, and/or peripheral edema. The patient has never had similar symptoms. No history of benign positional vertigo. The patient reports she has had mild episodes of lightheadedness since, but nothing to the same degree. The patient reports she went to her chiropractor, who felt her neck was tight, and possibly contributed to her symptoms. The patient's Tdap is up-to-date on 06/10/2010. The patient does not have a seasonal flu shot. The patient is due for her Prevnar, Pneumovax, and Shingrix. The patient's last mammogram was on 09/24/2017. The patient reports she had Cologuard screening a couple of years ago; however, in reviewing Care Everywhere it was 08/02/2015, and the patient is agreeable to proceed with Cologuard screening at thistime. ROS: HEAD/NECK: See HPI. The patient reports she has had neck stiffness alleviated with a chiropractor. CARDIOVASCULAR: See HPI. No chest pain, pressure, palpitations, peripheral edema, presyncope, syncope, and/or cardiac murmurs. The patient did have an episode of dizziness about a month ago which was alleviated with rest and lying flat. The patient reports she has had brief episodes of lightheadednesssince. BREASTS: The patient's last mammogram was on 09/24/2017. GASTROINTESTINAL: The patient reports her constipation has improved with adding fiber. ENDOCRINOLOGY: The patient reports she was diagnosed with thyroid dysfunction, either in 2008 or 2009, and is on a stable dose of Synthroid 75 mcg daily. NEUROLOGICAL: See HPI. The patient did have an episode of dizziness about a month ago which was alleviated with rest and lying flat. The patient reports she has had slight intermittent lightheadedness episodes since. The following portions of the patient's chart were reviewed in this encounter and updated as appropriate: Tobacco Allergies Meds Problems Med Hx Surg Hx Fam Hx Objective Visit Vitals BP 132/80 (BP Location: Left arm, Patient Position: Sitting) Pulse 84 Temp 36.2 ??C (97.1 ??F) (Temporal) Resp 17 Ht 1.58 m (5' 2.21) Wt 51.3 kg (113 lb 1.5 oz) SpO2 98% BMI 20.55 kg/m?? Smoking Status Never Smoker BSA 1.5 m?? GENERAL: The patient is alert, orientated, and in no apparent distress. HEENT: Head normocephalic. Neck - Supple. No cervical or posterior lymphadenopathy. No thyromegaly. CARDIOVASCULAR: Normal heart rate and rhythm. No murmur. RESPIRATORY: Lungs are clear, bilaterally. No wheezing. MUSCULOSKELETAL: The patient moves freely about the room. DIAGNOSTICS: Vitamin D and TSH, results pending. DEXA scan ordered through [facility] in [place]. Cologuard testing paperwork completed. Assessment/Plan Lynnette was seen today for labs only and consult. Diagnoses and all orders for this visit: Hypothyroidism, unspecified type (Primary) - TSH; Future Osteoporosis, unspecified osteoporosis type, unspecified pathological fracture presence - Dexa bone density axial skeleton; Future - Dexa bone density axial skeleton Episode of dizziness Encounter for vitamin deficiency screening - Vitamin D, Total; Future Discussed the plan of care with the patient. The patient will be notified of her TSH results, and then will renew the Synthroid. The patient will follow-up after her DEXA scan to discuss treatment options. The patient should continue calcium with vitamin D twice daily. The patient will continue to monitor her dizziness and if symptoms return she should be evaluated, with consideration of physical therapy for evaluation and treatment. The patient agrees and understands this plan of care. Mirella Conteh APRN, LICENSED CLUB MANAGER PHONE INSTALLER documented in this encounter Plan of Treatment Scheduled Orders Name Type Priority Associated Diagnoses Order S chedule Dexa bone density Imaging Routine Osteoporosis, unspecifi ed Expected: 07/15/2018, axial skeleton osteoporosis type, Expires : 07/15/2019 unspecified pathological fracture presence documented as of this encounter Results Vitamin D, Total (07/15/2018 8:48 AM AUTO PHONE INSTALLER) P athologist Signature Vitamin D, 43.9 ng/mL 07/15/2018 [facility] Total 1:11 PM AUTO PHONE INSTALLER CENTER LABORATORY Comment: ---- Deficient ?<20 ? ng/mL Insufficient ? 20-<30 ??ng/mL Sufficient ? 30-100 ??ng/mL Vitamin D2/D3 fractionation is recommend ed at the discretion of the clinician if Total Vitamin D is w ithin deficient or insufficient range. Specimen Anatomical Collection Method Collection Time Receive d Time (Source) Location / / Volume Laterality Blood (Blood, 07/15/2018 8:48 AM 07/15/20 18 Venous) AUTO PHONE INSTALLER 12:17 PM AUTO PHONE INSTALLER Mirella Conteh APRN, CNP LAB BLOOD ORDERABLES Performing Organization Address [facility] Phon e Number [facility] [address] [place] [id number] (ABNORMAL) TSH (07/15/2018 8:48 AM AUTO PHONE INSTALLER) Analysis Performed At Patho logist Time Signature TSH, Sensitive 5.75 (H) 0.46 - 07/15/2018 [place] 4.68 mIU/L 1:23 PM [facility] Comment: The results from [...] (Blood, 07/15/2018 8:48 AM 07/15/20 18 Venous) AUTO PHONE INSTALLER 12:17 PM AUTO PHONE INSTALLER Mirella Conteh APRN, CNP LAB BLOOD ORDERABLES Performing Organization Address [facility]/ZIP Code Phon e Number [facility] [address] [place] [address] documented in this encounter Visit Diagnoses Diagnosis Hypothyroidism, unspecified type - Prima ry Osteoporosis, unspecified osteoporosis t ype, unspecified pathological fracture presence Episode of dizziness Encounter for vitamin deficiency screeni ng documented in this encounter Care Teams Marriage And Family Counselor Relationship Specialty Start Date End Date Mirella Conteh, PANEL GLUER, LICENSED CLUB MANAGER PCP - General 03/19/18 04/19/20 [address] [facility] [place] [id number] documented as of this encounter
--- OUTSIDE RECORDS SUMMARY | 2022-07-24 09:35 | XMS_ITS | Encounter Summary ---
:1940 Author Organization [facility] Address [address] [place] [address] Care Team Providers Name Role Phone Mirella Conteh APRN, GERALD Primary Care Provider [phone] Encounter Details Date Type Department Care Team Description 05/14/2018 Orders Only [place], [place] [address] [place], [place] [address] [place], [place] [phone] [id number] Social History Tobacco Use Types Packs/Day Years Used Date Smoking Tobacco: Never Assessed Alcohol Habits Answer Date Recorded How often [...] on filedocumented in this encounter Care Teams Fur Scraper Relationship Specialty Start Date End Date Mirella Conteh APRN, HOME HEALTH ASSISTANT PCP - General 03/19/18 04/19/[address] [place] [address] documented as of this encounter
--- OUTSIDE RECORDS SUMMARY | 2022-07-24 09:35 | XMS_ITS | Encounter Summary ---
:1940 Author Organization Address [address] [place] [address] Care Team Providers Name Role Phone Mirella Conteh APRN, LOCK TECHNICIAN Primary Care Provider [phone] Reason for Visit Reason Comments Toe Pain L foot BIG toe Encounter Details Date Type Department Care Team Description 05/17/2018 Office Visit Laura Quispe Mirella Conteh Bunion of great toe of left foot (Primary Dx); [address] M, RUFUS, GERALD Discolored nails; [place], [place] [address] Callus of foot [address] [place] [address] [phone] Social History Tobacco Use Types Packs/Day Years [...] Sign Reading Time Taken Comments Blood Pressure 138/90 05/17/2018 1:26 PM CDT Pulse 92 05/17/2018 1:26 PM CDT Temperature 36.4 ??C (97.5 ??F) 05/17/2018 1:26 PM CDT Respiratory Rate 14 05/17/2018 1:26 PM CDT Oxygen Saturation 97% 05/17/2018 1:26 PM CDT Inhaled Oxygen Concentration - - Weight 51.1 kg (112 lb 10.5 oz) 05/17/2018 1:26 PM CDT Height 156 cm (5' 1.42) 05/17/2018 1:26 PM CDT Body Mass Index 21 05/17/2018 1:26 PM CDT documented in this encounter Patient Instructions Patient InstructionsMirella Conteh NP - 05/17/2018 1:20 PM CDT Refer to Dr. Dickson in [place] for further evaluation and treatment documented in this encounter Progress Notes Mirella Conteh NP - 05/17/2018 1:20 PM CDT Estab Patient Visit Subjective Patient ID: Lynnette Thompson is a 77 y.o. female presenting for the following concerns. Chief Complaint Patient presents with ??? Toe Pain L foot BIG toe HPI/ROS: The patient is a pleasant 77-year-old female presenting ambulatory to the clinical setting today with a bruised left great toenail she noticed in the last day, without any injury. She feels it is possibly related to her bunion, as she points to the first left MTP joint, which she had shaved about 10years ago. The patient denies left first MTP joint discomfort, but rather she has been forming calluses along the inner aspect of her left great toe for years, and now the left second toe, in the past couple of years, which does cause discomfort. The patient reports even though the calluses are uncomfortable she does not limp. She removes the callus along the left great toe; however, she is unable to remove the callus along the left second toe, because the tissue is soft. She reports the callus on the left second toe enlarges and sloughs off. The patient does experience tingling in her left great toe. The patient reports she puts cotton between her toes when the calluses enlarge to promote comfort. The patient feels the callus formation, and now left great toenail bruising, is because of how her left great toe deviates. She is inquiring about a podiatry referral for evaluation and treatment, as she feels her symptoms will not improve as she ages. REVIEW OF SYSTEMS: EXTREMITIES: See HPI. The patient has a bunion on the left great toe, as she points to the first MTPjoint, which is likely causing callus formation on her left great and 2nd toe, which are uncomfortable, and now possible causing bruising on her left great toenail. NEUROLOGICAL: The patient reports she does experience tingling in her left great toe. The following portions of the patient's chart were reviewed in this encounter and updated as appropriate: Tobacco Allergies Meds Problems Med Hx Surg Hx Fam Hx Soc Hx Objective Vitals: 05/17/18 1326 BP: 138/90 Pulse: 92 Resp: 14 Temp: 36.4 ??C (97.5 ??F) SpO2: 97% GENERAL: The patient is alert, orientated and in no apparent distress. EXTREMITIES: Examining the left foot; hallux valgus deformity, medial deviation of the first metatarsal and lateral deviation of the left great toe, there is a bruised area underneath the left great toe nail, on the proximal medial aspect; on the lateral aspect of the left great toe, there is a callusapproximately 1 cm x 1 cm in size; along the medial aspect of the left second toe, is a softer callus formation, approximately 8 mm x 8 mm in size. DIAGNOSTICS: None. Assessment/Plan Lynnette was seen today for toe pain. Diagnoses and all orders for this visit: Bunion of great toe of left foot (Primary) - Ambulatory referral to Podiatry; Future Discolored nails Callus of foot - Ambulatory referral to Podiatry; Future Discussed the plan of care with the patient. Will refer the patient to podiatry in [place], Dr. Dickson. The patient can place cotton between her toes, when the calluses enlarge to promote comfort, and wear good supportive shoes. The patient agrees and understands this plan of care. Mirella Conteh NP documented in this encounter Plan of Treatment Not on filedocumented as of this encounter Visit Diagnoses Diagnosis Bunion of great toe of left foot - Prima ry Bunion Discolored nails Callus of foot Corns and callosities documented in this encounter Care Teams Food Science Technician Relationship Specialty Start Date End Date Mirella Conteh, SALES DESIGNER, LOCK TECHNICIAN PCP - General 03/19/18 04/19/20 [address] [facility] [place] [address] documented as of this encounter
[2022-07-24 13:40] LABS: Albumin* 4.5 g/dL (3.3-5.0)
[2022-07-24 13:43] LABS: Alanine Aminotransferase* 18 U/L (4-35); Alkaline Phosphatase* 53 U/L (40-150); Aspartate Amino Transferase* 29 U/L (12-35); Bilirubin Direct* 0.1 mg/dL (0.0-0.5); Bilirubin Total* 0.7 mg/dL (0.1-1.5); Total Protein* 7.5 g/dL (6.0-8.3)
== END 2022-07-24 09:19 | disposition home or self-care (01) ==
PROVIDERS: PCP Nurse Practitioner Family; Visit Provider Nurse Practitioner Family
DX: Z00.00 Encounter for general adult medical examination without abnormal findings (principal); E03.9 Hypothyroidism, unspecified; R93.89 Abnormal findings on diagnostic imaging of other specified body structures
CPT/HCPCS: 80076; 84443

== ENCOUNTER 2022-08-28 08:35 | Outpatient (CLI) | payer MEDICARE, BC, SELFPAY ==
--- NOTE | 2022-08-28 09:15 | CRLHL7_ITS ---
For Patients: As a result of the Cures Act, medical imaging exams and procedure reports are released immediately into your electronic medical record. You may view this report before your referring provider. If you have questions, please contact your health care provider. INDICATION: 3 mm cystic lesion body of the pancreas; possible lesion in segment 6 of the liver; further assessment. COMPARISON: CT abdomen and pelvis with intravenous contrast November 01, 2021. TECHNIQUE: Precontrast T1 and T2 weighted imaging; T2 haste imaging; diffusion weighted imaging; in and out of phase imaging; postcontrast imaging including subtraction. FINDINGS: No pathology identified involving the liver. No splenic pathology. A 3 mm cystic area identified in the distal body of the pancreas slice 30 series 15 without any enhancement after intravenous injection of contrast; rule out side branch IPMN. no evidence of pancreatic ductal dilatation. No peripancreatic inflammatory changes. Gallbladder is unremarkable. No adrenal pathology. Kidneys are unremarkable. 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 If clinically needed, suggest obtaining a dedicated MR of the lumbosacral spine. Impression: 1. 3 mm cystic area distal body pancreas; rule out side branch IPMN; suggest obtaining a followup MRCP and MRI of the pancreas in 12 months duration. 2. No pathology identified in segment 6 of the liver. Dictated by Debra Leiva MD @ 08/28/2022 4:32:31 PM (Electronically Signed)
== END 2022-08-28 08:36 | disposition home or self-care (01) ==
LOC: MRI 08:37
PROVIDERS: PCP Nurse Practitioner Family; Visit Provider Nurse Practitioner Family
DX: R93.89 Abnormal findings on diagnostic imaging of other specified body structures (principal); K86.2 Cyst of pancreas
CPT/HCPCS: 74183; A9575

== ENCOUNTER 2022-09-07 07:14 | Outpatient (CLI) | payer MEDICARE, BC, SELFPAY ==
--- NOTE | 2022-09-07 08:43 | W.ANESCHARGE ---
Anesthesia Charges Start Date/Time Anesthesia Start Date: 09/07/22 Anesthesia Start Time: 08:00 Stop Date/Time Anesthesia Stop Date: 09/07/22 Anesthesia Stop Time: 08:36 Summary Emergency: No Extremes of Age: Over 70-CPT [id number]
--- NOTE | 2022-09-07 09:23 | W.ANESCHARGE ---
Anesthesia Charges Start Date/Time Anesthesia Start Date: 09/07/22 Anesthesia Start Time: 08:00 Stop Date/Time Anesthesia Stop Date: 09/07/22 Anesthesia Stop Time: 08:36 Summary Emergency: No Extremes of Age: Over 70-CPT [id number]
== END 2022-09-07 07:15 | disposition home or self-care (01) ==
PROVIDERS: PCP Nurse Practitioner Family; Visit Provider Surgery
DX: Z86.010 Personal history of colon polyps (principal); K57.30 Diverticulosis of large intestine without perforation or abscess without bleeding; K63.5 Polyp of colon; K64.8 Other hemorrhoids; Z98.890 Other specified postprocedural states
CPT/HCPCS: 00811; 45385; 88305; 99100; J2704

== ENCOUNTER 2022-11-23 08:01 | Outpatient (CLI) | payer MEDICARE, BC, SELFPAY ==
--- NOTE | 2022-11-23 08:15 | CRLHL7_ITS ---
For Patients: As a result of the Century Cures Act, medical imaging exams and procedure reports are released immediately into your electronic medical record. You may view this report before your referring provider. If you have questions, please contact your health care provider. INDICATION: thyromegaly COMPARISON: none TECHNIQUE: Hughes scale and color Doppler images were acquired of the thyroid gland. FINDINGS: The thyroid gland demonstrates heterogeneous echogenicity and has a smooth outer contour. The right lobe measures 3.3 x 0.9 x 1.0 cm and the left lobe measures 3.7 x 1.1 x 1.2 cm in size. The isthmus measures 2 millimeters. There are no suspicious masses or nodules. Incidental calcification upper pole right thyroid lobe measuring 3 millimeters. The color Doppler images demonstrate increased vascularity. There is no evidence of cervical lymphadenopathy or parathyroid mass. IMPRESSION: Heterogeneous thyroid echotexture without dominant or suspicious nodule. Dictated by Darshan Slade MD @ 11/23/2022 9:54:18 AM (Electronically Signed)
== END 2022-11-23 08:02 | disposition home or self-care (01) ==
PROVIDERS: PCP Nurse Practitioner Family; Visit Provider Nurse Practitioner Family
DX: E01.0 Iodine-deficiency related diffuse (endemic) goiter (principal)
CPT/HCPCS: 76536

== ENCOUNTER 2023-08-07 09:25 | Outpatient (CLI) | payer MEDICARE, BC, SELFPAY | END 2023-08-07 09:26 | disposition home or self-care (01) | PROVIDERS: PCP Nurse Practitioner Family; Visit Provider Nurse Practitioner Family | DX: E03.9 Hypothyroidism, unspecified (principal); M81.8 Other osteoporosis without current pathological fracture; Z13.1 Encounter for screening for diabetes mellitus; Z13.220 Encounter for screening for lipoid disorders; Z13.0 Encounter for screening for diseases of the blood and blood-forming organs and certain disorders involving the immune mechanism | CPT/HCPCS: 80061; 82947; 84443; 85025 ==

== ENCOUNTER 2023-09-17 08:53 | Outpatient (CLI) | payer MEDICARE, BC, SELFPAY ==
--- OUTSIDE RECORDS SUMMARY | 2023-09-17 08:56 | XMS_ITS | Encounter Summary ---
Author Name Unknown Organization [facility] Address [address] [place] [address] Care Team Providers Care Linux Devops Engineer Name Role Phone Elsewhere, Pcp Primary Care Provider Unavailabl e Reason for Visit * Appointment Request (Routine) - Authorized Specialty Diagnoses / Procedures Referred By Nimesh govea Referred To Contact Family Medicine Referral ID Status Reason Start Date Expiration Date V isits Requested Visits Authorized [id number] Authorized 06/12/2023 06/11/2024 1 1 Encounter Details Date Type Department Care Team (Late st Contact Info) Description 06/15/2023 2:40 PM CDT Immunization Department of Family Medicine, [facility], in [address] [phone] Provider, Ana Chamorro M.D. [address] [place] [address] [phone] Canceled (Clinic: Request) Discharge Disposition: Home or Self Care Social History Tobacco Use Types Packs/Day Years Used Date Smoking Tobacco: Never Smokeless Tobacco: Never Nutrition Answer Date Recorded Nutrition: EVOO Fat Source Unknown 10/02 Nutrition: Servings of Fruits/Vegetables per Day Not on file 2020 Dental Answer Date Recorded Dental: Regular Dentist Unknown 10/02/19 21 Sex and Gender Information Value Date Recorded Sex Assigned at Not on file Gender Identity Not on file Sexual Orientation Not on file documented as of this encounter Plan of Treatment Not on file documented as of this encounter Visit Diagnoses Not on filedocumented in this encounter Additional Health Concerns Assessment Noted Time PHQ-9 Depression Total Score: 0 06/12/20 16 6:33 PM CDT documented as of this encounter Care Teams Linux Devops Engineer Relationship Specialty Start Date End Date Elsewhere, Pcp PCP - General 09/01/19 documented as of this encounter
--- OUTSIDE RECORDS SUMMARY | 2023-09-17 08:56 | XMS_ITS | Encounter Summary ---
Author Name Unknown Organization [facility] Address [address] [place] [address] Care Team Providers Care Payroll And Benefits Coordinator Name Role Phone Elsewhere, Pcp Primary Care Provider Unavailabl e Reason for Visit * Reason Comments Glaucoma Encounter Details Date Type Department Care Team (Latest Contact Info) Description 07/31/2023 11:00 AM ECOLOGICAL MODELER Ancillary Procedure Department of Ophthalmology in [address] [phone] Ramon Restrepo M.D. [address] [place] [phone] Primary Open-Angle Glaucoma Severe Stage Bilateral Discharge Disposition: Home or Self Care Social [...] documented as of this encounter Progress Notes * Janel Prajapati, C.O.Francoise. - 07/31/2023 11:00 AM CST Lynnette Thompson was seen today for tech only manifest refraction and iop check. Patient noted initially that she was having some trouble with her current organ glasses. Vision was checked at 20-21 inches, which is about how far she sits away from her organ, with current organ glasses. Vision withcurrent glasses was 20/20 and very minor changes were made to current Rx today. Spoke with patient about starting to use some artificial tears as she notes the vision is intermittently blurry and sheis not currently using any tears. Updated glasses Rx was not given today because of very minor change, but patient was told to call with any continued troubles. All questions answered. #1 Primary Open-Angle Glaucoma Severe Stage Bilateral OGICAL MODELER documented in this encounter Plan of Treatment Scheduled Orders Name Type Priority Associated Diagnoses Orde r Schedule Automated VF - Intermediate - OU - Both Eyes Ophthalmology Routine Primary Open-Angle Glaucoma Severe Stage Bilateral Expected: 12/26/2023, Expires: 10/29/2024 documented as of this encounter Visit Diagnoses Diagnosis Primary Open-Angle Glaucoma Severe Stage Bilateral documented in this encounter Additional Health Concerns Assessment Noted Time PHQ-9 Depression Total Score: 0 06/12/20 16 6:33 PM CDT documented as of this encounter Care Teams Payroll And Benefits Coordinator Relationship Specialty Start Date End Date Elsewhere, Pcp PCP - General 09/01/19 documented as of this encounter
--- OUTSIDE RECORDS SUMMARY | 2023-09-17 08:56 | XMS_ITS | Encounter Summary ---
Author Name Unknown Organization [facility] Address [address] [place] [address] Care Team Providers Care Financial Aid Manager Name Role Phone Elsewhere, Pcp Primary Care Provider Unavailabl e Reason for Visit * Reason Comments Med Refill Encounter Details Date Type Department Care Team (Late st Contact Info) Description 08/27/2023 Refill Department of Ophthalmology in [place], [place] [address] [place] [phone] Ramon Restrepo M.D. [address] [place] [phone] Med Refill Social History Tobacco Use Types Packs/Day Years [...] documented as of this encounter Care Teams Financial Aid Manager Relationship Specialty Start Date End Date Elsewhere, Pcp PCP - General 09/01/19 documented as of this encounter
--- OUTSIDE RECORDS SUMMARY | 2023-09-17 08:56 | XMS_ITS | Clinical Summary ---
Author Name Unknown Organization [facility] er Address [address] [place] [address] Care Team Providers Care Veneer Redrier Name Role Phone Ashly James APRN Primary Care Provider Allergies Active Allergy Reactions Criticality Noted Date Comments Penicillins Rash Medium 08/13/1989 Medications Medication Sig Dispensed Refills Start Date End Date Status latanoprost (XALATAN) 0.005 % ophthalmic solution Administer 1 drop into both eyes 1 (one) time each day 0 Active Ascorbic Acid (VITAMIN C) 500 MG tablet Take 500 mg by mouth 1 (one) time each day During winter months 0 Active timolol (TIMOPTIC) 0.5 % ophthalmic solutionIndications: Open-angle glaucoma of both eyes, unspecified glaucoma stage, unspecified open-angle glaucoma type Administer 1 drop into both eyes 2 (two) times a day 10 mL 0 08/19/2020 Active levothyroxine (Synthroid) 88 MCG tabletIndications:Hy pothyroidism, unspecified type Take 1 tablet (88 mcg total) by mouth 1 (one) time each day 90 tablet 3 08/23/2020 Active calcium citrate-vitamin D (Calcitrate) 315-250 MG-UNIT tabletIndications:Os teoporosis, unspecified osteoporosis type, unspecified pathological fracture presence Take 1 tablet by mouth 2 (two) times a day At lunch and evening meal 120 tablet 0 11/15/2021 Active Calcium Carb-Cholecalciferol (HM Calcium-Vitamin D) 600-800 MG-UNIT tablet Take 1 tablet by mouth 2 (two) times a day 0 Active Diclofenac Sodium 1 % gel gel APPLY TWO GRAM TOPICALLY FOUR TIMES A DAY 0 10/25/2021 Active Active Problems Problem Noted Date Diagnosed Date Hypothyroidism 08/19/2020 Other specified glaucoma 08/19/2020 Open-angle glaucoma of both eyes 08/19/2020 Age-related osteoporosis wit hout current pathological fracture 10/07/2018 Overview: Managed by endocrine. Reclast infusion in 10/2018, 10/2019. Last bone density in 09/2019. Recommended to continue Reclast for total of 4 years prior to considering drug holiday. Last endocrine visit in 10/2020. Follow-up visit in 1 year with repeat bone density, lumbar and thoracic spine x-rays will be arranged. Chronic sinusitis 10/04/2017 Chronic low back pain 01/12/2017 Overview: History of vertebral compression fracture. Resolved Problems Problem Noted Date Diagnosed Date Resolved Date Episode of dizziness 07/22/2018 021 Recurrent major depressive disorder 12/14/2011 08/19/2020 Overview: Overview: Major Depression Recurrent Episode NOS (296.30) onset unknown Generalized anxiety disorder 05/03/2006 08/19/2020 Immunizations Name Administration Dates Next Due COVID-19, mRNA, LNP-S, PF, 30mcg/0.3mL dose Pfizer 01/24/2022,01/24/2021,12/29/2020 COVID-19, mRNA, LNP-s, PF, es-succrose, 30mcg/0.3mL, COMIRNATY ([id number] Formula) Ages 12+ 06/15/2023 Flu Vaccine High Dose 65yrs and Older IM 05/30/2023,06/20/2022,05/23/2021,2019,06/18/2019 TD Preservative Free 03/15/2021,06/10/2010 Td 06/10/2010 Tdap 06/10/2010 Family History Medical History Relation Comments Colon cancer Brother 2 Metastatic Diabetes Brother 2 Hip fracture Father Breast cancer Father's Sister Other Mother Supranuclear pal sy Breast cancer Sister Relation Status Comments Brother 1 Alive Brother 2 Father Father's Sister Mother Sister Alive Social History Tobacco Use Types Packs/Day Years Used Date Smoking Tobacco: Never Smokeless Tobacco: Never Alcohol Use Standard Drinks/Week Comments Yes 1 (1 standard drink = 0.6 oz pur e alcohol) AUDIT-C Answer Date Recorded Frequency of Alcohol Consumption Monthly or less 05/17/2018 Average Number of Drinks 1 or 2 018 Frequency of Binge Drinking Not on file 12/2017 PHQ-2 Answer Date Recorded PHQ-9 Total Score 0 12/20/2020 Sex and Gender Information Value Date Recorded Sex Assigned at Not on file Gender Identity Not on file Sexual Orientation Not on file Last Filed Vital Signs Vital Sign Reading Time Taken Comments Blood Pressure 112/54 12/19/2021 11:51 AM CDT Pulse 58 12/19/2021 11:51 AM CDT Temperature 36.3 ??C (97.3 ??F) 12/19/2021 11:51 AM C DT Respiratory Rate 16 12/19/2021 11:51 AM CDT Oxygen Saturation 100% 12/19/2021 11:51 AM CDT Inhaled Oxygen Concentration - - Weight 51.8 kg (114 lb 1.4 oz) 11/15/2021 8:27 A M CDT Height 156 cm (5' 1.42) 11/15/2021 8:27 AM CDT Body Mass Index 21.27 11/15/2021 8:27 AM CDT Plan of Treatment Health Maintenance Due Date Last Done Comments Zoster Vaccines (1 of 2) 1992 Pneumococcal Vaccine: 65+ Years (1 of 1 - PCV) 2007 Medicare Annual Wellness Visit (AWV) 02/01/2019 02/01/2018 Fall Risk Performed 11/15/2022 11/15/2021 Bone Density Scan 12/06/2026 12/06/2021, , 07/22/2018, Additional history exists DTaP,Tdap,and Td Vaccines (4 - Td or Tdap) 03/15/2031 03/15/2021, 06/10/2010, 06/10/2010, Additional history exists Influenza Vaccine Completed 05/30/2023, , 05/23/2021, Additional history exists COVID-19 Vaccine Completed 06/15/2023, , 01/24/2022, Additional history exists Mammogram Discontinued 08/15/2023 HPV Vaccines Aged Out No longer eligi ble based on patient's age to complete this topic Care Teams Veneer Redrier Relationship Specialty Start Date End Date Ashly James, OFFICE EQUIPMENT MECHANIC [address] [place] [id number] PCP - General 05/31/23
--- OUTSIDE RECORDS SUMMARY | 2023-09-17 08:56 | XMS_ITS | Encounter Summary ---
Author Name Unknown Organization [facility] Address [address] [place] [address] Care Team Providers Care Cdl Program Coordinator Name Role Phone Elsewhere, Pcp Primary Care Provider Unavailabl e Encounter Details Date Type Department Care Team (Late st Contact Info) Description 04/02/2023 1:15 PM CDT Silent Schedule Department of Ophthalmology in [place], [place] [address] [place] [phone] Ramon Restrepo M.D. [address] [place] [phone] Social History Tobacco Use Types Packs/Day Years Used Date Smoking Tobacco: Never Smokeless Tobacco: Never Nutrition Answer Date Recorded Nutrition: EVOO Fat Source Unknown 10/02 Nutrition: Servings of Fruits/Vegetables per Day Not on file 2020 Dental Answer Date Recorded Dental: Regular Dentist Unknown 10/02/19 Sex and Gender Information Value Date Recorded Sex Assigned at Not on file Gender Identity Not on file Sexual Orientation Not on file documented as of this encounter Plan of Treatment Not on file documented as of this encounter Procedures Procedure Name Priority Date/Time Associated Diagnosis Comments OPTICAL COHERENCE TOMOGRAPHY (OCT) - OPTIC NERVE - OU - BOTH EYES Routine 04/02/2023 2:33 PM CDT Primary Open-Angle Glaucoma Severe Stage Bilateral documented in this encounter Results * Optical Coherence Tomography - Optic Nerve - OU - Both Eyes (04/02/2023 2:33 PM CDT) Narrative OPHTHALMOLOGY IMAGING EXAM - 04/02/2023 2:33 PM CDT OCT device used was ONOFFMIX (?)s . Right Eye Reliability was good. Temporal progression was stable. Superior progression was stable. Superior thickness was showing abnormal thinning. Nasal thickness was normal. Inferior progression was stable. Inferior thickness was showing abnormal thinning. Left Eye Reliability was good. Temporal progression was stable. Temporal thickness was normal. Superior progression was stable. Superior thickness was showing abnormal thinning. Nasal thickness was normal. Inferior progression was stable. Inferior thickness was showing abnormal thinning. Ramon Restrepo M.D. OPHTH TOMOGRAPHY OPHTHALMOLOGY IMAGING EXAM documented in this encounter Visit Diagnoses Not on filedocumented in this encounter Additional Health Concerns Assessment Noted Time PHQ-9 Depression Total Score: 0 06/12/20 16 6:33 PM CDT documented as of this encounter Care Teams Cdl Program Coordinator Relationship Specialty Start Date End Date Elsewhere, Pcp PCP - General 09/01/19 documented as of this encounter
--- OUTSIDE RECORDS SUMMARY | 2023-09-17 08:56 | XMS_ITS | Encounter Summary ---
Author Name Unknown Organization [facility] er Address [address] [place] [address] Care Team Providers Care Supervisor Malt House Name Role Phone Ashly James APRN Primary Care Provider Encounter Details Date Type Department Care Team (Late st Contact Info) Description 09/19/2018 Telephone [place] [address] [place] [address] Mirella Conteh APRN, LOG TUMBLER [address] [place] [address] Social History Tobacco Use Types Packs/Day Years Used Date Smoking Tobacco: Never Smokeless Tobacco: Never Alcohol Use Standard Drinks/Week Comments Yes 1 (1 standard drink = 0.6 oz pur e alcohol) AUDIT-C Answer Date Recorded Frequency of Alcohol Consumption Monthly or less 05/17/2018 Average Number of Drinks 1 or 2 018 Frequency of Binge Drinking Not on file 12/2017 Sex and Gender Information Value Date Recorded Sex Assigned at Not on file Gender Identity Not on file Sexual Orientation Not on file documented as of this encounter Plan of Treatment Not on file documented as of this encounter Visit Diagnoses Not on filedocumented in this encounter Care Teams Supervisor Malt House Relationship Specialty Start Date End Date Ashly James APRN [address] [place] [address] PCP - General 05/31/23 documented as of this encounter
--- OUTSIDE RECORDS SUMMARY | 2023-09-17 08:56 | XMS_ITS | Encounter Summary ---
Author Name Unknown Organization [facility] Address [address] [place] [address] Care Team Providers Care Construction Secretary Name Role Phone Elsewhere, Pcp Primary Care Provider Unavailabl e Encounter Details Date Type Department Care Team (Late st Contact Info) Description 08/07/2023 [facility] [address] [place] [address] Mirella Conteh, C.N.P. [address] [place] [address] Screening Mammogram Breast Cancer (Primary Dx) Social History Tobacco Use Types [...] as of this encounter Visit Diagnoses Diagnosis Screening Mammogram Breast Cancer- Primary documented in this encounter Additional Health Concerns Assessment Noted Time PHQ-9 Depression Total Score: 0 06/12/20 16 6:33 PM CDT documented as of this encounter Care Teams Construction Secretary Relationship Specialty Start Date End Date Elsewhere, Pcp PCP - General 09/01/19 documented as of this encounter
--- OUTSIDE RECORDS SUMMARY | 2023-09-17 08:56 | XMS_ITS | Clinical Summary ---
Author Name Unknown Organization [facility] Address [address] [place] [address] Care Team Providers Care Retail Pharmacist Name Role Phone Elsewhere, Pcp Primary Care Provider Unavailabl e Source Comments Patient records contain information from all sites at [facility]. For routine questions regarding patient records, call [phone] during business hours, M-F 8:00 AM - 5:00 PM Central Time. Record requests for emergency care only can be directed to [phone] at any time.[facility] Allergies Active Allergy Reactions Criticality Noted Date Comments Penicillins Rash Medium 08/13/1989 Medications Medication Sig Dispensed Refills Start Date End Date Status ascorbic acid, vitamin C, (VITAMIN C) 500 mg tablet Take 500 mg by mouth. 0 Active calcium citrate-vitamin D3 315 mg-6.25 mcg (250 Unit) per tablet Take 2 tablets by mouth. 0 10/07/2018 Active levothyroxine (SYNTHROID, LEVOTHROID) 88 mcg tablet Take 88 mcg by mouth daily. 0 05/24/2021 Active timolol (TIMOPTIC) 0.5 % ophthalmic solution Administer 1 drop into both eyes 2 (two) times a day. 10 mL 11 01/30/2023 Active latanoprost (XALATAN) 0.005 % ophthalmic solution INSTILL 1 DROP IN EACH EYE AT BEDTIME 2.5 mL 6 08/02/2023 Active brimonidine (ALPHAGAN) 0.2 % ophthalmic solution INSTILL 1 DROP INTO BOTH EYES TWICE DAILY 5 mL 5 08/27/2023 Active brimonidine (ALPHAGAN) 0.2 % ophthalmic solution Administer 1 drop into both eyes 2 (two) times a day. 5 mL 5 04/02/2023 08/27/2023 Discontinued Active Problems Problem Noted Date Diagnosed Date Primary Open-Angle Glaucoma Severe Stage Bilater al 04/02/2023 Depression Major Recurrent 12/14/2011 Overview: Major Depression Recurrent Episode NOS (296.30) onset unknown Encounters Date Type Department Care Team Description 08/27/2023 Refill Department of Ophthalmology in [address] [phone] Ramon Restrepo M.D. Med Refill 08/15/2023 1:50 PM NET TRAINER - 08/15/2023 11:59 PM NET TRAINER Hospital Encounter Department of Radiology in [address] [phone] Mirella Conteh, C.N.P. Screening Mammogram Breast Cancer Discharge Disposition: Home or Self Care 08/07/[address] [address] Mirella Conteh, C.N.P. Screening Mammogram Breast Cancer (Primary Dx) 08/01/2023 Refill Department of Ophthalmology in [address] [phone] Ramon Restrepo M.D. Med Refill 07/31/2023 11:00 AM NET TRAINER Ancillary Procedure Department of Ophthalmology in [address] [phone] Ramon Restrepo M.D. Primary Open-Angle Glaucoma Severe Stage Bilateral Discharge Disposition: Home or Self Care 06/27/2023 1:30 PM NET TRAINER Office Visit Department of Ophthalmology in [address] [phone] Ramon Restrepo M.D. Primary Open-Angle Glaucoma Severe Stage Bilateral (Primary Dx) Discharge Disposition: Home or Self Care from Last 3 Months Immunizations Name Administration Dates Next Due Influenza high dose QV(65 ye ars or older) (PF) 05/30/2023,06/20/2022,05/23/2021,2019,06/18/2019 SARS-COV-2 (COVID-19) - PFIZ ER (Discontinued)(12 years or older) 08/25/2021,01/24/2021,12/29/2020 SARS-COV-2 (COVID-19) - PFIZ ER BIVALENT TS(Discontinued)(12 YEARS OR OLDER) 06/30/2022 SARS-COV-2 (COVID-19) - PFIZ ER TS(Discontinued)(12 years or older) 01/24/2022 Td (Adult), adsorbed 06/10/2010 Td Preservative Free (TENIVA C, DECAVAC) 03/15/2021,06/10/2010 Tdap 06/10/2010 influenza high dose (65 year s or older) (PF) 06/18/2019 Family History Medical History Relation Name Comments [...] kg (117 lb 4.6 oz) 06/08/2016 8:36 A M CDT Height 158 cm (5' 2.21) 06/08/2016 8:36 AM CDT Body Mass Index 21.31 06/08/2016 8:36 AM CDT Plan of Treatment Health Maintenance Due Date Last Done Comments Depression Monitoring (PHQ-9) 1942 Zoster Vaccines (1 of 2) 1992 Pneumococcal vaccine (65+ ye ars) (1 of 1 - PCV) 2007 Thyroid Stimulating Hormone (TSH) test for thyroid function 08/19/2021 08/19/2020, 07/28/2019, 07/15/2018, Additional history exists Fall Risk Screen (Annual) 08/13/2023 DTaP,Tdap,and Td Vaccines (4 - Td or Tdap) 03/15/2031 03/15/2021, 06/10/2010, 06/10/2010, Additional history exists FIT Discontinued 06/16/2014 Cologuard Discontinued 06/25/2015 Colorectal Cancer Screening Discontinued Colorectal Cancer Surveillance Discontinued Influenza Vaccine Completed 05/30/2023, , 05/23/2021, Additional history exists COVID-19 Vaccine Completed 06/15/2023, , 01/24/2022, Additional history exists CT Colonography Discontinued CT Colonography Discontinued Colonoscopy Discontinued Colonoscopy Discontinued Procedures Procedure Name Priority Date/Time Associated Diagnosis Comments BI BREAST SCREENING BILATERAL WITH TOMOSYNTHESIS RAD - Routine (most inpatients and all outpatients) 08/15/2023 2:08 PM NET TRAINER Screening Mammogram Breast Cancer from Last 3 Months Results * BI Breast Screening Bilateral with Tomosynthesis (08/15/2023 2:08 PM NET TRAINER) Anatomical Region Laterality Modality Breast, Breast Imaging RST L OS, Breast Imaging ARZ LOS, Breast Imaging FLA LOS Bilateral Mammography Impressions 08/15/2023 3:17 PM NET TRAINER Negative. RECOMMENDATION: ??Annual Screening Mammogram ASSESSMENT: ??BI-RADS: 1: Negative. Narrative 08/15/2023 3:17 PM NET TRAINER EXAM: ??BI BREAST SCREENING BILATERAL WITH TOMOSYNTHESIS Current study was evaluated with a Computer Aided Detection (CAD) system. INDICATION: ??Screening mammogram. COMPARISON: ??Prior exam(s) were available and reviewed for comparison. DENSITY: ??d. The breast(s) are extremely dense, which lowers the sensitivity of mammography. FINDINGS: ??No mammographic findings of malignancy. Procedure Note Alejandro Delgado M.D. - 08/15/2023 EXAM: BI BREAST SCREENING BILATERAL WITH TOMOSYNTHESIS Current study was evaluated with a Computer Aided Detection (CAD) system. INDICATION: Screening mammogram. COMPARISON: Prior exam(s) were available and reviewed for comparison. DENSITY: d. The breast(s) are extremely dense, which lowers thesensitivity of mammography. FINDINGS: No mammographic findings of malignancy. IMPRESSION: Negative. RECOMMENDATION: Annual Screening Mammogram ASSESSMENT: BI-RADS: 1: Negative. Mirella COLES BI PROCEDU RES from Last 3 Months Care Teams Retail Pharmacist Relationship Specialty Start Date End Date Elsewhere, Pcp PCP - General 09/01/19
--- OUTSIDE RECORDS SUMMARY | 2023-09-17 08:56 | XMS_ITS | Referral Summary ---
Author Name Unknown Organization [facility] Address [address] [place] [address] Care Team Providers Care Press Smith Helper Name Role Phone Elsewhere, Pcp Primary Care Provider Unavailabl e Source Comments Patient records contain information from all sites at [facility]. For routine questions regarding patient records, call [phone] during business hours, M-F 8:00 AM - 5:00 PM Central Time. Record requests for emergency care only can be directed to [phone] at any time.[facility] Encounters Date Type Department Care Team Description 08/27/2023 Refill Department of Ophthalmology in [address] [phone] Ramon Restrepo M.D. Med Refill 08/15/2023 1:50 PM ORDER PULLER - 08/15/2023 11:59 PM ORDER PULLER Hospital Encounter Department of Radiology in [address] [phone] Mirella Conteh, C.N.P. Screening Mammogram Breast Cancer Discharge Disposition: Home or Self Care 08/07/[address] [facility] [address] [place] [address] Mirella Conteh, C.N.P. Screening Mammogram Breast Cancer (Primary Dx) 08/01/2023 Refill Department of Ophthalmology in [address] [phone] Ramon Restrepo M.D. Med Refill 07/31/2023 11:00 AM ORDER PULLER Ancillary Procedure Department of Ophthalmology in [address] [phone] Ramon Restrepo M.D. Primary Open-Angle Glaucoma Severe Stage Bilateral Discharge Disposition: Home or Self Care 06/27/2023 1:30 PM ORDER PULLER Office Visit Department of Ophthalmology in [address] [phone] Ramon Restrepo M.D. Primary Open-Angle Glaucoma Severe Stage Bilateral (Primary Dx) Discharge Disposition: Home or Self Care from Last 3 Months Allergies Active Allergy Reactions Criticality Noted Date [...] Depression Recurrent Episode NOS (296.30) onset unknown Immunizations Name Administration Dates Next Due Influenza [...] (65 year s or older) (PF) 06/18/2019 Social History Tobacco Use Types Packs/Day Years [...] 06/08/2016 8:36 AM CDT Plan of Treatment Not on file Procedures Procedure Name Priority Date/Time Associated Diagnosis Comments BI BREAST SCREENING BILATERAL WITH TOMOSYNTHESIS RAD - Routine (most inpatients and all outpatients) 08/15/2023 2:08 PM ORDER PULLER Screening Mammogram Breast Cancer from Last 3 Months Results * BI Breast Screening Bilateral with Tomosynthesis (08/15/2023 2:08 PM ORDER PULLER) Anatomical Region Laterality Modality Breast, Breast Imaging RST L OS, Breast Imaging ARZ LOS, Breast Imaging FLA LOS Bilateral Mammography Impressions 08/15/2023 3:17 PM ORDER PULLER Negative. RECOMMENDATION: ??Annual Screening Mammogram ASSESSMENT: ??BI-RADS: 1: Negative. Narrative 08/15/2023 3:17 PM ORDER PULLER EXAM: ??BI BREAST SCREENING BILATERAL WITH TOMOSYNTHESIS [...] RES from Last 3 Months Care Teams Press Smith Helper Relationship Specialty Start Date End Date Elsewhere, Pcp PCP - General 09/01/19
--- OUTSIDE RECORDS SUMMARY | 2023-09-17 08:56 | XMS_ITS | Encounter Summary ---
Author Name Unknown Organization [facility] Address [address] [place] [address] Care Team Providers Care Floor Finisher Name Role Phone Elsewhere, Pcp Primary Care Provider Unavailabl e Reason for Referral * Outpatient (Routine) - Closed Specialty Diagnoses / Procedures Referred By Nimesh govea Referred To Contact Ophthalmology Ramon Restrepo M.D. [address] [place] [address] [facility] Referral ID Status Reason Start Date Expiration Date Visits Re quested Visits Authorized [id number] Closed 04/02/2023 04/01/2026 1 1 Reason for Visit * Reason Comments Glaucoma * Outpatient (Routine) - Closed Specialty Diagnoses / Procedures Referred By Nimesh govea Referred To Contact Ophthalmology Ramon Restrepo M.D. [address] [place] [address] [facility] Referral ID Status Reason Start Date Expiration Date Visits Re quested Visits Authorized [id number] Closed 04/05/2022 04/04/2025 1 1 Encounter Details Date Type Department Care Team (Latest Contact Info) Description 04/02/2023 1:15 PM CDT Ancillary Procedure Department of Ophthalmology in [place], [place] [address] [place] [address] Ramon Restrepo M.D. [address] [place] [phone] Primary Open-Angle Glaucoma Severe Stage Bilateral (Primary Dx); Replacement Intraocular Lens Status Post Discharge Disposition: Home or Self Care Social [...] as of this encounter Progress Notes * Ramon Restrepo M.D. - 04/02/2023 1:15 PM CDT Lynnette Thompson was seen today for Glaucoma #1 Primary Open-Angle Glaucoma Severe Stage Bilateral #2 Replacement Intraocular Lens Status Post The patient is here to follow-up on her severe open-angle glaucoma and bilateral pseudophakia. She is very faithful to taking timolol 1 drop OU b.i.d. and latanoprost 1 drop OU q.h.s.. She is noticedslight decrease in her ability to see the music on her organ. She is due for optical coherence tomography and visual field testing. Last visual field testing which is available was performed at [facility] about 2 years ago. Selective laser trabeculoplasty was performed OU in July of 2021 with good IOP response. Examination: Visual granados by confrontation are grossly intact, motility full, pupils normal, external normal Slit-lamp examination: Lid margins clean, conjunctiva is clear quiet, corneas clear, chambers quiet, IOLs in good position Fundus: Moderate to advanced cupping with significant temporal rim thinning OU. No maculopathy. Thearcades and periphery are normal Optic nerve optical coherence tomography testing shows stability OU. Meza visual field 24-2 studies today compared to March of 2021 shows improvement OU. The right eye shows a dense inferior andnasal step scotoma. The left eye shows a superior altitudinal defect with paracentral scotoma. IOP measures 21 Od and 19 OS. Goal IOP is mid teens. Impression: 1. Severe open-angle glaucoma with stable optic nerve optical coherence tomography testing and improved visual field testing. However, goal IOP is mid teens does not obtained. 2. Pseudophakia OU Plan: 1. The patient is only about 9 months status post last SLT. Therefore, would recommend addition of brimonidine 0.2% 1 drop OU b.i.d. and continue with timolol latanoprost. 2. Recheck IOP in 3 months. Goal is mid teens. documented in this encounter Plan of Treatment Scheduled Referrals Name Type Priority Associated Diagnoses Order Schedule Ophthalmology office visit (clinic) Outpatient Referral Routine Expected: 07/03/2023 (Approximate), Expires: 07/03/2024 documented as of this encounter Procedures Procedure Name Priority Date/Time Associated Diagnosis Comments AUTOMATED VF - EXTENDED - OU - BOTH EYES Routine 04/02/2023 2:33 PM CDT Primary Open-Angle Glaucoma Severe Stage Bilateral OPTICAL COHERENCE TOMOGRAPHY (OCT) - OPTIC NERVE - OU - BOTH EYES Routine 04/02/2023 2:33 PM CDT Primary Open-Angle Glaucoma Severe Stage Bilateral documented in this encounter Results * Automated VF - Extended - OU - Both Eyes (04/02/2023 2:33 PM CDT) Narrative OPHTHALMOLOGY IMAGING EXAM - 04/02/2023 2:33 PM CDT Right Eye Reliability was good. Threshold was 24-2. Findings include inferior, nasal step defect. Left Eye Reliability was good. Threshold was 24-2. Findings include altitudinal defect, paracentral defect. Notes Compared to studies performed at [facility] about 2 years ago there is notable improvement in both visual granados. Ramon Restrepo M.D. OPHTH VISUAL FIEL D OPHTHALMOLOGY IMAGING EXAM * Optical Coherence Tomography - Optic Nerve - OU - Both Eyes (04/02/2023 2:33 PM CDT) Narrative OPHTHALMOLOGY IMAGING EXAM - 04/02/2023 2:33 PM CDT OCT device used was Sazneos . Right Eye Reliability was good. Temporal [...] Diagnoses Diagnosis Primary Open-Angle Glaucoma Severe Stage Bilateral- Primary Replacement Intraocular Lens Status Post documented in this encounter Additional Health Concerns Assessment Noted Time PHQ-9 Depression Total Score: 0 06/12/20 16 6:33 PM CDT documented as of this encounter Care Teams Floor Finisher Relationship Specialty Start Date End Date Elsewhere, Pcp PCP - General 09/01/19 documented as of this encounter
--- OUTSIDE RECORDS SUMMARY | 2023-09-17 08:56 | XMS_ITS | Encounter Summary ---
Author Name Unknown Organization [facility] Address [address] [place] [address] Care Team Providers Care Nailing Machine Operator Name Role Phone Elsewhere, Pcp Primary Care Provider Unavailabl e Reason for Referral * Outpatient (Routine) - Authorized Specialty Diagnoses / Procedures Referred By Nimesh govea Referred To Contact Ophthalmology Ramon Restrepo M.D. [address] [place] [address] [facility] Region Referral ID Status Reason Start Date Expiration Date V isits Requested Visits Authorized [id number] Authorized 06/27/2023 06/26/2026 1 1 Scheduling Instructions With visual field 24-2, pressure check and examination by Dr. Restrepo. R DEFENSE INCIDENT RESPONDER Reason for Visit * Reason Comments Glaucoma * Outpatient (Routine) - Closed Specialty Diagnoses / Procedures Referred By Nimesh govea Referred To Contact Ophthalmology Ramon Restrepo M.D. [address] [place] [address] [facility] Region Referral ID Status Reason Start Date Expiration Date Visits Re quested Visits Authorized [id number] Closed 04/02/2023 04/01/2026 1 1 Encounter Details Date Type Department Care Team (Latest Contact Info) Description 06/27/2023 1:30 PM CYBER DEFENSE INCIDENT RESPONDER Office Visit Department of Ophthalmology in [place], [place] [address] [place] [phone] Ramon Restrepo M.D. [address] [place] [phone] Primary Open-Angle Glaucoma Severe Stage Bilateral (Primary Dx) Discharge Disposition: Home or Self Care Social [...] Progress Notes * Ramon Restrepo M.D. - 06/27/2023 1:30 PM CST Lynnette Thompson was seen today for Glaucoma #1 Primary Open-Angle Glaucoma Severe Stage Bilateral The patient presents to follow-up on her moderate to advanced open-angle glaucoma. We added brimonidine to her treatment on her last visit. She would like to get new glasses Examination: Visual granados by confrontation intact, motility full, pupils normal, external normal Slit-lamp examination: Lid margins clean, conjunctiva is clear quiet, corneas clear, chambers quiet, IOLs in good position IOP measures 18 Od and 20 OS-little change from last measurement. Impression: Moderate to advanced open-angle glaucoma stable pressures on medications. The patient was noted to have a stable visual field on her last examination Plan: 1. Recommend continue current medications 2. IOP check in tech only refraction in about 1 month. IOP check with me in 6 months. R DEFENSE INCIDENT RESPONDER documented in this encounter Plan of Treatment Scheduled Referrals Name Type Priority Associated Diagnoses Order Schedule Ophthalmology office visit (clinic) Outpatient Referral Routine Expected: 12/26/2023 (Approximate), Expires: 09/27/2024 documented as of this encounter Visit Diagnoses Diagnosis Primary Open-Angle Glaucoma Severe Stage Bilateral- Primary documented in this encounter Additional Health Concerns Assessment Noted Time PHQ-9 Depression Total Score: 0 06/12/20 16 6:33 PM CDT documented as of this encounter Care Teams Nailing Machine Operator Relationship Specialty Start Date End Date Elsewhere, Pcp PCP - General 09/01/19 documented as of this encounter
--- OUTSIDE RECORDS SUMMARY | 2023-09-17 08:56 | XMS_ITS | Encounter Summary ---
Author Name Unknown Organization [facility] Address [address] [place] [address] Care Team Providers Care Steam Engineer Name Role Phone Elsewhere, Pcp Primary Care Provider Unavailabl e Reason for Visit * Reason Comments Med Refill Encounter Details Date Type Department Care Team (Late st Contact Info) Description 01/30/2023 Refill Department of Ophthalmology in [place], [place] [address] [place] [phone] Ramon Restrepo M.D. [address] [place] [phone] Med Refill Social History Tobacco Use Types [...] documented as of this encounter Care Teams Steam Engineer Relationship Specialty Start Date End Date Elsewhere, Pcp PCP - General 09/01/19 documented as of this encounter
--- OUTSIDE RECORDS SUMMARY | 2023-09-17 08:56 | XMS_ITS | Encounter Summary ---
Author Name Unknown Organization [facility] Address [address] [place] [address] Care Team Providers Care Bacteriologist Medical Name Role Phone Elsewhere, Pcp Primary Care Provider Unavailabl e Encounter Details Date Type Department Care Team (Latest Contact Info) Description 01/25/2023 Clinical Communication Department of Ophthalmology in [place], [place] [address] [place] [phone] Ramon Restrepo M.D. [address] [place] [phone] Social History Tobacco Use Types Packs/Day Years [...] documented as of this encounter Miscellaneous Notes * Telephone Encounter - Lauren Mccann, C.O.A. - 01/25/2023 12:06 PM CDT Please contact patient to schedule a glaucoma check. Needs to be in a VF slot. Please use appropriate visit type. (Visual field) Provider placed order 04/04/2022. documented in this encounter Plan of Treatment Not on file documented as of this encounter Visit Diagnoses Not on filedocumented in this encounter Additional Health Concerns Assessment Noted Time PHQ-9 Depression Total Score: 0 06/12/20 16 6:33 PM CDT documented as of this encounter Care Teams Bacteriologist Medical Relationship Specialty Start Date End Date Elsewhere, Pcp PCP - General 09/01/19 documented as of this encounter
--- OUTSIDE RECORDS SUMMARY | 2023-09-17 08:56 | XMS_ITS ---
Author Name Unknown Organization [facility] Address [address] [place] [address] Care Team Providers Care Ornamental Iron Worker Apprentice Name Role Phone Unavailable Unavailable Unavailable Surgery Details Not on file Complications Check Surgery Details section. Procedure Estimated Blood Loss Check Surgery Details section. Procedure Findings Check Surgery Details section. Procedure Specimens Taken Check Surgery Details section.
--- OUTSIDE RECORDS SUMMARY | 2023-09-17 08:56 | XMS_ITS | Encounter Summary ---
Author Name Unknown Organization [facility] Address [address] [place] [address] Care Team Providers Care Vascular Ultrasound Technologist Name Role Phone Elsewhere, Pcp Primary Care Provider Unavailabl e Reason for Referral * Outpatient (Routine) - Closed Specialty Diagnoses / Procedures Referred By Nimesh govea Referred To Contact Diagnoses Screening Mammogram Breast Cancer Procedures BI Breast Screening Bilateral with Tomosynthesis Mirella Conteh, C.N.P. [address] [place] [address] [facility] Region Referral ID Status Reason Start Date Expiration Date Visits Re quested Visits Authorized [id number] Closed 08/07/2023 08/06/2024 1 1 URSING OFFICER Reason for Visit * Outpatient (Routine) - Closed Specialty Diagnoses / Procedures Referred By Nimesh govea Referred To Contact Diagnoses Screening Mammogram Breast Cancer Procedures BI Breast Screening Bilateral with Tomosynthesis Mirella Conteh, C.N.P. [address] [place] [address] [facility] Region Referral ID Status Reason Start Date Expiration Date Visits Re quested Visits Authorized [id number] Closed 08/07/2023 08/06/2024 1 1 Encounter Details Date Type Department Care Team (Late st Contact Info) Description 08/15/2023 1:50 PM DISBURSING OFFICER - 08/15/2023 11:59 PM DISBURSING OFFICER Hospital Encounter Department of Radiology in [address] [phone] Mirella Conteh C.N.P. [address] [place] [phone] Screening Mammogram Breast Cancer Discharge Disposition: Home or Self Care Social [...] Sig Dispensed Refills Start Date End Date ascorbic acid, vitamin C, (VITAMIN C) 500 mg tablet Take 500 mg by mouth. 0 calcium citrate-vitamin D3 315 mg-6.25 mcg (250 Unit) per tablet Take 2 tablets by mouth. 0 10/07/2018 latanoprost (XALATAN) 0.005 % ophthalmic solution INSTILL 1 DROP IN EACH EYE AT BEDTIME 2.5 mL 6 08/02/2023 levothyroxine (SYNTHROID, LEVOTHROID) 88 mcg tablet Take 88 mcg by mouth daily. 0 05/24/2021 timolol (TIMOPTIC) 0.5 % ophthalmic solution Administer 1 drop into both eyes 2 (two) times a day. 10 mL 11 01/30/2023 brimonidine (ALPHAGAN) 0.2 % ophthalmic solution Administer 1 drop into both eyes 2 (two) times a day. 5 mL 5 04/02/2023 08/27/2023 documented as of this encounter Plan of Treatment Not on file documented as of this encounter Procedures Procedure Name Priority Date/Time Associated Diagnosis Comments BI BREAST SCREENING BILATERAL WITH TOMOSYNTHESIS RAD - Routine (most inpatients and all outpatients) 08/15/2023 2:08 PM DISBURSING OFFICER Screening Mammogram Breast Cancer documented in this encounter Results * BI Breast Screening Bilateral with Tomosynthesis (08/15/2023 2:08 PM DISBURSING OFFICER) Anatomical Region Laterality Modality Breast, Breast Imaging RST L OS, Breast Imaging ARZ LOS, Breast Imaging FLA LOS Bilateral Mammography Impressions 08/15/2023 3:17 PM DISBURSING OFFICER Negative. RECOMMENDATION: ??Annual Screening Mammogram ASSESSMENT: ??BI-RADS: 1: Negative. Narrative 08/15/2023 3:17 PM DISBURSING OFFICER EXAM: ??BI BREAST SCREENING BILATERAL WITH TOMOSYNTHESIS [...] 1: Negative. Mirella COLES BI PROCEDU RES documented in this encounter Visit Diagnoses Diagnosis Screening Mammogram Breast Cancer documented in this encounter Additional Health Concerns Assessment Noted Time PHQ-9 Depression Total Score: 0 06/12/20 16 6:33 PM CDT documented as of this encounter Care Teams Vascular Ultrasound Technologist Relationship Specialty Start Date End Date Elsewhere, Pcp PCP - General 09/01/19 documented as of this encounter
--- OUTSIDE RECORDS SUMMARY | 2023-09-17 08:56 | XMS_ITS | Encounter Summary ---
Author Name Unknown Organization [facility] Address [address] [place] [address] Care Team Providers Care Barge Captain Name Role Phone Elsewhere, Pcp Primary Care Provider Unavailabl e Encounter Details Date Type Department Care Team (Late st Contact Info) Description 04/02/2023 1:10 PM CDT Silent Schedule Department of Ophthalmology in [place], [place] [address] [place] [phone] Ramon Restrepo M.D. [address] [place] [phone] Social History Tobacco Use Types Packs/Day Years [...] defect. Notes Compared to studies performed at [facility] about 2 years ago there is notable improvement in both visual granados. Ramon Restrepo M.D. OPHTH VISUAL FIEL D OPHTHALMOLOGY IMAGING EXAM documented in this encounter Visit Diagnoses Not on filedocumented in this encounter Additional Health Concerns Assessment Noted Time PHQ-9 Depression Total Score: 0 06/12/20 16 6:33 PM CDT documented as of this encounter Care Teams Barge Captain Relationship Specialty Start Date End Date Elsewhere, Pcp PCP - General 09/01/19 documented as of this encounter
--- OUTSIDE RECORDS SUMMARY | 2023-09-17 08:56 | XMS_ITS | Encounter Summary ---
Author Name Unknown Organization [facility] Address [address] [place] [address] Care Team Providers Care Senior Program Manager Name Role Phone Noris Carter MD Primary Care Provider [phone] Reason for Visit * Reason Comments Immunizations Flu shot Encounter Details Date Type Department Care Team (Late st Contact Info) Description 05/30/2023 2:40 PM CDT Immunization [place] [address] [place] [address] Immunization due (Primary Dx) Social History Tobacco Use Types [...] of this encounter Visit Diagnoses Diagnosis Immunization due- Primary documented in this encounter Care Teams Senior Program Manager Relationship Specialty Start Date End Date Noris Carter MD [address] [place] [address] PCP - General Family Medicine 06/08/20 05/30/23 documented as of this encounter
--- OUTSIDE RECORDS SUMMARY | 2023-09-17 08:56 | XMS_ITS | Encounter Summary ---
Author Name Unknown Organization [facility] Address [address] [place] [address] Care Team Providers Care Smash Hand Name Role Phone Ashly James APRN Primary Care Provider Encounter Details Date Type Department Care Team (Latest Contact Info) Description 06/15/2023 4:00 PM CDT Clinical Support [place] [address] [place] [address] Preventative health care (Primary Dx) Social History Tobacco Use Types [...] as of this encounter Progress Notes * Ivone Stewart RN - 06/15/2023 4:00 PM CDT Patient came in for Covid vaccination today. Administered as ordered without complication. documented in this encounter Plan of Treatment Not on file documented as of this encounter Visit Diagnoses Diagnosis Preventative health care- Primary Routine general medical examination at a health care facility documented in this encounter Care Teams Smash Hand Relationship Specialty Start Date End Date Ashly James APRN [address] [place] [address] PCP - General 05/31/23 documented as of this encounter
--- OUTSIDE RECORDS SUMMARY | 2023-09-17 08:56 | XMS_ITS | Encounter Summary ---
Author Name Unknown Organization [facility] Address [address] [place] [address] Care Team Providers Care Carbon Dioxide Operator Name Role Phone Elsewhere, Pcp Primary Care Provider Unavailabl e Reason for Visit * Reason Comments Med Refill Encounter Details Date Type Department Care Team (Late st Contact Info) Description 08/01/2023 Refill Department of Ophthalmology in [place], [place] [address] [place] [phone] Ramon Restrepo M.D. [address] [place] [phone] Med Refill Social History Tobacco Use Types [...] documented as of this encounter Care Teams Carbon Dioxide Operator Relationship Specialty Start Date End Date Elsewhere, Pcp PCP - General 09/01/19 documented as of this encounter
--- OUTSIDE RECORDS SUMMARY | 2023-09-17 08:57 | XMS_ITS | Encounter Summary ---
Author Name Unknown Organization [facility] Address [address] [place] [address] Care Team Providers Care Graphic Arts Instructor Name Role Phone Elsewhere, Pcp Primary Care Provider Unavailabl e Reason for Visit * Reason Comments Med Refill Encounter Details Date Type Department Care Team (Late st Contact Info) Description 01/25/2023 Refill Department of Ophthalmology in [place], [place] [address] [place] [phone] Ramon Restrepo M.D. [address] [place] [phone] Med Refill Social History Tobacco Use Types [...] documented as of this encounter Care Teams Graphic Arts Instructor Relationship Specialty Start Date End Date Elsewhere, Pcp PCP - General 09/01/19 documented as of this encounter
--- NOTE | 2023-09-17 09:15 | CRLHL7_ITS ---
For Patients: As a result of the Century Cures Act, medical imaging exams and procedure reports are released immediately into your electronic medical record. You may view this report before your referring provider. If you have questions, please contact your health care provider. INDICATION: Pancreatic cyst. COMPARISON: Abdominal MRI dated 28 August 2022. TECHNIQUE: Abdominal MRI with T1 in- and out of phase, T2, diffusion weighted, and progressively delayed post-contrast images. Intravenous gadolinium administered. FINDINGS: No fatty infiltration of the liver. No focal abnormalities identified in the visualized portions of the liver, spleen, adrenal glands, and kidneys. No hydronephrosis. No adenopathy. 5 mm cyst in the body of the pancreas is difficult to visualize on the previous study and is unchanged. A few other tiny cysts in the pancreas. The pancreas is otherwise unremarkable. No bile duct dilation. Normal size of the main pancreatic duct. Mild scoliotic changes of the spine. IMPRESSION: 1. A few very small cysts in the pancreas. Consider follow-up MRI in 1-2 years for further evaluation. Management of Incidental Pancreatic Cysts: A White Paper of the ACR Incidental Findings Committee. Journal of the [place] [employer]. Volume 14, Number 7, February 2017, pages [phone]. Dictated by Jack Butler MD @ 09/21/2023 7:39:45 AM (Electronically Signed)
== END 2023-09-17 08:54 | disposition home or self-care (01) ==
LOC: MRI 08:53
PROVIDERS: PCP Nurse Practitioner Family; Visit Provider Nurse Practitioner Family
DX: K86.9 Disease of pancreas, unspecified (principal)
CPT/HCPCS: 74183; A9575

== ENCOUNTER 2024-08-08 09:25 | Outpatient (CLI) | payer MEDICARE, BC, SELFPAY | END 2024-08-08 09:26 | disposition home or self-care (01) | PROVIDERS: PCP Nurse Practitioner Family; Visit Provider Nurse Practitioner Family | DX: E03.9 Hypothyroidism, unspecified (principal); Z13.228 Encounter for screening for other metabolic disorders; Z13.0 Encounter for screening for diseases of the blood and blood-forming organs and certain disorders involving the immune mechanism | CPT/HCPCS: 80053; 84439; 84443; 85025 ==

== ENCOUNTER 2024-11-06 09:11 | Outpatient (CLI) | payer MEDICARE, BC, SELFPAY | END 2024-11-06 09:12 | disposition home or self-care (01) | PROVIDERS: PCP Nurse Practitioner Family; Visit Provider Nurse Practitioner Family | DX: E01.0 Iodine-deficiency related diffuse (endemic) goiter (principal); E03.9 Hypothyroidism, unspecified | CPT/HCPCS: 84439; 84443; 85025 ==

== ENCOUNTER 2025-01-22 08:22 | Outpatient (CLI) | payer MEDICARE, BC, SELFPAY | END 2025-01-22 08:23 | disposition home or self-care (01) | PROVIDERS: PCP Nurse Practitioner Family; Visit Provider Nurse Practitioner Family | DX: R79.89 Other specified abnormal findings of blood chemistry (principal); D64.9 Anemia, unspecified | CPT/HCPCS: 82728; 83540; 84443; 85025 ==

== ENCOUNTER 2025-04-17 12:26 | Outpatient (CLI) | payer MEDICARE, BC, SELFPAY ==
--- NOTE | 2025-04-17 13:00 | CRLHL7_ITS ---
For Patients: As a result of the Century Cures Act, medical imaging exams and procedure reports are released immediately into your electronic medical record. You may view this report before your referring provider. If you have questions, please contact your health care provider. INDICATION: Pancreatic cyst. COMPARISON: Abdominal MRIs dated 17 September 2023 and 28 August 2022. TECHNIQUE: Abdominal MRI with T1 in- and out of phase, T2, diffusion weighted, and progressively delayed post-contrast images. Intravenous gadolinium administered. FINDINGS: No fatty infiltration of the liver. No focal abnormalities identified in the visualized portions of the liver, spleen, adrenal glands, and kidneys. No hydronephrosis. No adenopathy. 5 mm cyst in the body of the pancreas is unchanged. A few other tiny cysts in the pancreas. The pancreas is otherwise unremarkable. No bile duct dilation. Normal size of the main pancreatic duct. Impression : 1. A few small cysts in the pancreas are unchanged. Recommend follow-up MRI in 2 years to continue documentation of stability. Management of Incidental Pancreatic Cysts: A White Paper of the ACR Incidental Findings Committee. Journal of the [employer]. Volume 14, Number 7, February 2017, pages [phone]. Dictated by Jack Butler MD @ 04/19/2025 7:19:20 AM (Electronically Signed)
== END 2025-04-17 12:27 | disposition home or self-care (01) ==
LOC: MRI 12:27
PROVIDERS: PCP Nurse Practitioner Family; Visit Provider Nurse Practitioner Family
DX: K86.2 Cyst of pancreas (principal)
CPT/HCPCS: 74183; A9575

== ENCOUNTER 2025-05-07 17:12 | Outpatient (CLI) | payer MEDICARE, BC, SELFPAY | END 2025-05-07 17:13 | disposition home or self-care (01) | PROVIDERS: PCP Nurse Practitioner Family; Visit Provider Nurse Practitioner Family | DX: D64.9 Anemia, unspecified (principal); R79.89 Other specified abnormal findings of blood chemistry | CPT/HCPCS: 82728; 85025 ==

== ENCOUNTER 2025-08-11 09:47 | Outpatient (CLI) | payer MEDICARE, BC, SELFPAY | END 2025-08-11 09:48 | disposition home or self-care (01) | PROVIDERS: PCP Nurse Practitioner Family; Visit Provider Nurse Practitioner Family | DX: E03.9 Hypothyroidism, unspecified (principal); I25.10 Atherosclerotic heart disease of native coronary artery without angina pectoris; M81.0 Age-related osteoporosis without current pathological fracture | CPT/HCPCS: 80053; 80061; 84443 ==